=== PATIENT | male | born 1940 | race Caucasian/White ===

== ENCOUNTER 2017-08-13 23:20 | Emergency (ER) | payer MEDICARE, SELFPAY ==
[2017-08-13 23:21] VITALS: BP 164/97; PULSE 78; RESP 16; TEMP 37.1; O2SAT 97; BMI 48.2
--- NOTE | 2017-08-14 00:12 | CT_ITS ---
STUDY: CT SOFT TISSUE NECK WITH CONTRAST REASON FOR EXAM: Male, 76 years old. 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 High resolution transaxial imaging was performed following intravenous administration of 75ML ml of Isovue 300 contrast material. Sagittal and coronal images were reconstructed. Individualized dose optimization techniques were used for this CT. COMPARISON: None. FINDINGS: A centrally necrotic round mass is present in the left neck at the level of the hyoid bone, deep to the sternocleidomastoid muscle and anterior to the carotid space. It abuts the internal jugular vein, which is otherwise patent. Measures 2.8 x 2.4 cm. Adjacent stranding is present. Given the history of head and neck cancer, findings are concerning for primary neoplasm recurrence or necrotic adenopathy. Multiple shotty lymph nodes are present in the left level 5 and supraclavicular stations. The left parotid gland is absent. Normal bilateral proof plate maker spaces. Normal bilateral parapharyngeal spaces. Carotid calcifications. The left submandibular gland is diminutive. Normal visualized nasopharynx. Normal retropharyngeal space. Normal perivertebral space. Normal visualized bilateral faucial tonsils. The visualized tongue, tongue base and oropharynx are normal. Normal epiglottis, bilateral vallecula and hypopharynx. The pre-epiglottic and paraglottic adipose spaces are normal. Normal visualized bilateral piriform sinuses, aryepiglottic folds, vocal cords, and arytenoid-cricoid articulations. Normal subglottic trachea. 13 mm left thyroid nodule. Normal visualized pulmonary apices. Chronic left maxillary sinus disease. Normal visualized cervical spine. CT/Soft Tissue Neck WITH Contrast IMPRESSION: 2.8 cm necrotic mass in the left neck concerning for malignancy/necrotic adenopathy. Tissue diagnosis is needed. Left thyroid nodule. Electronically Signed: Lexa Ybarra MD at 3:23 EDT Tel , Service support ,
--- NOTE | 2017-08-14 00:26 | ED.VISSUMM ---
- ER Visit Summary Date of Service: 08/14/17 Chief Complaint: Neck mass History of Present Illness: The patient is a 76 M who presents with a neck mass. 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 He also had approximately 20+ lymph nodes removed from the left neck. Patient's had several surgeries in this area. He states that initially he saw Dr. Shaw Bobo. He went to see Dr. Shi about 3 weeks ago was told he needed to follow-up with his surgeon in [place] for a mass that he was feeling on the left side.. Patient has appointment and made to do so. About 48 hours ago patient believes the mass started to swell on the left side of his neck. He states it is not painful. He states that tonight his anxiety got the best of him and is worried about not being able to breathe or get blood flow to his brain. Physical Examination: Afebrile vital signs are stable Gen: Well-nourished well-developed Head: Normocephalic atraumatic Eyes: Perrl EOMI ENT: TMs clear no rhinorrhea moist mucous membranes Neck: Supple no lymphadenopathy no JVD nontender there are well-healed surgical incisions. There is a firm mass along the left SCM muscle along a surgical incision. There is no overlying erythema. There is no fluctuance. It is not mobile. Patient is not having any difficulty breathing or swallowing. There is no edema. CVS: Regular rate rhythm no murmurs normal S1-S2 Respiratory: No distress clear to auscultation bilaterally chest nontender Abdomen: Soft nontender nondistended normal bowel sounds no masses Back: Nontender Extremity: Nontender no edema Skin: Normal color no rash Neuro: alert orientated ?3 CN II-XII intact normal strength sensation reflexes gait cerebellar Psych: Normal affect normal mood Test Results: CBC, BMP, and CT of the neck was performed. Emergency Department Course and Treatment: [] Impression: [] This note was generated with unbound technologies dictation software. It may contain incorrect words, spelling, and punctuation that were not noted in review of the chart prior to signing <Cb Null - Last Filed: 08/14/17 00:26> - ER Visit Summary Date of Service: 08/14/17 Chief Complaint: [] History of Present Illness: The patient is a 76 M [] Physical Examination: [] Test Results: [] Emergency Department Course and Treatment: Patient signed out to me to follow-up on CT scan. Results per radiology is a 2.8 cm left sided neck mass that is deep to the sternocleidomastoid muscle and abuts the internal jugular vein. There is no compression of the vein. There is no airway compromise. Patient up-to-date on results. Image studies was placed on a disc for him to take to his specialist at [facility] on Tuesday. He will call on Tuesday for follow-up. He has no fevers and normal white count. Treatment Plan: [] Disposition: Discharge Impression: Left neck mass This note was generated with unbound technologies dictation software. It may contain incorrect words, spelling, and punctuation that were not noted in review of the chart prior to signing <Chon Canada - Last Filed: 08/14/17 04:07> ED Disposition <Cb Null - Last Filed: 08/14/17 00:26> <Chon Canada - Last Filed: 08/14/17 04:07> - Plan for ED Patient: Disposition: Home or Assisted Living Chief Complaint: Wound Diagnosis: Mass of left side of neck Referrals: Alejandra Howell MD [Primary Care Provider] - Additional Instructions: 2.8 cm left-sided neck mass. Call your's specialist at [facility] on Tuesday for closer follow-up for further workup.
--- NOTE | 2017-08-14 00:31 | ED.DCSUM_ITS ---
- ER Visit Summary Date of Service: 08/14/17 Chief Complaint: Neck mass History of Present Illness: The patient is a 76 M who presents with a neck mass. 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 He also had approximately 20+ lymph nodes removed from the left neck. Patient's had several surgeries in this area. He states that initially he saw Dr. Shaw Bobo. He went to see Dr. Shi about 3 weeks ago was told he needed to follow-up with his surgeon in [place] for a mass that he was feeling on the left side.. Patient has appointment and made to do so. About 48 hours ago patient believes the mass started to swell on the left side of his neck. He states it is not painful. He states that tonight his anxiety got the best of him and is worried about not being able to breathe or get blood flow to his brain. Physical Examination: Afebrile vital signs are stable Gen: Well-nourished well-developed Head: Normocephalic atraumatic Eyes: Perrl EOMI ENT: TMs clear no rhinorrhea moist mucous membranes Neck: Supple no lymphadenopathy no JVD nontender there are well-healed surgical incisions. There is a firm mass along the left SCM muscle along a surgical incision. There is no overlying erythema. There is no fluctuance. It is not mobile. Patient is not having any difficulty breathing or swallowing. There is no edema. CVS: Regular rate rhythm no murmurs normal S1-S2 Respiratory: No distress clear to auscultation bilaterally chest nontender Abdomen: Soft nontender nondistended normal bowel sounds no masses Back: Nontender Extremity: Nontender no edema Skin: Normal color no rash Neuro: alert orientated ?3 CN II-XII intact normal strength sensation reflexes gait cerebellar Psych: Normal affect normal mood Test Results: CBC, BMP, and CT of the neck was performed. Emergency Department Course and Treatment: [] Impression: [] This note was generated with Vine dictation software. It may contain incorrect words, spelling, and punctuation that were not noted in review of the chart prior to signing <Cb Null - Last Filed: 08/14/17 00:26> - ER Visit Summary Date of Service: 08/14/17 Chief Complaint: [] History of Present Illness: The patient is a 76 M [] Physical Examination: [] Test Results: [] Emergency Department Course and Treatment: Patient signed out to me to follow- up on CT scan. Results per radiology is a 2.8 cm left sided neck mass that is deep to the sternocleidomastoid muscle and abuts the internal jugular vein. There is no compression of the vein. There is no airway compromise. Patient up -to-date on results. Image studies was placed on a disc for him to take to his specialist at [facility] on Tuesday. He will call on Tuesday for follow- up. He has no fevers and normal white count. Treatment Plan: [] Disposition: Discharge Impression: Left neck mass This note was generated with Vine dictation software. It may contain incorrect words, spelling, and punctuation that were not noted in review of the chart prior to signing <Chon Canada - Last Filed: 08/14/17 04:07> ED Disposition <Cb Null - Last Filed: 08/14/17 00:26> <Chon Canada - Last Filed: 08/14/17 04:07> - Plan for ED Patient: Disposition: Home or Assisted Living Chief Complaint: Wound Diagnosis: Mass of left side of neck Referrals: Alejandra Howell MD [Primary Care Provider] - Additional Instructions: 2.8 cm left-sided neck mass. Call your's specialist at [facility] on Tuesday for closer follow-up for further workup.
[2017-08-14 00:39] LABS: Absolute Lymphocyte Count 0.69 X10^3/ul (0.83-4.51); Basophil# 0.02 X10^3/uL; Basophil% 0.3 % (0-1); Eosinophil# 0.09 X10^3/uL; Eosinophils% 1.4 % (0-5); Hematocrit 40.1 % (40-54); Hemoglobin 13.6 g/dl (13.0-16.5); Lymphocyte # 0.69 X10^3/ul (4.0); Lymphocyte % 10.9 % (19-41); Mean Corp Hgb Conc 33.9 g/gl (32-36); Mean Corpuscular Hgb 31.3 pg (27.0-32.0); Mean Corpuscular Volume 92.2 fL (80-94); Mean Platelet Vol. 8.7 fl (6.2-12.0); Monocyte# 0.52 X10^3/uL; Monocyte% 8.2 % (0-10); Neutrophil # 4.99 X10^3/uL (2.7-7.7); Platelet Count 225 K/mm3 (150-450); RBC Distribution Width CV 13.3 % (11.6-14.6); Red Blood Count 4.35 M/mm3 (4.6-6.2); White Blood Count 6.3 K/mm3 (4.4-11.0)
[2017-08-14 00:43] LABS: POSITIVE COUNT NO; POSITIVE DIFFERENTIAL NO; POSITIVE MORPHOLOGY NO
[2017-08-14 00:55] LABS: Anion Gap 6 (5-15); BUN 12 mg/dL (7-18); BUN/Creat Ratio 15.2 RATIO (10-20); Calcium,Total 8.9 mg/dL (8.5-10.1); Chloride 93 mmol/L (98-107); Creatinine, Serum 0.79 mg/dL (0.70-1.30); EST Glomerular Filtration Rate 101 mL/min (>60); Est Glom Filt Rate - Afr Amer 122 mL/min (>60); Glucose 172 mg/dL (74-106); Potassium 4.4 mmol/L (3.5-5.1); Sodium Level 130 mmol/L (136-145)
[2017-08-14 04:44] VITALS: BP 161/85; PULSE 74; RESP 16; O2SAT 97
== END 2017-08-14 04:45 | disposition home or self-care (01) ==
PROVIDERS: Emergency Medicine; Emergency Provider Emergency Medicine; Family Provider Internal Medicine; PCP Internal Medicine
DX: R22.1 Localized swelling, mass and lump, neck (principal); Z85.858 Personal history of malignant neoplasm of other endocrine glands; Z79.82 Long term (current) use of aspirin; Z79.899 Other long term (current) drug therapy
CPT/HCPCS: 70491; 80048; 85025; 96360; 96361; 99283; J7030; J7040; Q9967; A4216

== ENCOUNTER 2019-05-31 13:50 | Inpatient (IN) | payer MEDICARE, SELFPAY ==
[2019-05-31] VITALS (11 sets, daily range): BP systolic 87–134; BP diastolic 62–74; PULSE 73–104; RESP 15–20; TEMP 36.6–36.9; O2SAT 93–97; BMI 39.4
--- NOTE | 2019-05-31 14:16 | EKG12_ITS ---
Test Reason : Blood Pressure : / mmHG Vent. Rate : 104 BPM Atrial Rate : 108 BPM P-R Int : 000 ms QRS Dur : 090 ms QT Int : 348 ms P-R-T Axes : 000 -54 049 degrees QTc Int : 457 ms Atrial fibrillation with rapid ventricular response Left axis deviation Abnormal ECG Confirmed by GUERRERO ALCALA, MICK ([id number]), associate editor MENDEZ VERA ([id number]) on 06/01/2019 2:25:50 PM Referred By: BRANDON Confirmed By:MICK MASTERS MD
--- NOTE | 2019-05-31 14:16 | RAD_ITS ---
STUDY: X-RAY CHEST REASON FOR EXAM: Male, 78 years old. RIGHT SIDED CP, CHEST DISCOMFORT, AFIB TECHNIQUE: Single AP portable view of the chest. COMPARISON: Comparison is made with prior study dated April 11, 2015. FINDINGS: EKG electrodes are seen. Stable elevation of the right hemidiaphragm. There is no demonstrated pleural abnormality. Normal size heart. Normal mediastinum and michael. Normal visualized pulmonary arteries. Normal visualized aortic arch and descending thoracic aorta. There are diffuse degenerative changes of the visualized thoracic spine. Normal visualized ribs, clavicles, and shoulders. There is no demonstrated abnormality of the visualized soft tissue structures of the upper abdomen. RAD/Chest 1 View (Portable) IMPRESSION: Stable examination. No acute abnormality is seen. Electronically Signed: Yoni De La Cruz, at 15:16 EST , Service support ,
[2019-05-31 14:34] LABS: Absolute Lymphocyte Count 0.84 X10^3/uL (0.83-4.51); Absolute Neutrophil Count 9.3 X10^3/uL (2.0-7.7); Basophil# 0.02 X10^3/uL; Basophil% 0.2 % (0-1); Eosinophil# 0.03 X10^3/uL; Eosinophils% 0.3 % (0-5); Hemoglobin 14.6 g/dL (13.0-16.5); Lymphocyte # 0.84 X10^3/ul (4.0); Lymphocyte % 7.5 % (19-41); Mean Corpuscular Hgb 31.1 pg (27.0-32.0); Mean Corpuscular Volume 91.7 fL (80-94); Mean Platelet Vol. 8.7 fl (6.2-12.0); Monocyte# 1.01 X10^3/uL; NRBC Flagged by Analyzer 0 % (0-5); Neutrophil % 82.6 % (47-70); Platelet Count 280 K/mm3 (150-450); RBC Distribution Width CV 13.2 % (11.6-14.6); RBC Distribution Width SD 44.5 fl (35.1-43.9); Red Blood Count 4.69 M/mm3 (4.6-6.2); White Blood Count 11.2 K/mm3 (4.4-11.0)
--- NOTE | 2019-05-31 14:40 | ED.RN ---
d-dimer 0.85. aware.
[2019-05-31 14:41] LABS: D-Dimer Quantitative (DVT/PE) 0.85 FEU/ug/m (0.27-0.49)
[2019-05-31 14:43] LABS: Anion Gap 7 (5-15); BUN 11 mg/dL (7-18); BUN/Creat Ratio 11.4 RATIO (10-20); Calcium,Total 8.9 mg/dL (8.5-10.1); Chloride 94 mmol/L (98-107); Creatinine, Serum 0.96 mg/dL (0.70-1.30); EST Glomerular Filtration Rate 80 mL/min (>60); Est Glom Filt Rate - Afr Amer 97 mL/min (>60); Glucose 203 mg/dL (74-106); Potassium 3.6 mmol/L (3.5-5.1); Sodium Level 129 mmol/L (136-145)
--- NOTE | 2019-05-31 14:46 | CT_ITS ---
STUDY: CTA CHEST REASON FOR EXAM: Male, 78 years old. PT STATED CHEST PRESSURE TODAY, HX AFIB, HLD, HTN, DIAB RADIATION DOSAGE (If Supplied By Facility): CTDIvol = ( 10.26 ) mGy, DLP = ( 563.10 ) mGycm TECHNIQUE: The examination was performed with the intravenous administration of 100ML ISOVUE 370. Post-processing of the angiographic images was performed, with multiplanar reformation and 3D reconstruction. Individualized dose optimization techniques were used for this CT. COMPARISON: Comparison is made with prior chest radiograph done earlier today. FINDINGS: Normal enhancement of the main pulmonary artery and right and left pulmonary arteries. Normal enhancement of the bilateral peripheral pulmonary arteries. There is no demonstrated pulmonary embolism. Normal thoracic aorta and visualized great vessels. There is no demonstrated aortic dissection. Normal heart and pericardium. Normal mediastinum. Normal hilar regions. Normal visualized trachea and bronchi. There is elevation of the right hemidiaphragm. Mild degree of increased markings at the right lung base suggestive of atelectasis. Normal pleura. Normal chest wall structures. Normal osseous structures. Small layering gallstones along the dependent portion of the gallbladder lumen. CT/CTA Chest W/WO Contrast IMPRESSION: Elevation of the right hemidiaphragm with findings suggestive of right basilar atelectasis. No acute abnormality is seen. Multiple small layering gallstones. Electronically Signed: Yoni De La Cruz, at 15:42 EST , Service support ,
--- NOTE | 2019-05-31 15:29 | ED.VISSUMM ---
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 He reports he has chest pain that began at 2:00 in the morning while he was at rest. He was not sleeping. He describes it as a continuous pressure on the left side of his chest. No radiation. Stated 10 at worst and 5-10 currently. Is worsened by nothing including movement. Is also relieved by nothing. He does report is been diaphoretic with this. He denies any nausea, vomiting, shortness of breath, or palpitations. Patient reports that he had a stress test sometime ago. He denies ever having a heart catheterization. Does report that he had one episode of atrial fibrillation in the distant past as well. He is not anticoagulated. Physical Examination: Vitals: Stable. Afebrile. General: Well-nourished and well-developed. Head: Normocephalic atraumatic. Neck: Supple, no lymphadenopathy. No JVD. Nontender. Cardiovascular: Irregularly irregular rhythm. No murmurs. Respiratory: No respiratory distress. Clear to auscultation bilaterally. Abdominal: Soft, nontender, nondistended, normal bowel sounds. No guarding, rebound, or peritoneal signs. Back: Nontender. Extremities: Nontender, no edema. Skin: Normal color, no rash. Neurologic: Alert and oriented ?3. Cranial nerves II through XII are intact. Normal strength and sensation. Psych: Normal affect. Test Results: EKG is A. fib at [address] changes. Opponent is negative. D-dimer 0.85. Chem-7 shows a sodium 129, chloride 94, glucose 203. CBC shows a white count 11.2 with stable neutrophils 83 and lymphocytes of 8. Chest x-ray shows chronic changes. Clinical Impression(s) from Imaging Studies Chest X-Ray 05/31/19 14:16 IMPRESSION: Stable examination. No acute abnormality is seen. Electronically Signed: Yoni De La Cruz, at 15:16 EST , Service support , Chest CTA 05/31/19 14:46 IMPRESSION: Elevation of the right hemidiaphragm with findings suggestive of right basilar atelectasis. No acute abnormality is seen. Multiple small layering gallstones. Electronically Signed: Yoni Grovenathan, at 15:42 EST , Service support , Emergency Department Course and Treatment: Patient received aspirin by squad. He was given Eliquis p.o. here. His blood pressure was in the 90 systolic when he arrived. He was given a 500 cc bolus of normal saline and his heart rate is now in the 90s to low 100s and he is resting comfortably. Treatment Plan: Patient was discussed with Dr. Bentley. He will be admitted to the hospital for further evaluation and treatment. Disposition: Admitted in improved condition. Impression: 1. Atrial fibrillation, new onset. 2. Chest pain. This note was generated with [employer] dictation software. It may contain incorrect words, spelling, and punctuation that were not noted in review of the chart prior to signing ED Disposition - Plan for ED Patient:
--- NOTE | 2019-05-31 16:13 | ED.RN ---
[facility] [address] [facility]
--- NOTE | 2019-05-31 16:24 | HP.PCM_ITS ---
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 This began this AM at about 0100. It was a constant midsternal to left sided pressure. No SOB/LH/palp/dizziness/diaphoresis. He came to the ER and was found to have afib with rvr. Trop negative. He had afib one time in the past however converted out of it. He has never been on blood thinners and is hesitant to consider starting them. 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) Hypertension (Chronic) Hyperlipemia (Chronic) Type 2 diabetes mellitus (Chronic) Allergies trimethoprim Allergy (Verified 08/13/17 23:25) Itching acetaminophen [From Percocet] Adverse Reaction (Verified 08/13/17 23:25) Other ANXIETY amoxicillin trihydrate [From Augmentin] Adverse Reaction (Verified 08/13/17 23:25) Nausea/Vom/Diarrhea atropine sulfate [From ] Adverse Reaction (Verified 08/13/17 23:25) Unknown ceftriaxone sodium [From Rocephin] Adverse Reaction (Verified 08/13/17 23:25) Rash cephalexin monohydrate [From Keflex] Adverse Reaction (Verified 08/13/17 23:25) Unknown ciprofloxacin [From Cipro] Adverse Reaction (Verified 08/13/17 23:25) Vomiting ciprofloxacin HCl [From Cipro] Adverse Reaction (Verified 08/13/17 23:25) Vomiting gabapentin Adverse Reaction (Verified 08/13/17 23:25) Unknown hyoscyamine sulfate [From ] Adverse Reaction (Verified 04/07/18 23:25) Unknown oxycodone HCl [From Percocet] Adverse Reaction (Verified 08/13/17 23:25) Other ANXIETY phenobarbital [From ] Adverse Reaction (Verified 08/13/17 23:25) Unknown potassium clavulanate [From Augmentin] Adverse Reaction (Verified 08/13/17 23:25) Nausea/Vom/Diarrhea pseudoephedrine HCl [From Sudafed] Adverse Reaction (Verified 08/13/17 23:25) Other UNABLE TO SLEEP scopolamine hydrobromide [From ] Adverse Reaction (Verified 08/13/17 23:25) Unknown sulfadiazine [Sulfadiazine] Adverse Reaction (Verified 08/13/17 23:25) Nausea Home Medications: Ambulatory Orders Medication Instructions Recorded Amitriptyline HCl 75 - 100 mg PO QHS 12/13/13 Docusate Sodium [Colace] 100 mg PO BID 12/13/13 Glimepiride [Amaryl] 4 mg PO BID 12/13/13 Metoprolol Tartrate [Lopressor 50 mg PO BID 12/13/13 (beta hilton)] Polyethylene Glycol 3350 [Miralax] 17 gm PO DAILY 12/13/13 Potassium Chloride [K-Dur] 10 meq PO BID 12/13/13 Aspirin 325 mg PO QHS 08/26/14 Dutasteride [Avodart] 0.5 mg PO DAILY 08/26/14 Hydrochlorothiazide [Hctz] 25 mg PO DAILY 08/26/14 Multivitamins,Therapeutic 1 tablet PO DAILY 08/26/14 [Multivitamin] Amlodipine Besylate 5 mg PO DAILY 05/31/19 Cholecalciferol (Vitamin D3) 2,000 unit PO DAILY 05/31/19 [Vitamin D3] Fentanyl 25 mcg TRANSDERM. 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 Denies: Chest Pain, Edema, Heaviness, Light Headedness, Palpitations, Syncope Respiratory: Denies: Cough, Shortness of Breath, Shortness of breath at rest, Sputum production Gastrointestinal: Denies: Abdominal Pain, Diarrhea, Nausea, Vomiting Genitourinary: Denies: Dysuria Musculoskeletal: Denies: Joint Pain, Joint Tenderness Skin: Denies: Rash, Wounds Neurological: Denies: Numbness, Tingling, Focal weakness Psychiatric: Denies: Anxiety, Depression, Homicidal Ideations, Suicidal Ideations Hematologic/ Lymphatic: Denies: Easy Bruising, Easy Bleeding VTE Information - Inpt Only VTE Present on Admission: No VTE Mechan Device Prophylaxis: None VTE Pharm Prophylaxis ordered?: Yes - Physical Exam Vitals/I&O's: Vital Signs Temp Pulse Resp BP Pulse Ox 98.4 F 101 H 17 112/68 96 05/31/19 13:51 05/31/19 16:06 05/31/19 16:06 05/31/19 16:06 05/31/19 16:06 Oxygen Flow Rate (L/min) 1.5 Oxygen Delivery Method Nasal Cannula Weight: 184 lb 4.903 oz Body Mass Index (BMI) 0.0 Intake and Output for Last 24 Hours 05/29/19 05/30/19 05/31/19 23:59 23:59 23:59 Intake Total 500 / 500 Balance 500 / 500 General: Alert, Oriented x3, Cooperative HEENT: Atraumatic, PERRLA, EOMI, Normocephalic Neck: Supple, No JVD, Negative Carotid Bruits Lungs: Clear to auscultation, Normal air movement Cardiovascular: No murmurs, Irregular Rate Abdomen: Bowel Sounds Present, Soft, Non Tender Extremities: No edema, Capillary Refill Less than 3 Seconds Skin: No rashes, No breakdown Musculoskeletal: - - BL BKA Neurological: Cranial nerves II-XII grossly intact Psych/Mental Status: Normal Affect, Appropriate Laboratory Results 05/31/19 13:54: WBC 11.2 H, RBC 4.69, Hgb 14.6, Hct 43.0, MCV 91.7, MCH 31.1, MCHC 34.0, RDW Std Deviation 44.5 H, RDW Coeff of Usama 13.2, Plt Count 280, MPV 8.7, Immature Gran % (Auto) 0.400, Neut % (Auto) 82.6 H, Lymph % (Auto) 7.5 L, [place] % (Auto) 9.0, Eos % (Auto) 0.3, Baso % (Auto) 0.2, Absolute Neuts (auto) 9.3 H, Absolute Lymphs (auto) 0.84, Nucleated RBC % 0 05/31/19 13:54: Sodium 129 L, Potassium 3.6, Chloride 94 L, Carbon Dioxide 28.0, Anion Gap 7, BUN 11, Creatinine 0.96, Estim Creat Clear Calc 76.20, Est GFR (MDRD) Af Amer 97, Est GFR (MDRD) Non-Af 80, BUN/Creatinine Ratio 11.4, Glucose 203 H, Calcium 8.9, Troponin I < 0.015 05/31/19 13:54: D-Dimer Quant (PE/DVT) 0.85 H* 05/31/19 13:54: Magnesium Pending, TSH Pending Assessment/Plan All Active Problems Atrial fibrillation with RVR (Acute) Sepsis (Acute) 1. paroxysmal afib, rvr - low hundreds currently. eliquis started. echo, cycle enzymes, consider stress test. CTA negative. tsh neg. continue metoprolol 2. neurogenic bladder - self caths. 3. htn - stable 4. hld - statin 5. 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 dmt2 - hold orals. ssi. 7. chronic pain - fentanyl, norco, elavil 8. anxiety - lorazepam DVT ppx: eliquis This patient was seen by Johnny Flores PA-C under the supervision of Doctor Mc. <David Bentley - Last Filed: 05/31/19 18:08> History of Present Illness The patient is a 78 year old M [] Past Medical History Allergies trimethoprim Allergy (Verified 08/13/17 23:25) Itching acetaminophen [From Percocet] Adverse Reaction (Verified 08/13/17 23:25) Other ANXIETY amoxicillin trihydrate [From Augmentin] Adverse Reaction (Verified 08/13/17 23:25) Nausea/Vom/Diarrhea atropine sulfate [From ] Adverse Reaction (Verified 08/13/17 23:25) Unknown ceftriaxone sodium [From Rocephin] Adverse Reaction (Verified 08/13/17 23:25) Rash cephalexin monohydrate [From Keflex] Adverse Reaction (Verified 08/13/17 23:25) Unknown ciprofloxacin [From Cipro] Adverse Reaction (Verified 08/13/17 23:25) Vomiting ciprofloxacin HCl [From Cipro] Adverse Reaction (Verified 08/13/17 23:25) Vomiting gabapentin Adverse Reaction (Verified 08/13/17 23:25) Unknown hyoscyamine sulfate [From ] Adverse Reaction (Verified 08/13/17 23:25) Unknown oxycodone HCl [From Percocet] Adverse Reaction (Verified 08/13/17 23:25) Other ANXIETY phenobarbital [From ] Adverse Reaction (Verified 08/13/17 23:25) Unknown Pork/Porcine Containing Products Adverse Reaction (Verified 05/31/19 16:57) Nausea/Vom/Diarrhea potassium clavulanate [From Augmentin] Adverse Reaction (Verified 08/13/17 23:25) Nausea/Vom/Diarrhea pseudoephedrine HCl [From Sudafed] Adverse Reaction (Verified 08/13/17 23:25) Other UNABLE TO SLEEP scopolamine hydrobromide [From ] Adverse Reaction (Verified 08/13/17 23:25) Unknown sulfadiazine [Sulfadiazine] Adverse Reaction (Verified 08/13/17 23:25) Nausea - Physical Exam Vitals/I&O's: Vital Signs Temp Pulse Resp BP Pulse Ox 98.1 F 89 17 127/74 H 95 05/31/19 16:55 05/31/19 16:55 05/31/19 16:55 05/31/19 16:55 05/31/19 16:55 Oxygen Flow Rate (L/min) 2 Oxygen Delivery Method Nasal Cannula Weight: 163 lb 9.328 oz Body Mass Index (BMI) 39.4 Intake and Output for Last 24 Hours 05/29/19 05/30/19 05/31/19 23:59 23:59 23:59 Intake Total 900 / 900 Balance 900 / 900 Laboratory Results 05/31/19 13:54: WBC 11.2 H, RBC 4.69, Hgb 14.6, Hct 43.0, MCV 91.7, MCH 31.1, MCHC 34.0, RDW Std Deviation 44.5 H, RDW Coeff of Usama 13.2, Plt Count 280, MPV 8.7, Immature Gran % (Auto) 0.400, Neut % (Auto) 82.6 H, Lymph % (Auto) 7.5 L, [place] % (Auto) 9.0, Eos % (Auto) 0.3, Baso % (Auto) 0.2, Absolute Neuts (auto) 9.3 H, Absolute Lymphs (auto) 0.84, Nucleated RBC % 0 05/31/19 13:54: Sodium 129 L, Potassium 3.6, Chloride 94 L, Carbon Dioxide 28.0, Anion Gap 7, BUN 11, Creatinine 0.96, Estim Creat Clear Calc 76.20, Est GFR (MDRD) Af Amer 97, Est GFR (MDRD) Non-Af 80, BUN/Creatinine Ratio 11.4, Glucose 203 H, Calcium 8.9, Troponin I < 0.015 05/31/19 13:54: D-Dimer Quant (PE/DVT) 0.85 H* 05/31/19 13:54: Magnesium 1.8, TSH 1.24 05/31/19 17:01: POC Glucose 221 H Current Medications Apixaban (Eliquis) 5 mg PO BID HEATHER Glucagon () 1 mg IM .X1 PRN PRN Reason: Hypoglycemia Sodium Chloride () 1,000 mls @ 100 mls/hr IV .Q10H [facility] Last Admin: 05/31/19 17:15 Dose: 100 mls/hr Documented by: Dextrose (Dextrose 10%-Water) 250 mls @ 999 mls/hr IV .Q16M PRN; Protocol PRN Reason: HYPOGLYCEMIA Insulin Human Lispro (Humalog Kwikpen (Bkc)) 0 unit SC ACHS [facility]; Protocol Last Admin: 05/31/19 17:19 Dose: 4 units Documented by: Nitroglycerin (Nitrostat) 0.4 mg SUBLINGUAL Q5M PRN PRN Reason: CARDIAC/CHEST PAIN Sodium Chloride () 10 - 40 ml IV UD PRN PRN Reason: SALINE FLUSH Code Visit Addendum: Dr. Bentley I personally examined the patient and reviewed the chart. I agree with the above. 78-year-old male presenting with chest pain since about 2 AM. He said that it is waxed and waned throughout the day. On admission to the ER he was found to be tachycardic and in A. fib on EKG. He has a remote history of A. fib and so therefore it is likely paroxysmal. He is not on any blood thinners at home. 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 Will obtain an echo in the morning, magnesium was 1.8 and his TSH was 1.24. Initial troponin was negative. He did have an elevated d-dimer to 0.85, so he had a CTA of his chest done which was negative for a PE. We will continue with Shi for now. Inpatient E&M: 77682 Init Hosp L3
[2019-05-31] MEDS: APIXABAN 5 MG TABLET PO ×2 (16:31→21:31)
--- NOTE | 2019-05-31 16:46 | ECHOD_ITS ---
Reason For Study: Afib Procedure This was a 2D Doppler, Color Flow transthoracic echocardiogram. Exam performed portable in patient room. Left Ventricle Normal LV size. Left ventricular systolic function is normal. The estimated ejection fraction is 65 %. Stage 1 diastolic dysfunction. No regional wall motion abnormalities noted. Right Ventricle Normal RV size. Normal systolic function. Atria Normal left atrium. Normal right atrium. Mitral Valve Normal mitral valve. Mild (1+) eccentric mitral valve insufficiency. Tricuspid Valve Normal tricuspid valve. Mild (1+) tricuspid valve insufficiency. Pulmonary artery systolic pressure is 29 mmHg. Aortic Valve Trisinus/trileaflet aortic valve. Pulmonic Valve The pulmonic valve is not well visualized. Great Vessels Normal aortic root. The pulmonary artery is normal size. Normal inferior vena cava. Pericardium/Pleural No pericardial effusion. MMode/2D Measurements & Calculations LVIDd: 3.0 cm IVSd: 1.1 cm Ao root diam: 3.0 cm LVIDs: 2.0 cm LVPWd: 1.1 cm RVDd: 3.0 cm FS: 33.2 % LAV(MOD-bp): 60.3 ml LVAd ap4: 21.0 cm2 SV(MOD-sp4): 37.2 ml LAV(MOD-bp) Indexed: 29.3 ml/m2 EDV(MOD-sp4): 55.0 ml LAV(MOD-sp2): 48.0 ml EDV(sp4-el): 58.3 ml LAV(MOD-sp4): 59.3 ml LVAs ap4: 10.8 cm2 ESV(MOD-sp4): 17.9 ml ESV(sp4-el): 18.3 ml EF(MOD-sp4): 67.6 % EF(sp4-el): 68.5 % SV(sp4-el): 39.9 ml LA A4 area: 21.1 cm2 LA dimension(2D): 4.0 cm RA A4 area: 9.8 cm2 Doppler Measurements & Calculations MV E max willi: 69.8 cm/sec Lat Peak E' Willi: 10.3 cm/sec Med Peak E' Willi: 7.8 cm/sec MV A max willi: 69.8 cm/sec E/E' lat: 6.8 E/E' med: 8.9 MV E/A: 1.0 Ao V2 max: 113.2 cm/sec LV V1 max: 85.7 cm/sec PA V2 max: 109.8 cm/sec Ao max P.1 mmHg LV V1 max P.9 mmHg Ao V2 mean: 81.1 cm/sec Ao mean P.9 mmHg Ao V2 VTI: 25.9 cm TR max willi: 244.1 cm/sec TR max P.8 mmHg Interpretation Summary Normal LV size. Left ventricular systolic function is normal. The estimated ejection fraction is 65 %. Stage 1 diastolic dysfunction. Pulmonary artery systolic pressure is 29 mmHg. Mild (1+) eccentric mitral valve insufficiency. Ordering Physician: David Bentley Referring Physician: Alejandra Howell Performed By: Rhea Lew, RDRNON, RVT
[2019-05-31 16:54] LABS: Magnesium 1.8 mg/dL (1.6-2.6); Thyroid Stim Hormone (TSH) 1.24 uIU/mL (0.358-3.74)
[2019-05-31 17:11] LABS: Bedside Glucose 221 mg/dL (70-110)
[2019-05-31] MEDS: 0.9% Normal Saline 1,000 ML 100 ML IV (17:15)
[2019-05-31] MEDS: Insulin Lispro 100 UNIT/ML INSULN.PEN SC ×2 (17:19→21:32)
[2019-05-31] MEDS: LORazepam 1 MG Tablet PO (21:31)
[2019-05-31] MEDS: Atorvastatin Calcium 20 MG Tablet PO (21:31)
[2019-05-31] MEDS: HYDROcodone Bitartrate/Apap 5/325 Tablet PO (21:31)
[2019-05-31] MEDS: Metoprolol Tartrate 50 MG Tablet PO (21:31)
[2019-05-31] MEDS: Docusate Sodium 100 MG Capsule PO (21:31)
[2019-05-31 21:45] LABS: Bedside Glucose 191 mg/dL (70-110)
[2019-05-31] MEDS: MELATONIN 3 MG TABLET PO (23:45)
[2019-06-01] VITALS (9 sets, daily range): BP systolic 124–157; BP diastolic 61–79; PULSE 79–84; RESP 16–18; TEMP 36.7–36.9; O2SAT 92–98
[2019-06-01] MEDS: 0.9% Normal Saline 1,000 ML 100 ML IV (02:49)
[2019-06-01 05:56] LABS: Absolute Lymphocyte Count 0.69 X10^3/uL (0.83-4.51); Absolute Neutrophil Count 4.7 X10^3/uL (2.0-7.7); Basophil# 0.02 X10^3/uL; Basophil% 0.3 % (0-1); Eosinophil# 0.05 X10^3/uL; Eosinophils% 0.8 % (0-5); Hematocrit 39.3 % (40-54); Hemoglobin 13.1 g/dL (13.0-16.5); Lymphocyte # 0.69 X10^3/ul (4.0); Lymphocyte % 11.1 % (19-41); Mean Corp Hgb Conc 33.3 g/dL (32-36); Mean Corpuscular Hgb 31.4 pg (27.0-32.0); Mean Corpuscular Volume 94.2 fL (80-94); Mean Platelet Vol. 8.3 fl (6.2-12.0); Monocyte# 0.75 X10^3/uL; Monocyte% 12.1 % (0-10); NRBC Flagged by Analyzer 0 % (0-5); Neutrophil # 4.67 X10^3/uL (2.7-7.7); Neutrophil % 75.2 % (47-70); Platelet Count 215 K/mm3 (150-450); RBC Distribution Width CV 13.2 % (11.6-14.6); RBC Distribution Width SD 45.6 fl (35.1-43.9); Red Blood Count 4.17 M/mm3 (4.6-6.2); White Blood Count 6.2 K/mm3 (4.4-11.0)
[2019-06-01 06:14] LABS: Anion Gap 7 (5-15); BUN 11 mg/dL (7-18); BUN/Creat Ratio 15.5 RATIO (10-20); Calcium,Total 8.2 mg/dL (8.5-10.1); Chloride 98 mmol/L (98-107); Cholesterol 124 mg/dL (200); Creatinine, Serum 0.71 mg/dL (0.70-1.30); EST Glomerular Filtration Rate 114 mL/min (>60); Est Glom Filt Rate - Afr Amer 138 mL/min (>60); Estimated Creatinine Clearance 64.93 ml/min; Glucose 138 mg/dL (74-106); High Density Lipoprotein 46 mg/dL; Potassium 3.6 mmol/L (3.5-5.1); Sodium Level 134 mmol/L (136-145); Triglycerides 75 mg/dL; Very Low Density Lipoprotein 15 mg/dL (5-40)
[2019-06-01] MEDS: LORazepam 1 MG Tablet PO ×2 (06:17→14:18)
[2019-06-01] MEDS: HYDROcodone Bitartrate/Apap 5/325 Tablet PO ×2 (06:17→14:18)
[2019-06-01 06:25] LABS: Bedside Glucose 107 mg/dL (70-110)
--- NOTE | 2019-06-01 07:38 | CASEMGMT ---
Patient does not have a Healthcare Power of Interior Design Principal or Healthcare Living Will. Mary Ellen MAGDALENO MSW
[2019-06-01] MEDS: Docusate Sodium 100 MG Capsule PO (09:18)
[2019-06-01] MEDS: amLODIPine 5 MG Tablet PO (09:18)
[2019-06-01] MEDS: hydroCHLOROthiazide 25 MG Tablet PO (09:18)
[2019-06-01] MEDS: Lisinopril 40 MG Tablet PO (09:18)
[2019-06-01] MEDS: Finasteride 5 MG Tablet PO (09:19)
[2019-06-01] MEDS: APIXABAN 5 MG TABLET PO (09:19)
[2019-06-01] MEDS: Metoprolol Tartrate 50 MG Tablet PO (09:19)
--- NOTE | 2019-06-01 10:22 | CASEMGMT ---
This RN CM to room to complete CM assessment and pt is out of the dept for testing at this time. Will attempt again later. [place] RN CM
[2019-06-01 12:01] LABS: Bedside Glucose 143 mg/dL (70-110)
--- NOTE | 2019-06-01 12:39 | CASEMGMT ---
ANA ZIMMERMAN assessment: Face to Face with patient for initial transition planning/care coordination assessment. ANA ZIMMERMAN introduced self and role at [facility], pt voices understanding and consents to assessment at this time. Pt is sitting up in bed in no distress at this time. Pt is A/Ox4 at this time and answers all questions appropriately at this time. Pt's is at bedside during assessment. Care providers, pharmacy, and demographics verified/updated at this time. Presentation: Chest pressure that started at 0230 Admitting dx: Afib/Chest pain PCP: Lynda Specialists: Kisha, ENT oncologist at [facility] main Preferred Pharmacy: [facility] Insurance: [employer] Prescription Benefit: HumR Living Will/HPOA: Pt states does not have LW/HPOA and declines to complete at this time. Pt is provided with [facility] [employer] rack card at this time. LNOK: Meredith Cortes, Living Arrangements: Pt states lives with on main level of 2 story home and states no concerns at home at this time. Pt states assists with ADL's at times. Transportation: drives and pt states no transportation concerns at at this time. DME/HHC: Pt states has the following DME: hospital bed, w/c, and lift chair. Pt states no need for any further DME at this time. Pt states no hx of HHC or SNF in the past. Pt states no concerns with going home at time of discharge. Pt states is retired. Pt states does not smoke or drink ETOH. Pt states no further concerns/needs at this time. CM to follow for any further discharge planning/needs. Advised pt to ask for CM if any further questions/concerns/needs arise, voices understanding. Pt Goal: Home Plan: Home [place] ANA ZIMMERMAN
--- NOTE | 2019-06-01 12:40 | PCM.DC ---
- Discharge Diagnoses Current Active Problems: Current Active and Chronic Problems Hyperlipidemia (Chronic) You will use the following diet at home:: Calorie/Carbohydrate Controlled (specify 1200, 1400, etc) - 1800 marques / day, Cardiac Your food should be the consistency of: Regular Your liquids should be the consistency of: Regular/Thin Discharge Activity: Return to Normal Activity Allergies/Adverse Reactions: Allergies trimethoprim Allergy (Verified 08/13/17 23:25) Itching acetaminophen [From Percocet] Adverse Reaction (Verified 08/13/17 23:25) Other ANXIETY amoxicillin trihydrate [From Augmentin] Adverse Reaction (Verified 08/13/17 23:25) Nausea/Vom/Diarrhea atropine sulfate [From ] Adverse Reaction (Verified 08/13/17 23:25) Unknown ceftriaxone sodium [From Rocephin] Adverse Reaction (Verified 08/13/17 23:25) Rash cephalexin monohydrate [From Keflex] Adverse Reaction (Verified 08/13/17 23:25) Unknown ciprofloxacin [From Cipro] Adverse Reaction (Verified 08/13/17 23:25) Vomiting ciprofloxacin HCl [From Cipro] Adverse Reaction (Verified 08/13/17 23:25) Vomiting gabapentin Adverse Reaction (Verified 08/13/17 23:25) Unknown hyoscyamine sulfate [From ] Adverse Reaction (Verified 08/13/17 23:25) Unknown oxycodone HCl [From Percocet] Adverse Reaction (Verified 08/13/17 23:25) Other ANXIETY phenobarbital [From ] Adverse Reaction (Verified 08/13/17 23:25) Unknown Pork/Porcine Containing Products Adverse Reaction (Verified 05/31/19 16:57) Nausea/Vom/Diarrhea potassium clavulanate [From Augmentin] Adverse Reaction (Verified 08/13/17 23:25) Nausea/Vom/Diarrhea pseudoephedrine HCl [From Sudafed] Adverse Reaction (Verified 08/13/17 23:25) Other UNABLE TO SLEEP scopolamine hydrobromide [From ] Adverse Reaction (Verified 08/13/17 23:25) Unknown sulfadiazine [Sulfadiazine] Adverse Reaction (Verified 08/13/17 23:25) Nausea Medications to take at Discharge Amitriptyline HCl 75 - 100 mg PO QHS 12/13/13 Docusate Sodium [Colace] 100 mg PO BID 12/13/13 Glimepiride [Amaryl] 4 mg PO BID 12/13/13 Metoprolol Tartrate [Lopressor (beta hilton)] 50 mg PO BID 12/13/13 Polyethylene Glycol 3350 [Miralax] 17 gm PO DAILY 12/13/13 Potassium Chloride [K-Dur] 10 meq PO BID 12/13/13 Aspirin 325 mg PO QHS 08/26/14 Dutasteride [Avodart] 0.5 mg PO DAILY 08/26/14 Hydrochlorothiazide [Hctz] 25 mg PO DAILY 08/26/14 Multivitamins,Therapeutic [Multivitamin] 1 tablet PO DAILY 08/26/14 Amlodipine Besylate 5 mg PO DAILY 05/31/19 Cholecalciferol (Vitamin D3) [Vitamin D3] 2,000 unit PO DAILY 05/31/19 Fentanyl 25 mcg TRANSDERM. Q72H 05/31/19 Hydrocodone/Acetaminophen [Hydrocodone-Acetamin 5-325 mg] 1 tab PO TID 05/31/19 Lorazepam 1 mg PO TID 05/31/19 Quinapril HCl 40 mg PO DAILY 05/31/19 Rosuvastatin Calcium 10 mg PO QODAY 05/31/19 Apixaban [Eliquis] 5 mg PO BID #60 tab 06/01/19 The following prescriptions were given: Apixaban [Eliquis] 5 mg PO BID #60 tab Transmission Status: Pending to [facility]/pharmacy #[id number] Primary Care Physician: Alejandra Howell MD [Primary Care Provider] - Please follow up with your Primary Care Physician in: 1-2 weeks Test Results: Test results from this visit will be discussed in further detail at your follow-up appointment, if applicable. Please Follow Up With: Gloria Pereyra MD - call for appointment When: 3-4 weeks Proposed Discharge Date: 06/01/19
--- NOTE | 2019-06-01 13:04 | PCM.DC.SUM ---
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 RAD/Chest 1 View (Portable) IMPRESSION: Stable examination. No acute abnormality is seen. CT/CTA Chest W/WO Contrast IMPRESSION: Elevation of the right hemidiaphragm with findings suggestive of right basilar atelectasis. No acute abnormality is seen. Multiple small layering gallstones. Operations: None Procedures: 2-D Echocardiogram, Stress test Summary of Care Provided: Hospital course: The patient is a 78 year old M with pmhx as above who presented to the ER with c/o chest pressure. The patient was found to be in Afib with mild tachycardia. Troponin and EKG otherwise negative. He had a hx of afib one time in the past however had spontaneously converted out of it and was not on anticoagulation. He was admitted to the PCU and his home meds were continued. CTA chest was negative. Echo was obtained (report pending at this time). On tele he had a rate controlled well on his home metoprolol dose. He had episodes of both afib and normal sinus rhythm. Mag was low and was repleted. He had negative troponin x 3. Stress test was obtained and was negative. He had no further chest pain. He had a CHADVASC2 score of at least 4 and was started on eliquis. He was discharged home in stable condition. He has no car attendant so I referred him to Dr. Pereyra whom ideally he should see in the next 3-4 weeks. He will also need to see his PCP in 1-2 weeks. This patient was seen by Johnny Flores PA-C under the supervision of Doctor Bustillo. [] - Physical Exam Vitals/I&O's: Vital Signs Temp Pulse Resp BP Pulse Ox 98.5 F 79 18 152/70 H 98 06/01/19 11:40 06/01/19 11:40 06/01/19 11:40 06/01/19 11:40 06/01/19 11:40 Oxygen Flow Rate (L/min) 2 Oxygen Delivery Method Room Air Weight: 163 lb 9.328 oz Body Mass Index (BMI) 39.4 Intake and Output for Last 24 Hours 05/30/19 05/31/19 06/01/19 23:59 23:59 23:59 Intake Total 1100 / 1100 1671.67 / 1671.67 Output Total 0 / 0 1000 / 1000 Balance 1100 / 1100 671.67 / 671.67 General: Alert, Oriented x3, Cooperative HEENT: Atraumatic, PERRLA, EOMI, Normocephalic Neck: Supple, No JVD, Negative Carotid Bruits Lungs: Clear to auscultation, Normal air movement Cardiovascular: Regular rate, No murmurs Abdomen: Bowel Sounds Present, Soft, Non Tender Extremities: No edema, Capillary Refill Less than 3 Seconds Skin: No rashes, No breakdown Musculoskeletal: No Tenderness to Palpation of Joints or Extremities Neurological: Cranial nerves II-XII grossly intact Psych/Mental Status: Normal Affect, Appropriate Laboratory Results 05/31/19 13:54: WBC 11.2 H, RBC 4.69, Hgb 14.6, Hct 43.0, MCV 91.7, MCH 31.1, MCHC 34.0, RDW Std Deviation 44.5 H, RDW Coeff of Usama 13.2, Plt Count 280, MPV 8.7, Immature Gran % (Auto) 0.400, Neut % (Auto) 82.6 H, Lymph % (Auto) 7.5 L, Morgan % (Auto) 9.0, Eos % (Auto) 0.3, Baso % (Auto) 0.2, Absolute Neuts (auto) 9.3 H, Absolute Lymphs (auto) 0.84, Nucleated RBC % 0 05/31/19 13:54: Sodium 129 L, Potassium 3.6, Chloride 94 L, Carbon Dioxide 28.0, Anion Gap 7, BUN 11, Creatinine 0.96, Estim Creat Clear Calc 76.20, Est GFR (MDRD) Af Amer 97, Est GFR (MDRD) Non-Af 80, BUN/Creatinine Ratio 11.4, Glucose 203 H, Calcium 8.9, Troponin I < 0.015 05/31/19 13:54: D-Dimer Quant (PE/DVT) 0.85 H* 05/31/19 13:54: Magnesium 1.8, TSH 1.24 05/31/19 17:01: POC Glucose 221 H 05/31/19 17:39: Troponin I < 0.015 05/31/19 20:38: Troponin I < 0.015 05/31/19 21:27: POC Glucose 191 H 06/01/19 05:19: WBC 6.2, RBC 4.17 L, Hgb 13.1, Hct 39.3 L, MCV 94.2 H, MCH 31.4, MCHC 33.3, RDW Std Deviation 45.6 H, RDW Coeff of Usama 13.2, Plt Count 215, MPV 8.3, Immature Gran % (Auto) 0.500, Neut % (Auto) 75.2 H, Lymph % (Auto) 11.1 L, Morgan % (Auto) 12.1 H, Eos % (Auto) 0.8, Baso % (Auto) 0.3, Absolute Neuts (auto) 4.7, Absolute Lymphs (auto) 0.69 L, Nucleated RBC % 0 06/01/19 05:19: Sodium 134 L, Potassium 3.6, Chloride 98, Carbon Dioxide 29.0, Anion Gap 7, BUN 11, Creatinine 0.71, Estim Creat Clear Calc 64.93, Est GFR (MDRD) Af Amer 138, Est GFR (MDRD) Non-Af 114, BUN/Creatinine Ratio 15.5, Glucose 138 H, Calcium 8.2 L, Triglycerides 75, Cholesterol 124, LDL Cholesterol 63, VLDL Cholesterol 15, HDL Cholesterol 46 06/01/19 06:15: POC Glucose 107 06/01/19 11:53: POC Glucose 143 H Current Medications Hydrocodone Bitart/Acetaminophen ([place] 5mg-325mg) 1 tablet PO TID [facility] Last Admin: 06/01/19 06:17 Dose: 1 tablet Documented by: Amlodipine Besylate (Norvasc) 5 mg PO DAILY [facility] Last Admin: 06/01/19 09:18 Dose: 5 mg Documented by: Apixaban (Eliquis) 5 mg PO BID [facility] Last Admin: 06/01/19 09:19 Dose: 5 mg Documented by: Atorvastatin Calcium (Lipitor) 20 mg PO QODAY@2200 [facility] Last Admin: 05/31/19 21:31 Dose: 20 mg Documented by: Docusate Sodium (Colace) 100 mg PO BID [facility] Last Admin: 06/01/19 09:18 Dose: 100 mg Documented by: Fentanyl (Duragesic Patch) 25 mcg TRANSDERM. Q72H [facility] Finasteride (Proscar) 5 mg PO DAILY [facility] Last Admin: 06/01/19 09:19 Dose: 5 mg Documented by: Glucagon () 1 mg IM .X1 PRN PRN Reason: Hypoglycemia Hydrochlorothiazide (Hctz) 25 mg PO DAILY [facility] Last Admin: 06/01/19 09:18 Dose: 25 mg Documented by: Dextrose (Dextrose 10%-Water) 250 mls @ 999 mls/hr IV .Q16M PRN; Protocol PRN Reason: HYPOGLYCEMIA Insulin Human Lispro (Humalog [place] (Bkc)) 0 unit SC ACHS [facility]; Protocol Last Admin: 06/01/19 11:53 Dose: Not Given Documented by: Lisinopril (Zestril) 40 mg PO DAILY [facility] Last Admin: 06/01/19 09:18 Dose: 40 mg Documented by: Lorazepam (Ativan) 1 mg PO TID [facility] Last Admin: 06/01/19 06:17 Dose: 1 mg Documented by: Melatonin (Melatonin) 3 mg PO QHS PRN PRN Reason: SLEEP Last Admin: 05/31/19 23:45 Dose: 3 mg Documented by: Metoprolol Tartrate (Lopressor (Beta Nahun)) 50 mg PO BID [facility] Last Admin: 06/01/19 09:19 Dose: 50 mg Documented by: Nitroglycerin (Nitrostat) 0.4 mg SUBLINGUAL Q5M PRN PRN Reason: CARDIAC/CHEST PAIN Potassium Chloride (K-Dur) 10 meq PO BID [facility] Last Admin: 06/01/19 09:18 Dose: 10 meq Documented by: Sodium Chloride () 10 - 40 ml IV UD PRN PRN Reason: SALINE FLUSH Discharge Diet: Low fat/ Low Cholesterol, 1800 Calorie Control Diet, 2000 mg Sodium Diet Discharge Activity: Return to Normal Activity Home Medications: Medications to take at Discharge Amitriptyline HCl 75 - 100 mg PO QHS 12/13/13 Docusate Sodium [Colace] 100 mg PO BID 12/13/13 Glimepiride [Amaryl] 4 mg PO BID 12/13/13 Metoprolol Tartrate [Lopressor (beta nahun)] 50 mg PO BID 12/13/13 Polyethylene Glycol 3350 [Miralax] 17 gm PO DAILY 12/13/13 Potassium Chloride [K-Dur] 10 meq PO BID 12/13/13 Aspirin 325 mg PO QHS 08/26/14 Dutasteride [Avodart] 0.5 mg PO DAILY 08/26/14 Hydrochlorothiazide [Hctz] 25 mg PO DAILY 08/26/14 Multivitamins,Therapeutic [Multivitamin] 1 tablet PO DAILY 08/26/14 Amlodipine Besylate 5 mg PO DAILY 05/31/19 Cholecalciferol (Vitamin D3) [Vitamin D3] 2,000 unit PO DAILY 05/31/19 Fentanyl 25 mcg TRANSDERM. Q72H 05/31/19 Hydrocodone/Acetaminophen [Hydrocodone-Acetamin 5-325 mg] 1 tab PO TID 05/31/19 Lorazepam 1 mg PO TID 05/31/19 Quinapril HCl 40 mg PO DAILY 05/31/19 Rosuvastatin Calcium 10 mg PO QODAY 05/31/19 Apixaban [Eliquis] 5 mg PO BID #60 tab 06/01/19 Following Prescrptions Were Given to Patient: Apixaban [Eliquis] 5 mg PO BID #60 tab Transmission Status: Received by [facility]/pharmacy #[id number] Primary Care Physician: Alejandra Howell MD [Primary Care Provider] - Please follow up with your Primary Care Physician in: 1-2 weeks Please Follow Up With: Gloria Pereyra MD - call for appointment When: 3-4 weeks Disposition: Home Minutes spent on discharge:: 35 Patient Condition:: Stable Medical Necessity - Tobacco Use Smoking Status: Never smoker Tobacco Use: Non-smoker Meaningful Use Info Meaningful Use Diagnoses (Choose all that apply): None applicable <Chyna Bustillo E - Last Filed: 06/02/19 11:51> Discharge Date and Diagnosis - Secondary Discharge Diagnosis Chronic Problems Hyperlipidemia (Chronic) PAF (paroxysmal atrial fibrillation) (Chronic) 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 Patient was admitted because of chest pressure and he was found to have A. fib with mild RVR. This patient does have a history of paroxysmal atrial fibrillation. His maximum heart rate during this hospital stay was 104 bpm and he was in A. fib. His EKG revealed atrial fibrillation without evidence of acute segment changes. Troponin was negative. He was maintained on metoprolol for rate control and on Eliquis for anticoagulation. Serum electrolytes including potassium and magnesium were normal. TSH was normal. 2D echocardiogram revealed ejection fraction of 65%, stage I diastolic function and pulmonary artery systolic pressure of 29. Nuclear stress test performed and showed no evidence of stress-induced myocardial ischemia. After controlling his heart rate, chest pressure resolved. ACS ruled out. Patient discharged home in a stable medical condition, discharged on metoprolol for rate control, started on Eliquis for anticoagulation, continue with on his other previous home medications, plan to follow-up with cardiology in 3 to 4 weeks, recommended follow-up with PCP in 1 to 2 weeks. - Physical Exam General: Alert, Oriented x3, Cooperative, No apparent distress. HEENT: Atraumatic, PERRLA, EOMI. Neck: Supple, No JVD, Negative Carotid Bruits, Trachea Midline, Thyroid Normal. Lungs: Clear to auscultation, Normal air movement, No rhonchi, No wheeze, No rales. Cardiovascular: Regular rate, Regular Rhythm, Normal S1, Normal S2, PMI Normal. Abdomen: Bowel Sounds Present, Soft, Non Tender, Non-Distended, No Hepato-splenomegaly. Extremities: Status below bilateral knee amputation. Skin: No rashes, No breakdown Neurological: Cranial nerves are intact. Neuro grossly intact Vital Signs are stable. This note was generated with [employer] software. It may contain incorrect words, spelling, and punctuation that were not noted in checking the note before signing. - Physical Exam Vitals/I&O's: Vital Signs Temp Pulse Resp BP Pulse Ox 98.5 F 79 18 152/70 H 98 06/01/19 11:40 06/01/19 11:40 06/01/19 11:40 06/01/19 11:40 06/01/19 11:40 Oxygen Flow Rate (L/min) 2 Oxygen Delivery Method Room Air Weight: 163 lb 9.328 oz Body Mass Index (BMI) 39.4 Intake and Output for Last 24 Hours 05/30/19 05/31/19 06/01/19 23:59 23:59 23:59 Intake Total 1100 / 1100 1671.67 / 1671.67 Output Total 0 / 0 1000 / 1000 Balance 1100 / 1100 671.67 / 671.67 Laboratory Results 05/31/19 13:54: WBC 11.2 H, RBC 4.69, Hgb 14.6, Hct 43.0, MCV 91.7, MCH 31.1, MCHC 34.0, RDW Std Deviation 44.5 H, RDW Coeff of Usama 13.2, Plt Count 280, MPV 8.7, Immature Gran % (Auto) 0.400, Neut % (Auto) 82.6 H, Lymph % (Auto) 7.5 L, Morgan % (Auto) 9.0, Eos % (Auto) 0.3, Baso % (Auto) 0.2, Absolute Neuts (auto) 9.3 H, Absolute Lymphs (auto) 0.84, Nucleated RBC % 0 05/31/19 13:54: Sodium 129 L, Potassium 3.6, Chloride 94 L, Carbon Dioxide 28.0, Anion Gap 7, BUN 11, Creatinine 0.96, Estim Creat Clear Calc 76.20, Est GFR (MDRD) Af Amer 97, Est GFR (MDRD) Non-Af 80, BUN/Creatinine Ratio 11.4, Glucose 203 H, Calcium 8.9, Troponin I < 0.015 05/31/19 13:54: D-Dimer Quant (PE/DVT) 0.85 H* 05/31/19 13:54: Magnesium 1.8, TSH 1.24 05/31/19 17:01: POC Glucose 221 H 05/31/19 17:39: Troponin I < 0.015 05/31/19 20:38: Troponin I < 0.015 05/31/19 21:27: POC Glucose 191 H 06/01/19 05:19: WBC 6.2, RBC 4.17 L, Hgb 13.1, Hct 39.3 L, MCV 94.2 H, MCH 31.4, MCHC 33.3, RDW Std Deviation 45.6 H, RDW Coeff of Usama 13.2, Plt Count 215, MPV 8.3, Immature Gran % (Auto) 0.500, Neut % (Auto) 75.2 H, Lymph % (Auto) 11.1 L, Morgan % (Auto) 12.1 H, Eos % (Auto) 0.8, Baso % (Auto) 0.3, Absolute Neuts (auto) 4.7, Absolute Lymphs (auto) 0.69 L, Nucleated RBC % 0 06/01/19 05:19: Sodium 134 L, Potassium 3.6, Chloride 98, Carbon Dioxide 29.0, Anion Gap 7, BUN 11, Creatinine 0.71, Estim Creat Clear Calc 64.93, Est GFR (MDRD) Af Amer 138, Est GFR (MDRD) Non-Af 114, BUN/Creatinine Ratio 15.5, Glucose 138 H, Calcium 8.2 L, Triglycerides 75, Cholesterol 124, LDL Cholesterol 63, VLDL Cholesterol 15, HDL Cholesterol 46 06/01/19 06:15: POC Glucose 107 06/01/19 11:53: POC Glucose 143 H Current Medications Hydrocodone Bitart/Acetaminophen ([place] 5mg-325mg) 1 tablet PO TID [facility] Last Admin: 06/01/19 06:17 Dose: 1 tablet Documented by: Amlodipine Besylate (Norvasc) 5 mg PO DAILY [facility] Last Admin: 06/01/19 09:18 Dose: 5 mg Documented by: Apixaban (Eliquis) 5 mg PO BID [facility] Last Admin: 06/01/19 09:19 Dose: 5 mg Documented by: Atorvastatin Calcium (Lipitor) 20 mg PO QODAY@2200 [facility] Last Admin: 05/31/19 21:31 Dose: 20 mg Documented by: Docusate Sodium (Colace) 100 mg PO BID [facility] Last Admin: 06/01/19 09:18 Dose: 100 mg Documented by: Fentanyl (Duragesic Patch) 25 mcg TRANSDERM. Q72H [facility] Finasteride (Proscar) 5 mg PO DAILY [facility] Last Admin: 06/01/19 09:19 Dose: 5 mg Documented by: Glucagon () 1 mg IM .X1 PRN PRN Reason: Hypoglycemia Hydrochlorothiazide (Hctz) 25 mg PO DAILY [facility] Last Admin: 06/01/19 09:18 Dose: 25 mg Documented by: Dextrose (Dextrose 10%-Water) 250 mls @ 999 mls/hr IV .Q16M PRN; Protocol PRN Reason: HYPOGLYCEMIA Insulin Human Lispro (Humalog Kwikpen (Bkc)) 0 unit SC ACHS [facility]; Protocol Last Admin: 06/01/19 11:53 Dose: Not Given Documented by: Lisinopril (Zestril) 40 mg PO DAILY [facility] Last Admin: 06/01/19 09:18 Dose: 40 mg Documented by: Lorazepam (Ativan) 1 mg PO TID [facility] Last Admin: 06/01/19 06:17 Dose: 1 mg Documented by: Melatonin (Melatonin) 3 mg PO QHS PRN PRN Reason: SLEEP Last Admin: 05/31/19 23:45 Dose: 3 mg Documented by: Metoprolol Tartrate (Lopressor (Beta Nahun)) 50 mg PO BID [facility] Last Admin: 06/01/19 09:19 Dose: 50 mg Documented by: Nitroglycerin (Nitrostat) 0.4 mg SUBLINGUAL Q5M PRN PRN Reason: CARDIAC/CHEST PAIN Potassium Chloride (K-Dur) 10 meq PO BID [facility] Last Admin: 06/01/19 09:18 Dose: 10 meq Documented by: Sodium Chloride () 10 - 40 ml IV UD PRN PRN Reason: SALINE FLUSH Disposition: Home Minutes spent on discharge:: 28 Patient Condition:: Stable Meaningful Use Info Meaningful Use Diagnoses (Choose all that apply): None applicable Code Visit OBSV E&M: 90036 Observation care discharge
--- NOTE | 2019-06-01 13:39 | CASEMGMT ---
Pt to be sent home on Eliquis at discharge and med previously e-scribed to [facility] [place]. Call to pharmacist at [facility] and she states that pt's cost is $222 but that it looks like some of that is deductible. Pt/ updated at this time and Eliquis 30 day free trial card with instruction to pt/ at this time. Pt/ advised to discuss with PCP/cardio at f/u if cost is still significant after deductible met, voice understanding. Pt/ voice no further questions/concerns/needs at this time. Delbert RN CM
--- NOTE | 2019-06-01 14:00 | STRESSREP ---
Stress Test Report Pharmacologic myocardial perfusion stress test. 78-year-old man with a history of hypertension and paroxysmal atrial fibrillation. And chest pain. Stress protocol: Resting EKG demonstrates normal sinus rhythm with a rate of 82 bpm normal intervals are noted resting blood pressures 150/90 mmHg. 0.4 mg of regadenoson was infused per usual protocol followed by up intravenous saline flush injection continuous EKG monitoring was performed. The patient maintained sinus rhythm throughout the recording the maximum heart rate was 99 bpm which was 69% of maximum predicted heart rate the maximum workload was 1 metabolic equivalent. At rest there were no ST or T wave changes noted suggest abnormal flow reserve at peak infusion nonspecific ST-T wave changes were noted with no meet the criteria for ischemia. No clinical angina was noted. Myocardial perfusion protocol. 11.0 mCi of technetium 99m sestamibi was injected at rest. 0.4 mg of regadenoson was infused per usual protocol peak infusion 36.0 mCi of technetium 99m sestamibi was injected stress images were obtained stress and rest images were reconstructed in comparing the short axis vertical long horizontal long axis. Gated images were also obtained Perfusion SPECT analysis: Review of the stress images demonstrate normal uptake of tracer noted in all areas of the myocardium. The resting images similar demonstrate normal uptake of tracer noted in all areas of the myocardium. No areas of reversibility are noted suggest ischemia no previous infarct is noted. Gated SPECT analysis: The gated ejection fraction is noted to be 68%. Conclusion: Normal pharmacologic myocardial perfusion stress test. Preserved ejection fraction.
[2019-06-01] MEDS: Insulin Lispro 100 UNIT/ML INSULN.PEN SC (17:06)
[2019-06-01 17:40] LABS: Bedside Glucose 195 mg/dL (70-110)
== END 2019-06-01 18:12 | disposition home or self-care (01) | DRG 310 ==
LOC: ED 14:40 → PCU 16:03
PROVIDERS: Admitting Provider Family Medicine; Emergency Provider Emergency Medicine; PCP Internal Medicine; Visit Provider Hospitalist
DX: I48.0 Paroxysmal atrial fibrillation (principal); I10 Essential (primary) hypertension; E11.9 Type 2 diabetes mellitus without complications; E78.5 Hyperlipidemia, unspecified; Z89.512 Acquired absence of left leg below knee; Z89.511 Acquired absence of right leg below knee; Z79.82 Long term (current) use of aspirin; Z79.899 Other long term (current) drug therapy; Z79.84 Long term (current) use of oral hypoglycemic drugs; N31.9 Neuromuscular dysfunction of bladder, unspecified; G89.29 Other chronic pain; F41.9 Anxiety disorder, unspecified; Z99.3 Dependence on wheelchair; Q89.9 Congenital malformation, unspecified; R07.9 Chest pain, unspecified
CPT/HCPCS: 36415; 71045; 71275; 78452; 80048; 80061; 82962; 83735; 84443; 84484; 85025; 85379; 93005; 93017; 93306; 99285; A9500; J7030; J7040; Q9957; Q9967; A4216; J2785

== ENCOUNTER 2019-09-28 17:22 | Emergency (ER) | payer MEDICARE, SELFPAY ==
[2019-05-31 16:46] VITALS: BMI 39.4
[2019-09-28 17:24] VITALS: BP 187/97; PULSE 92; RESP 17; TEMP 36.6; O2SAT 96; BMI 34.0
--- NOTE | 2019-09-28 18:26 | CT_ITS ---
STUDY: CT CHEST WITHOUT CONTRAST REASON FOR EXAM: Male, 78 years old. PILL STUCK IN THROAT -- HX:DIABETES,HTN,A-FIB,,LT PAROTID GLAND REMOVED FOR CANCER RADIATION DOSAGE (If Supplied By Facility): CTDIvol = ( 17.13 ) mGy, DLP = ( 629.40 ) mGycm TECHNIQUE: Transaxial imaging was performed without the administration of intravenous contrast material. Multiplanar coronal and sagittal images were reformatted. Individualized dose optimization techniques were used for this CT. COMPARISON: Prior chest CT exam of May 31, 2019 FINDINGS: The examination begins at the level of the laryngeal vestibule. Negative for a foreign body of the included level larynx or trachea. Chronic elevation of the central right diaphragm and stable areas of chronic atelectasis or fibrotic changes in the right lower lobe and to a lesser extent the right middle lobe that are not substantially changed from the prior examination. The segmental bronchi of the right lower lobe have areas of narrowing and a somewhat rounded appearance peripherally also similar to the prior exam. Minimal persistent atelectatic change or chronic scarring in the anterior left lower lobe. Negative for new consolidation, new atelectasis or foreign body. Normal heart and pericardium. Coronary calcifications. Normal mediastinum. Normal hilar regions. Normal unenhanced pulmonary arteries. There is atherosclerotic calcification of the aortic arch with tortuosity and elongation of the aortic arch and descending thoracic aorta. There are multi-level degenerative changes of the thoracic spine. Multiple moderate size gallstones in a nondistended gallbladder. Negative for a foreign body of the airway included in the [id number] or foreign body of the esophagus. CT/Chest without Contrast IMPRESSION: Chronic elevation of the central right diaphragm and stable areas of chronic atelectasis or fibrotic change in the right lower lobe and to a lesser extent the right middle lobe not changed from prior exam. Chronic areas of narrowing and beading of right lower lobe bronchi. Negative for new consolidation, new atelectasis or pleural effusion. Negative for foreign body of the included airway, esophagus or elsewhere in the [id number]. Note that the exam begins at the level of the laryngeal vestibule and does not include the hypopharynx. Atherosclerotic changes of the aorta. Coronary calcifications. Cholelithiasis Electronically Signed: Mariangel Davis MD at 19:32 EDT , Service support ,
--- NOTE | 2019-09-28 18:48 | ED.DCSUM_ITS ---
- ER Visit Summary Date of Service: 09/28/19 Chief Complaint: [Foreign body inhalation] History of Present Illness: The patient is a 78 M [to the emergency department stating that he thinks he inhaled 1 of his pills into his lungs. Patient states that every time he tries to breathe he has discomfort in the right side of his chest. Patient feels like there is a whistling noise coming every time he breathes. This happened around 3:15 PM. Patient has history of diabetes and hypertension. Patient denies any fevers or recent illness.] Physical Examination: [HEENT-PERRLA, EOMI. Cranial nerves II through XII grossly intact. TMs clear. Mucous membranes moist. No adenopathy. Cardiovascular-regular rate and rhythm without murmur or ectopy Lungs-breath sounds bilaterally right greater than left. Patient has some expiratory wheezes noted especially on the right. Abdomen-normoactive bowel sounds, soft, nontender, no rebound or rigidity, no peritoneal signs. Extremities-intact ?4, normal range of motion, normal pulses, atraumatic] Test Results: [CT scan of the chest obtained showed no evidence of foreign body. Only chronic changes.] Emergency Department Course and Treatment: [Case was discussed with p ulmonologist on-call Dr. Damon Banuelos who recommended obtaining a CT scan without contrast of the chest to evaluate further.] He was feeling better during his stay in the emergency department and feels like that he will may be has dissolved as he is bringing up just a little bit of phlegm but does not have the burning anymore when he breathes. Treatment Plan: [Patient case was discussed further with Dr. Damon Banuelos of pulmonology who did not feel empiric antibiotics were indicated and just wanted to follow-up the patient in the office.] Disposition: [Discharged home in stable condition] Impression: [Aspiration of pill foreign body] This note was generated with [employer] dictation software. It may contain incorrect words, spelling, and punctuation that were not noted in review of the chart prior to signing ED Disposition - Plan for ED Patient: Referrals: Alejandra Howell MD [Primary Care Provider] -
--- NOTE | 2019-09-28 19:43 | ED.DEP ---
ED Disposition - Plan for ED Patient: Instructions: ED Foreign Body Swallowed, ED Obstruction Airway Removed Referrals: Alejandra Howell MD [Primary Care Provider] - Damon Banuelos DO [STAFF PHYSICIAN] - 3-5 Days
[2019-09-28 19:53] VITALS: BP 160/80; PULSE 88; RESP 16; O2SAT 99
== END 2019-09-28 19:59 | disposition home or self-care (01) ==
LOC: ED 19:28
PROVIDERS: Emergency Provider Emergency Medicine; PCP Internal Medicine
DX: T17.990A Other foreign object in respiratory tract, part unspecified in causing asphyxiation, initial encounter (principal)
CPT/HCPCS: 71250; 99281

== ENCOUNTER 2020-04-05 21:35 | Observation (INO) | payer MEDICARE, SELFPAY ==
[2020-04-05 21:35] VITALS: BP 172/77; PULSE 79; RESP 16; TEMP 36.4; O2SAT 99
--- NOTE | 2020-04-05 21:49 | EKG12_ITS ---
Test Reason : SIDE PAIN Blood Pressure : / mmHG Vent. Rate : 078 BPM Atrial Rate : 078 BPM P-R Int : 264 ms QRS Dur : 102 ms QT Int : 398 ms P-R-T Axes : 045 -41 016 degrees QTc Int : 453 ms Sinus rhythm with 1st degree A-V block Left axis deviation Abnormal ECG Confirmed by GUERRERO ALCALA, MICK ([id number]), manager editorial JESSICA TRAN ([id number]) on 04/08/2020 9:16:51 AM Referred By: BRANDON Confirmed By:MICK MASTERS MD
[2020-04-05 22:11] VITALS: O2SAT 98
[2020-04-05 22:14] VITALS: BP 144/67; PULSE 78; RESP 17; O2SAT 96
[2020-04-05] MEDS: Aspirin 81 MG TAB.CHEW 324 MG PO (22:14)
--- NOTE | 2020-04-05 22:20 | RAD_ITS ---
STUDY: X-RAY CHEST REASON FOR EXAM: Male, 79 years old. Chest tightness. TECHNIQUE: AP portable upright COMPARISON: CT chest 09/28/2019. FINDINGS: No apparent pneumothorax, pneumonia, pleural effusion, or edema. Mild chronic elevation right hemidiaphragm with overlying atelectasis similar to previous. Cardiac silhouette, michael and mediastinal contours are within normal limits. No acute osseous abnormality. No evidence of free air under the diaphragm. RAD/Chest 1 View (Portable) IMPRESSION: No acute findings. Electronically Signed: Alfred Teran, at 23:07 EST Tel , Service support ,
[2020-04-05 22:40] LABS: Absolute Lymphocyte Count 0.62 X10^3/uL (0.83-4.51); Absolute Neutrophil Count 5.9 X10^3/uL (2.0-7.7); Basophil# 0.01 X10^3/uL; Basophil% 0.1 % (0-1); Eosinophil# 0.04 X10^3/uL; Eosinophils% 0.6 % (0-5); Hematocrit 40.7 % (40-54); Hemoglobin 14.1 g/dL (13.0-16.5); Lymphocyte # 0.62 X10^3/ul (4.0); Lymphocyte % 8.8 % (19-41); Mean Corp Hgb Conc 34.6 g/dL (32-36); Mean Corpuscular Hgb 32.3 pg (27.0-32.0); Mean Corpuscular Volume 93.3 fL (80-94); Mean Platelet Vol. 9.2 fl (6.2-12.0); Monocyte# 0.51 X10^3/uL; Monocyte% 7.2 % (0-10); NRBC Flagged by Analyzer 0 % (0-5); Neutrophil # 5.86 X10^3/uL (2.7-7.7); Neutrophil % 82.9 % (47-70); Platelet Count 303 K/mm3 (150-450); RBC Distribution Width CV 12.2 % (11.6-14.6); Red Blood Count 4.36 M/mm3 (4.6-6.2); White Blood Count 7.1 K/mm3 (4.4-11.0)
[2020-04-05 22:53] LABS: Anion Gap 7 (5-15); BUN 8 mg/dL (7-18); BUN/Creat Ratio 9.8 RATIO (10-20); Chloride 91 mmol/L (98-107); Creatinine, Serum 0.82 mg/dL (0.70-1.30); EST Glomerular Filtration Rate 97 mL/min (>60); Est Glom Filt Rate - Afr Amer 117 mL/min (>60); Estimated Creatinine Clearance 77.64 ml/min; Glucose 252 mg/dL (74-106); Potassium 3.7 mmol/L (3.5-5.1); Sodium Level 127 mmol/L (136-145)
--- NOTE | 2020-04-05 23:07 | ED.VIS.GEN ---
History of Present Illness Chief Complaint: Chest Pain Informant: Patient Onset: Days Context: Gradual Onset Timing: Intermittent Current Severity: Moderate Maximum Severity: Moderate Narrative: The patient is a 79-year-old male with medical history significant for hypertension and hyperlipidemia who presents to the emergency department intermittent chest pain. Patient states over the past 3 days, he has had intermittent tightness in his left chest that radiates to his left arm. He states it comes in waves. He states is never had pain like this before as significant. He does have a history of paroxysmal A. fib and is on anticoagulants. 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 He is basically wheelchair-bound now. He denies any fevers or chills. He denies any cough or shortness of breath. Prior similar symptoms: No Recent Illness/Hospitalization: No Past Medical History - Allergies and Home Meds Allergies/Adverse Reactions: Allergies trimethoprim Allergy (Verified 04/05/20 21:37) Itching acetaminophen [From Percocet] Adverse Reaction (Verified 04/05/20 21:37) Other ANXIETY amoxicillin trihydrate [From Augmentin] Adverse Reaction (Verified 04/05/20 21:37) Nausea/Vom/Diarrhea atropine sulfate [From ] Adverse Reaction (Verified 04/05/20 21:37) Unknown ceftriaxone sodium [From Rocephin] Adverse Reaction (Verified 04/05/20 21:37) Rash cephalexin monohydrate [From Keflex] Adverse Reaction (Verified 04/05/20 21:37) Unknown ciprofloxacin [From Cipro] Adverse Reaction (Verified 04/05/20 21:37) Vomiting ciprofloxacin HCl [From Cipro] Adverse Reaction (Verified 04/05/20 21:37) Vomiting gabapentin Adverse Reaction (Verified 04/05/20 21:37) Unknown hyoscyamine sulfate [From ] Adverse Reaction (Verified 04/05/20 21:37) Unknown oxycodone HCl [From Percocet] Adverse Reaction (Verified 04/05/20 21:37) Other ANXIETY phenobarbital [From ] Adverse Reaction (Verified 04/05/20 21:37) Unknown Pork/Porcine Containing Products Adverse Reaction (Verified 04/05/20 21:37) Nausea/Vom/Diarrhea potassium clavulanate [From Augmentin] Adverse Reaction (Verified 04/05/20 21:37) Nausea/Vom/Diarrhea pseudoephedrine HCl [From Sudafed] Adverse Reaction (Verified 04/05/20 21:37) Other UNABLE TO SLEEP scopolamine hydrobromide [From ] Adverse Reaction (Verified 04/05/20 21:37) Unknown sulfadiazine [Sulfadiazine] Adverse Reaction (Verified 04/05/20 21:37) Nausea Primary Care Physician: Alejandra Howell MD [Primary Care Provider] - Prior records reviewed: Yes Past Medical History: - - Hypertension, hyperlipidemia, prior skin cancer of the face Surgical History: noncontributory, - - 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, 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 Denies: Palpitations Respiratory: Denies: Dyspnea, Cough, Dyspnea on exertion Gastrointestinal: Denies: Abdominal pain, Nausea, Vomiting, Diarrhea, Melena, Hematochezia Genitourinary: Denies: Dysuria, Hematuria, Frequency Musculoskeletal: Denies: Back pain, Extremity Pain Skin: Denies: Rash, Wounds Neurological: Denies: Headache, Weakness, Numbness Physical Exam Vital Signs/Narrative: Vital Signs Temp Pulse Resp BP Pulse Ox 04/05/20 22:14 78 17 144/67 H 96 04/05/20 22:11 98 04/05/20 21:35 97.6 F L 79 16 172/77 H 99 General: Well nourished, Well developed, No Acute Distress Head: Normocephalic, Atraumatic Eyes: Perrl, EOMI ENT: Moist mucous membranes, No rhinorrhea Neck: Supple, Nontender Cardiovascular: Regular rate, Regular rhythm, No murmurs Respiratory: No distress, CTA bilaterally, Chest nontender Abdomen: Soft, Nontender, Nondistended, Normal bowel sounds Back: Nontender, Normal Inspection Extremities: - - Bilateral AKA's of lower extremities. Normal pulses of upper extremities. Skin: Normal color, No rash Neurological: Alert, Oriented x3, Cranial nerves II-XII grossly intact, Normal Strength, Normal Sensation Psychological: Normal affect, Normal Mood Diagnostic/Tx/Re-eval Clinical Impression(s) from Imaging Studies Chest X-Ray 04/05/20 22:20 IMPRESSION: No acute findings. Electronically Signed: Alfred Teran, at 23:07 EST Tel , Service support , Abnormal Lab Results 04/05/20 04/05/20 22:15 22:15 WBC 7.1 RBC 4.36 L Hgb 14.1 Hct 40.7 MCV 93.3 MCH 32.3 H MCHC 34.6 RDW Std Deviation 42.0 RDW Coeff of Usama 12.2 Plt Count 303 MPV 9.2 Immature Gran % (Auto) 0.400 Neut % (Auto) 82.9 H Lymph % (Auto) 8.8 L [place] % (Auto) 7.2 Eos % (Auto) 0.6 Baso % (Auto) 0.1 Absolute Neuts (auto) 5.9 Absolute Lymphs (auto) 0.62 L Nucleated RBC % 0 Sodium 127 L Potassium 3.7 Chloride 91 L Carbon Dioxide 29.0 Anion Gap 7 BUN 8 Creatinine 0.82 Estim Creat Clear Calc 77.64 Est GFR (MDRD) Af Amer 117 Est GFR (MDRD) Non-Af 97 BUN/Creatinine Ratio 9.8 L Glucose 252 H Calcium 9.0 Troponin I < 0.015 - Rhythm Strip Rhythm Strip: Sinus Rhythm Rate: 80 Ectopy: None - EKG Initial EKG Interpretation: Sinus Rhythm, No Acute Injury Pattern Prior: Unchanged - Medical Decision Making Patient presents to the emergency department with intermittent chest pain. He states he is having a hard time getting around in his wheelchair because when he tries to exert himself, he gets the tightness. It comes in waves. He states he is not having pain now. EKG was obtained which showed sinus rhythm without acute ischemia. Cardiac enzymes were unremarkable. Chest x-ray shows no evidence of volume overload. With patient's advanced age and cardiac risk factors, along with chest tightness that radiates to his left arm, I do feel that he would benefit from observation. The patient was discussed with the hospitalist. Impression 1. Chest pain ED Disposition - Plan for ED Patient: Referrals: Alejandra Howell MD [Primary Care Provider] -
[2020-04-05 23:26] VITALS: BP 142/72; PULSE 81; RESP 16; O2SAT 97
--- NOTE | 2020-04-05 23:47 | HP.PCM_ITS ---
Problem List (1) Chest pain Status: Acute History of Present Illness Date of Admission: 04/05/20 Chief Complaint: chest pain The patient is a 79 year old M with a significant history of hypertension; hyperlipidemia; A. fib on Eliquis; hyperlipidemia; bilateral [id number] amputation secondary to congenital disease; wheelchair-bound who presented to emergency department with persistent chest tightness x3 days. His chest pain is located at his left chest and it radiates to his neck; his left scapula and his left arm. He denies any aggravating factors to the pain. Occasionally tizanidine helps with the pain. 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) Hypertension (Chronic) Hyperlipemia (Chronic) Type 2 diabetes mellitus (Chronic) Allergies trimethoprim Allergy (Verified 04/05/20 21:37) Itching acetaminophen [From Percocet] Adverse Reaction (Verified 04/05/20 21:37) Other ANXIETY amoxicillin trihydrate [From Augmentin] Adverse Reaction (Verified 04/05/20 21:37) Nausea/Vom/Diarrhea atropine sulfate [From ] Adverse Reaction (Verified 04/05/20 21:37) Unknown ceftriaxone sodium [From Rocephin] Adverse Reaction (Verified 04/05/20 21:37) Rash cephalexin monohydrate [From Keflex] Adverse Reaction (Verified 04/05/20 21:37) Unknown ciprofloxacin [From Cipro] Adverse Reaction (Verified 04/05/20 21:37) Vomiting ciprofloxacin HCl [From Cipro] Adverse Reaction (Verified 04/05/20 21:37) Vomiting gabapentin Adverse Reaction (Verified 04/05/20 21:37) Unknown hyoscyamine sulfate [From ] Adverse Reaction (Verified 04/05/20 21:37) Unknown oxycodone HCl [From Percocet] Adverse Reaction (Verified 04/05/20 21:37) Other ANXIETY phenobarbital [From ] Adverse Reaction (Verified 04/05/20 21:37) Unknown Pork/Porcine Containing Products Adverse Reaction (Verified 04/05/20 21:37) Nausea/Vom/Diarrhea potassium clavulanate [From Augmentin] Adverse Reaction (Verified 04/05/20 21:37) Nausea/Vom/Diarrhea pseudoephedrine HCl [From Sudafed] Adverse Reaction (Verified 04/05/20 21:37) Other UNABLE TO SLEEP scopolamine hydrobromide [From ] Adverse Reaction (Verified 04/05/20 21:37) Unknown sulfadiazine [Sulfadiazine] Adverse Reaction (Verified 04/05/20 21:37) Nausea Home Medications: Ambulatory Orders Medication Instructions Recorded Amitriptyline HCl 75 - 100 mg PO QHS 12/13/13 Docusate Sodium [Colace] 100 mg PO BID 12/13/13 Glimepiride [Amaryl] 4 mg PO BID 12/13/13 Metoprolol Tartrate [Lopressor 50 mg PO BID 12/13/13 (beta hilton)] Polyethylene Glycol 3350 [Miralax] 17 gm PO DAILY 12/13/13 Potassium Chloride [K-Dur] 10 meq PO BID 12/13/13 Dutasteride [Avodart] 0.5 mg PO DAILY 08/26/14 Hydrochlorothiazide [Hctz] 25 mg PO DAILY 08/26/14 Multivitamins,Therapeutic 1 tablet PO DAILY 08/26/14 [Multivitamin] Amlodipine Besylate 5 mg PO DAILY 05/31/19 Cholecalciferol (Vitamin D3) 2,000 unit PO DAILY 05/31/19 [Vitamin D3] Hydrocodone/Acetaminophen 1 tab PO TID 05/31/19 [Hydrocodone-Acetamin 5-325 mg] Lorazepam 1 mg PO TID 05/31/19 Quinapril HCl 40 mg PO DAILY 05/31/19 Rosuvastatin Calcium 10 mg PO QODAY 05/31/19 apixaban 5 mg tablet 5 mg PO BID #60 tab 06/27/19 Duragesic patch 37.5 04/05/20 Fentanyl 37.5 mcg TD Q72H 04/05/20 Tizanidine HCl [Zanaflex] 4 mg PO PRN PRN 04/05/20 Surgical History: - - 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, 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 Denies: Palpitations Respiratory: Denies: Cough, Shortness of breath at rest, Sputum production Gastrointestinal: Denies: Abdominal Pain, Nausea, Vomiting Genitourinary: Denies: Dysuria Musculoskeletal: Reports: Back Pain. Denies: Joint Pain, Joint Tenderness Skin: Denies: Rash, Wounds Neurological: Denies: Numbness, Tingling, Focal weakness Psychiatric: Denies: Anxiety, Depression, Homicidal Ideations, Suicidal Ideations Hematologic/ Lymphatic: Denies: Easy Bruising, Easy Bleeding VTE Information - Inpt Only VTE Present on Admission: No VTE Mechan Device Prophylaxis: None VTE Pharm Prophylaxis ordered?: No Reason prophylaxis not ordered:: Treatment Not Indicated - Home Eliquis for A. fib; continued. Patient Problems: Active and Suspected Problems Chest pain (Acute) - Physical Exam Vitals/I&O's: Vital Signs Temp Pulse Resp BP Pulse Ox 97.6 F L 81 16 142/72 H 97 04/05/20 21:35 04/05/20 23:26 04/05/20 23:26 04/05/20 23:26 04/05/20 23:26 Oxygen Delivery Method Room Air Weight: 73.936 kg Body Mass Index (BMI) 0.0 General: Alert, Oriented x3, Cooperative HEENT: Atraumatic, PERRLA, EOMI, Normocephalic Neck: Supple, No JVD, Negative Carotid Bruits Lungs: Clear to auscultation, Normal air movement Cardiovascular: Regular rate, No murmurs Abdomen: Bowel Sounds Present, Soft, Non Tender Extremities: No edema, Capillary Refill Less than 3 Seconds, - - Bilateral [id number] amputation Skin: No rashes, No breakdown Musculoskeletal: No Tenderness to Palpation of Joints or Extremities Neurological: Cranial nerves II-XII grossly intact Psych/Mental Status: Normal Affect, Appropriate Laboratory Results 04/05/20 22:15: WBC 7.1, RBC 4.36 L, Hgb 14.1, Hct 40.7, MCV 93.3, MCH 32.3 H, MCHC 34.6, RDW Std Deviation 42.0, RDW Coeff of Usama 12.2, Plt Count 303, MPV 9.2, Immature Gran % (Auto) 0.400, Neut % (Auto) 82.9 H, Lymph % (Auto) 8.8 L, [place] % (Auto) 7.2, Eos % (Auto) 0.6, Baso % (Auto) 0.1, Absolute Neuts (auto) 5.9, Absolute Lymphs (auto) 0.62 L, Nucleated RBC % 0 04/05/20 22:15: Sodium 127 L, Potassium 3.7, Chloride 91 L, Carbon Dioxide 29.0, Anion Gap 7, BUN 8, Creatinine 0.82, Estim Creat Clear Calc 77.64, Est GFR (MDRD) Af Amer 117, Est GFR (MDRD) Non-Af 97, BUN/Creatinine Ratio 9.8 L, Glucose 252 H, Calcium 9.0, Troponin I < 0.015 Assessment/Plan All Active Problems Chest pain (Acute) Chest pain Place on a monitored bed at PCU Actual CXR image was independently visualized. No acute cardiopulmonary process was noted. Actual EKG tracing was independently visualized. EKG tracing showed sinus rhythm without ST or Twave abnormalities. Aspirin 324 mg x 1 given at the emergency department. ASA 81 mg p.o. daily ordered SL NTG 0.4 mg prn as needed for chest pain ordered We will check lipid panel. Initial troponin was negative Serial cardiac enzymes ordered Stat EKG as needed for chest pain Metoprolol continued Rosuvastatin continued Chemical stress test ordered. Diabetes mellitus Patient with hyperglycemia. Amaryl continued Accu-Chek with correction scale insulin ordered. Anxiety disorder Lorazepam continued Hypertension Blood pressure is now within goal Metoprolol continued Chronic pain On fentanyl DVT prophylaxis ordered. Not indicated since patient is on Eliquis for paroxysmal A. fib. Eliquis continued. OBSV E&M: 00619 Initial observation care L2
--- NOTE | 2020-04-05 23:48 | EKG12_ITS ---
Test Reason : CHEST PAIN Blood Pressure : / mmHG Vent. Rate : 077 BPM Atrial Rate : 077 BPM P-R Int : 206 ms QRS Dur : 104 ms QT Int : 398 ms P-R-T Axes : -04 -40 025 degrees QTc Int : 450 ms Normal sinus rhythm Left axis deviation Abnormal ECG Confirmed by GUERRERO ALCALA, MICK ([id number]), makeup editor JESSICA TRAN ([id number]) on 04/08/2020 9:17:05 AM Referred By: BRANDON Confirmed By:MICK MASTERS MD
[2020-04-06] VITALS (17 sets, daily range): BP systolic 123–178; BP diastolic 73–87; PULSE 58–81; RESP 15–18; TEMP 36.3–36.9; O2SAT 92–97; BMI 38.3; BMI 38.4
[2020-04-06] MEDS: Nitroglycerin SL (ED/IMG/CATH) 0.4 MG TABLET SUBLINGUAL (00:42)
--- NOTE | 2020-04-06 00:52 | EKG12_ITS ---
Test Reason : Blood Pressure : / mmHG Vent. Rate : 092 BPM Atrial Rate : 326 BPM P-R Int : 000 ms QRS Dur : 096 ms QT Int : 368 ms P-R-T Axes : 000 -42 034 degrees QTc Int : 455 ms Atrial fibrillation Left axis deviation Low voltage QRS (Limb Leads) Poor R wave progression Abnormal ECG Confirmed by BROOKLYN ALCALA, SANJAY ([id number]), book or script editor JESSICA TRAN ([id number]) on 04/09/2020 10:05:41 AM Referred By: JIMMY Confirmed By:SANJAY BARAHONA MD
[2020-04-06] MEDS: Insulin Lispro 100 UNIT/ML INSULN.PEN SC ×5 (02:18→21:15)
--- NOTE | 2020-04-06 03:14 | EKG12_ITS ---
Test Reason : CP Blood Pressure : / mmHG Vent. Rate : 072 BPM Atrial Rate : 072 BPM P-R Int : 236 ms QRS Dur : 098 ms QT Int : 416 ms P-R-T Axes : 040 -50 025 degrees QTc Int : 455 ms Sinus rhythm with 1st degree A-V block Left axis deviation Poor R wave progression Nonspecific T wave abnormality Abnormal ECG Confirmed by BROOKLYN ALCALA, SANJAY ([id number]), editor house organ JESSICA TRAN ([id number]) on 04/09/2020 9:53:09 AM Referred By: DR RIOS Confirmed By:SANJAY BARAHONA MD
[2020-04-06] MEDS: Nitroglycerin (INPATIENT USE) 0.4 MG TAB.SUBL SUBLINGUAL (03:23)
[2020-04-06] MEDS: 0.9% Saline Lock 10 ML Syringe IV (04:18)
[2020-04-06] MEDS: tiZANidine HCl 2 MG Tablet 4 MG PO (04:40)
[2020-04-06] MEDS: HYDROcodone Bitartrate/Apap 5/325 Tablet PO ×3 (05:00→21:13)
[2020-04-06] MEDS: LORazepam 1 MG Tablet PO ×3 (05:01→21:14)
[2020-04-06 05:15] LABS: Anion Gap 8 (5-15); BUN 7 mg/dL (7-18); BUN/Creat Ratio 10.7 RATIO (10-20); Calcium,Total 8.7 mg/dL (8.5-10.1); Chloride 91 mmol/L (98-107); Creatinine, Serum 0.65 mg/dL (0.70-1.30); EST Glomerular Filtration Rate 126 mL/min (>60); Est Glom Filt Rate - Afr Amer 152 mL/min (>60); Estimated Creatinine Clearance 62.17 ml/min; Glucose 184 mg/dL (74-106); Potassium 3.2 mmol/L (3.5-5.1); Sodium Level 128 mmol/L (136-145)
[2020-04-06 05:21] LABS: Cholesterol 119 mg/dL (200); High Density Lipoprotein 49 mg/dL; Triglycerides 70 mg/dL; Very Low Density Lipoprotein 14 mg/dL (5-40)
[2020-04-06 07:06] LABS: Bedside Glucose 233 mg/dL (70-110)
[2020-04-06] MEDS: Finasteride 5 MG Tablet PO (08:45)
[2020-04-06] MEDS: Lisinopril 40 MG Tablet PO (08:45)
[2020-04-06] MEDS: amLODIPine 5 MG Tablet PO (08:45)
[2020-04-06] MEDS: hydroCHLOROthiazide 25 MG Tablet PO (08:45)
[2020-04-06] MEDS: Metoprolol Tartrate 50 MG Tablet PO ×2 (08:45→21:09)
[2020-04-06] MEDS: Polyethylene Glycol 3350 17 GM PACKET PO (08:46)
[2020-04-06] MEDS: Aspirin E.C. 81 MG Tablet PO (08:46)
[2020-04-06] MEDS: Glimepiride 4 MG Tablet PO ×2 (08:46→16:25)
[2020-04-06] MEDS: Docusate Sodium 100 MG Capsule PO ×2 (08:46→21:10)
[2020-04-06] MEDS: Multivitamins,Therapeutic Tablet 1 TABLET PO (08:46)
[2020-04-06] MEDS: APIXABAN 5 MG TABLET PO ×2 (08:47→21:10)
[2020-04-06 12:06] LABS: Bedside Glucose 212 mg/dL (70-110)
--- NOTE | 2020-04-06 14:42 | PCM.PN.HOSP ---
Patient Problems: Active and Suspected Problems Chest pain (Acute) Subjective: Patient seen and examined. He was admitted with a complaint of chest pain. He has no complaints this morning. Chest pain hasn't recurred since admission. Review of systems otherwise negative. He has remained hemodynamically stable. Vitals/I&O's: Vital Signs Temp Pulse Resp BP Pulse Ox 97.4 F L 71 18 158/82 H 95 04/06/20 10:00 04/06/20 10:00 04/06/20 10:00 04/06/20 10:00 04/06/20 10:00 Oxygen Delivery Method Room Air Weight: 159 lb 2.78 oz Body Mass Index (BMI) 38.3 Intake and Output for Last 24 Hours 04/04/20 04/05/20 04/06/20 23:59 23:59 23:59 Intake Total 740 / 740 Output Total 1925 / 1925 Balance -1185 / -1185 General: Alert, Oriented x3, Cooperative, No apparent distress HEENT: Atraumatic, PERRLA, EOMI, Normocephalic Oral: Dry Mucosa Neck: Supple, No JVD, Negative Carotid Bruits Lungs: Clear to auscultation, Normal air movement, No rhonchi, No wheeze, No rales Cardiovascular: Regular rate, Regular Rhythm, Normal S1, Normal S2, No murmurs Abdomen: Bowel Sounds Present, Soft, Non Tender, Non-Distended, No Hepato-splenomegaly Extremities: No clubbing, No cyanosis, No edema, Capillary Refill Less than 3 Seconds Skin: No rashes, No breakdown Musculoskeletal: - - bilateral AKA from childhood Lymphatic: No Cervical, Supraclavicular, or Inguinal Adenopathy Neurological: Cranial nerves II-XII grossly intact, Neuro grossly intact, Motor Exam 5/5 strength throughout Psych/Mental Status: Normal Affect, Appropriate, Alert and oriented to time, place, person, mood and affect Laboratory Results 04/05/20 22:15: WBC 7.1, RBC 4.36 L, Hgb 14.1, Hct 40.7, MCV 93.3, MCH 32.3 H, MCHC 34.6, RDW Std Deviation 42.0, RDW Coeff of Usama 12.2, Plt Count 303, MPV 9.2, Immature Gran % (Auto) 0.400, Neut % (Auto) 82.9 H, Lymph % (Auto) 8.8 L, [place] % (Auto) 7.2, Eos % (Auto) 0.6, Baso % (Auto) 0.1, Absolute Neuts (auto) 5.9, Absolute Lymphs (auto) 0.62 L, Nucleated RBC % 0 04/05/20 22:15: Sodium 127 L, Potassium 3.7, Chloride 91 L, Carbon Dioxide 29.0, Anion Gap 7, BUN 8, Creatinine 0.82, Estim Creat Clear Calc 77.64, Est GFR (MDRD) Af Amer 117, Est GFR (MDRD) Non-Af 97, BUN/Creatinine Ratio 9.8 L, Glucose 252 H, Calcium 9.0, Troponin I < 0.015 04/06/20 01:25: Troponin I < 0.015 04/06/20 04:50: Sodium 128 L, Potassium 3.2 L, Chloride 91 L, Carbon Dioxide 29.0, Anion Gap 8, BUN 7, Creatinine 0.65 L, Estim Creat Clear Calc 62.17, Est GFR (MDRD) Af Amer 152, Est GFR (MDRD) Non-Af 126, BUN/Creatinine Ratio 10.7, Glucose 184 H, Calcium 8.7 04/06/20 04:50: Troponin I < 0.015 04/06/20 04:50: Triglycerides 70, Cholesterol 119, LDL Cholesterol 56, VLDL Cholesterol 14, HDL Cholesterol 49 04/06/20 06:57: POC Glucose 233 H 04/06/20 11:33: POC Glucose 212 H Diagnostic Data Chest X-Ray 04/05/20 22:20 IMPRESSION: No acute findings. Electronically Signed: Alfred Teran, at 23:07 EST Tel , Service support , Current Medications Acetaminophen (Acetaminophen 325 Mg Tablet) 650 mg PO Q6H PRN PRN PRN Reason: Pain Score 1-10/Temp > 100.7 F Hydrocodone Bitart/Acetaminophen (Hydrocodone Bitartrate/Apap 5/325 Tablet) 1 tablet PO TID HEATHER Last Admin: 04/06/20 13:19 Dose: 1 tablet Documented by: Amitriptyline HCl (Amitriptyline 25 Mg Tablet) 75 mg PO QHS HEATHER Amitriptyline HCl (Amitriptyline 25 Mg Tablet) 25 mg PO QHS PRN PRN PRN Reason: with routine 75mg per rqst Amlodipine Besylate (Amlodipine 5 Mg Tablet) 5 mg PO DAILY [facility] [place] Last Admin: 04/06/20 08:45 Dose: 5 mg Documented by: Apixaban (Apixaban 5 Mg Tablet) 5 mg PO BID [facility] [place] Last Admin: 04/06/20 08:47 Dose: 5 mg Documented by: Aspirin (Aspirin E.C. 81 Mg Tablet) 81 mg PO DAILY@0800 [facility] [place] Last Admin: 04/06/20 08:46 Dose: 81 mg Documented by: Atorvastatin Calcium (Atorvastatin Calcium 20 Mg Tablet) 20 mg PO QODAY@2200 [facility] [place] Cholecalciferol (Cholecalciferol (Vit D3) 1,000 Unit (25mcg)) 2,000 unit PO DAILY [facility] [place] Last Admin: 04/06/20 08:46 Dose: 2,000 unit Documented by: Dextrose (Dextrose 50%-Water 25 Gm/50 Ml Disp.Syrin) 0 gm IV X1 PRN; Protocol PRN Reason: Hypoglycemia Docusate Sodium (Docusate Sodium 100 Mg Capsule) 100 mg PO BID [facility] [place] Last Admin: 04/06/20 08:46 Dose: 100 mg Documented by: Fentanyl (Fentanyl 1 Each Patch.Td72) 37.5 each TD Q72H [facility] [place] Finasteride (Finasteride 5 Mg Tablet) 5 mg PO DAILY [facility] [place] Last Admin: 04/06/20 08:45 Dose: 5 mg Documented by: Glimepiride ([facility] 4 Mg Tablet) [facility] Last Admin: 04/06/20 08:46 Dose: 4 mg Documented by: Glucagon (Glucagon 1 Mg/Ml Syringe) 1 mg IM .X1 PRN PRN Reason: Hypoglycemia Hydrochlorothiazide (Hydrochlorothiazide 25 Mg Tablet) 25 mg PO DAILY [facility] [place] Last Admin: 04/06/20 08:45 Dose: 25 mg Documented by: Insulin Human Lispro (Insulin Lispro 100 Unit/Ml Insuln.Pen) 0 unit SC ACHS [facility] [place]; Protocol Last Admin: 04/06/20 11:35 Dose: 4 units Documented by: Lisinopril (Lisinopril 40 Mg Tablet) 40 mg PO DAILY [facility] [place] Last Admin: 04/06/20 08:45 Dose: 40 mg Documented by: Lorazepam (Lorazepam 1 Mg Tablet) 1 mg PO TID [facility] [place] Last Admin: 04/06/20 13:19 Dose: 1 mg Documented by: Melatonin (Melatonin 3 Mg Tablet) 3 mg PO QHS PRN PRN PRN Reason: INSOMNIA Metoprolol Tartrate (Metoprolol Tartrate 50 Mg Tablet) 50 mg PO BID [facility] [place] Last Admin: 04/06/20 08:45 Dose: 50 mg Documented by: Multivitamins (Multivitamins,Therapeutic Tablet) [facility] Last Admin: 04/06/20 08:46 Dose: 1 tablet Documented by: Nitroglycerin (Nitroglycerin (Inpatient Use) 0.4 Mg Tab.Subl) 0.4 mg SUBLINGUAL Q5M PRN PRN Reason: CARDIAC/CHEST PAIN Last Admin: 04/06/20 03:23 Dose: 1 tablet Documented by: Ondansetron HCl (Ondansetron 4 Mg/2 Ml Vial) 4 mg IV Q8H PRN PRN PRN Reason: NAUSEA/VOMITING Polyethylene Glycol (Polyethylene Glycol 3350 17 Gm Packet) 17 gm PO DAILY [facility] [place] Last Admin: 04/06/20 08:46 Dose: 17 gm Documented by: Potassium Chloride (Potassium Chloride 10 Meq Tablet) [facility] Last Admin: 04/06/20 08:46 Dose: 10 meq Documented by: Sodium Chloride (0.9% Saline Lock 10 Ml Syringe) 10 - 40 ml IV UD PRN PRN Reason: SALINE FLUSH Last Admin: 04/06/20 04:18 Dose: 20 ml Documented by: Tizanidine HCl (Tizanidine Hcl 2 Mg Tablet) 4 mg PO Q8H PRN PRN PRN Reason: SPASMS Last Admin: 04/06/20 04:40 Dose: 4 mg Documented by: Medical Necessity - Tobacco Use Smoking Status: Never smoker Assessment/Plan All Active Problems Chest pain (Acute) #Chest pain Troponins x3 were negative. On p.o. aspirin 81 mg daily. Sublingual nitroglycerin as needed. For stress test tomorrow Continue metoprolol and rosuvastatin. #Hypokalemia: Potassium is 3.2. Will replace. #Hypertension: On amlodipine, lisinopril, metoprolol and hydrochlorothiazide. #Type 2 diabetes mellitus: on glipizide. ISS. Accuchecks ACHS # Hyponatremia: is chronic. sodium is 128. Will monitor #History of chronic pain:on fentanyl #Afib: rate controlled. On eliquis. DVT prophylaxis: on eliquis already. OBSV E&M: [id number] Subsequent observation care L2
[2020-04-06 16:35] LABS: Bedside Glucose 151 mg/dL (70-110)
[2020-04-06] MEDS: Amitriptyline 25 MG Tablet 75 MG PO (21:10)
[2020-04-06] MEDS: Atorvastatin Calcium 20 MG Tablet PO (21:10)
[2020-04-06 22:15] LABS: Bedside Glucose 189 mg/dL (70-110)
[2020-04-07] VITALS (8 sets, daily range): BP systolic 108–146; BP diastolic 59–89; PULSE 56–86; RESP 16–18; TEMP 36.1–36.8; O2SAT 94–98
[2020-04-07 00:16] LABS: Bedside Glucose 222 mg/dL (70-110)
--- NOTE | 2020-04-07 05:00 | EKG12_ITS ---
Test Reason : AM EKG Blood Pressure : / mmHG Vent. Rate : 069 BPM Atrial Rate : 069 BPM P-R Int : 240 ms QRS Dur : 098 ms QT Int : 428 ms P-R-T Axes : 036 -44 042 degrees QTc Int : 458 ms Sinus rhythm with 1st degree A-V block Left axis deviation Abnormal ECG Confirmed by BROOKLYN ALCALA, SAJNAY ([id number]), assistant film editor JESSICA TRAN ([id number]) on 04/09/2020 9:52:37 AM Referred By: DR RIOS Confirmed By:SANJAY BARAHONA MD
[2020-04-07] MEDS: LORazepam 1 MG Tablet PO ×2 (06:13→14:36)
[2020-04-07] MEDS: Aspirin E.C. 81 MG Tablet PO (06:13)
[2020-04-07] MEDS: Lisinopril 40 MG Tablet PO (06:13)
[2020-04-07] MEDS: HYDROcodone Bitartrate/Apap 5/325 Tablet PO ×2 (06:13→14:36)
[2020-04-07 06:14] LABS: Absolute Lymphocyte Count 0.75 X10^3/uL (0.83-4.51); Absolute Neutrophil Count 5.8 X10^3/uL (2.0-7.7); Basophil# 0.03 X10^3/uL; Basophil% 0.4 % (0-1); Eosinophil# 0.06 X10^3/uL; Eosinophils% 0.8 % (0-5); Hematocrit 41.3 % (40-54); Hemoglobin 14.4 g/dL (13.0-16.5); Lymphocyte # 0.75 X10^3/ul (4.0); Lymphocyte % 9.5 % (19-41); Mean Corp Hgb Conc 34.9 g/dL (32-36); Mean Corpuscular Hgb 32.2 pg (27.0-32.0); Mean Corpuscular Volume 92.4 fL (80-94); Mean Platelet Vol. 8.6 fl (6.2-12.0); Monocyte# 1.19 X10^3/uL; Monocyte% 15.1 % (0-10); NRBC Flagged by Analyzer 0 % (0-5); Neutrophil # 5.79 X10^3/uL (2.7-7.7); Neutrophil % 73.6 % (47-70); Platelet Count 313 K/mm3 (150-450); RBC Distribution Width CV 12.4 % (11.6-14.6); RBC Distribution Width SD 42.2 fl (35.1-43.9); Red Blood Count 4.47 M/mm3 (4.6-6.2); White Blood Count 7.9 K/mm3 (4.4-11.0)
[2020-04-07] MEDS: 0.9% Saline Lock 10 ML Syringe IV (06:14)
[2020-04-07 06:38] LABS: Anion Gap 6 (5-15); BUN 10 mg/dL (7-18); BUN/Creat Ratio 14.6 RATIO (10-20); Calcium,Total 8.9 mg/dL (8.5-10.1); Chloride 93 mmol/L (98-107); Creatinine, Serum 0.68 mg/dL (0.70-1.30); EST Glomerular Filtration Rate 119 mL/min (>60); Est Glom Filt Rate - Afr Amer 144 mL/min (>60); Estimated Creatinine Clearance 62.17 ml/min; Glucose 148 mg/dL (74-106); Potassium 3.6 mmol/L (3.5-5.1); Sodium Level 127 mmol/L (136-145)
[2020-04-07 06:50] LABS: Bedside Glucose 153 mg/dL (70-110)
[2020-04-07] MEDS: Finasteride 5 MG Tablet PO (11:04)
[2020-04-07] MEDS: Multivitamins,Therapeutic Tablet 1 TABLET PO (11:04)
[2020-04-07] MEDS: Docusate Sodium 100 MG Capsule PO (11:04)
[2020-04-07] MEDS: hydroCHLOROthiazide 25 MG Tablet PO (11:04)
[2020-04-07] MEDS: amLODIPine 5 MG Tablet PO (11:04)
[2020-04-07] MEDS: Metoprolol Tartrate 50 MG Tablet PO (11:04)
[2020-04-07] MEDS: Glimepiride 4 MG Tablet PO ×2 (11:04→16:48)
[2020-04-07] MEDS: Polyethylene Glycol 3350 17 GM PACKET PO (11:05)
[2020-04-07] MEDS: Insulin Lispro 100 UNIT/ML INSULN.PEN SC (11:11)
[2020-04-07 11:41] LABS: Bedside Glucose 206 mg/dL (70-110)
--- NOTE | 2020-04-07 12:09 | NURSING ---
ANA CM Note: [place] form reviewed with patient in regards to his treatment of chest pain. Notified patient that outpatient billing is determined by his insurance plan- [employer] policy and status during hospital stay is reviewed for changes in his condition that may warrant inpatient stay. Patient states understanding and form was signed. No further questions. SAMIR Nunn
--- NOTE | 2020-04-07 12:12 | NURSING ---
RN CM Assessment Introduced role of RN CM to patient.? Patient is alert, oriented and able?to participate in RN CM Assessment. ?Care providers, pharmacy, and demographics verified. Admit Dx: Chest Pain Barriers/Issues: None. Patient h/o of Bilt DEMI, WC bound. assists w/all ADL's. Patient no longer wears prosthesis d/t h/o back issues. PCP: Alejandra Howell Specialists: None Preferred Pharmacy: [facility] Insurance: [employer] Benefit:?Yes ?LNOK: Meredith Cortes LW/HPOA: None, patient declines completion on this admission or offered resources to complete as an outpatient. Living Arrangements:? Lives with his , step son and step son's significant other in a 1.5 story home. Patient bedroom is on ground floor. Has a ramp to enter home. ADL?s: WC bound, assists with all ADLs Transportation: . , step son and his significant other will transport upon DC DME: ERICH ARRIOLA- located in restroom, Hospital bed, Glucometer HHC: None SNF: None Goal: Home and does not think will have any anticipated needs. Denies any issues or concerns with DC planning at this time. Aware RNCM will continue to follow for any emerging needs. DC PLAN: Home with no anticipated needs identified at this time. SAMIR Nunn
--- NOTE | 2020-04-07 12:22 | EKG12_ITS ---
Test Reason : CP ADMIT Blood Pressure : / mmHG Vent. Rate : 074 BPM Atrial Rate : 074 BPM P-R Int : 244 ms QRS Dur : 102 ms QT Int : 412 ms P-R-T Axes : 043 -45 032 degrees QTc Int : 457 ms Sinus rhythm with 1st degree A-V block Left axis deviation Poor R wave progression Abnormal ECG Confirmed by BROOKLYN ALCALA, SANJAY ([id number]), demand planning analyst JESSICA TRAN ([id number]) on 04/09/2020 10:09:22 AM Referred By: DR RIOS Confirmed By:SANJAY BARAHONA MD
--- NOTE | 2020-04-07 15:19 | STRESSREP ---
Stress Test Report Pharmacologic myocardial perfusion stress test. 79-year-old man with a history of chest pain. Stress protocol: Resting EKG demonstrates normal sinus rhythm with a rate of 69 bpm normal intervals are noted resting blood pressure is 138/80 mmHg. 0.4 mg of regadenoson was infused per usual protocol followed by rapid venous saline flush injection continuous EKG monitoring was performed. The maximum heart rate attained was 96 bpm which was 67% of max impacted heart rate the maximum workload was 1 metabolic equivalent. At rest there were no ST or T wave changes noted to suggest abnormal flow reserve at peak infusion nonspecific ST-T wave changes were noted with no meet the criteria for ischemia. No clinical angina was noted. Myocardial perfusion protocol. 12.0 mCi of technetium 99m sestamibi was injected at rest. 0.4 mg of regadenoson was infused per usual protocol. The peak infusion 34.3 mCi of technetium 99m sestamibi was injected stress images were obtained stress and rest images were reconstructed and compared in the short axis vertical long horizontal long axis. Gated images were also obtained Perfusion SPECT analysis: Review of the stress images demonstrate normal uptake of tracer noted in all areas of the myocardium the resting images similarly demonstrate normal uptake of tracer noted in all areas of myocardium. No reversibility is noted suggest ischemia no previous infarct is noted. Gated SPECT analysis: The gated ejection fraction is 72%. Conclusion: Normal pharmacologic myocardial perfusion stress test. Preserved ejection fraction.
--- NOTE | 2020-04-07 15:43 | DCINST_ITS ---
- Discharge Diagnoses Current Active Problems: Current Active and Chronic Problems Chest pain (Acute) You will use the following diet at home:: Cardiac Your food should be the consistency of: Regular Your liquids should be the consistency of: Regular/Thin Discharge Activity: Return to Normal Activity Weight Bearing Status: Weight bearing as tolerated Instructions: ED Chest Pain, Noncardiac, ED Pain, Acute, Uncertain Cause Allergies/Adverse Reactions: Allergies trimethoprim Allergy (Verified 04/05/20 21:37) Itching acetaminophen [From Percocet] Adverse Reaction (Verified 04/05/20 21:37) Other ANXIETY amoxicillin trihydrate [From Augmentin] Adverse Reaction (Verified 04/05/20 21:37) Nausea/Vom/Diarrhea atropine sulfate [From ] Adverse Reaction (Verified 04/05/20 21:37) Unknown ceftriaxone sodium [From Rocephin] Adverse Reaction (Verified 04/05/20 21:37) Rash cephalexin monohydrate [From Keflex] Adverse Reaction (Verified 04/05/20 21:37) Unknown ciprofloxacin [From Cipro] Adverse Reaction (Verified 04/05/20 21:37) Vomiting ciprofloxacin HCl [From Cipro] Adverse Reaction (Verified 04/05/20 21:37) Vomiting gabapentin Adverse Reaction (Verified 04/05/20 21:37) Unknown hyoscyamine sulfate [From ] Adverse Reaction (Verified 04/05/20 21:37) Unknown oxycodone HCl [From Percocet] Adverse Reaction (Verified 04/05/20 21:37) Other ANXIETY phenobarbital [From ] Adverse Reaction (Verified 04/05/20 21:37) Unknown Pork/Porcine Containing Products Adverse Reaction (Verified 04/05/20 21:37) Nausea/Vom/Diarrhea potassium clavulanate [From Augmentin] Adverse Reaction (Verified 04/05/20 21:37) Nausea/Vom/Diarrhea pseudoephedrine HCl [From Sudafed] Adverse Reaction (Verified 04/05/20 21:37) Other UNABLE TO SLEEP scopolamine hydrobromide [From ] Adverse Reaction (Verified 04/05/20 21:37) Unknown sulfadiazine [Sulfadiazine] Adverse Reaction (Verified 04/05/20 21:37) Nausea Medications to take at Discharge Amitriptyline HCl 75 - 100 mg PO QHS 12/13/13 Docusate Sodium [Colace] 100 mg PO BID 12/13/13 Glimepiride [Amaryl] 4 mg PO BID 12/13/13 Metoprolol Tartrate [Lopressor (beta hilton)] 50 mg PO BID 12/13/13 Polyethylene Glycol 3350 [Miralax] 17 gm PO DAILY 12/13/13 Potassium Chloride [K-Dur] 10 meq PO BID 12/13/13 Dutasteride [Avodart] 0.5 mg PO DAILY 08/26/14 Hydrochlorothiazide [Hctz] 25 mg PO DAILY 08/26/14 Multivitamins,Therapeutic [Multivitamin] 1 tablet PO DAILY 08/26/14 Amlodipine Besylate 5 mg PO DAILY 05/31/19 Cholecalciferol (Vitamin D3) [Vitamin D3] 2,000 unit PO DAILY 05/31/19 Hydrocodone/Acetaminophen [Hydrocodone-Acetamin 5-325 mg] 1 tab PO TID 05/31/19 Lorazepam 1 mg PO TID 05/31/19 Quinapril HCl 40 mg PO DAILY 05/31/19 Rosuvastatin Calcium 5 mg PO QODAY 05/31/19 apixaban 5 mg tablet 5 mg PO BID #60 tab 06/27/19 Duragesic patch 37.5 04/05/20 Fentanyl 37.5 mcg TD Q72H 04/05/20 Tizanidine HCl [Zanaflex] 4 mg PO PRN PRN 04/05/20 Primary Care Physician: Alejandra Howell MD [Primary Care Provider] - Please follow up with your Primary Care Physician in: 1-2 weeks Test Results: Test results from this visit will be discussed in further detail at your follow- up appointment, if applicable. Proposed Discharge Date: 04/07/20
--- NOTE | 2020-04-07 15:45 | DS.PCM_ITS ---
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 Electronically Signed: Alfred Teran, at 23:07 EST Tel , Service support , Operations: None Procedures: Nuclear stress test Summary of Care Provided: The patient is a 79 year old M with a past medical history significant for A. 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 He was admitted through the ED on 04/05/2020 with a complaint of persistent chest tightness which was left-sided and radiated to his left arm. He had no aggravating or relieving factors and said tizanidine occasionally help with the pain. He was admitted and managed for chest pain rule out ACS. Troponins x3 were negative and EKG showed no acute ST changes. He had a stress test on 04/07/2020 which showed normal myocardial perfusion stress test with gated ejection fraction of 72%. Chest pain was thought to be therefore likely musculoskeletal. Patient remained stable and was discharged home on 04/07/2020. He is to follow-up with his PCP in 1 to 2 weeks. Patient seen and examined prior to discharge. He had no complaints. Review of systems was otherwise negative. Labs and vitals stable. Home medications reviewed. O/E: Vital Signs Temp Pulse Resp BP Pulse Ox 98.3 F 82 16 146/89 H 98 04/07/20 10:50 04/07/20 11:04 04/07/20 10:50 04/07/20 11:04 04/07/20 10:50 [] General: Alert, Oriented x3, Cooperative, No apparent distress HEENT: Atraumatic, PERRLA, EOMI, Normocephalic Oral: Dry Mucosa Neck: Supple, No JVD, Negative Carotid Bruits Lungs: Clear to auscultation, Normal air movement, No rhonchi, No wheeze, No rales Cardiovascular: Regular rate, Regular Rhythm, Normal S1, Normal S2, No murmurs Abdomen: Bowel Sounds Present, Soft, Non Tender, Non-Distended, No Hepato- splenomegaly Extremities: No clubbing, No cyanosis, No edema, Capillary Refill Less than 3 Seconds Skin: No rashes, No breakdown Musculoskeletal: - - bilateral AKA from childhood Lymphatic: No Cervical, Supraclavicular, or Inguinal Adenopathy Neurological: Cranial nerves II-XII grossly intact, Neuro grossly intact, Motor Exam 5/5 strength throughout Psych/Mental Status: Normal Affect, Appropriate, Alert and oriented to time, place, person, mood and affect Plan is for discharge home today. Patient Problems: Active and Suspected Problems Chest pain (Acute) - Physical Exam Vitals/I&O's: Vital Signs Temp Pulse Resp BP Pulse Ox 98.3 F 82 16 146/89 H 98 04/07/20 10:50 04/07/20 11:04 04/07/20 10:50 04/07/20 11:04 04/07/20 10:50 Oxygen Delivery Method Room Air Weight: 159 lb 2.78 oz Body Mass Index (BMI) 38.3 Intake and Output for Last 24 Hours 04/05/20 04/06/20 04/07/20 23:59 23:59 23:59 Intake Total 1080 / 1080 60 / 60 Output Total 2925 / 2925 700 / 700 Balance -1845 / -1845 -640 / -640 Laboratory Results 04/06/20 02:08: POC Glucose 222 H 04/06/20 16:21: POC Glucose 151 H 04/06/20 21:14: POC Glucose 189 H 04/07/20 05:50: WBC 7.9, RBC 4.47 L, Hgb 14.4, Hct 41.3, MCV 92.4, MCH 32.2 H, MCHC 34.9, RDW Std Deviation 42.2, RDW Coeff of Usama 12.4, Plt Count 313, MPV 8.6, Immature Gran % (Auto) 0.600, Neut % (Auto) 73.6 H, Lymph % (Auto) 9.5 L, [place] % (Auto) 15.1 H, Eos % (Auto) 0.8, Baso % (Auto) 0.4, Absolute Neuts (auto) 5.8, Absolute Lymphs (auto) 0.75 L, Nucleated RBC % 0 04/07/20 05:50: Sodium 127 L, Potassium 3.6, Chloride 93 L, Carbon Dioxide 28.0, Anion Gap 6, BUN 10, Creatinine 0.68 L, Estim Creat Clear Calc 62.17, Est GFR (MDRD) Af Amer 144, Est GFR (MDRD) Non-Af 119, BUN/Creatinine Ratio 14.6, Glucose 148 H, Calcium 8.9 04/07/20 06:12: POC Glucose 153 H 04/07/20 11:11: POC Glucose 206 H Current Medications Acetaminophen (Acetaminophen 325 Mg Tablet) 650 mg PO Q6H PRN PRN PRN Reason: Pain Score 1-10/Temp > 100.7 F Hydrocodone Bitart/Acetaminophen (Hydrocodone Bitartrate/Apap 5/325 Tablet) 1 tablet PO TID [facility] Last Admin: 04/07/20 14:36 Dose: 1 tablet Documented by: Amitriptyline HCl (Amitriptyline 25 Mg Tablet) 75 mg PO QHS [facility] Last Admin: 04/06/20 21:10 Dose: 75 mg Documented by: Amitriptyline HCl (Amitriptyline 25 Mg Tablet) 25 mg PO QHS PRN PRN PRN Reason: with routine 75mg per rqst Amlodipine Besylate (Amlodipine 5 Mg Tablet) 5 mg PO DAILY [facility] Last Admin: 04/07/20 11:04 Dose: 5 mg Documented by: Apixaban (Apixaban 5 Mg Tablet) 5 mg PO BID [facility] Last Admin: 04/06/20 21:10 Dose: 5 mg Documented by: Aspirin (Aspirin E.C. 81 Mg Tablet) 81 mg PO DAILY@0800 [facility] Last Admin: 04/07/20 06:13 Dose: 81 mg Documented by: Atorvastatin Calcium (Atorvastatin Calcium 20 Mg Tablet) 20 mg PO QODAY@2200 [facility] Last Admin: 04/06/20 21:10 Dose: 20 mg Documented by: Cholecalciferol (Cholecalciferol (Vit D3) 1,000 Unit (25mcg)) 2,000 unit PO DAILY [facility] Last Admin: 04/07/20 11:04 Dose: 2,000 unit Documented by: Dextrose (Dextrose 50%-Water 25 Gm/50 Ml Disp.Syrin) 0 gm IV X1 PRN; Protocol PRN Reason: Hypoglycemia Docusate Sodium (Docusate Sodium 100 Mg Capsule) 100 mg PO BID [facility] Last Admin: 04/07/20 11:04 Dose: 100 mg Documented by: Fentanyl (Fentanyl 1 Each Patch.Td72) 37.5 each TD Q72H [facility] Finasteride (Finasteride 5 Mg Tablet) 5 mg PO DAILY [facility] Last Admin: 04/07/20 11:04 Dose: 5 mg Documented by: Glimepiride ([facility]piride 4 Mg Tablet) [facility] Last Admin: 04/07/20 11:04 Dose: 4 mg Documented by: Glucagon (Glucagon 1 Mg/Ml Syringe) 1 mg IM .X1 PRN PRN Reason: Hypoglycemia Hydrochlorothiazide (Hydrochlorothiazide 25 Mg Tablet) 25 mg PO DAILY [facility] Last Admin: 04/07/20 11:04 Dose: 25 mg Documented by: Insulin Human Lispro (Insulin Lispro 100 Unit/Ml Insuln.Pen) 0 unit SC ACHS [facility]; Protocol Last Admin: 04/07/20 11:11 Dose: 4 units Documented by: Lisinopril (Lisinopril 40 Mg Tablet) 40 mg PO DAILY [facility] Last Admin: 04/07/20 06:13 Dose: 40 mg Documented by: Lorazepam (Lorazepam 1 Mg Tablet) 1 mg PO TID [facility] Last Admin: 04/07/20 14:36 Dose: 1 mg Documented by: Melatonin (Melatonin 3 Mg Tablet) 3 mg PO QHS PRN PRN PRN Reason: INSOMNIA Metoprolol Tartrate (Metoprolol Tartrate 50 Mg Tablet) 50 mg PO BID [facility] Last Admin: 04/07/20 11:04 Dose: 50 mg Documented by: Multivitamins (Multivitamins,Therapeutic Tablet) [facility] Last Admin: 04/07/20 11:04 Dose: 1 tablet Documented by: Nitroglycerin (Nitroglycerin (Inpatient Use) 0.4 Mg Tab.Subl) 0.4 mg SUBLINGUAL Q5M PRN PRN Reason: CARDIAC/CHEST PAIN Last Admin: 04/06/20 03:23 Dose: 1 tablet Documented by: Ondansetron HCl (Ondansetron 4 Mg/2 Ml Vial) 4 mg IV Q8H PRN PRN PRN Reason: NAUSEA/VOMITING Polyethylene Glycol (Polyethylene Glycol 3350 17 Gm Packet) 17 gm PO DAILY [facility] Last Admin: 04/07/20 11:05 Dose: 17 gm Documented by: Potassium Chloride (Potassium Chloride 10 Meq Tablet) 10 meq PO BIDCM [facility] Last Admin: 04/07/20 11:04 Dose: 10 meq Documented by: Sodium Chloride (0.9% Saline Lock 10 Ml Syringe) 10 - 40 ml IV UD PRN PRN Reason: SALINE FLUSH Last Admin: 04/07/20 06:14 Dose: 10 ml Documented by: Tizanidine HCl (Tizanidine Hcl 2 Mg Tablet) 4 mg PO Q8H PRN PRN PRN Reason: SPASMS Last Admin: 04/06/20 04:40 Dose: 4 mg Documented by: Discharge Diet: Low fat/ Low Cholesterol Discharge Activity: Return to Normal Activity Weight Bearing Status: Weight bearing as tolerated Home Medications: Medications to take at Discharge Amitriptyline HCl 75 - 100 mg PO QHS 12/13/13 Docusate Sodium [Colace] 100 mg PO BID 12/13/13 Glimepiride [Amaryl] 4 mg PO BID 12/13/13 Metoprolol Tartrate [Lopressor (beta hilton)] 50 mg PO BID 12/13/13 Polyethylene Glycol 3350 [Miralax] 17 gm PO DAILY 12/13/13 Potassium Chloride [K-Dur] 10 meq PO BID 12/13/13 Dutasteride [Avodart] 0.5 mg PO DAILY 08/26/14 Hydrochlorothiazide [Hctz] 25 mg PO DAILY 08/26/14 Multivitamins,Therapeutic [Multivitamin] 1 tablet PO DAILY 08/26/14 Amlodipine Besylate 5 mg PO DAILY 05/31/19 Cholecalciferol (Vitamin D3) [Vitamin D3] 2,000 unit PO DAILY 05/31/19 Hydrocodone/Acetaminophen [Hydrocodone-Acetamin 5-325 mg] 1 tab PO TID 05/31/19 Lorazepam 1 mg PO TID 05/31/19 Quinapril HCl 40 mg PO DAILY 05/31/19 Rosuvastatin Calcium 5 mg PO QODAY 05/31/19 apixaban 5 mg tablet 5 mg PO BID #60 tab 06/27/19 Duragesic patch 37.5 04/05/20 Fentanyl 37.5 mcg TD Q72H 04/05/20 Tizanidine HCl [Zanaflex] 4 mg PO PRN PRN 04/05/20 Primary Care Physician: Alejandra Howell MD [Primary Care Provider] - Please follow up with your Primary Care Physician in: 1-2 weeks Patient Instructions: ED Chest Pain, Noncardiac, ED Pain, Acute, Uncertain Cause Disposition: Home Minutes spent on discharge:: 35 Patient Condition:: Stable Medical Necessity - Tobacco Use Smoking Status: Never smoker Meaningful Use Info Meaningful Use Diagnoses (Choose all that apply): None applicable OBSV E&M: 72290 Observation care discharge
[2020-04-07] MEDS: APIXABAN 5 MG TABLET PO (16:48)
== END 2020-04-07 15:45 | disposition home or self-care (01) ==
LOC: ED 22:42 → PCU 23:53
PROVIDERS: Emergency Medicine; Admitting Provider Hospitalist; Emergency Provider Emergency Medicine; PCP Internal Medicine; Visit Provider Student in an Organized Health Care Education/Training Program
DX: R07.89 Other chest pain (principal); E78.5 Hyperlipidemia, unspecified; Z23 Encounter for immunization; I10 Essential (primary) hypertension; I48.0 Paroxysmal atrial fibrillation; E11.9 Type 2 diabetes mellitus without complications; M47.24 Other spondylosis with radiculopathy, thoracic region; F41.9 Anxiety disorder, unspecified; G89.29 Other chronic pain; Z89.611 Acquired absence of right leg above knee; Z89.612 Acquired absence of left leg above knee; Z99.3 Dependence on wheelchair; Z79.899 Other long term (current) drug therapy; Z79.01 Long term (current) use of anticoagulants; Z79.84 Long term (current) use of oral hypoglycemic drugs; E87.6 Hypokalemia; E87.1 Hypo-osmolality and hyponatremia
CPT/HCPCS: 71045; 78452; 80048; 80061; 82962; 84484; 85025; 93005; 93017; 99218; 99285; A9500; G0008; 90686; A4216; G0378; J2785

== ENCOUNTER → 2020-04-09 16:14 | Outpatient (CLI) | payer MEDICARE, SELFPAY ==
[2020-04-06 01:12] VITALS: BMI 38.3
--- NOTE | 2020-04-09 16:18 | RAD_ITS ---
STUDY: X-RAY - THORACIC SPINE REASON FOR EXAM: Male, 79 years old. BACK PAIN THAT RADIATES TO ARM TECHNIQUE: 3 view(s) of the thoracic spine were obtained. COMPARISON: CT scan 09/28/2019. FINDINGS: Normal kyphosis of the thoracic spine. There is no substantial scoliosis. There is multilevel endplate spondylosis of the thoracic vertebrae. There is multilevel disc space narrowing of the thoracic spine. There is diffuse ankylosis of the thoracic spine. The soft tissue structures are unremarkable. RAD/Thoracic Spine 3 Views IMPRESSION: Degenerative changes, stable. No acute abnormalities. Electronically Signed: Thomas Gutierrez MD at 23:42 EST , Service support ,
--- NOTE | 2020-04-09 16:18 | RAD_ITS ---
STUDY: X-RAY - CERVICAL SPINE REASON FOR EXAM: Male, 79 years old. NECK PAIN TECHNIQUE: 3 view(s) of the cervical spine were obtained. COMPARISON: None FINDINGS: Normal anterior atlantoaxial articulation. Normal odontoid process. Normal cervical lordosis. Prominent spondylosis with anterior osteophytes off of C4, C5, and C6. Grossly unremarkable disc height. No acute fracture or dislocation. The soft tissue structures are unremarkable. RAD/Cerv Spine 2 or 3 Views IMPRESSION: Spondylosis as above. Electronically Signed: Thomas Gutierrez MD at 23:33 EST , Service support ,
--- NOTE | 2020-04-09 16:20 | RAD_ITS ---
STUDY: X-RAY - LEFT SHOULDER REASON FOR EXAM: Male, 79 years old. LEFT SHOULDER PAIN TECHNIQUE: 4 view(s) of the shoulder. COMPARISON: None. FINDINGS: There is mild degenerative arthrosis of the glenohumeral articulation. There is degenerative arthrosis of the acromioclavicular joint without inferior osseous spur formation. Normal acromion. Normal humeral head and visualized proximal humerus. The soft tissue structures are unremarkable. There is no demonstrated fracture. Normal visualized pulmonary apex. RAD/Shoulder min 2 Views IMPRESSION: Degenerative changes. No acute fractures or dislocations. Electronically Signed: Thomas Gutierrez MD at 23:39 EST , Service support ,
== END ==
PROVIDERS: PCP Internal Medicine; Referring Provider Anesthesiology Pain Medicine; Visit Provider Anesthesiology Pain Medicine
DX: M54.2 Cervicalgia (principal)
CPT/HCPCS: 72040; 72072; 73030

== ENCOUNTER 2020-05-25 22:54 | Emergency (ER) | payer MEDICARE, SELFPAY ==
[2020-04-06 01:12] VITALS: BMI 38.3
[2020-05-25 22:55] VITALS: BP 165/85; PULSE 78; RESP 15; TEMP 36.5; O2SAT 97; BMI 40.2
--- NOTE | 2020-05-25 23:12 | RAD_ITS ---
HISTORY: C/O LOWER ABD Tamp; INTERMITTENT LEFT SHOULDER PAIN X 4 WEEKSIN PAIN MGMT FOR SHOULDER PAIN DENIES ANY SOB, COUGH OR CPBEST INSPIRATION PER PATIENT ADDITIONAL HISTORY: None provided. EXAMINATION/TECHNIQUE: XR Chest 1 View AP/PA Number of images including paperwork: 2 COMPARISON: 04/05/2020 FINDINGS: LUNGS AND PLEURA: Low lung volumes. No consolidation, mass or pleural effusion. Linear basilar opacities appear similar, compatible with subsegmental ectasis versus scarring. CARDIAC SILHOUETTE: Unremarkable. MEDIASTINUM AND RICH: Unchanged aortic calcification and tortuosity. UPPER ABDOMEN: Unremarkable. SKELETON AND SOFT TISSUES: No acute skeletal findings. Degenerative changes. OTHER DEVICES AND HARDWARE: None. RAD/Chest 1 View (Portable) IMPRESSION: Low lung volumes without definite acute abnormality. at 0013 Reported and signed by: Jyothi Fuentes MD Electronically Signed: Jyothi Fuentes MD at 0:13 EST Tel , Service support ,
--- NOTE | 2020-05-25 23:20 | ED.VIS.GEN ---
History of Present Illness Chief Complaint: Other, Pain/Inj Informant: Patient Onset: Days Context: Gradual Onset Timing: Intermittent Current Severity: Moderate Maximum Severity: Moderate Narrative: The patient is a 79-year-old male with multiple comorbidities including thoracic outlet dysfunction, prior BKA and AKA, history of oral cancer, hypertension, hyperlipidemia. The patient presents with arthralgias. He states that he has a history of chronic shoulder pain, left greater than right. He actually had injection about a week ago with Dr. Roque. He states for the past 4 days, he has been getting intermittent pain in both shoulders. He denies any chest pain. He denies shortness of breath. He denies any fevers or chills. He states has been taking his home medications with some improvement, but then the pain will come back. He has not had any urinary symptoms. He does self cath and is wheelchair-bound, but has had no change in his urine color and there is no odor. Prior similar symptoms: Yes Recent Illness/Hospitalization: No Past Medical History - Allergies and Home Meds Allergies/Adverse Reactions: Allergies trimethoprim Allergy (Verified 05/25/20 23:03) Itching acetaminophen [From Percocet] Adverse Reaction (Verified 05/25/20 23:03) Other ANXIETY amoxicillin trihydrate [From Augmentin] Adverse Reaction (Verified 05/25/20 23:03) Nausea/Vom/Diarrhea atropine sulfate [From ] Adverse Reaction (Verified 05/25/20 23:03) Unknown ceftriaxone sodium [From Rocephin] Adverse Reaction (Verified 05/25/20 23:03) Rash cephalexin monohydrate [From Keflex] Adverse Reaction (Verified 05/25/20 23:03) Unknown ciprofloxacin [From Cipro] Adverse Reaction (Verified 05/25/20 23:03) Vomiting ciprofloxacin HCl [From Cipro] Adverse Reaction (Verified 05/25/20 23:03) Vomiting gabapentin Adverse Reaction (Verified 05/25/20 23:03) Unknown hyoscyamine sulfate [From ] Adverse Reaction (Verified 05/25/20 23:03) Unknown oxycodone HCl [From Percocet] Adverse Reaction (Verified 05/25/20 23:03) Other ANXIETY phenobarbital [From ] Adverse Reaction (Verified 04/05/20 21:37) Unknown Pork/Porcine Containing Products Adverse Reaction (Verified 04/05/20 21:37) Nausea/Vom/Diarrhea potassium clavulanate [From Augmentin] Adverse Reaction (Verified 04/05/20 21:37) Nausea/Vom/Diarrhea pseudoephedrine HCl [From Sudafed] Adverse Reaction (Verified 04/05/20 21:37) Other UNABLE TO SLEEP scopolamine hydrobromide [From ] Adverse Reaction (Verified 04/05/20 21:37) Unknown sulfadiazine [Sulfadiazine] Adverse Reaction (Verified 04/05/20 21:37) Nausea Primary Care Physician: Alejandra Howell MD [Primary Care Provider] - Prior records reviewed: Yes Past Medical History: - - Hypertension, hyperlipidemia, oral cancer Surgical History: noncontributory, - - 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, 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; neck surgery Smoking Status: Never smoker - Family History Maternal Family History: Reports: Heart Disease Paternal Family History: Reports: Heart Disease, - - abdominal aortic aneurysm Sibling Family History: Reports: Cancer Review of Systems General: Denies: Chills, Fever, Sweats Eyes: Denies: Visual changes - bilaterally, Diplopia ENT: Denies: Rhinorrhea, Sore throat Cardiovascular: Denies: Chest pain, Palpitations Respiratory: Denies: Dyspnea, Cough, Dyspnea on exertion Gastrointestinal: Denies: Abdominal pain, Nausea, Vomiting, Diarrhea, Melena, Hematochezia Genitourinary: Denies: Dysuria, Hematuria, Frequency Musculoskeletal: Reports: Myalgias, Arthralgias. Denies: Back pain, Extremity Pain Skin: Denies: Rash, Wounds Neurological: Denies: Headache, Weakness, Numbness Physical Exam Vital Signs/Narrative: Vital Signs Temp Pulse Resp BP Pulse Ox 05/25/20 22:55 97.7 F L 78 15 165/85 H 97 Inital Vital Signs reviewed: Yes General: Well nourished, Well developed, No Acute Distress Head: Normocephalic, Atraumatic Eyes: Perrl, EOMI ENT: Moist mucous membranes, No rhinorrhea Neck: Supple, Nontender Cardiovascular: Regular rate, Regular rhythm, No murmurs Respiratory: No distress, CTA bilaterally, Chest nontender Abdomen: Soft, Nontender, Nondistended, Normal bowel sounds Back: Nontender, Normal Inspection Extremities: Nontender, No edema, - - Patient has left BKA and right AKA. The shoulders himself so not erythematous. There is no real tenderness. He has no pain with small arc range of motion. The pulses are normal. Skin: Normal color, No rash Neurological: Alert, Oriented x3, Cranial nerves II-XII grossly intact, Normal Strength, Normal Sensation Psychological: Normal affect, Normal Mood Diagnostic/Tx/Re-eval - Medical Decision Making The patient presents with myalgias and arthralgias. He states this is more consistent with his chronic pain. He is not febrile. He had no infectious symptoms. His abdomen is soft and nontender. He denies chest pain or shortness of breath. Given the patient's age, metabolic work-up was pursued. Chest x-ray was obtained. The patient was given IV analgesics. Screening labs were obtained. He does have mild hyponatremia which appears to be chronic. There is no anion gap. His renal function is normal. Hemogram is also unremarkable. His chest x-ray shows no infiltrates, effusion, or acute change. This is read by myself and the radiologist. The patient still had some arthralgias. His analgesics were redosed. He has no evidence of infectious joint. He has no other infectious symptoms. I do feel that this is more an exacerbation of his chronic pain. At this point, I do feel that he safe for outpatient follow-up with his pain management physician. The patient will be discharged home. Impression 1. Exacerbation of chronic pain ED Disposition - Plan for ED Patient: Instructions: ED Chronic Pain, ED Pain Management: Chronic Referrals: Alejandra Howell MD [Primary Care Provider] -
[2020-05-25] MEDS: Morphine 4 MG/ML Syringe IV (23:37)
[2020-05-25 23:49] LABS: Absolute Lymphocyte Count 0.56 X10^3/uL (0.83-4.51); Absolute Neutrophil Count 8.1 X10^3/uL (2.0-7.7); Basophil# 0.02 X10^3/uL; Basophil% 0.2 % (0-1); Eosinophil# 0.02 X10^3/uL; Eosinophils% 0.2 % (0-5); Hematocrit 40.4 % (40-54); Hemoglobin 14.5 g/dL (13.0-16.5); Lymphocyte # 0.56 X10^3/ul (4.0); Lymphocyte % 5.8 % (19-41); Mean Corp Hgb Conc 35.9 g/dL (32-36); Mean Corpuscular Hgb 33.2 pg (27.0-32.0); Mean Corpuscular Volume 92.4 fL (80-94); Mean Platelet Vol. 8.4 fl (6.2-12.0); Monocyte# 0.94 X10^3/uL; Monocyte% 9.8 % (0-10); NRBC Flagged by Analyzer 0 % (0-5); Neutrophil # 8.06 X10^3/uL (2.7-7.7); Neutrophil % 83.6 % (47-70); POSITIVE DIFFERENTIAL YES; Platelet Count 341 K/mm3 (150-450); RBC Distribution Width CV 12.8 % (11.6-14.6); RBC Distribution Width SD 43.6 fl (35.1-43.9); Red Blood Count 4.37 M/mm3 (4.6-6.2); White Blood Count 9.6 K/mm3 (4.4-11.0)
[2020-05-25 23:51] LABS: Differential Indicated SCAN CRITERIA MET
[2020-05-26 00:04] LABS: Anion Gap 6 (5-15); BUN 11 mg/dL (7-18); BUN/Creat Ratio 16.2 RATIO (10-20); Calcium,Total 8.7 mg/dL (8.5-10.1); Chloride 91 mmol/L (98-107); Creatinine, Serum 0.68 mg/dL (0.70-1.30); EST Glomerular Filtration Rate 120 mL/min (>60); Est Glom Filt Rate - Afr Amer 145 mL/min (>60); Estimated Creatinine Clearance 65.23 ml/min; Glucose 184 mg/dL (74-106); Potassium 3.6 mmol/L (3.5-5.1); Sodium Level 126 mmol/L (136-145)
[2020-05-26] MEDS: Morphine 4 MG/ML Syringe IV (00:21)
[2020-05-26 00:50] VITALS: BP 171/81; PULSE 77; RESP 16; O2SAT 96
[2020-05-26 00:52] VITALS: BMI 38.0
== END 2020-05-26 01:02 | disposition home or self-care (01) ==
LOC: ED 23:31
PROVIDERS: Emergency Provider Emergency Medicine; PCP Internal Medicine
DX: M25.512 Pain in left shoulder (principal); G89.29 Other chronic pain; Z99.3 Dependence on wheelchair
CPT/HCPCS: 71045; 80048; 85025; 96374; 96376; 99285; A4216

== ENCOUNTER 2020-10-03 00:06 | Emergency (ER) | payer MEDICARE, SELFPAY ==
[2020-10-03 00:06] VITALS: BP 141/75; PULSE 81; RESP 14; TEMP 36.4; O2SAT 93
--- NOTE | 2020-10-03 00:39 | CT_ITS ---
STUDY: CT CHEST WITHOUT CONTRAST REASON FOR EXAM: Male, 79 years old. aspiration RADIATION DOSAGE (If Supplied By Facility): CTDIvol = ( 17.64 ) mGy, DLP = ( 625.99 ) mGycm TECHNIQUE: Transaxial imaging was performed without the administration of intravenous contrast material. Individualized dose optimization techniques were used for this CT. COMPARISON: None. FINDINGS: Lungs are adequately inflated. Subtle right basilar airspace disease could represent very subtle aspiration pneumonia, otherwise the lungs are clear. No consolidation or effusion. Normal heart and pericardium. Normal mediastinum. Normal hilar regions. Normal unenhanced pulmonary arteries. Normal aorta arch and descending thoracic aorta. Normal osseous structures. There is no demonstrated abnormality of the visualized upper abdomen. CT/Chest without Contrast IMPRESSION: Subtle right basilar aspiration pneumonia cannot be excluded Electronically Signed: Aakash Valenzuela DO at 1:08 EDT Tel , Service support ,
--- NOTE | 2020-10-03 00:40 | EX.ED.DYSGE1 ---
HPI History of Present Illness Chief Complaint: Foreign Body Informant: patient Onset/Context/Timing Onset: Today Narrative Narrative: Patient is a 79-year-old male. He is presenting for concern of aspirating a piece of salmon. He was eating salmon for dinner when he swallowed a bite. He then went to inhale and species same was still in his mouth and he inhaled it. He states he feels like it stuck in his right lung. He is concerned that it could do damage. His states he has had some swallowing issues in the past. Patient initially had a slight amount of coughing. He notices no nausea or vomiting. Denies any difficulty swallowing. He does not feel that this is a retained food bolus. No other complaints at this time. [facility] Medical History (Updated 10/03/20 @ 01:[address] Mirella Hung, ) Above-knee amputation Atrial fibrillation Diabetes Hypertension Home Medications amitriptyline 75 - 100 mg PO QHS 12/13/13 [History Last Taken 05/31/19] docusate sodium [DOK] 100 mg PO BID 12/13/13 [History Last Taken 05/31/19] glimepiride 4 mg PO BID 12/13/13 [History Last Taken 05/31/19] metoprolol tartrate 50 mg PO BID 12/13/13 [History Last Taken 05/31/19] polyethylene glycol 3350 17 g PO DAILY 12/13/13 [History Last Taken 05/30/19] potassium chloride 10 meq PO BID 12/13/13 [History Last Taken 05/30/19] dutasteride [Avodart] 0.5 mg PO DAILY 08/26/14 [History Last Taken 05/30/19] hydrochlorothiazide 25 mg PO DAILY 08/26/14 [History Last Taken 05/31/19] multivitamin with folic acid [Thera] 1 tab PO DAILY 08/26/14 [History Last Taken 05/30/19] amlodipine 5 mg PO DAILY 05/31/19 [History Last Taken 05/30/19] cholecalciferol (vitamin D3) 2,000 unit PO DAILY 05/31/19 [History Last Taken 05/30/19] hydrocodone-acetaminophen 1 tab PO TID 05/31/19 [History Last Taken 05/31/19] lorazepam 1 mg PO TID 05/31/19 [History Last Taken 05/31/19] quinapril 40 mg PO DAILY 05/31/19 [History Last Taken 05/30/19] rosuvastatin 5 mg PO QODAY 05/31/19 [History Last Taken 05/29/19] Duragesic patch 37.5 04/05/20 [History Last Taken Unknown] Fentanyl 37.5 mcg TD Q72H 04/05/20 [History Last Taken Unknown] tizanidine 4 mg PO PRN PRN 04/05/20 [History Last Taken Unknown] apixaban 5 mg tablet See Rx Instructions .ROUTE .COMPLEX #60 tab 06/06/20 [Rx Last Taken Unknown] amoxicillin-pot clavulanate [Augmentin] 1 tab PO Q12H #14 tab 10/03/20 [Rx Last Taken Unknown] Allergy/AdvReac Type Severity Reaction Status Date / Time trimethoprim Allergy Itching Verified 10/03/20 00:08 amoxicillin trihydrate AdvReac Nausea/Vom/ Verified 10/03/20 00:08 [From Augmentin] Diarrhea atropine sulfate AdvReac Unknown Verified 10/03/20 00:08 [From ] ceftriaxone sodium AdvReac Rash Verified 10/03/20 00:08 [From Rocephin] cephalexin monohydrate AdvReac Unknown Verified 10/03/20 00:08 [From Keflex] ciprofloxacin [From Cipro] AdvReac Vomiting Verified 10/03/20 00:08 ciprofloxacin HCl AdvReac Vomiting Verified 10/03/20 00:08 [From Cipro] gabapentin AdvReac Unknown Verified 10/03/20 00:08 hyoscyamine sulfate AdvReac Unknown Verified 10/03/20 00:08 [From ] oxycodone HCl [From Percocet] AdvReac Other Verified 10/03/20 00:08 phenobarbital [From ] AdvReac Unknown Verified 10/03/20 00:08 Pork/Porcine Containing AdvReac Nausea/Vom/ Verified 10/03/20 00:08 Products Diarrhea potassium clavulanate AdvReac Nausea/Vom/ Verified 10/03/20 00:08 [From Augmentin] Diarrhea pseudoephedrine HCl AdvReac Other Verified 10/03/20 00:08 [From Sudafed] scopolamine hydrobromide AdvReac Unknown Verified 10/03/20 00:08 [From ] sulfadiazine [Sulfadiazine] AdvReac Nausea Verified 10/03/20 00:08 Social History Smoking Status: Never smoker ROS ROS ED Constitutional Constitutional ED: Denies chills, fever(s) or malaise Eyes Eyes: Denies blurry vision or loss of vision ENT ENT ED: Denies rhinorrhea or sore throat Cardiovascular Cardiovascular: Denies chest pain or dizziness Respiratory/Chest Respiratory/Chest: Reports cough; Denies dyspnea Gastrointestinal Gastrointestinal: Denies nausea or vomiting Genitourinary Genitourinary ED: Denies dysuria or hematuria Musculoskeletal Musculoskeletal: Denies arthralgias or myalgias Integumentary Denies rash or wounds Neurologic Neurologic: Denies focal weakness or headache(s) Psychiatric Psychiatric: Denies anxiety or behavioral changes EXAM Physical Exam Const Vital Signs: 10/03/20 00:06 10/03/20 01:23 Temperature 97.5 F L Temperature Source Temporal Pulse Rate 81 Respiratory Rate 14 Blood Pressure 141/75 H Blood Pressure Mean 97 Pulse Ox 93 94 Oxygen Delivery Method Room Air Room Air Positive well nourished, well developed and no apparent distress General Appearance ED: well developed HEENT Reports normocephalic and moist mucous membranes atraumatic Nose: no nasal discharge General Ear: hearing grossly impaired External Ear: external ears normal Mouth ED: Yes moist mucous membranes abnormal Mouth: moist mucous membranes abnormal Eyes PERRL and EOMs intact bilaterally Neck full ROM, supple, no meningeal signs and no JVD Chest Wall inspection of chest normal Resp normal respiratory effort and normal air movement Resp Narrative: No wheezing, no stridor. Breath sounds in all lung wu appreciated. Cardio regular rate and regular rhythm GI normal to inspection, nondistended, normoactive bowel sounds Extremity full ROM Neuro oriented x3 and no focal motor deficits Sensorium / Orientation: alert Psych mental status grossly normal and thought process normal Skin no rashes or lesions noted and no wounds MDM MDM MDM Narrative Medical decision making narrative: Patient is evaluated after an aspiration event at home. Patient denies any shortness of breath but is concerned that he aspirated a piece of salmon. He does have discomfort in his right chest. Patient peers nontoxic in no acute distress. Is 92% on room air upon arrival. Patient states he is normally at 93%. He does not wear supplementary oxygen at home. His notes he does have a history of aspiration. CT of the chest obtained to look for any large food obstruction that might require bronchoscopy or removal. There is no large foreign body noted however he does have a questionable aspiration of the right lower lobe. Given his clinical history he will be treated empirically with Augmentin. Patient has amoxicillin/Augmentin listed as an allergy but his reaction is nausea, vomiting and diarrhea. He states he can take it as long as he has not food on his stomach. Patient is given first dose in the emergency room. He is given incentive spirometer to use. He is encouraged to follow-up with his primary care doctor. He is counseled on signs of worsening pneumonia such as fever, difficulty breathing or shortness of breath. Patient is counseled on signs and symptoms requiring return to the emergency room. Patient verbalizes agreement and understand this plan. Patient discharged home in stable and improved condition. Radiography Diagnostic Testing: Radiology Impression Chest CT 10/03/20 00:39 IMPRESSION: Subtle right basilar aspiration pneumonia cannot be excluded Electronically Signed: Aakash Valenzuela DO at 1:08 EDT Tel , Service support , Treatment and Re-Evaluation Comments:: Augmentin, O2 saturation stable at 93 to 94% in the room. Discharge home with outpatient follow-up. Discharge Plan Triage Chief Complaint: Foreign Body ED Provider: Mirella Hung Dx/Rx/DC Orders Clinical Impression: Aspiration into airway Instructions: ED Pneumonia (Adult) Prescriptions: New amoxicillin-pot clavulanate [Augmentin] 875-125 mg tablet 1 tab PO Q12H Qty: 14 RF: 0 No Action amitriptyline 25 MG tablet 75 - 100 mg PO QHS RF: 0 glimepiride 4 MG tablet 4 mg PO BID RF: 0 metoprolol tartrate 50 MG tablet 50 mg PO BID RF: 0 docusate sodium [DOK] 100 MG capsule 100 mg PO BID RF: 0 potassium chloride 10 MEQ tablet 10 meq PO BID RF: 0 polyethylene glycol 3350 17 GM powder in packet 17 g PO DAILY RF: 0 hydrochlorothiazide 25 MG tablet 25 mg PO DAILY RF: 0 dutasteride [Avodart] 0.5 MG capsule 0.5 mg PO DAILY RF: 0 multivitamin with folic acid [Thera] 1 TABLET tablet 1 tab PO DAILY RF: 0 hydrocodone-acetaminophen 1 EACH tablet 1 tab PO TID RF: 0 amlodipine 5 MG tablet 5 mg PO DAILY RF: 0 quinapril 40 MG tablet 40 mg PO DAILY RF: 0 lorazepam 1 MG tablet 1 mg PO TID RF: 0 rosuvastatin 10 MG tablet 5 mg PO QODAY RF: 0 cholecalciferol (vitamin D3) 2,000 UNIT capsule 2,000 unit PO DAILY RF: 0 Duragesic patch 37.5 RF: 0 Fentanyl 1 EACH Patch.Td72 37.5 mcg TD Q72H RF: 0 tizanidine 4 MG capsule 4 mg PO PRN PRN (Reason: SPASMS) RF: 0 apixaban [Eliquis] 5 mg tablet See Rx Instructions .ROUTE .COMPLEX Qty: 60 RF: 11 Primary Care Provider: Alejandra Howell Referrals: Alejandra Howell MD [Primary Care Provider] - Activity Restrictions/Additional Instructions: Use incentive spirometer multiple times a day while awake. You are treated for aspiration pneumonia with antibiotics. Please follow-up with your primary care doctor in a week as you might require repeat chest x-ray. Disposition Disposition: Home, self care Discharge Date/Time: 10/03/20 01:55
[2020-10-03 01:23] VITALS: O2SAT 94
[2020-10-03] MEDS: Amox/Clavulanate 875 MG Tablet PO (01:48)
== END 2020-10-03 01:55 | disposition home or self-care (01) ==
PROVIDERS: Emergency Provider Emergency Medicine; PCP Internal Medicine
DX: T18.9XXA Foreign body of alimentary tract, part unspecified, initial encounter (principal); X58.XXXA Exposure to other specified factors, initial encounter
CPT/HCPCS: 71250; 99251; 99283; G0463

== ENCOUNTER 2021-10-14 21:11 | Emergency (ER) | payer MEDICARE, SELFPAY ==
[2021-10-14 21:12] VITALS: BP 177/70; PULSE 89; RESP 18; TEMP 36.6; O2SAT 96
--- NOTE | 2021-10-14 21:22 | EKG12_ITS ---
Test Reason : CHEST PAIN Blood Pressure : / mmHG Vent. Rate : 088 BPM Atrial Rate : 090 BPM P-R Int : 000 ms QRS Dur : 102 ms QT Int : 364 ms P-R-T Axes : 019 -40 051 degrees QTc Int : 440 ms Normal sinus rhythm Left axis deviation Abnormal ECG Confirmed by GUERRERO ALCALA, MICK ([id number]), social media editor JESSICA TRAN ([id number]) on 10/19/2021 7:38:51 AM Referred By: TIARRA Confirmed By:MIKC MASTERS MD
--- NOTE | 2021-10-14 21:22 | RAD_ITS ---
STUDY: XR Chest 1 View 10/14/2021 9:31 PM REASON FOR EXAM: Male, 80 years old. CHEST PAIN chest pain COMPARISON: None TECHNIQUE: XR Chest 1 View FINDINGS: There is no demonstrated pleural abnormality. Normal heart size. Normal mediastinum. Normal michael. Prominent appearing increased interstitial lung markings. Normal visualized pulmonary arteries. There is atherosclerotic calcification of the aortic arch with tortuosity. There are diffuse degenerative changes of the visualized thoracic spine. There is degenerative osteoarthritis of the bilateral shoulders. There is no demonstrated abnormality of the visualized soft tissue structures of the upper abdomen. RAD/Chest 1 View (Portable) IMPRESSION: There are no acute findings. Electronically Signed: Nima Cardona MD at 21:48 EDT ,
--- NOTE | 2021-10-14 21:23 | EDS_ITS ---
HPI History of Present Illness Chief Complaint: Chest Pain Narrative Narrative: Patient with past medical history of hypertension, diabetes, hypercholesterolemia, non-smoker, presents with chest pain that began 2-1/2 hours ago. He states he awoke from sleep with tightness in his chest. It goes into his abdomen. He has nauseated but has not vomited. He denies any shortness of breath or diaphoresis. He describes a tightness. He has past medical history of bilateral lower extremity amputations. There is no exertional component to this however. He states he had this earlier this afternoon at around 2 or 3:00 but it had resolved. He has past medical history of atrial fibrillation and is on Pradaxa. [facility] Medical History (Updated 10/14/21 @ 23:49 by Yoan Ramey MD) Above-knee amputation Atrial fibrillation Diabetes Hypertension Oral cancer TIA (transient ischemic attack) Home Medications amitriptyline 50 mg PO BID 12/13/13 [History Last Taken 05/31/19] docusate sodium [DOK] 100 mg PO BID 12/13/13 [History Last Taken 05/31/19] glimepiride 4 mg PO BID 12/13/13 [History Last Taken 05/31/19] metoprolol tartrate 50 mg PO BID 12/13/13 [History Last Taken 05/31/19] polyethylene glycol 3350 17 g PO DAILY 12/13/13 [History Last Taken 05/30/19] potassium chloride 10 meq PO BID 12/13/13 [History Last Taken 05/30/19] dutasteride [Avodart] 0.5 mg PO DAILY 08/26/14 [History Last Taken 05/30/19] hydrochlorothiazide 25 mg PO DAILY 08/26/14 [History Last Taken 05/31/19] multivitamin with folic acid [Thera] 1 tab PO DAILY 08/26/14 [History Last Taken 05/30/19] amlodipine 5 mg PO DAILY 05/31/19 [History Last Taken 05/30/19] cholecalciferol (vitamin D3) 2,000 unit PO DAILY 05/31/19 [History Last Taken 05/30/19] hydrocodone-acetaminophen 1 tab PO TID 05/31/19 [History Last Taken 05/31/19] lorazepam 1 mg PO TID 05/31/19 [History Last Taken 05/31/19] quinapril 40 mg PO DAILY 05/31/19 [History Last Taken 05/30/19] rosuvastatin 5 mg PO QODAY 05/31/19 [History Last Taken 05/29/19] Duragesic patch 37.5 04/05/20 [History Last Taken Unknown] Fentanyl 37.5 mcg TD Q72H 04/05/20 [History Last Taken Unknown] tizanidine 4 mg PO PRN PRN 04/05/20 [History Last Taken Unknown] apixaban [Eliquis] 5 mg PO BID 10/14/21 [History Last Taken Unknown] Allergy/AdvReac Type Severity Reaction Status Date / Time trimethoprim Allergy Itching Verified 10/14/21 21:13 amoxicillin trihydrate AdvReac Nausea/Vom/ Verified 10/14/21 21:13 [From Augmentin] Diarrhea atropine sulfate AdvReac Unknown Verified 10/14/21 21:13 [From ] ceftriaxone sodium AdvReac Rash Verified 10/14/21 21:13 [From Rocephin] cephalexin monohydrate AdvReac Unknown Verified 10/14/21 21:13 [From Keflex] ciprofloxacin [From Cipro] AdvReac Vomiting Verified 10/14/21 21:13 ciprofloxacin HCl AdvReac Vomiting Verified 10/14/21 21:13 [From Cipro] gabapentin AdvReac Unknown Verified 10/14/21 21:13 hyoscyamine sulfate AdvReac Unknown Verified 10/14/21 21:13 [From ] oxycodone HCl [From Percocet] AdvReac Other Verified 10/14/21 21:13 phenobarbital [From ] AdvReac Unknown Verified 10/14/21 21:13 Pork/Porcine Containing AdvReac Nausea/Vom/ Verified 10/14/21 21:13 Products Diarrhea potassium clavulanate AdvReac Nausea/Vom/ Verified 10/14/21 21:13 [From Augmentin] Diarrhea pseudoephedrine HCl AdvReac Other Verified 10/14/21 21:13 [From Sudafed] scopolamine hydrobromide AdvReac Unknown Verified 10/14/21 21:13 [From ] sulfadiazine [Sulfadiazine] AdvReac Nausea Verified 10/14/21 21:13 Social History Smoking Status: Never smoker ROS ROS ED ROS Narrative Constitutional: No fever, no chills. HEENT: No sore throat. No neck pain. No loss of vision. No rhinorrhea. Cardiovascular: Positive chest tightness diffusely/chest pain. No palpitations. No pedal edema. Respiratory: No cough, no shortness of breath. Abdominal: No abdominal pain. Positive nausea. No vomiting. Genitourinary: No dysuria. No hematuria. Musculoskeletal: No myalgias. No arthralgias. Neurologic: No headaches. No dizziness. No lightheadedness. Skin: No rash. No change in color. Psychiatric: No depression. No anxiety. EXAM Physical Exam Narrative Exam Narrative: Afebrile. Vital signs noted. HEENT: Normocephalic. Atraumatic. PERRL, EOMI. Neck soft and supple. No point tenderness or step off. Cardiovascular: Regular rate and rhythm. No murmurs, rubs, or gallops appreciated. Respiratory: No tachypnea. Lungs clear to auscultation bilaterally. Gastrointestinal: Abdomen soft, nontender, with normoactive bowel sounds. No rebound or guarding. Neurological: Awake. Alert. Nonfocal, nonlateralizing. Skin: No rash. Normal color. No pallor. Musculoskeletal: No pedal edema. Full range of motion extremities. Noted bilateral lower extremity amputations. Const Vital Signs: 10/14/21 21:12 10/14/21 21:23 10/14/21 21:27 Temperature 97.8 F Temperature Source Temporal Pulse Rate 89 Respiratory Rate 18 Respiratory Effort Normal Non-Labored Blood Pressure 177/70 H Blood Pressure Mean 105 Pulse Ox 96 94 Oxygen Delivery Method Room Air Room Air 10/14/21 22:11 10/14/21 23:00 Temperature Temperature Source Pulse Rate 90 87 Respiratory Rate 14 18 Respiratory Effort Blood Pressure 159/72 H 145/68 H Blood Pressure Mean 101 93 Pulse Ox 90 91 Oxygen Delivery Method Room Air Room Air Heart Score History: Slightly/Non-Suspicious ECG: Normal Age: >/= 65 years Risk Factors: >/= 3 Risk Factors or History of CAD Troponin: </= Normal Limit Score: 4 MDM MDM MDM Narrative Medical decision making narrative: Chest pain work-up was pursued. His EKG shows an undetermined rhythm at 88 bpm, but I do see P waves and thinks that it is normal sinus. There is no acute ST changes, no STEMI, no significant change from previous dated April 07, 2020 except for at that time he was in atrial fibrillation. WBC count normal at 10.8, hemoglobin normal at 14.7, platelet count 258. Sodium slightly low at 131, potassium normal at 3.6, normal anion gap of 7. Although glucose is elevated at 359, he has a normal anion gap. I do not feel that he is in diabetic ketoacidosis. BNP normal at 47.6. Initial high-sensitivity troponin less than 3. Chest x-ray interpreted by myself shows no evidence of infiltrate. Patient has borderline hypoxia at 92% on room air. Upon repeat examination without intervention, he states his chest tightness has resolved. Had a lengthy discussion with the patient and his regarding follow-up with his primary care physician with possible referral to pulmonology for lung function tests and his borderline hypoxia. At this point in time, he will be signed out to Dr. Rodas to check the troponin/delta troponin/2-hour troponin on this patient as he had 2-1/2 hours of chest pain prior and it was not a 3-hour troponin initially. I feel that he could be discharged safely home if his troponin is negative. Return instructions were initially reviewed with the patient. Disposition is pending second troponin. He is in stable condition. Lab Data Attestation: I reviewed the patient's lab results. Labs: Laboratory Results - last 24 hr 10/14/21 10/14/21 10/14/21 21:28 21:28 21:28 WBC 10.8 RBC 4.41 L Hgb 14.7 Hct 42.6 MCV 96.6 H MCH 33.3 H MCHC 34.5 RDW Std Deviation 44.2 H RDW Coeff of Uasma 12.3 Plt Count 258 MPV 8.6 Immature Gran % (Auto) 0.300 Neut % (Auto) 82.9 H Lymph % (Auto) 4.8 L Andrew % (Auto) 11.5 H Eos % (Auto) 0.3 Baso % (Auto) 0.2 Absolute Neuts (auto) 8.9 H Absolute Lymphs (auto) 0.52 L Nucleated RBC % 0 Differential Comment SEE COMMENT Platelet Estimate ADEQUATE RBC Morphology N CHROM Anisocytosis RARE Macrocytosis RARE Sodium 131 L Potassium 3.6 Chloride 94 L Carbon Dioxide 30.0 Anion Gap 7 BUN 13 Creatinine 0.89 Estim Creat Clear Calc 70.38 Est GFR (MDRD) Af Amer 105 Est GFR (MDRD) Non-Af 87 BUN/Creatinine Ratio 14.6 Glucose 359 H Calcium 8.9 Troponin I High Sens < 3 L B-Natriuretic Peptide 47.6 Radiography Diagnostic Testing: Clinical Impression(s) from Imaging Studies Chest X-Ray 10/14/21 21:22 IMPRESSION: There are no acute findings. Electronically Signed: Nima Cardona MD at 21:48 EDT Reading Location ID and State: [facility] / [place] , Service support , Discharge Plan Triage Chief Complaint: Chest Pain ED Provider: Yoan Ramey Dx/Rx/DC Orders Clinical Impression: Chest pain, Chest tightness Instructions: ED Chest Pain, Uncertain Cause Prescriptions: No Action amitriptyline 25 MG tablet 50 mg PO BID RF: 0 glimepiride 4 MG tablet 4 mg PO BID RF: 0 metoprolol tartrate 50 MG tablet 50 mg PO BID RF: 0 docusate sodium [DOK] 100 MG capsule 100 mg PO BID RF: 0 potassium chloride 10 MEQ tablet 10 meq PO BID RF: 0 polyethylene glycol 3350 17 GM powder in packet 17 g PO DAILY RF: 0 hydrochlorothiazide 25 MG tablet 25 mg PO DAILY RF: 0 dutasteride [Avodart] 0.5 MG capsule 0.5 mg PO DAILY RF: 0 multivitamin with folic acid [Thera] 1 TABLET tablet 1 tab PO DAILY RF: 0 hydrocodone-acetaminophen 1 EACH tablet 1 tab PO TID RF: 0 amlodipine 5 MG tablet 5 mg PO DAILY RF: 0 quinapril 40 MG tablet 40 mg PO DAILY RF: 0 lorazepam 1 MG tablet 1 mg PO TID RF: 0 rosuvastatin 10 MG tablet 5 mg PO QODAY RF: 0 cholecalciferol (vitamin D3) 2,000 UNIT capsule 2,000 unit PO DAILY RF: 0 Duragesic patch 37.5 RF: 0 Fentanyl 1 EACH Patch.Td72 37.5 mcg TD Q72H RF: 0 tizanidine 4 MG capsule 4 mg PO PRN PRN (Reason: SPASMS) RF: 0 Eliquis 5 mg tablet 5 mg PO BID RF: 0 Primary Care Provider: Alejandra Howell Referrals: Alejandra Howell MD [Primary Care Provider] - As soon as possible
[2021-10-14 21:27] VITALS: O2SAT 94
[2021-10-14 21:35] LABS: Absolute Lymphocyte Count 0.52 X10^3/uL (0.83-4.51); Absolute Neutrophil Count 8.9 X10^3/uL (2.0-7.7); Basophil# 0.02 X10^3/uL; Basophil% 0.2 % (0-1); Eosinophil# 0.03 X10^3/uL; Eosinophils% 0.3 % (0-5); Hematocrit 42.6 % (40-54); Hemoglobin 14.7 g/dL (13.0-16.5); Lymphocyte # 0.52 X10^3/ul (0.83-4.51); Lymphocyte % 4.8 % (19-41); Mean Corp Hgb Conc 34.5 g/dL (32-36); Mean Corpuscular Hgb 33.3 pg (27.0-32.0); Mean Corpuscular Volume 96.6 fL (80-94); Mean Platelet Vol. 8.6 fl (6.2-12.0); Monocyte# 1.24 X10^3/uL; Monocyte% 11.5 % (0-10); NRBC Flagged by Analyzer 0 % (0-5); Neutrophil # 8.91 X10^3/uL (2.7-7.7); Neutrophil % 82.9 % (47-70); POSITIVE DIFFERENTIAL YES; Platelet Count 258 K/mm3 (150-450); RBC Distribution Width CV 12.3 % (11.6-14.6); RBC Distribution Width SD 44.2 fl (35.1-43.9); Red Blood Count 4.41 M/mm3 (4.6-6.2); White Blood Count 10.8 K/mm3 (4.4-11.0)
[2021-10-14 21:37] LABS: Differential Indicated SCAN CRITERIA MET
[2021-10-14 21:38] LABS: Anisocytosis RARE; Macrocytosis RARE; Platelet Estimate ADEQUATE (ADEQ); Red Cell Morphology N CHROM NORMAL (NORM C&C)
[2021-10-14] MEDS: Aspirin 81 MG TAB.CHEW 324 MG PO (21:50)
[2021-10-14 21:53] LABS: Anion Gap 7 (5-15); BUN 13 mg/dL (7-18); BUN/Creat Ratio 14.6 RATIO (10-20); Calcium,Total 8.9 mg/dL (8.5-10.1); Chloride 94 mmol/L (98-107); Creatinine, Serum 0.89 mg/dL (0.70-1.30); EST Glomerular Filtration Rate 87 mL/min (>60); Est Glom Filt Rate - Afr Amer 105 mL/min (>60); Estimated Creatinine Clearance 70.38 ml/min; Glucose 359 mg/dL (74-106); Potassium 3.6 mmol/L (3.5-5.1); Sodium Level 131 mmol/L (136-145); Troponin-I HS (w/2H Reflex) < 3 pg/mL (3.0-78.0)
[2021-10-14 22:02] LABS: BNP,B-Type NATRIURETIC PEPTIDE 47.6 pg/mL (0-100)
[2021-10-14 22:11] VITALS: BP 159/72; PULSE 90; RESP 14; O2SAT 90
[2021-10-14 23:00] VITALS: BP 145/68; PULSE 87; RESP 18; O2SAT 91
[2021-10-14 23:32] LABS: Reflex Troponin-HS? (from REC) Y
[2021-10-15] VITALS: BP 149/74; PULSE 85; RESP 12; O2SAT 90
[2021-10-15 00:04] LABS: Troponin-I HS 8 pg/mL (3.0-78.0)
[2021-10-15 00:38] VITALS: BP 130/69; PULSE 86; RESP 17; O2SAT 90
== END 2021-10-15 01:11 | disposition home or self-care (01) ==
PROVIDERS: Emergency Provider Emergency Medicine; PCP Internal Medicine; Visit Provider Emergency Medicine
DX: R07.89 Other chest pain (principal); I48.91 Unspecified atrial fibrillation; I10 Essential (primary) hypertension; E78.00 Pure hypercholesterolemia, unspecified; Z86.73 Personal history of transient ischemic attack (TIA), and cerebral infarction without residual deficits; Z79.01 Long term (current) use of anticoagulants; Z79.899 Other long term (current) drug therapy
CPT/HCPCS: 71045; 80048; 83880; 84484; 85025; 93005; 99284; A4216

== ENCOUNTER 2022-02-19 22:37 | Emergency (ER) | payer MEDICARE, SELFPAY ==
[2022-02-19 22:38] VITALS: BP 164/80; PULSE 80; RESP 18; TEMP 36.6; O2SAT 97; BMI 59.1
--- NOTE | 2022-02-19 23:08 | EDS_ITS ---
HPI History of Present Illness Chief Complaint: Hyperglycemia Narrative Narrative: 81-year-old male presenting with high blood sugar. He states his blood sugar had been running about 140 at home. He states that Dr. Booth had only had him on glimepiride 4 mg. He states that about 3 days ago he started metformin 500 mg p.o. daily. He takes his meds about 3:00. Patient states that at 1:40 PM today his blood sugar was 147. At 3 PM he ate oatmeal, macaroni salad, tangerines, a banana, a diet Coke and some sugar-free pudding. Patient states he went to sleep after this and slept until 8:00. He states that at 850 he checked his blood sugar and it was 306. He did not believe the reading so he rechecked it again 2 minutes later is 357. Patient states that he felt a little off and his blood sugar was elevated. He states he drank a whole bunch of water prior to coming. He took his glimepiride today at 8 PM prior to coming into the hospital. Patient also states that he plans on eating meatloaf and mashed potatoes when he gets home. He states he has not had a change in his diet at all. He states that he does not watch carbs. His hemoglobin A1c 12/02/2020 was 8.4. He states this has not been rechecked. He does report that his blood sugars usually stay around the 140 range. [facility] Medical History Above-knee amputation Atrial fibrillation Diabetes Hypertension Oral cancer TIA (transient ischemic attack) Home Medications amitriptyline 25 mg tablet 50 mg PO BID sleep 12/13/13 [History Last Taken 05/31/19] docusate sodium 100 mg capsule (DOK) 100 mg PO BID constipation 12/13/13 [History Last Taken 05/31/19] glimepiride 4 mg tablet 4 mg PO BID diabetes 12/13/13 [History Last Taken 05/31/19] metoprolol tartrate 50 mg tablet 50 mg PO BID heart rate 12/13/13 [History Last Taken 05/31/19] polyethylene glycol 3350 17 gram oral powder packet 17 g PO DAILY constipation 12/13/13 [History Last Taken 05/30/19] potassium chloride 10 mEq tablet,extended release(part/cryst) 10 meq PO BID supplement 12/13/13 [History Last Taken 05/30/19] dutasteride 0.5 mg capsule (Avodart) 0.5 mg PO DAILY bladder 08/26/14 [History Last Taken 05/30/19] hydrochlorothiazide 25 mg tablet 25 mg PO DAILY blood pressure 08/26/14 [History Last Taken 05/31/19] multivitamin with folic acid 400 mcg tablet (Thera) 1 tab PO DAILY supplement 08/26/14 [History Last Taken 05/30/19] amlodipine 5 mg tablet 5 mg PO DAILY blood pressure 05/31/19 [History Last Taken 05/30/19] cholecalciferol (vitamin D3) 50 mcg (2,000 unit) capsule 2,000 unit PO DAILY supplement 05/31/19 [History Last Taken 05/30/19] hydrocodone-acetaminophen 5-325mg 5mg-325mg 1 tab PO TID pain 05/31/19 [History Last Taken 05/31/19] lorazepam 1 mg tablet 1 mg PO TID anxiety 05/31/19 [History Last Taken 05/31/19] quinapril 40 mg tablet 40 mg PO DAILY blood pressure 05/31/19 [History Last Taken 05/30/19] rosuvastatin 10 mg tablet 5 mg PO QODAY cholesterol 05/31/19 [History Last Taken 05/29/19] Duragesic patch 37.5 04/05/20 [History Last Taken Unknown] Fentanyl 37.5 mcg transdermal Q72H 04/05/20 [History Last Taken Unknown] tizanidine 4 mg capsule 4 mg PO PRN PRN SPASMS 04/05/20 [History Last Taken Unknown] apixaban 5 mg tablet (Eliquis) 5 mg PO BID 10/14/21 [History Last Taken Unknown] metformin 500 mg tablet,extended release 24 hr 500 mg PO DAILY 02/19/22 [History Last Taken 02/19/22] Allergy/AdvReac Type Severity Reaction Status Date / Time trimethoprim Allergy Itching Verified 02/19/22 22:40 amoxicillin trihydrate AdvReac Nausea/Vom/ Verified 02/19/22 22:40 [From Augmentin] Diarrhea atropine sulfate AdvReac Unknown Verified 02/19/22 22:40 [From ] ceftriaxone sodium AdvReac Rash Verified 02/19/22 22:40 [From Rocephin] cephalexin monohydrate AdvReac Unknown Verified 02/19/22 22:40 [From Keflex] ciprofloxacin [From Cipro] AdvReac Vomiting Verified 02/19/22 22:40 ciprofloxacin HCl AdvReac Vomiting Verified 02/19/22 22:40 [From Cipro] gabapentin AdvReac Unknown Verified 02/19/22 22:40 hyoscyamine sulfate AdvReac Unknown Verified 02/19/22 22:40 [From ] oxycodone HCl [From Percocet] AdvReac Other Verified 02/19/22 22:40 phenobarbital [From ] AdvReac Unknown Verified 02/19/22 22:40 Pork/Porcine Containing AdvReac Nausea/Vom/ Verified 02/19/22 22:40 Products Diarrhea potassium clavulanate AdvReac Nausea/Vom/ Verified 02/19/22 22:40 [From Augmentin] Diarrhea pseudoephedrine HCl AdvReac Other Verified 02/19/22 22:40 [From Sudafed] scopolamine hydrobromide AdvReac Unknown Verified 02/19/22 22:40 [From ] sulfadiazine [Sulfadiazine] AdvReac Nausea Verified 02/19/22 22:40 Social History Smoking Status: Never smoker EXAM Physical Exam Const Vital Signs: 02/19/22 22:38 02/19/22 23:14 02/20/22 00:28 Temperature 97.9 F Temperature Source Temporal Pulse Rate 80 85 Respiratory Rate 18 16 Respiratory Pattern Irregular Blood Pressure 164/80 H 164/81 H Blood Pressure Mean 108 108 Pulse Ox 97 96 Oxygen Delivery Method Room Air Room Air Positive well nourished General Appearance ED: NAD; Negative for pallor HEENT Reports moist mucous membranes Eyes PERRL and EOMs intact bilaterally General Eye ED: Negative for pale conjunctiva or scleral icterus Neck no lymphadenopathy Chest Wall inspection of chest normal Resp normal respiratory effort Cardio regular rate and regular rhythm GI normal to inspection, nondistended, normoactive bowel sounds Neuro oriented x3 and CN's II-XII intact bilaterally Sensorium / Orientation: alert Psych mental status grossly normal Skin no rashes or lesions noted and no wounds General Skin Exam: Negative for jaundice or pallor MDM MDM MDM Narrative Medical decision making narrative: Blood sugar was checked on arrival and this is 326 so it is already lower. Patient took glimepiride at 8:00 and this was 4 mg he reports. He also took metformin today at the same time which is 500 mg. He does not have any polyuria, polydipsia. His vital signs are normal and he is not tachycardic, tachypneic. He is afebrile at 97.9 Fahrenheit. O2 sats 97% on room air. We will check a BMP and give him a liter of IV fluids. I had a long discussion with him about the amount of sugars and carbs that he is eating and he acknowledges that he needs to watch he is closer. I spoke with Dr Booth who stated that she wanted to give him metformin 500 mg twice daily however the patient stated he did not want to take medications twice a day. She recommended that he do this again. She also recommended that he try to control his diet. She wants to see him in follow-up to go over diabetic diet again with him. BMP shows normal renal function. Sodium is 132 but his potassium is normal. He does not have an anion gap and his blood sugar is 349. He is currently getting 1 L of IV fluids. Patient's repeat blood sugar 268. I do not believe he needs insulin. Again recommended to him is to watch his diet and to take metformin twice a day. He will follow-up with his PCP. Impression: 1. Hyperglycemia Lab Data Attestation: I reviewed the patient's lab results. Labs: Laboratory Results - last 24 hr 02/19/22 02/19/22 02/20/22 22:49 23:10 00:24 Sodium 132 L Potassium 3.8 Chloride 94 L Carbon Dioxide 30.0 Anion Gap 8 BUN 7 Creatinine 0.85 Estim Creat Clear Calc 72.49 Est GFR (MDRD) Af Amer 111 Est GFR (MDRD) Non-Af 92 BUN/Creatinine Ratio 8.2 L Glucose 349 H Calcium 8.4 L POC Glucose 326 H 268 H Discharge Plan Triage Chief Complaint: Hyperglycemia ED Provider: Santosh Mathis Dx/Rx/DC Orders Prescriptions: No Action amitriptyline 25 MG tablet 50 mg PO BID Label Comments: sleep glimepiride 4 MG tablet 4 mg PO BID Label Comments: diabetes metoprolol tartrate 50 MG tablet 50 mg PO BID Label Comments: blood pressure/heart docusate sodium [DOK] 100 MG capsule 100 mg PO BID Label Comments: constipation potassium chloride 10 MEQ tablet 10 meq PO BID Label Comments: supplement polyethylene glycol 3350 17 GM powder in packet 17 g PO DAILY Label Comments: constipation hydrochlorothiazide 25 MG tablet 25 mg PO DAILY Label Comments: water pill dutasteride [Avodart] 0.5 MG capsule 0.5 mg PO DAILY Label Comments: prostate multivitamin with folic acid [Thera] 1 TABLET tablet 1 tab PO DAILY Label Comments: vitamin hydrocodone-acetaminophen 1 EACH tablet 1 tab PO TID Label Comments: TAKE 1 TABLET BY MOUTH EVERY 8 HOURS NEEDED FOR PAIN FOR UP TO 30 DAYS amlodipine 5 MG tablet 5 mg PO DAILY Label Comments: TAKE 1 TABLET BY MOUTH EVERY DAY quinapril 40 MG tablet 40 mg PO DAILY lorazepam 1 MG tablet 1 mg PO TID rosuvastatin 10 MG tablet 5 mg PO QODAY Label Comments: TAKE 1 TABLET BY MOUTH EVERY 48 HOURS. cholecalciferol (vitamin D3) 2,000 UNIT capsule 2,000 unit PO DAILY Duragesic patch 37.5 Rx Instructions: change patch every 72 hours, rotate site around abdomen. Fentanyl 1 EACH Patch.Td72 37.5 mcg TD Q72H tizanidine 4 MG capsule 4 mg PO PRN PRN (Reason: SPASMS) Eliquis 5 mg tablet 5 mg PO BID metformin 500 mg tablet extended release 24 hr 500 mg PO DAILY Label Comments: TAKE 1 TABLET BY MOUTH EVERY DAY WITH BREAKFAST Primary Care Provider: Alejandra Howell Referrals: Alejandra Howell MD [Primary Care Provider] -
[2022-02-19 23:11] LABS: Bedside Glucose 326 mg/dL (74-106)
[2022-02-19] MEDS: 0.9% Normal Saline 1,000 ML 999 ML IV (23:13)
[2022-02-19 23:28] LABS: Anion Gap 8 (5-15); BUN 7 mg/dL (7-18); BUN/Creat Ratio 8.2 RATIO (10-20); Calcium,Total 8.4 mg/dL (8.5-10.1); Chloride 94 mmol/L (98-107); Creatinine, Serum 0.85 mg/dL (0.70-1.30); EST Glomerular Filtration Rate 92 mL/min (>60); Est Glom Filt Rate - Afr Amer 111 mL/min (>60); Estimated Creatinine Clearance 72.49 ml/min; Glucose 349 mg/dL (74-106); Potassium 3.8 mmol/L (3.5-5.1); Sodium Level 132 mmol/L (136-145)
[2022-02-20 00:28] VITALS: BP 164/81; PULSE 85; RESP 16; O2SAT 96
[2022-02-20 00:45] LABS: Bedside Glucose 268 mg/dL (74-106)
== END 2022-02-20 01:13 | disposition home or self-care (01) ==
PROVIDERS: Emergency Provider Student in an Organized Health Care Education/Training Program; PCP Internal Medicine; Visit Provider Student in an Organized Health Care Education/Training Program
DX: E11.65 Type 2 diabetes mellitus with hyperglycemia (principal); Z86.73 Personal history of transient ischemic attack (TIA), and cerebral infarction without residual deficits; Z79.84 Long term (current) use of oral hypoglycemic drugs
CPT/HCPCS: 80048; 82962; 99283; J7030; A4216

== ENCOUNTER 2022-03-26 22:19 | Emergency (ER) | payer MEDICARE, SELFPAY ==
--- NOTE | 2022-03-26 00:45 | RAD_ITS ---
STUDY: X-RAY CHEST REASON FOR EXAM: Male, 81 years old. Cough TECHNIQUE: AP and lateral. COMPARISON: 10/14/2021. FINDINGS: LUNGS: Low lung volumes. No consolidation. No pneumothorax. MEDIASTINUM: Unremarkable. CARDIAC SILHOUETTE: Not enlarged. BONES AND SOFT TISSUES: Degenerative changes in the dorsal spine. RAD/Chest PA and Lateral IMPRESSION: No evidence of active intrathoracic disease. Electronically Signed: Danni Flowers MD at 1:22 EST ,
[2022-03-26 22:21] VITALS: BP 115/78; PULSE 78; RESP 16; TEMP 36.6; O2SAT 100; BMI 59.1
--- NOTE | 2022-03-26 23:26 | EDS_ITS ---
HPI History of Present Illness Chief Complaint: Santos C/O Pain Onset: Today Context: Gradual Onset Timing: Continuous Worsened by: Nothing Relieved by: Nothing Urinary Symptoms Genitourinary Symptoms: Retention Related History Enlarged Prostate: Yes Narrative Narrative: Patient presents with urinary retention that began today. Patient states he was able to catheterize himself last evening around 10 PM. Patient states he was unable to pass catheter today. Patient states that he was changed to a different catheter that had a different lubricant. Patient states that he felt the lubricant caused some swelling of his prostate and blocked his urethra. Patient denies any fevers or chills. Patient denies any nausea or vomiting. Patient does admit to back pain but states that is chronic. Patient also admits to a cough. Patient states he has had bronchitis for the last couple weeks. [facility] Medical History Above-knee amputation Atrial fibrillation Diabetes Hypertension Oral cancer TIA (transient ischemic attack) Home Medications amitriptyline 25 mg tablet 50 mg PO BID sleep 12/13/13 [History Last Taken 05/31/19] docusate sodium 100 mg capsule (DOK) 100 mg PO BID constipation 12/13/13 [History Last Taken 05/31/19] glimepiride 4 mg tablet 4 mg PO BID diabetes 12/13/13 [History Last Taken 05/31/19] metoprolol tartrate 50 mg tablet 50 mg PO BID heart rate 12/13/13 [History Last Taken 05/31/19] polyethylene glycol 3350 17 gram oral powder packet 17 g PO DAILY constipation 12/13/13 [History Last Taken 05/30/19] potassium chloride 10 mEq tablet,extended release(part/cryst) 10 meq PO BID supplement 12/13/13 [History Last Taken 05/30/19] dutasteride 0.5 mg capsule (Avodart) 0.5 mg PO DAILY bladder 08/26/14 [History Last Taken 05/30/19] hydrochlorothiazide 25 mg tablet 25 mg PO DAILY blood pressure 08/26/14 [History Last Taken 05/31/19] multivitamin with folic acid 400 mcg tablet (Thera) 1 tab PO DAILY supplement 08/26/14 [History Last Taken 05/30/19] amlodipine 5 mg tablet 5 mg PO DAILY blood pressure 05/31/19 [History Last Taken 05/30/19] cholecalciferol (vitamin D3) 50 mcg (2,000 unit) capsule 2,000 unit PO DAILY supplement 05/31/19 [History Last Taken 05/30/19] hydrocodone-acetaminophen 5-325mg 5mg-325mg 1 tab PO TID pain 05/31/19 [History Last Taken 05/31/19] lorazepam 1 mg tablet 1 mg PO TID anxiety 05/31/19 [History Last Taken 05/31/19] quinapril 40 mg tablet 40 mg PO DAILY blood pressure 05/31/19 [History Last Taken 05/30/19] rosuvastatin 10 mg tablet 5 mg PO QODAY cholesterol 05/31/19 [History Last Taken 05/29/19] Duragesic patch 37.5 04/05/20 [History Last Taken Unknown] Fentanyl 25 mcg transdermal Q72H 04/05/20 [History Last Taken Unknown] tizanidine 4 mg capsule 4 mg PO PRN PRN SPASMS 04/05/20 [History Last Taken Unknown] apixaban 5 mg tablet (Eliquis) 5 mg PO BID 10/14/21 [History Last Taken Unknown] metformin 500 mg tablet,extended release 24 hr 500 mg PO DAILY 02/19/22 [History Last Taken 02/19/22] naloxone 4 mg/actuation nasal spray intranasal 03/27/22 [History Last Taken Unknown] nitrofurantoin monohydrate/macrocrystals 100 mg capsule 100 mg PO Q12 #10 CAPSULES 03/27/22 [Rx Last Taken Unknown] Allergy/AdvReac Type Severity Reaction Status Date / Time trimethoprim Allergy Itching Verified 03/26/22 22:20 amoxicillin trihydrate AdvReac Nausea/Vom/ Verified 03/26/22 22:20 [From Augmentin] Diarrhea atropine sulfate AdvReac Unknown Verified 03/26/22 22:20 [From ] ceftriaxone sodium AdvReac Rash Verified 03/26/22 22:20 [From Rocephin] cephalexin monohydrate AdvReac Unknown Verified 03/26/22 22:20 [From Keflex] ciprofloxacin [From Cipro] AdvReac Vomiting Verified 03/26/22 22:20 ciprofloxacin HCl AdvReac Vomiting Verified 03/26/22 22:20 [From Cipro] gabapentin AdvReac Unknown Verified 03/26/22 22:20 hyoscyamine sulfate AdvReac Unknown Verified 03/26/22 22:20 [From ] oxycodone HCl [From Percocet] AdvReac Other Verified 03/26/22 22:20 phenobarbital [From ] AdvReac Unknown Verified 03/26/22 22:20 Pork/Porcine Containing AdvReac Nausea/Vom/ Verified 03/26/22 22:20 Products Diarrhea potassium clavulanate AdvReac Nausea/Vom/ Verified 03/26/22 22:20 [From Augmentin] Diarrhea pseudoephedrine HCl AdvReac Other Verified 03/26/22 22:20 [From Sudafed] scopolamine hydrobromide AdvReac Unknown Verified 03/26/22 22:20 [From ] sulfadiazine [Sulfadiazine] AdvReac Nausea Verified 03/26/22 22:20 Social History Smoking Status: Never smoker ROS ROS ED Constitutional Constitutional ED: Denies chills or fever(s) Eyes Eyes: Denies blurry vision or change in vision ENT ENT ED: Denies rhinorrhea or sore throat Cardiovascular Cardiovascular: Denies chest pain or palpitations Respiratory/Chest Respiratory/Chest: Reports cough; Denies dyspnea Gastrointestinal Gastrointestinal: Denies nausea or vomiting Genitourinary Genitourinary ED: Denies dysuria or hematuria Musculoskeletal Musculoskeletal: Reports back pain; Denies neck pain Integumentary Denies abscess or rash Neurologic Neurologic: Denies headache(s) or weakness Allergic/Immunologic Allergic/Immunologic ED: Denies mouth swelling or urticaria EXAM Physical Exam Const Vital Signs: 03/26/22 22:21 03/27/22 00:24 Temperature 97.8 F Temperature Source Temporal Pulse Rate 78 71 Respiratory Rate 16 16 Blood Pressure 115/78 117/60 Blood Pressure Mean 90 79 Pulse Ox 100 98 Oxygen Delivery Method Room Air Room Air Positive well nourished and well developed General Appearance ED: well developed HEENT Reports moist mucous membranes Neck supple and no JVD Resp normal respiratory effort and clear to auscultation bilaterally Cardio regular rate, regular rhythm and no murmurs GI normal to inspection, nondistended, normoactive bowel sounds Palpation: soft and tender suprapubic; Negative for guarding Bladder / Kidney Exam: other There is a distended bladder. Extremity normal to inspection General Extremety ED: Negative for edema or tenderness General Extremity: Negative for edema Neuro oriented x3, CN's II-XII intact bilaterally and no sensory deficits noted Sensorium / Orientation: alert Motor Exam: strength 5/5 throughout Psych mental status grossly normal Skin no rashes or lesions noted MDM MDM MDM Narrative Medical decision making narrative: Santos catheter was placed. CBC was within normal limits. Comprehensive metabolic profile was essentially within normal limits. Urinalysis shows leukocyte esterase of 500 with 10-25 white blood cells and 3+ bacteria. Urine culture was ordered. Patient was given a dose of Macrobid here. Patient was given a prescription for Macrobid. COVID-19 rapid antigen was obtained and was negative. Influenza A and influenza B rapid antigens were obtained and were negative. PA and lateral chest x-ray was obtained. There are 2 views. On my interpretation, lung wu are clear. There is normal cardiac silhouette. Bony thorax is normal. There is no acute process noted. Radiologist also interpreted the x-ray and agrees. Lab Data Labs: Laboratory Results - last 24 hr 03/27/22 03/27/22 03/27/22 00:01 00:01 00:10 WBC 9.2 RBC 4.29 L Hgb 14.0 Hct 40.7 MCV 94.9 H MCH 32.6 H MCHC 34.4 RDW Std Deviation 42.2 RDW Coeff of [place] 12.2 Plt Count 301 MPV 8.3 Immature Gran % (Auto) 0.500 Neut % (Auto) 85.3 H Lymph % (Auto) 5.0 L [place] % (Auto) 7.8 Eos % (Auto) 1.0 Baso % (Auto) 0.4 Absolute Neuts (auto) 7.9 H Absolute Lymphs (auto) 0.46 L Nucleated RBC % 0 Differential Comment SCANNED Sodium 132 L Potassium 4.1 Chloride 94 L Carbon Dioxide 32.0 Anion Gap 6 BUN 8 Creatinine 0.84 Estim Creat Clear Calc 73.35 Est GFR (MDRD) Af Amer 113 Est GFR (MDRD) Non-Af 93 BUN/Creatinine Ratio 9.5 L Glucose 234 H Calcium 8.8 Total Bilirubin 0.70 AST 14 L ALT 22 Alkaline Phosphatase 73 Total Protein 7.1 Albumin 3.3 Globulin 3.8 Albumin/Globulin Ratio 0.9 Urine Color Yellow Urine Clarity Cloudy Urine pH 6.0 Ur Specific [place] 1.010 Urine Protein 30 H Urine Glucose (UA) Normal Urine Ketones Negative Urine Occult Blood 25 H Urine Nitrite Negative Urine Bilirubin Negative Urine Urobilinogen Normal Ur Leukocyte Esterase 500 H Urine RBC 0 SEEN Urine WBC 10-25 SEEN Ur Squamous Epith Cells 0 SEEN Urine Bacteria 3+ Urine Mucus 0 SEEN Radiography Diagnostic Testing: Clinical Impression(s) from Imaging Studies Chest X-Ray 03/26/22 00:45 IMPRESSION: No evidence of active intrathoracic disease. Electronically Signed: Danni Flowers MD at 1:22 EST , Discharge Plan Triage Chief Complaint: Santos C/O ED Provider: Michel Bowman Dx/Rx/DC Orders Clinical Impression: Acute urinary retention, Urinary tract infection, Viral bronchitis Instructions: ED Urinary Retention, Male, ED Bladder Infection, Male (Adult) Prescriptions: New nitrofurantoin monohyd/m-cryst [nitrofurantoin monohyd/m-cryst] 100 mg capsule 100 mg PO Q12 Qty: 10 0RF No Action amitriptyline 25 MG tablet 50 mg PO BID Label Comments: sleep glimepiride 4 MG tablet 4 mg PO BID Label Comments: diabetes metoprolol tartrate 50 MG tablet 50 mg PO BID Label Comments: blood pressure/heart docusate sodium [DOK] 100 MG capsule 100 mg PO BID Label Comments: constipation potassium chloride 10 MEQ tablet 10 meq PO BID Label Comments: supplement polyethylene glycol 3350 17 GM powder in packet 17 g PO DAILY Label Comments: constipation hydrochlorothiazide 25 MG tablet 25 mg PO DAILY Label Comments: water pill dutasteride [Avodart] 0.5 MG capsule 0.5 mg PO DAILY Label Comments: prostate multivitamin with folic acid [Thera] 1 TABLET tablet 1 tab PO DAILY Label Comments: vitamin hydrocodone-acetaminophen 1 EACH tablet 1 tab PO TID Label Comments: TAKE 1 TABLET BY MOUTH EVERY 8 HOURS NEEDED FOR PAIN FOR UP TO 30 DAYS amlodipine 5 MG tablet 5 mg PO DAILY Label Comments: TAKE 1 TABLET BY MOUTH EVERY DAY quinapril 40 MG tablet 40 mg PO DAILY lorazepam 1 MG tablet 1 mg PO TID rosuvastatin 10 MG tablet 5 mg PO QODAY Label Comments: TAKE 1 TABLET BY MOUTH EVERY 48 HOURS. cholecalciferol (vitamin D3) 2,000 UNIT capsule 2,000 unit PO DAILY Duragesic patch 37.5 Rx Instructions: change patch every 72 hours, rotate site around abdomen. Fentanyl 1 EACH Patch.Td72 25 mcg TD Q72H tizanidine 4 MG capsule 4 mg PO PRN PRN (Reason: SPASMS) Eliquis 5 mg tablet 5 mg PO BID metformin 500 mg tablet extended release 24 hr 500 mg PO DAILY Label Comments: TAKE 1 TABLET BY MOUTH EVERY DAY WITH BREAKFAST naloxone 4 mg/actuation spray,non-aerosol INTRANASAL Primary Care Provider: Alejandra Howell Referrals: Alejandra Howell MD [Primary Care Provider] - 3-5 Days Disposition Disposition: Home, Self Care
[2022-03-27 00:13] LABS: Absolute Lymphocyte Count 0.46 X10^3/uL (0.83-4.51); Absolute Neutrophil Count 7.9 X10^3/uL (2.0-7.7); Basophil# 0.04 X10^3/uL; Basophil% 0.4 % (0-1); Eosinophil# 0.09 X10^3/uL; Hematocrit 40.7 % (40-54); Lymphocyte # 0.46 X10^3/ul (0.83-4.51); Mean Corp Hgb Conc 34.4 g/dL (32-36); Mean Corpuscular Hgb 32.6 pg (27.0-32.0); Mean Corpuscular Volume 94.9 fL (80-94); Mean Platelet Vol. 8.3 fl (6.2-12.0); Monocyte# 0.72 X10^3/uL; Monocyte% 7.8 % (0-10); NRBC Flagged by Analyzer 0 % (0-5); Neutrophil # 7.86 X10^3/uL (2.7-7.7); Neutrophil % 85.3 % (47-70); POSITIVE DIFFERENTIAL YES; Platelet Count 301 K/mm3 (150-450); RBC Distribution Width CV 12.2 % (11.6-14.6); RBC Distribution Width SD 42.2 fl (35.1-43.9); Red Blood Count 4.29 M/mm3 (4.6-6.2); White Blood Count 9.2 K/mm3 (4.4-11.0)
[2022-03-27 00:23] LABS: Differential Indicated SCAN CRITERIA MET
[2022-03-27 00:24] VITALS: BP 117/60; PULSE 71; RESP 16; O2SAT 98
[2022-03-27 00:26] LABS: Mucous, Urine 0 SEEN /hpf (<or=2+); Red Blood Cells-Urine 0 SEEN /hpf (0-5); Squamous Epithelial Cells - UA 0 SEEN /hpf (0-5)
[2022-03-27 00:27] LABS: Color, Urine Yellow (Yellow); Glucose, Dipstick Normal (Normal); Ketone-Dipstick Negative (Negative); Leukocyte Esterase-Dipstick 500 /ul (Negative); Nitrite-Dipstick Negative (Negative); Occult Blood-Urine 25 /ul (Negative); Protein-Dipstick 30 mg/dl (Negative); Urine Bilirubin Dipstick Negative (Negative); Urine Clarity Cloudy (Clear); Urine Urobilinogen Normal (Normal)
[2022-03-27 00:33] LABS: Bacteria 3+ /hpf (None Seen); White Blood Cells 10-25 SEEN /hpf (0-5)
[2022-03-27 00:38] LABS: ALB/GLOB Ratio 0.9 RATIO (0.9-2.4); AST(SGOT) 14 U/L (15-37); Alanine Aminotransfer ALT/SGPT 22 U/L (16-61); Albumin, Serum 3.3 g/dL (3.2-5.0); Alkaline Phosphatase 73 U/L (45-117); Anion Gap 6 (5-15); BUN 8 mg/dL (7-18); BUN/Creat Ratio 9.5 RATIO (10-20); Calcium,Total 8.8 mg/dL (8.5-10.1); Chloride 94 mmol/L (98-107); Creatinine, Serum 0.84 mg/dL (0.70-1.30); EST Glomerular Filtration Rate 93 mL/min (>60); Est Glom Filt Rate - Afr Amer 113 mL/min (>60); Estimated Creatinine Clearance 73.35 ml/min; Globulin 3.8 g/dL (2.2-4.2); Glucose 234 mg/dL (74-106); Potassium 4.1 mmol/L (3.5-5.1); Protein, Total 7.1 g/dL (6.4-8.2); Sodium Level 132 mmol/L (136-145)
[2022-03-27 00:41] LABS: Differential Comment SCANNED
[2022-03-27] MEDS: Nitrofurantoin Macrocrystals 100 MG Capsule PO (01:25)
== END 2022-03-27 02:12 | disposition home or self-care (01) ==
PROVIDERS: Emergency Provider Emergency Medicine; PCP Internal Medicine; Visit Provider Emergency Medicine
DX: R33.9 Retention of urine, unspecified (principal); I48.91 Unspecified atrial fibrillation; E11.9 Type 2 diabetes mellitus without complications; N39.0 Urinary tract infection, site not specified; I10 Essential (primary) hypertension; J40 Bronchitis, not specified as acute or chronic; Z86.73 Personal history of transient ischemic attack (TIA), and cerebral infarction without residual deficits; Z79.899 Other long term (current) drug therapy; Z79.01 Long term (current) use of anticoagulants; Z79.84 Long term (current) use of oral hypoglycemic drugs
CPT/HCPCS: 51702; 71046; 80053; 81001; 85025; 87077; 87086; 87088; 87186; 87428; 99284; A4216

== ENCOUNTER 2022-04-10 15:02 | Emergency (ER) | payer MEDICARE, SELFPAY ==
[2022-04-10 15:03] VITALS: BP 123/75; PULSE 88; RESP 16; TEMP 36.4; O2SAT 98; BMI 59.1
--- NOTE | 2022-04-10 15:21 | EDS_ITS ---
HPI History of Present Illness Chief Complaint: Complaint Informant: patient Narrative Narrative: Patient present secondary to urinary retention. He normally self caths but has not been able to pass the catheter in about 24 hours. He was seen about 2 to 3 weeks ago for similar complaint. He was treated with Macrobid for an infection at that time but did not go home with a catheter. [facility] Medical History (Updated 04/10/22 @ 17:[address] Yary Moser MD) Above-knee amputation Atrial fibrillation Diabetes Hypertension Oral cancer TIA (transient ischemic attack) Urinary retention Home Medications amitriptyline 25 mg tablet 50 mg PO BID sleep 12/13/13 [History Last Taken 05/31/19] docusate sodium 100 mg capsule (DOK) 100 mg PO BID constipation 12/13/13 [History Last Taken 05/31/19] glimepiride 4 mg tablet 4 mg PO BID diabetes 12/13/13 [History Last Taken 05/31/19] metoprolol tartrate 50 mg tablet 50 mg PO BID heart rate 12/13/13 [History Last Taken 05/31/19] polyethylene glycol 3350 17 gram oral powder packet 17 g PO DAILY constipation 12/13/13 [History Last Taken 05/30/19] potassium chloride 10 mEq tablet,extended release(part/cryst) 10 meq PO BID supplement 12/13/13 [History Last Taken 05/30/19] dutasteride 0.5 mg capsule (Avodart) 0.5 mg PO DAILY bladder 08/26/14 [History Last Taken 05/30/19] hydrochlorothiazide 25 mg tablet 25 mg PO DAILY blood pressure 08/26/14 [History Last Taken 05/31/19] multivitamin with folic acid 400 mcg tablet (Thera) 1 tab PO DAILY supplement 08/26/14 [History Last Taken 05/30/19] amlodipine 5 mg tablet 5 mg PO DAILY blood pressure 05/31/19 [History Last Taken 05/30/19] cholecalciferol (vitamin D3) 50 mcg (2,000 unit) capsule 2,000 unit PO DAILY supplement 05/31/19 [History Last Taken 05/30/19] hydrocodone-acetaminophen 5-325mg 5mg-325mg 1 tab PO TID pain 05/31/19 [History Last Taken 05/31/19] lorazepam 1 mg tablet 1 mg PO TID anxiety 05/31/19 [History Last Taken 05/31/19] quinapril 40 mg tablet 40 mg PO DAILY blood pressure 05/31/19 [History Last Taken 05/30/19] rosuvastatin 10 mg tablet 5 mg PO QODAY cholesterol 05/31/19 [History Last Taken 05/29/19] Duragesic patch 37.5 04/05/20 [History Last Taken Unknown] Fentanyl 25 mcg transdermal Q72H 04/05/20 [History Last Taken Unknown] tizanidine 4 mg capsule 4 mg PO PRN PRN SPASMS 04/05/20 [History Last Taken Unknown] apixaban 5 mg tablet (Eliquis) 5 mg PO BID 10/14/21 [History Last Taken Unknown] metformin 500 mg tablet,extended release 24 hr 500 mg PO DAILY 02/19/22 [History Last Taken 02/19/22] naloxone 4 mg/actuation nasal spray intranasal 03/27/22 [History Last Taken Unknown] nitrofurantoin monohydrate/macrocrystals 100 mg capsule 100 mg PO Q12 #10 CAPSULES 03/27/22 [Rx Last Taken Unknown] nitrofurantoin monohydrate/macrocrystals 100 mg capsule (Macrobid) 100 mg PO Q12H 5 days #10 caps 04/10/22 [Rx Last Taken Unknown] Allergy/AdvReac Type Severity Reaction Status Date / Time trimethoprim Allergy Itching Verified 04/10/22 15:02 amoxicillin trihydrate AdvReac Nausea/Vom/ Verified 04/10/22 15:02 [From Augmentin] Diarrhea atropine sulfate AdvReac Unknown Verified 04/10/22 15:02 [From ] ceftriaxone sodium AdvReac Rash Verified 04/10/22 15:02 [From Rocephin] cephalexin monohydrate AdvReac Unknown Verified 04/10/22 15:02 [From Keflex] ciprofloxacin [From Cipro] AdvReac Vomiting Verified 04/10/22 15:02 ciprofloxacin HCl AdvReac Vomiting Verified 04/10/22 15:02 [From Cipro] gabapentin AdvReac Unknown Verified 04/10/22 15:02 hyoscyamine sulfate AdvReac Unknown Verified 04/10/22 15:02 [From ] oxycodone HCl [From Percocet] AdvReac Other Verified 04/10/22 15:02 phenobarbital [From ] AdvReac Unknown Verified 04/10/22 15:02 Pork/Porcine Containing AdvReac Nausea/Vom/ Verified 04/10/22 15:02 Products Diarrhea potassium clavulanate AdvReac Nausea/Vom/ Verified 04/10/22 15:02 [From Augmentin] Diarrhea pseudoephedrine HCl AdvReac Other Verified 04/10/22 15:02 [From Sudafed] scopolamine hydrobromide AdvReac Unknown Verified 04/10/22 15:02 [From ] sulfadiazine [Sulfadiazine] AdvReac Nausea Verified 04/10/22 15:02 Social History Smoking Status: Never smoker ROS ROS ED Constitutional Constitutional ED: Denies chills or fever(s) Eyes Eyes: Denies change in vision or discharge from eye(s) ENT ENT ED: Denies discharge from eye(s), rhinorrhea or sore throat Cardiovascular Cardiovascular: Denies chest pain or palpitations Respiratory/Chest Respiratory/Chest: Denies cough or dyspnea Gastrointestinal Gastrointestinal: Reports abdominal pain; Denies diarrhea, nausea or vomiting Genitourinary Genitourinary ED: Reports difficulty urinating Musculoskeletal Musculoskeletal: Denies back pain or extremity pain Integumentary Denies Abrasions or rash Neurologic Neurologic: Denies headache(s) or weakness Allergic/Immunologic Allergic/Immunologic ED: Denies lip swelling or urticaria EXAM Physical Exam Const Vital Signs: 04/10/22 15:03 Temperature 97.5 F L Temperature Source Temporal Pulse Rate 88 Respiratory Rate 16 Blood Pressure 123/75 H Blood Pressure Mean 91 Pulse Ox 98 Oxygen Delivery Method Room Air Positive well nourished and well developed General Appearance ED: well developed HEENT Reports normocephalic and head/scalp atraumatic Eyes PERRL and EOMs intact bilaterally Neck supple Chest Wall inspection of chest normal and palpation of chest normal Resp normal respiratory effort and clear to auscultation bilaterally Cardio regular rate and regular rhythm GI GI Narrative: Suprapubic fullness and tenderness. Palpation: soft Extremity Extremity Narrative: Bilateral AKA. Neuro oriented x3 and no sensory deficits noted Sensorium / Orientation: alert Psych mental status grossly normal Skin no rashes or lesions noted MDM MDM MDM Narrative Medical decision making narrative: Santos catheter was placed by nursing staff. Urinalysis sent. Lab Data Labs: Laboratory Results - last 24 hr 04/10/22 15:30 Urine Color Yellow Urine Clarity Clear Urine pH 7.0 Ur Specific [place] 1.010 Urine Protein 15 H Urine Glucose (UA) 100 H Urine Ketones Negative Urine Occult Blood 10 H Urine Nitrite Negative Urine Bilirubin Negative Urine Urobilinogen Normal Ur Leukocyte Esterase 500 H Urine RBC 0 SEEN Urine WBC 10-25 SEEN Ur Squamous Epith Cells 0 SEEN Urine Bacteria RARE Urine Mucus 0 SEEN Treatment and Re-Evaluation Narrative: On repeat evaluation patient is resting comfortably and feels much improved. 1800 cc of urine have been drained. Urinalysis does reveal 10-25 white cells with rare bacteria. Urine has been sent for culture. In light of the fact that I will be leaving the Santos catheter in place I will cover him with another course of Macrobid. He will call Dr. Newell for follow-up. Discharge Plan Triage Chief Complaint: Complaint ED Provider: Yary Moser Dx/Rx/DC Orders Clinical Impression: Urinary retention Instructions: ED Urinary Retention, Male Prescriptions: New nitrofurantoin monohyd/m-cryst [Macrobid] 100 mg capsule 100 mg PO Q12H 5 Days Qty: 10 0RF Rx Instructions: must administer with a meal/food No Action amitriptyline 25 MG tablet 50 mg PO BID Label Comments: sleep glimepiride 4 MG tablet 4 mg PO BID Label Comments: diabetes metoprolol tartrate 50 MG tablet 50 mg PO BID Label Comments: blood pressure/heart docusate sodium [DOK] 100 MG capsule 100 mg PO BID Label Comments: constipation potassium chloride 10 MEQ tablet 10 meq PO BID Label Comments: supplement polyethylene glycol 3350 17 GM powder in packet 17 g PO DAILY Label Comments: constipation hydrochlorothiazide 25 MG tablet 25 mg PO DAILY Label Comments: water pill dutasteride [Avodart] 0.5 MG capsule 0.5 mg PO DAILY Label Comments: prostate multivitamin with folic acid [Thera] 1 TABLET tablet 1 tab PO DAILY Label Comments: vitamin hydrocodone-acetaminophen 1 EACH tablet 1 tab PO TID Label Comments: TAKE 1 TABLET BY MOUTH EVERY 8 HOURS NEEDED FOR PAIN FOR UP TO 30 DAYS amlodipine 5 MG tablet 5 mg PO DAILY Label Comments: TAKE 1 TABLET BY MOUTH EVERY DAY quinapril 40 MG tablet 40 mg PO DAILY lorazepam 1 MG tablet 1 mg PO TID rosuvastatin 10 MG tablet 5 mg PO QODAY Label Comments: TAKE 1 TABLET BY MOUTH EVERY 48 HOURS. cholecalciferol (vitamin D3) 2,000 UNIT capsule 2,000 unit PO DAILY Duragesic patch 37.5 Rx Instructions: change patch every 72 hours, rotate site around abdomen. Fentanyl 1 EACH Patch.Td72 25 mcg TD Q72H tizanidine 4 MG capsule 4 mg PO PRN PRN (Reason: SPASMS) Eliquis 5 mg tablet 5 mg PO BID metformin 500 mg tablet extended release 24 hr 500 mg PO DAILY Label Comments: TAKE 1 TABLET BY MOUTH EVERY DAY WITH BREAKFAST naloxone 4 mg/actuation spray,non-aerosol INTRANASAL nitrofurantoin monohyd/m-cryst [nitrofurantoin monohyd/m-cryst] 100 mg capsule 100 mg PO Q12 Qty: 10 0RF Primary Care Provider: Alejandra Howell Referrals: Alejandra Howell MD [Primary Care Provider] - Meño Newell MD [Med Staff - Active Staff] - 1 Week Disposition Disposition: Home, Self Care
[2022-04-10 15:46] LABS: Mucous, Urine 0 SEEN /hpf (<or=2+); Red Blood Cells-Urine 0 SEEN /hpf (0-5); Squamous Epithelial Cells - UA 0 SEEN /hpf (0-5)
[2022-04-10 16:14] LABS: Color, Urine Yellow (Yellow); Glucose, Dipstick 100 mg/dl (Normal); Ketone-Dipstick Negative (Negative); Leukocyte Esterase-Dipstick 500 /ul (Negative); Nitrite-Dipstick Negative (Negative); Occult Blood-Urine 10 /ul (Negative); Protein-Dipstick 15 mg/dl (Negative); Urine Bilirubin Dipstick Negative (Negative); Urine Clarity Clear (Clear); Urine Urobilinogen Normal (Normal)
[2022-04-10 16:38] LABS: Bacteria RARE /hpf (None Seen); White Blood Cells 10-25 SEEN /hpf (0-5)
[2022-04-10] MEDS: Nitrofurantoin Macrocrystals 100 MG Capsule PO (17:12)
== END 2022-04-10 17:14 | disposition home or self-care (01) ==
PROVIDERS: Emergency Provider Emergency Medicine; PCP Internal Medicine; Visit Provider Emergency Medicine
DX: T83.511A Infection and inflammatory reaction due to indwelling urethral catheter, initial encounter (principal); E11.9 Type 2 diabetes mellitus without complications; R33.9 Retention of urine, unspecified; I10 Essential (primary) hypertension; X58.XXXA Exposure to other specified factors, initial encounter
CPT/HCPCS: 51702; 81001; 87077; 87086; 87088; 87186; 99284

== ENCOUNTER 2022-04-23 12:31 | Inpatient (IN) | payer MEDICARE, SELFPAY ==
[2022-04-23] VITALS (13 sets, daily range): BP systolic 108–140; BP diastolic 59–69; PULSE 82–89; RESP 14–18; TEMP 36.2–37.9; O2SAT 85–99; BMI 58.3; BMI 56.7
--- NOTE | 2022-04-23 13:32 | EKG12_ITS ---
Test Reason : FEEL ROTTEN Blood Pressure : / mmHG Vent. Rate : 089 BPM Atrial Rate : 089 BPM P-R Int : 256 ms QRS Dur : 098 ms QT Int : 376 ms P-R-T Axes : 038 -46 056 degrees QTc Int : 457 ms Sinus rhythm with 1st degree A-V block Left axis deviation Abnormal ECG Confirmed by GUERRERO ALCALA, MICK ([id number]), editor publications JESSICA TRAN ([id number]) on 04/26/2022 1:21:29 PM Referred By: RAMON Confirmed By:MICK MASTERS MD
--- NOTE | 2022-04-23 13:41 | EDS_ITS ---
HPI History of Present Illness Chief Complaint: General Illness Narrative Narrative: 81-year-old male presenting with generalized malaise, cough, subjective fevers since Tuesday. He states that overnight he started to have episodes of nausea and vomiting. Patient has not checked his temperature. He states he is taken nothing for a fever such as Tylenol or ibuprofen. He does state at times his chest feels tight. Patient was seen recently for urinary retention has a Santos catheter in place. He was supposed to follow-up with urology but did not. His states that every time he tries to make an appointment he gets too sick to go and does not go to the appointment. Nobody else is sick in the household. [facility] Medical History Above-knee amputation Atrial fibrillation Diabetes Hypertension Oral cancer TIA (transient ischemic attack) Urinary retention Home Medications amitriptyline 25 mg tablet 50 mg PO BID sleep 12/13/13 [History Last Taken 05/31/19] docusate sodium 100 mg capsule (DOK) 100 mg PO BID constipation 12/13/13 [History Last Taken 05/31/19] glimepiride 4 mg tablet 4 mg PO BID diabetes 12/13/13 [History Last Taken 05/31/19] metoprolol tartrate 50 mg tablet 50 mg PO BID heart rate 12/13/13 [History Last Taken 05/31/19] polyethylene glycol 3350 17 gram oral powder packet 17 g PO DAILY constipation 12/13/13 [History Last Taken 05/30/19] potassium chloride 10 mEq tablet,extended release(part/cryst) 10 meq PO BID supplement 12/13/13 [History Last Taken 05/30/19] dutasteride 0.5 mg capsule (Avodart) 0.5 mg PO DAILY bladder 08/26/14 [History Last Taken 05/30/19] hydrochlorothiazide 25 mg tablet 25 mg PO DAILY blood pressure 08/26/14 [History Last Taken 05/31/19] multivitamin with folic acid 400 mcg tablet (Thera) 1 tab PO DAILY supplement 08/26/14 [History Last Taken 05/30/19] amlodipine 5 mg tablet 5 mg PO DAILY blood pressure 05/31/19 [History Last Taken 05/30/19] cholecalciferol (vitamin D3) 50 mcg (2,000 unit) capsule 2,000 unit PO DAILY supplement 05/31/19 [History Last Taken 05/30/19] hydrocodone-acetaminophen 5-325mg 5mg-325mg 1 tab PO TID pain 05/31/19 [History Last Taken 05/31/19] lorazepam 1 mg tablet 1 mg PO TID anxiety 05/31/19 [History Last Taken 05/31/19] quinapril 40 mg tablet 40 mg PO DAILY blood pressure 05/31/19 [History Last Taken 05/30/19] rosuvastatin 10 mg tablet 5 mg PO QODAY cholesterol 05/31/19 [History Last Taken 05/29/19] Duragesic patch 37.5 mg transdermal Q72H 04/05/20 [History Last Taken Unknown] Fentanyl 25 mcg transdermal Q72H 04/05/20 [History Last Taken Unknown] tizanidine 4 mg capsule 4 mg PO PRN PRN SPASMS 04/05/20 [History Last Taken Unknown] apixaban 5 mg tablet (Eliquis) 5 mg PO BID 10/14/21 [History Last Taken Unknown] metformin 500 mg tablet,extended release 24 hr 500 mg PO BID 02/19/22 [History Last Taken 02/19/22] naloxone 4 mg/actuation nasal spray 2 mg intranasal PRN PRN OD 03/27/22 [History Last Taken Unknown] nitrofurantoin monohydrate/macrocrystals 100 mg capsule (Macrobid) 100 mg PO Q12H 5 days #10 caps 04/10/22 [Rx Last Taken Unknown] Allergy/AdvReac Type Severity Reaction Status Date / Time trimethoprim Allergy Itching Verified 04/23/22 12:38 amoxicillin trihydrate AdvReac Nausea/Vom/ Verified 04/23/22 12:38 [From Augmentin] Diarrhea atropine sulfate AdvReac Unknown Verified 04/23/22 12:38 [From ] ceftriaxone sodium AdvReac Rash Verified 04/23/22 12:38 [From Rocephin] cephalexin monohydrate AdvReac Unknown Verified 04/23/22 12:38 [From Keflex] ciprofloxacin [From Cipro] AdvReac Vomiting Verified 04/23/22 12:38 ciprofloxacin HCl AdvReac Vomiting Verified 04/23/22 12:38 [From Cipro] gabapentin AdvReac Unknown Verified 04/23/22 12:38 hyoscyamine sulfate AdvReac Unknown Verified 04/23/22 12:38 [From ] oxycodone HCl [From Percocet] AdvReac Other Verified 04/23/22 12:38 phenobarbital [From ] AdvReac Unknown Verified 04/23/22 12:38 Pork/Porcine Containing AdvReac Nausea/Vom/ Verified 04/23/22 12:38 Products Diarrhea potassium clavulanate AdvReac Nausea/Vom/ Verified 04/23/22 12:38 [From Augmentin] Diarrhea pseudoephedrine HCl AdvReac Other Verified 04/23/22 12:38 [From Sudafed] scopolamine hydrobromide AdvReac Unknown Verified 04/23/22 12:38 [From ] sulfadiazine [Sulfadiazine] AdvReac Nausea Verified 04/23/22 12:38 Social History Smoking Status: Never smoker ROS ROS ED Constitutional Constitutional ED: Reports subjective and sweats; Denies chills Eyes Eyes: Denies change in vision or diplopia ENT ENT ED: Denies rhinorrhea or sore throat Cardiovascular Cardiovascular: Reports chest pain Respiratory/Chest Respiratory/Chest: Reports cough and dyspnea Gastrointestinal Gastrointestinal: Reports nausea and vomiting; Denies abdominal pain Musculoskeletal Musculoskeletal: Reports myalgias Integumentary Denies abscess or Abrasions Neurologic Neurologic: Reports headache(s); Denies paresthesias Psychiatric Psychiatric: Denies anxiety or depression EXAM Physical Exam Const Vital Signs: 04/23/22 12:31 04/23/22 12:37 04/23/22 13:57 Temperature 97.2 F L Temperature Source Temporal Pulse Rate 86 Respiratory Rate 14 Respiratory Effort Normal Non-Labored Respiratory Pattern Normal Blood Pressure 140/69 H Blood Pressure Mean 92 Pulse Ox 91 Oxygen Delivery Method Nasal Cannula Oxygen Flow Rate (L/min) 2 04/23/22 15:23 04/23/22 17:00 04/23/22 12:32 Temperature Temperature Source Pulse Rate 82 84 Respiratory Rate 18 Respiratory Effort Respiratory Pattern Blood Pressure 123/60 H 108/60 Blood Pressure Mean 81 76 Pulse Ox 96 92 85 Oxygen Delivery Method Nasal Cannula Nasal Cannula Room Air Oxygen Flow Rate (L/min) 2 2 04/23/22 18:03 04/23/22 19:16 Temperature Temperature Source Pulse Rate 87 Respiratory Rate 18 Respiratory Effort Respiratory Pattern Blood Pressure 131/62 H Blood Pressure Mean 85 Pulse Ox 97 94 Oxygen Delivery Method Nasal Cannula Nasal Cannula Oxygen Flow Rate (L/min) 2 2 Positive well nourished General Appearance ED: NAD; Negative for pallor HEENT Reports moist mucous membranes Eyes PERRL and EOMs intact bilaterally Neck no lymphadenopathy Resp normal respiratory effort and clear to auscultation bilaterally Auscultation: Negative for rales, rhonchi or wheezes Cardio regular rate and regular rhythm GI normal to inspection, nondistended, normoactive bowel sounds Extremity normal to inspection Neuro oriented x3 and CN's II-XII intact bilaterally Sensorium / Orientation: alert Psych mental status grossly normal Skin General Skin Exam: Negative for jaundice or pallor MDM MDM MDM Narrative Medical decision making narrative: Patient presenting with generalized weakness, fatigue, cough. He was noted to be hypoxic on room air and does not usually have to wear oxygen. He was 85% on arrival. Patient's lungs are clear he is wheezing. He is stable on 2 L nasal cannula 94%. He states that he has had some intermittent chest tightness over the last couple of days. EKG was obtained and on my interpretation shows a sinus rhythm ventricular rate 90 bpm without sign of ischemic. There is a first-degree AV block. Chest x-ray on my interpretation shows a right lower lobe infiltrate. Radiologist interprets this as infiltrate versus atelectasis. CBC does not show a leukocytosis. Hemoglobin is slightly lower at 12.9 and a month ago when it was 14. Hemoccult negative. Platelets are normal. Renal function is normal. LFTs within normal limits. Electrolytes unremarkable. Urinalysis is positive nitrites, 500 leukocyte esterase, 10-25 white blood cells with rare bacteria. Patient does have an indwelling Santos catheter. I will send this for culture. Patient is on Xarelto with history of paroxysmal A. fib so I have low suspicion for PE. Patient states that although penicillin is listed as an allergy he can take this. He states that he he believes he was having an allergic reaction to penicillin at one time but states he has been on amoxicillin since then and done well. He will be given Unasyn given his multiple medication allergies. Impression: 1. Hypoxic respiratory failure 2. Right lower lobe pneumonia 3. Chest pain Lab Data Attestation: I reviewed the patient's lab results. Labs: Laboratory Results - last 24 hr 04/23/22 04/23/22 04/23/22 13:46 13:46 16:30 WBC 7.8 RBC 3.89 L Hgb 12.9 L Hct 37.2 L MCV 95.6 H MCH 33.2 H MCHC 34.7 RDW Std Deviation 43.9 RDW Coeff of Usama 12.5 Plt Count 217 MPV 8.7 Immature Gran % (Auto) 0.500 Neut % (Auto) 81.2 H Lymph % (Auto) 3.9 L [place] % (Auto) 13.6 H Eos % (Auto) 0.5 Baso % (Auto) 0.3 Absolute Neuts (auto) 6.3 Absolute Lymphs (auto) 0.30 L Nucleated RBC % 0 Differential Comment SCANNED Sodium 132 L Potassium 3.8 Chloride 97 L Carbon Dioxide 32.0 Anion Gap 3 L BUN 11 Creatinine 0.73 Estim Creat Clear Calc 60.67 Est GFR (MDRD) Af Amer 132 Est GFR (MDRD) Non-Af 109 BUN/Creatinine Ratio 15.0 Glucose 266 H Calcium 8.6 Total Bilirubin 0.50 AST 19 ALT 19 Alkaline Phosphatase 74 Troponin I High Sens 7 Total Protein 6.9 Albumin 3.0 L Globulin 3.9 Albumin/Globulin Ratio 0.8 L Urine Color Yellow Urine Clarity Clear Urine pH 6.0 Ur Specific [place] 1.020 Urine Protein 15 H Urine Glucose (UA) 50 H Urine Ketones 150 A* Urine Occult Blood 10 H Urine Nitrite Positive H Urine Bilirubin Negative Urine Urobilinogen Normal Ur Leukocyte Esterase 500 H Urine RBC 0 SEEN Urine WBC 10-25 SEEN Ur Squamous Epith Cells 0 SEEN Urine Bacteria RARE Urine Mucus 1+ Radiography Diagnostic Testing: Clinical Impression(s) from Imaging Studies Chest X-Ray 04/23/22 15:40 IMPRESSION: Hypoinflation of the lungs slightly greater right lower lobe atelectasis possible infiltrate. The lung bases are mostly obscured on this study. Electronically Signed: Prerna Rios MD at 16:07 EST , Discharge Plan Triage Chief Complaint: General Illness ED Provider: Santosh Mathis Dx/Rx/DC Orders Prescriptions: No Action amitriptyline 25 MG tablet 50 mg PO BID Label Comments: sleep glimepiride 4 MG tablet 4 mg PO BID Label Comments: diabetes metoprolol tartrate 50 MG tablet 50 mg PO BID Label Comments: blood pressure/heart docusate sodium [DOK] 100 MG capsule 100 mg PO BID Label Comments: constipation potassium chloride 10 MEQ tablet 10 meq PO BID Label Comments: supplement polyethylene glycol 3350 17 GM powder in packet 17 g PO DAILY Label Comments: constipation hydrochlorothiazide 25 MG tablet 25 mg PO DAILY Label Comments: water pill dutasteride [Avodart] 0.5 MG capsule 0.5 mg PO DAILY Label Comments: prostate multivitamin with folic acid [Thera] 1 TABLET tablet 1 tab PO DAILY Label Comments: vitamin hydrocodone-acetaminophen 1 EACH tablet 1 tab PO TID Label Comments: TAKE 1 TABLET BY MOUTH EVERY 8 HOURS NEEDED FOR PAIN FOR UP TO 30 DAYS amlodipine 5 MG tablet 5 mg PO DAILY Label Comments: TAKE 1 TABLET BY MOUTH EVERY DAY quinapril 40 MG tablet 40 mg PO DAILY lorazepam 1 MG tablet 1 mg PO TID rosuvastatin 10 MG tablet 5 mg PO QODAY Label Comments: TAKE 1 TABLET BY MOUTH EVERY 48 HOURS. cholecalciferol (vitamin D3) 2,000 UNIT capsule 2,000 unit PO DAILY Duragesic patch 37.5 mg transdermal Q72H Rx Instructions: change patch every 72 hours, rotate site around abdomen. Fentanyl 1 EACH Patch.Td72 25 mcg TD Q72H tizanidine 4 MG capsule 4 mg PO PRN PRN (Reason: SPASMS) Eliquis 5 mg tablet 5 mg PO BID metformin 500 mg tablet extended release 24 hr 500 mg PO BID Label Comments: TAKE 1 TABLET BY MOUTH EVERY DAY WITH BREAKFAST naloxone 4 mg/actuation spray,non-aerosol 2 mg INTRANASAL PRN PRN (Reason: OD) nitrofurantoin monohyd/m-cryst [Macrobid] 100 mg capsule 100 mg PO Q12H 5 Days Qty: 10 0RF Rx Instructions: must administer with a meal/food Primary Care Provider: Alejandra Howell Referrals: Alejandra Howell MD [Primary Care Provider] -
[2022-04-23] MEDS: Ondansetron 4 MG/2 ML Vial IV ×2 (13:50→23:45)
[2022-04-23 13:58] LABS: Absolute Neutrophil Count 6.3 X10^3/uL (2.0-7.7); Basophil# 0.02 X10^3/uL; Basophil% 0.3 % (0-1); Eosinophil# 0.04 X10^3/uL; Eosinophils% 0.5 % (0-5); Hematocrit 37.2 % (40-54); Hemoglobin 12.9 g/dL (13.0-16.5); Lymphocyte % 3.9 % (19-41); Mean Corp Hgb Conc 34.7 g/dL (32-36); Mean Corpuscular Hgb 33.2 pg (27.0-32.0); Mean Corpuscular Volume 95.6 fL (80-94); Mean Platelet Vol. 8.7 fl (6.2-12.0); Monocyte# 1.06 X10^3/uL; Monocyte% 13.6 % (0-10); NRBC Flagged by Analyzer 0 % (0-5); Neutrophil # 6.33 X10^3/uL (2.7-7.7); Neutrophil % 81.2 % (47-70); POSITIVE DIFFERENTIAL YES; Platelet Count 217 K/mm3 (150-450); RBC Distribution Width CV 12.5 % (11.6-14.6); RBC Distribution Width SD 43.9 fl (35.1-43.9); Red Blood Count 3.89 M/mm3 (4.6-6.2); White Blood Count 7.8 K/mm3 (4.4-11.0)
[2022-04-23 14:02] LABS: Differential Indicated SCAN CRITERIA MET
[2022-04-23 14:15] LABS: ALB/GLOB Ratio 0.8 RATIO (0.9-2.4); AST(SGOT) 19 U/L (15-37); Alanine Aminotransfer ALT/SGPT 19 U/L (16-61); Alkaline Phosphatase 74 U/L (45-117); Anion Gap 3 (5-15); BUN 11 mg/dL (7-18); Calcium,Total 8.6 mg/dL (8.5-10.1); Chloride 97 mmol/L (98-107); Creatinine, Serum 0.73 mg/dL (0.70-1.30); EST Glomerular Filtration Rate 109 mL/min (>60); Est Glom Filt Rate - Afr Amer 132 mL/min (>60); Estimated Creatinine Clearance 60.67 ml/min; Globulin 3.9 g/dL (2.2-4.2); Glucose 266 mg/dL (74-106); Potassium 3.8 mmol/L (3.5-5.1); Protein, Total 6.9 g/dL (6.4-8.2); Sodium Level 132 mmol/L (136-145); Troponin-I HS 7 pg/mL (3.0-78.0)
[2022-04-23 14:43] LABS: Differential Comment SCANNED
--- NOTE | 2022-04-23 15:40 | RAD_ITS ---
STUDY: X-RAY CHEST REASON FOR EXAM: Male, 81 years old. Cough TECHNIQUE: Single AP portable view of the chest. COMPARISON: March 27, 2022 chest x-ray FINDINGS: There is persistent hypoinflation of the lungs. There is trace linear density just above the right minor fissure. There is no demonstrated pleural abnormality. Normal size heart. Normal mediastinum and michael. Normal visualized pulmonary arteries. Normal visualized aortic arch and descending thoracic aorta. There are diffuse degenerative changes of the visualized thoracic spine. There is degenerative osteoarthritis of the bilateral shoulders. There is no demonstrated abnormality of the visualized soft tissue structures of the upper abdomen. RAD/Chest 1 View (Portable) IMPRESSION: Hypoinflation of the lungs slightly greater right lower lobe atelectasis possible infiltrate. The lung bases are mostly obscured on this study. Electronically Signed: Prerna Rios MD at 16:07 EST ,
[2022-04-23 16:38] LABS: Red Blood Cells-Urine 0 SEEN /hpf (0-5); Squamous Epithelial Cells - UA 0 SEEN /hpf (0-5)
[2022-04-23 16:49] LABS: Color, Urine Yellow (Yellow); Glucose, Dipstick 50 mg/dl (Normal); Leukocyte Esterase-Dipstick 500 /ul (Negative); Nitrite-Dipstick Positive (Negative); Occult Blood-Urine 10 /ul (Negative); Protein-Dipstick 15 mg/dl (Negative); Urine Bilirubin Dipstick Negative (Negative); Urine Clarity Clear (Clear); Urine Urobilinogen Normal (Normal)
[2022-04-23 16:55] LABS: Ketone-Dipstick 150 mg/dl (Negative)
[2022-04-23 16:56] LABS: White Blood Cells 10-25 SEEN /hpf (0-5)
[2022-04-23 16:57] LABS: Bacteria RARE /hpf (None Seen); Mucous, Urine 1+ /hpf (<or=2+)
--- NOTE | 2022-04-23 21:11 | PCM.HP.STD ---
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 In the ED he was found to have an O2 sat of 85% on room air and chest x-ray suggestive of pneumonia. Given his hypoxia hospitalist consulted for admission. He was interviewed at bedside with , she reports he has been feeling worse over the past week and within the past 24 hours he is significantly worsened. Mostly complains of a tightness across his chest intermittently into his left arm and some cough, does not report being overtly short of breath at this time. Reports chronic loose stools, no change. Reports worsened control of his glucose at home and complains of poor dentition for which she has not felt well enough to go to the dentist. He was given Unasyn in the emergency department due to his multiple allergies. No other complaints at this time [facility] Medical History Above-knee amputation Atrial fibrillation Diabetes Hypertension Oral cancer TIA (transient ischemic attack) Urinary retention Home Medications amitriptyline 25 mg tablet 50 mg PO BID sleep 12/13/13 [History Last Taken 05/31/19] docusate sodium 100 mg capsule (DOK) 100 mg PO BID constipation 12/13/13 [History Last Taken 05/31/19] glimepiride 4 mg tablet 4 mg PO BID diabetes 12/13/13 [History Last Taken 05/31/19] metoprolol tartrate 50 mg tablet 50 mg PO BID heart rate 12/13/13 [History Last Taken 05/31/19] polyethylene glycol 3350 17 gram oral powder packet 17 g PO DAILY constipation 12/13/13 [History Last Taken 05/30/19] potassium chloride 10 mEq tablet,extended release(part/cryst) 10 meq PO BID supplement 12/13/13 [History Last Taken 05/30/19] dutasteride 0.5 mg capsule (Avodart) 0.5 mg PO DAILY bladder 04/20/15 [History Last Taken 05/30/19] hydrochlorothiazide 25 mg tablet 25 mg PO DAILY blood pressure 08/26/14 [History Last Taken 05/31/19] multivitamin with folic acid 400 mcg tablet (Thera) 1 tab PO DAILY supplement 08/26/14 [History Last Taken 05/30/19] amlodipine 5 mg tablet 5 mg PO DAILY blood pressure 05/31/19 [History Last Taken 05/30/19] cholecalciferol (vitamin D3) 50 mcg (2,000 unit) capsule 2,000 unit PO DAILY supplement 05/31/19 [History Last Taken 05/30/19] hydrocodone-acetaminophen 5-325mg 5mg-325mg 1 tab PO TID pain 05/31/19 [History Last Taken 05/31/19] lorazepam 1 mg tablet 1 mg PO TID anxiety 05/31/19 [History Last Taken 05/31/19] quinapril 40 mg tablet 40 mg PO DAILY blood pressure 05/31/19 [History Last Taken 05/30/19] rosuvastatin 10 mg tablet 5 mg PO QODAY cholesterol 05/31/19 [History Last Taken 05/29/19] Duragesic patch 37.5 mg transdermal Q72H 04/05/20 [History Last Taken Unknown] Fentanyl 25 mcg transdermal Q72H 04/05/20 [History Last Taken Unknown] tizanidine 4 mg capsule 4 mg PO PRN PRN SPASMS 04/05/20 [History Last Taken Unknown] apixaban 5 mg tablet (Eliquis) 5 mg PO BID 10/14/21 [History Last Taken Unknown] metformin 500 mg tablet,extended release 24 hr 500 mg PO BID 02/19/22 [History Last Taken 02/19/22] naloxone 4 mg/actuation nasal spray 2 mg intranasal PRN PRN OD 03/27/22 [History Last Taken Unknown] nitrofurantoin monohydrate/macrocrystals 100 mg capsule (Macrobid) 100 mg PO Q12H 5 days #10 caps 04/10/22 [Rx Last Taken Unknown] Allergy/AdvReac Type Severity Reaction Status Date / Time trimethoprim Allergy Itching Verified 04/23/22 12:38 amoxicillin trihydrate AdvReac Nausea/Vom/ Verified 04/23/22 12:38 [From Augmentin] Diarrhea atropine sulfate AdvReac Unknown Verified 04/23/22 12:38 [From ] ceftriaxone sodium AdvReac Rash Verified 04/23/22 12:38 [From Rocephin] cephalexin monohydrate AdvReac Unknown Verified 04/23/22 12:38 [From Keflex] ciprofloxacin [From Cipro] AdvReac Vomiting Verified 04/23/22 12:38 ciprofloxacin HCl AdvReac Vomiting Verified 04/23/22 12:38 [From Cipro] gabapentin AdvReac Unknown Verified 04/23/22 12:38 hyoscyamine sulfate AdvReac Unknown Verified 04/23/22 12:38 [From ] oxycodone HCl [From Percocet] AdvReac Other Verified 04/23/22 12:38 phenobarbital [From ] AdvReac Unknown Verified 04/23/22 12:38 Pork/Porcine Containing AdvReac Nausea/Vom/ Verified 04/23/22 12:38 Products Diarrhea potassium clavulanate AdvReac Nausea/Vom/ Verified 04/23/22 12:38 [From Augmentin] Diarrhea pseudoephedrine HCl AdvReac Other Verified 04/23/22 12:38 [From Sudafed] scopolamine hydrobromide AdvReac Unknown Verified 04/23/22 12:38 [From ] sulfadiazine [Sulfadiazine] AdvReac Nausea Verified 04/23/22 12:38 Social History Smoking Status: Never smoker ROS Constitutional Constitutional: Reports other Details: Subjective fever at home Eyes Eyes: Denies change in vision ENT HEENT: Reports other Details: Poor dentition ; Denies nasal congestion or sore throat Cardiovascular Cardiovascular: Reports other Details: Intermittent chest tightness with no association with exertion or rest Respiratory/Chest Respiratory/Chest: Reports other Details: Did not endorse changes in his breathing but does endorse dry cough Gastrointestinal Gastrointestinal: Reports other Details: denies changes in bowel or bladder ; Denies abdominal pain Genitourinary Genitourinary: Reports other Details: Chronic dwelling Santos catheter Musculoskeletal Musculoskeletal: Reports other Details: Bilateral lower extremity amputation Neurologic Neurologic: Reports other Details: Generalized weakness Psychiatric Psychiatric: Denies anxiety Hematologic/Lymphatic Hematologic/Lymphatic: Denies easy bleeding Allergic/Immunologic Allergic/Immunologic: Reports other Details: denies rashes Vital Signs Vital Signs Vital Signs: 04/23/22 12:31 04/23/22 12:37 04/23/22 13:57 Temperature 97.2 F L Temperature Source Temporal Pulse Rate 86 Respiratory Rate 14 Respiratory Effort Normal Non-Labored Respiratory Pattern Normal Blood Pressure 140/69 H Blood Pressure Mean 92 Pulse Ox 91 Oxygen Delivery Method Nasal Cannula Oxygen Flow Rate (L/min) 2 04/23/22 15:23 04/23/22 17:00 04/23/22 12:32 Temperature Temperature Source Pulse Rate 82 84 Respiratory Rate 18 Respiratory Effort Respiratory Pattern Blood Pressure 123/60 H 108/60 Blood Pressure Mean 81 76 Pulse Ox 96 92 85 Oxygen Delivery Method Nasal Cannula Nasal Cannula Room Air Oxygen Flow Rate (L/min) 2 2 04/23/22 18:03 04/23/22 19:16 04/23/22 21:03 Temperature Temperature Source Pulse Rate 87 89 Respiratory Rate 18 16 Respiratory Effort Respiratory Pattern Blood Pressure 131/62 H 122/59 H Blood Pressure Mean 85 80 Pulse Ox 97 94 99 Oxygen Delivery Method Nasal Cannula Nasal Cannula Room Air Oxygen Flow Rate (L/min) 2 2 Weight Weight: 72.8 kg Body Mass Index (BMI) 58.3 Physical Exam Const alert and no apparent distress Constitutional Narrative: Oriented HEENT normocephalic and head/scalp atraumatic HEENT Narrative: Poor dentition bilaterally, no pain, no overt drainage appreciated Eyes Eyes Narrative: EOM grossly intact, anicteric Neck supple Resp normal respiratory effort Resp Narrative: Diffuse wheezes Cardio regular rate GI soft to palpation, non-tender and non-distended Extremity Extremity Narrative: Bilateral lower extremity amputation noted Neuro moves all extremities Neuro Narrative: No overt focal deficits appreciated Psych Psych Narrative: Cooperative Results Lab / Micro Data Result Diagrams: 04/23/22 13:46 04/23/22 13:46 Labs: Laboratory Results - last 24 hr 04/23/22 13:46: WBC 7.8, RBC 3.89 L, Hgb 12.9 L, Hct 37.2 L, MCV 95.6 H, MCH 33.2 H, MCHC 34.7, RDW Std Deviation 43.9, RDW Coeff of Usama 12.5, Plt Count 217, MPV 8.7, Immature Gran % (Auto) 0.500, Neut % (Auto) 81.2 H, Lymph % (Auto) 3.9 L, [place] % (Auto) 13.6 H, Eos % (Auto) 0.5, Baso % (Auto) 0.3, Absolute Neuts (auto) 6.3, Absolute Lymphs (auto) 0.30 L, Nucleated RBC % 0, Differential Comment SCANNED 04/23/22 13:46: Sodium 132 L, Potassium 3.8, Chloride 97 L, Carbon Dioxide 32.0, Anion Gap 3 L, BUN 11, Creatinine 0.73, Estim Creat Clear Calc 60.67, Est GFR (MDRD) Af Amer 132, Est GFR (MDRD) Non-Af 109, BUN/Creatinine Ratio 15.0, Glucose 266 H, Calcium 8.6, Total Bilirubin 0.50, AST 19, ALT 19, Alkaline Phosphatase 74, Troponin I High Sens 7, Total Protein 6.9, Albumin 3.0 L, Globulin 3.9, Albumin/Globulin Ratio 0.8 L 04/23/22 16:30: Urine Color Yellow, Urine Clarity Clear, Urine pH 6.0, Ur Specific [place] 1.020, Urine Protein 15 H, Urine Glucose (UA) 50 H, Urine Ketones 150 A*, Urine Occult Blood 10 H, Urine Nitrite Positive H, Urine Bilirubin Negative, Urine Urobilinogen Normal, Ur Leukocyte Esterase 500 H, Urine RBC 0 SEEN, Urine WBC 10-25 SEEN, Ur Squamous Epith Cells 0 SEEN, Urine Bacteria RARE, Urine Mucus 1+ Micro: Microbiology 04/23/22 19:16 Stool Stool Occult Blood (TRISTAN) - Final 04/23/22 14:08 Nasal Secretion SARS-CoV-2 & FLU Antigen (Rapid) - Final Radiology Impression Chest X-Ray 04/23/22 15:40 IMPRESSION: Hypoinflation of the lungs slightly greater right lower lobe atelectasis possible infiltrate. The lung bases are mostly obscured on this study. Electronically Signed: Prerna Rios MD at 16:07 EST , Assessment & Plan Assessment/Plan (1) Hypoxia: PLAN: Plan #Hypoxia 2/2 CAP CXR w/ infiltrate and 85% on RA O2, nebs unasyn and azithro given multiple allergies uag resp panel i/s #chest tightness Atypical order/trend trops admit to tele No pain at this time #DMII Hold oral hypoglycemics SSI glucose checks #afib eliquis continue metoprolol #chronic pain On [place] 5mg 3 times daily Appears also take lorazepam 1 mg Feels fentanyl patches, last fill 03/12, will need to clarify frequency #Hypertension Continue home antihypertensives #Anemia, FOBT negative, no active s/s of bleeding trend CBC Do not feel it is necessary to hold eliquis at this time #DVT ppx: On Eliquis Nannette Poole MD Charges/Coding Visit Charges OBSV E&M: 81889 Initial observation care L2
[2022-04-23 22:26] LABS: Troponin-I HS 8 pg/mL (3.0-78.0)
[2022-04-23] MEDS: Insulin Lispro 100 UNIT/ML INSULN.PEN SC (23:37)
[2022-04-23] MEDS: HYDROcodone Bitartrate/Apap 5/325 Tablet PO (23:37)
[2022-04-23] MEDS: Azithromycin 250 MG Tablet 500 MG PO (23:37)
[2022-04-23] MEDS: Metoprolol Tartrate 50 MG Tablet PO (23:37)
[2022-04-23] MEDS: Amitriptyline 25 MG Tablet 50 MG PO (23:37)
[2022-04-23] MEDS: APIXABAN 5 MG TABLET PO (23:37)
[2022-04-23 23:40] LABS: Bedside Glucose 167 mg/dL (74-106)
[2022-04-23] MEDS: 0.9% Saline Lock 10 ML Syringe IV (23:46)
[2022-04-23] MEDS: CLARIFY ORDER 1 EACH NOTE (23:48)
[2022-04-24] VITALS (13 sets, daily range): BP systolic 89–153; BP diastolic 53–74; PULSE 61–97; RESP 16–18; TEMP 36.4–37.7; O2SAT 93–100
[2022-04-24] MEDS: HYDROcodone Bitartrate/Apap 5/325 Tablet PO ×3 (06:55→22:28)
[2022-04-24] MEDS: 0.9% Saline Lock 10 ML Syringe IV ×2 (06:55→22:27)
[2022-04-24 07:25] LABS: Bedside Glucose 147 mg/dL (74-106)
[2022-04-24 07:36] LABS: Absolute Lymphocyte Count 0.26 X10^3/uL (0.83-4.51); Absolute Neutrophil Count 2.7 X10^3/uL (2.0-7.7); Basophil# 0.01 X10^3/uL; Basophil% 0.3 % (0-1); Hematocrit 36.9 % (40-54); Hemoglobin 12.5 g/dL (13.0-16.5); Lymphocyte # 0.26 X10^3/ul (0.83-4.51); Lymphocyte % 6.9 % (19-41); Mean Corp Hgb Conc 33.9 g/dL (32-36); Mean Corpuscular Hgb 33.3 pg (27.0-32.0); Mean Corpuscular Volume 98.4 fL (80-94); Mean Platelet Vol. 9.1 fl (6.2-12.0); Monocyte# 0.75 X10^3/uL; Monocyte% 19.8 % (0-10); NRBC Flagged by Analyzer 0 % (0-5); Neutrophil # 2.74 X10^3/uL (2.7-7.7); Neutrophil % 72.5 % (47-70); POSITIVE DIFFERENTIAL YES; Platelet Count 194 K/mm3 (150-450); RBC Distribution Width CV 12.6 % (11.6-14.6); RBC Distribution Width SD 45.6 fl (35.1-43.9); Red Blood Count 3.75 M/mm3 (4.6-6.2); White Blood Count 3.8 K/mm3 (4.4-11.0)
[2022-04-24 07:41] LABS: Differential Indicated SCAN CRITERIA MET
[2022-04-24 08:02] LABS: ALB/GLOB Ratio 0.8 RATIO (0.9-2.4); AST(SGOT) 18 U/L (15-37); Alanine Aminotransfer ALT/SGPT 23 U/L (16-61); Albumin, Serum 2.8 g/dL (3.2-5.0); Alkaline Phosphatase 62 U/L (45-117); Anion Gap 6 (5-15); BUN 8 mg/dL (7-18); BUN/Creat Ratio 14.9 RATIO (10-20); Calcium,Total 7.9 mg/dL (8.5-10.1); Chloride 98 mmol/L (98-107); Creatinine, Serum 0.54 mg/dL (0.70-1.30); EST Glomerular Filtration Rate 157 mL/min (>60); Est Glom Filt Rate - Afr Amer 190 mL/min (>60); Globulin 3.6 g/dL (2.2-4.2); Glucose 151 mg/dL (74-106); Potassium 3.2 mmol/L (3.5-5.1); Protein, Total 6.4 g/dL (6.4-8.2); Sodium Level 134 mmol/L (136-145)
--- NOTE | 2022-04-24 08:53 | PN.HOSP_ITS ---
Subjective Subjective Follow-up for pneumonia. Objective Data Objective Data Vital Signs: Vital Signs Temp Pulse Resp BP Pulse Ox O2 Del Method O2 Flow Rate 99 F 91 18 150/67 H 93 Nasal Cannula 2 04/24/22 05:04 04/24/22 06:59 04/24/22 05:04 04/24/22 05:04 04/24/22 07:19 04/24/22 07:19 04/24/22 07:19 Oxygen Flow Rate (L/min) 2 Oxygen Delivery Method Nasal Cannula Weight: 156 lb 1.396 oz Body Mass Index (BMI) 56.7 Intake & Output: Intake and Output for Last 24 Hours 04/22/22 04/23/22 04/24/22 23:59 23:59 23:59 Intake Total 612 / 612 112 / 112 Output Total 550 / 550 Balance 612 / 212 -438 / -438 Lab / Micro Data Result Diagrams: 04/24/22 06:45 04/24/22 06:45 Labs: Laboratory Results - last 24 hr 04/23/22 13:46: WBC 7.8, RBC 3.89 L, Hgb 12.9 L, Hct 37.2 L, MCV 95.6 H, MCH 33.2 H, MCHC 34.7, RDW Std Deviation 43.9, RDW Coeff of Usama 12.5, Plt Count 217, MPV 8.7, Immature Gran % (Auto) 0.500, Neut % (Auto) 81.2 H, Lymph % (Auto) 3.9 L, Evans % (Auto) 13.6 H, Eos % (Auto) 0.5, Baso % (Auto) 0.3, Absolute Neuts (auto) 6.3, Absolute Lymphs (auto) 0.30 L, Nucleated RBC % 0, Differential Comment SCANNED 04/23/22 13:46: Sodium 132 L, Potassium 3.8, Chloride 97 L, Carbon Dioxide 32.0, Anion Gap 3 L, BUN 11, Creatinine 0.73, Estim Creat Clear Calc 60.67, Est GFR (MDRD) Af Amer 132, Est GFR (MDRD) Non-Af 109, BUN/Creatinine Ratio 15.0, Glucose 266 H, Calcium 8.6, Total Bilirubin 0.50, AST 19, ALT 19, Alkaline Phosphatase 74, Troponin I High Sens 7, Total Protein 6.9, Albumin 3.0 L, Globulin 3.9, Albumin/Globulin Ratio 0.8 L 04/23/22 16:30: Urine Color Yellow, Urine Clarity Clear, Urine pH 6.0, Ur Specific [place] 1.020, Urine Protein 15 H, Urine Glucose (UA) 50 H, Urine Ketones 150 A*, Urine Occult Blood 10 H, Urine Nitrite Positive H, Urine Bilirubin Negative, Urine Urobilinogen Normal, Ur Leukocyte Esterase 500 H, Urine RBC 0 SEEN, Urine WBC 10-25 SEEN, Ur Squamous Epith Cells 0 SEEN, Urine Bacteria RARE, Urine Mucus 1+ 04/23/22 21:57: Troponin I High Sens 8 04/23/22 23:10: POC Glucose 167 H 04/24/22 06:45: WBC 3.8 L, RBC 3.75 L, Hgb 12.5 L, Hct 36.9 L, MCV 98.4 H, MCH 33.3 H, MCHC 33.9, RDW Std Deviation 45.6 H, RDW Coeff of Usama 12.6, Plt Count 194, MPV 9.1, Immature Gran % (Auto) 0.500, Neut % (Auto) 72.5 H, Lymph % (Auto) 6.9 L, Evans % (Auto) 19.8 H, Eos % (Auto) 0.0, Baso % (Auto) 0.3, Absolute Neuts (auto) 2.7, Absolute Lymphs (auto) 0.26 L, Nucleated RBC % 0 04/24/22 06:45: Sodium 134 L, Potassium 3.2 L, Chloride 98, Carbon Dioxide 30.0, Anion Gap 6, BUN 8, Creatinine 0.54 L, Estim Creat Clear Calc 59.00, Est GFR (MDRD) Af Amer 190, Est GFR (MDRD) Non-Af 157, BUN/Creatinine Ratio 14.9, Glucos e 151 H, Calcium 7.9 L, Total Bilirubin 0.30, AST 18, ALT 23, Alkaline Phosphatase 62, Total Protein 6.4, Albumin 2.8 L, Globulin 3.6, Albumin/Globulin Ratio 0.8 L 04/24/22 06:54: POC Glucose 147 H Micro: Microbiology 04/24/22 01:50 Mucosa - Nose Respiratory Panel (PCR) - Final 04/23/22 16:30 Urine, Random Legionella Antigen - Final 04/23/22 16:30 Urine, Random Streptococcus pneumoniae Antigen (M - Final 04/23/22 19:16 Stool Stool Occult Blood (TRISTAN) - Final 04/23/22 14:08 Nasal Secretion SARS-CoV-2 & FLU Antigen (Rapid) - Final Radiography Diagnostic Testing: Radiology Impression Chest X-Ray 04/23/22 15:40 IMPRESSION: Hypoinflation of the lungs slightly greater right lower lobe atelectasis possible infiltrate. The lung bases are mostly obscured on this study. Electronically Signed: Prerna Rios MD at 16:07 EST , Physical Exam Narrative Patient is states he feels weak. Mild nausea and dyspeptic symptoms but no vomiting. Has occasional cough but not significant. Does not feel like feverish diaphoretic. Denies shortness of breath. Patient is bilateral amputee. Weak cough. Physical exam General: Alert, Oriented x3, Cooperative, fatigue HEENT: Atraumatic, PERRLA, EOMI, Normocephalic Oral: No Gingival or Mucosal Lesions/ Ulcerations Neck: Supple, No JVD, Negative Carotid Bruits Lungs: Air entry diminished in bilateral lung bases. No crepitation/rhonchi. Weak cough reflex Cardiovascular: Regular rate, Regular Rhythm, Normal S1, Normal S2, No murmurs Abdomen: Bowel Sounds Present, Soft, Non Tender, Non-Distended : No renal angle tenderness. No suprapubic tenderness. Extremities: No edema, Capillary Refill Less than 3 Seconds Skin: No rashes, No breakdown Musculoskeletal: Bilateral above-knee amputee Neurological: Cranial nerves II-XII grossly intact, DTR 2+/4 Psych/Mental Status: Flat affect Assessment & Plan Assessment/Plan (1) Hypoxia: PLAN: Plan This is a 81-year-old male admitted with generalized malaise cough, subjective fever for 5 days before admission, since Tuesday. Patient started having nausea and vomiting. Also complained of chest tightness. Patient has Santos catheter for urine retention inserted recently. Right lung base pneumonia with hypoxia: Chest x-ray today shows right lung base infiltrate. Patient was found to be 85% on room air on admission. On Unasyn and azithromycin. DuoNeb as needed. SARS-CoV-2 and flu antigens are negative. Urinary antigens are negative. Respiratory panel negative. Mucinex, incentive spirometry and chest physiotherapy. Patient has atypical chest tightness due to probably pneumonia. Troponin negative #DMII Hold oral hypoglycemics. Glucose is between 140 to 180 mg/dL. Continue Accu- Cheks AC needs coverage below sliding scale #afib eliquis continue metoprolol #chronic pain On [place] 5mg 3 times daily Appears also take lorazepam 1 mg Feels fentanyl patches, last fill 03/12, will need to clarify frequency #Hypertension Continue home antihypertensives #Anemia, FOBT negative, no active s/s of bleeding trend CBC Do not feel it is necessary to hold eliquis at this time #DVT ppx: On Eliquis Clinical Impression(s) from Imaging Studies Chest X-Ray 04/23/22 15:40 IMPRESSION: Hypoinflation of the lungs slightly greater right lower lobe atelectasis possible infiltrate. The lung bases are mostly obscured on this study. Microbiology Past 72 Hours 04/23/22 16:30 Urine Catheter - Santos Urine Culture - Preliminary Culture exhibits no growth. 04/24/22 01:50 Mucosa - Nose Respiratory Panel (PCR) - Final 04/23/22 16:30 Urine, Random Legionella Antigen - Final 04/23/22 16:30 Urine, Random Streptococcus pneumoniae Antigen (M - Final 04/23/22 19:16 Stool Stool Occult Blood (TRISTAN) - Final 04/23/22 14:08 Nasal Secretion SARS-CoV-2 & FLU Antigen (Rapid) - Final Laboratory Results 04/23/22 21:57: Troponin I High Sens 8 04/23/22 23:10: POC Glucose 167 H 04/24/22 06:45: WBC 3.8 L, RBC 3.75 L, Hgb 12.5 L, Hct 36.9 L, MCV 98.4 H, MCH 33.3 H, MCHC 33.9, RDW Std Deviation 45.6 H, RDW Coeff of Usama 12.6, Plt Count 194, MPV 9.1, Immature Gran % (Auto) 0.500, Neut % (Auto) 72.5 H, Lymph % (Auto) 6.9 L, Evans % (Auto) 19.8 H, Eos % (Auto) 0.0, Baso % (Auto) 0.3, Absolute Neuts (auto) 2.7, Absolute Lymphs (auto) 0.26 L, Nucleated RBC % 0, Differential Comment SCANNED, Diff Path Review September04/24/22 06:45: Sodium 134 L, Potassium 3.2 L, Chloride 98, Carbon Dioxide 30.0, Anion Gap 6, BUN 8, Creatinine 0.54 L, Estim Creat Clear Calc 59.00, Est GFR (M DRD) Af Amer 190, Est GFR (MDRD) Non-Af 157, BUN/Creatinine Ratio 14.9, Glucose 151 H, Calcium 7.9 L, Total Bilirubin 0.30, AST 18, ALT 23, Alkaline Phosphatase 62, Total Protein 6.4, Albumin 2.8 L, Globulin 3.6, Albumin/Globulin Ratio 0.8 L 04/24/22 06:54: POC Glucose 147 H 04/24/22 12:22: POC Glucose 170 H Charges/Coding Visit Charges Inpatient E&M: 84290 Subs Hosp L2
[2022-04-24] MEDS: Ondansetron 4 MG/2 ML Vial IV (09:20)
[2022-04-24] MEDS: Menthol/Lanolin/Calamine/Znox 113 GM Tube 1 APPLIC TOPICAL ×2 (09:20→22:27)
[2022-04-24] MEDS: Metoprolol Tartrate 50 MG Tablet PO ×2 (09:21→22:27)
[2022-04-24] MEDS: APIXABAN 5 MG TABLET PO ×2 (09:21→22:28)
[2022-04-24] MEDS: amLODIPine 5 MG Tablet PO (09:21)
[2022-04-24] MEDS: hydroCHLOROthiazide 25 MG Tablet PO (09:21)
[2022-04-24] MEDS: Lisinopril 40 MG Tablet PO (09:22)
[2022-04-24 10:03] LABS: Differential Comment SCANNED
[2022-04-24] MEDS: Metoclopramide 5 MG TABLET PO ×2 (12:19→17:07)
[2022-04-24] MEDS: Insulin Lispro 100 UNIT/ML INSULN.PEN SC ×2 (12:23→17:08)
[2022-04-24 12:45] LABS: Bedside Glucose 170 mg/dL (74-106)
[2022-04-24] MEDS: Juven (unflavored) Packet 1 PACKET PO (17:07)
[2022-04-24] MEDS: Glucerna Shake 120 ML LIQUID PO (17:07)
--- NOTE | 2022-04-24 17:30 | CASEMGMT ---
ANA ZIMMERMAN Discharge Planning Assessment: Face to Face with patient for initial transition planning/care coordination assessment. Pt alert, oriented and agreeable to participating in assessment. RN ELSIE introduced self and role at [facility], Pt voices understanding. Care providers, pharmacy, and demographics verified. PCP: Lynda Specialists: None Preferred [facility] Insurance: [employer] MCR Prescription Benefit: Yes Living Will/HPOA: No LNOK: Meredith Living Arrangements: Pt lives with his , adult foster son, and foster son's significant other in a two story home with a 1st floor set-up. There is a ramp into the back of the home. Pt with bilat AKA and is nonambulatory and bedbound. Pt states he has a w/c but has difficulty transferring into it. States that his foster son is able to assist him in transferring into the w/c and in and out of the car to transport to appointments but this is with difficulty. Pt assists as able with his ADLs but his assists with all ADLs and completes household tasks. Transportation: Pt's drives DME: w/c, hospital bed. SNF/HHC: Pt denies any previous SNF or HHC Plan: Pt plans to return home under the care of his and foster son. Discussed home healthcare at discharge to monitor his respiratory status post discharge given his homebound status and difficulty getting to appointments. Pt states he last visited Dr. Howell 3 months ago. Also discussed a visiting physician service for which information was provided. A list of home health providers from [facility] including quality and resource use data and consistent with pt's insurance and geographic area were provided to pt. Pt states he will review both services with his and discuss. CM will follow-up with pt on decisions related to HHC and visiting physicians. Will watch for additional needs at discharge. Veronique Perdue RN CM
[2022-04-24] MEDS: Amitriptyline 25 MG Tablet 50 MG PO (22:27)
[2022-04-24] MEDS: Azithromycin 250 MG Tablet 500 MG PO (22:27)
[2022-04-24] MEDS: Atorvastatin Calcium 10 MG Tablet PO (22:28)
[2022-04-24 23:21] LABS: Bedside Glucose 102 mg/dL (74-106)
[2022-04-25] VITALS (13 sets, daily range): BP systolic 107–140; BP diastolic 62–83; PULSE 76–98; RESP 16–18; TEMP 36.6–37.4; O2SAT 94–98
[2022-04-25] MEDS: HYDROcodone Bitartrate/Apap 5/325 Tablet PO ×3 (05:57→22:36)
[2022-04-25] MEDS: 0.9% Saline Lock 10 ML Syringe IV (05:58)
[2022-04-25 06:13] LABS: Absolute Neutrophil Count 2.2 X10^3/uL (2.0-7.7); Basophil# 0.01 X10^3/uL; Basophil% 0.3 % (0-1); Hematocrit 36.2 % (40-54); Hemoglobin 12.3 g/dL (13.0-16.5); Lymphocyte % 11.8 % (19-41); Mean Corpuscular Hgb 33.1 pg (27.0-32.0); Mean Corpuscular Volume 97.3 fL (80-94); Mean Platelet Vol. 9.2 fl (6.2-12.0); Monocyte# 0.82 X10^3/uL; Monocyte% 24.1 % (0-10); NRBC Flagged by Analyzer 0 % (0-5); Neutrophil # 2.15 X10^3/uL (2.7-7.7); Neutrophil % 63.2 % (47-70); POSITIVE DIFFERENTIAL YES; Platelet Count 176 K/mm3 (150-450); RBC Distribution Width CV 12.6 % (11.6-14.6); RBC Distribution Width SD 45.1 fl (35.1-43.9); Red Blood Count 3.72 M/mm3 (4.6-6.2); White Blood Count 3.4 K/mm3 (4.4-11.0)
[2022-04-25] MEDS: Metoclopramide 5 MG TABLET PO ×3 (06:30→16:19)
[2022-04-25 06:35] LABS: Differential Indicated SCAN CRITERIA MET
[2022-04-25 06:44] LABS: Anion Gap 7 (5-15); BUN 14 mg/dL (7-18); BUN/Creat Ratio 26.5 RATIO (10-20); Calcium,Total 8.1 mg/dL (8.5-10.1); Chloride 95 mmol/L (98-107); Creatinine, Serum 0.53 mg/dL (0.70-1.30); EST Glomerular Filtration Rate 160 mL/min (>60); Est Glom Filt Rate - Afr Amer 193 mL/min (>60); Estimated Creatinine Clearance 58.98 ml/min; Glucose 126 mg/dL (74-106); Potassium 2.9 mmol/L (3.5-5.1); Sodium Level 134 mmol/L (136-145)
[2022-04-25 07:10] LABS: Bedside Glucose 132 mg/dL (74-106)
[2022-04-25 08:19] LABS: Magnesium 2.1 mg/dL (1.6-2.6); Phosphorus 2.7 mg/dL (2.5-4.9)
[2022-04-25] MEDS: hydroCHLOROthiazide 25 MG Tablet PO (08:52)
[2022-04-25] MEDS: Juven (unflavored) Packet 1 PACKET PO ×2 (08:52→16:19)
[2022-04-25] MEDS: amLODIPine 5 MG Tablet PO (08:52)
[2022-04-25] MEDS: Metoprolol Tartrate 50 MG Tablet PO ×2 (08:52→22:36)
[2022-04-25] MEDS: Lisinopril 40 MG Tablet PO (08:52)
[2022-04-25] MEDS: APIXABAN 5 MG TABLET PO ×2 (08:52→22:36)
[2022-04-25] MEDS: Menthol/Lanolin/Calamine/Znox 113 GM Tube 1 APPLIC TOPICAL (08:56)
[2022-04-25] MEDS: Glucerna Shake 120 ML LIQUID PO ×2 (08:56→14:08)
[2022-04-25] MEDS: Potassium Chloride 10mEq/100mL 10 MEQ/100 ML IV.SOLN. 100 MEQ IV BOLUS ×4 (08:56→14:08)
--- NOTE | 2022-04-25 09:25 | PN.HOSP_ITS ---
Subjective Subjective Seen and examined. Follow-up for pneumonia, hypokalemia. Patient thinks he does not have pneumonia as he has a chronic right lung base atelectasis as he was told before. Objective Data Objective Data Vital Signs: Vital Signs Temp Pulse Resp BP Pulse Ox O2 Del Method O2 Flow Rate 98.1 F 76 16 114/62 97 Nasal Cannula 2 04/25/22 08:50 04/25/22 08:52 04/25/22 08:50 04/25/22 08:52 04/25/22 08:50 04/25/22 09:03 04/25/22 09:03 Oxygen Flow Rate (L/min) 2 Oxygen Delivery Method Nasal Cannula Weight: 156 lb 0.396 oz Body Mass Index (BMI) 56.7 Intake & Output: Intake and Output for Last 24 Hours 04/23/22 04/24/22 04/25/22 23:59 23:59 23:59 Intake Total 612 / 612 448 / 560 224 / 224 Output Total 1850 / 1850 600 / 600 Balance 612 / 212 -1402 / -1290 -376 / -376 Medical Nutrition Assessment Dietitian: Malnutrition Criteria Met Start: 04/24/22 19:10 Freq: Status: Active Protocol: Document 04/24/22 15:10 TAMICA (Rec: 04/24/22 19:10 [facility] [id number]) Nutrition Malnutrition Evidence of Malnutrition Exists Yes Malnutrition (moderate): Chronic Evidenced By Suboptimal Energy Intake ( Moderate),Weight Loss ( Moderate),Physical Changes ( Mild) Intake Problem Increased Nutrient Needs (specify) Etiology (protein) related to wound healing Signs/Symptoms as evidenced by left buttock pressure injury. Status Active Problem Clinical Problem Chronic Disease or Condition Related Malnutrition Etiology related to physiological changes causing decreased oral intakes Signs/Symptoms as evidenced by significant weight loss of 4.3% in less than one month, mild muscle wasting per NFPA (clavicle, temporal, etc.) and decreased oral intakes < 75% of estimated nutrient needs for at least one month. Status Active Problem Recommendation Dietitian Recommendations/Changes Continue with Cardiac: Calorie Controlled 2000kcal diet. Order Glucerna 120mL 4x/d and Nilay BID w/medpass to promote wound healing and help increase oral intakes. Will reassess oral intakes upon f/u and modify interventions as needed. Lab / Micro Data Result Diagrams: 04/25/22 05:09 04/25/22 05:09 Labs: Laboratory Results - last 24 hr 04/24/22 06:45: Differential Comment SCANNED, Diff Path Review September04/24/22 12:22: POC Glucose 170 H 04/24/22 22:24: POC Glucose 102 04/25/22 05:09: WBC 3.4 L, RBC 3.72 L, Hgb 12.3 L, Hct 36.2 L, MCV 97.3 H, MCH 33.1 H, MCHC 34.0, RDW Std Deviation 45.1 H, RDW Coeff of Usama 12.6, Plt Count 176, MPV 9.2, Immature Gran % (Auto) 0.600, Neut % (Auto) 63.2, Lymph % (Auto) 11.8 L, [place] % (Auto) 24.1 H, Eos % (Auto) 0.0, Baso % (Auto) 0.3, Absolute Neuts (auto) 2.2, Absolute Lymphs (auto) 0.40 L, Nucleated RBC % 0 04/25/22 05:09: Sodium 134 L, Potassium 2.9 L, Chloride 95 L, Carbon Dioxide 32.0, Anion Gap 7, BUN 14, Creatinine 0.53 L, Estim Creat Clear Calc 58.98, Est GFR (MDRD) Af Amer 193, Est GFR (MDRD) Non-Af 160, BUN/Creatinine Ratio 26.5 H, Glucose 126 H, Calcium 8.1 L 04/25/22 05:09: Phosphorus 2.7, Magnesium 2.1 04/25/22 06:29: POC Glucose 132 H Micro: Microbiology 04/23/22 16:30 Urine Catheter - Santos Urine Culture - Final Culture exhibits no growth. 04/24/22 01:50 Mucosa - Nose Respiratory Panel (PCR) - Final 04/23/22 16:30 Urine, Random Legionella Antigen - Final 04/23/22 16:30 Urine, Random Streptococcus pneumoniae Antigen (M - Final 04/23/22 19:16 Stool Stool Occult Blood (TRISTAN) - Final 04/23/22 14:08 Nasal Secretion SARS-CoV-2 & FLU Antigen (Rapid) - Final Physical Exam Narrative Has occasional cough but not significant. Does not feel like feverish diaphoretic. Denies shortness of breath. Patient is bilateral amputee. Weak cough. Physical exam General: Alert, Oriented x3, Cooperative, fatigue HEENT: Atraumatic, PERRLA, EOMI, Normocephalic Oral: No Gingival or Mucosal Lesions/ Ulcerations Neck: Supple, No JVD, Negative Carotid Bruits Lungs: Air entry diminished in bilateral lung bases. Bilateral coarse crepitations seems chronic. Weak cough reflex Cardiovascular: Regular rate, Regular Rhythm, Normal S1, Normal S2, No murmurs Abdomen: Bowel Sounds Present, Soft, Non Tender, Non-Distended : No renal angle tenderness. No suprapubic tenderness. Extremities: No edema, Capillary Refill Less than 3 Seconds Skin: No rashes, No breakdown Musculoskeletal: Bilateral above-knee amputee Neurological: Cranial nerves II-XII grossly intact, DTR 2+/4 Psych/Mental Status: Flat affect Assessment & Plan Assessment/Plan (1) Hypoxia: PLAN: Plan This is a 81-year-old male admitted with generalized malaise, occasional cough, subjective fever for 5 days before admission, since Tuesday. Patient started having nausea and vomiting. Also complained of chest tightness. Patient has Santos catheter for urine retention inserted recently. Right lung base pneumonia with hypoxia: Chest x-ray today shows right lung base infiltrate. Patient was found to be 85% on room air on admission. On Unasyn and azithromycin. DuoNeb as needed. SARS-CoV-2 and flu antigens are negative. Urinary antigens are negative. Respiratory panel negative. Mucinex, incentive spirometry and chest physiotherapy. Patient has atypical chest tightness due to probably pneumonia. Troponin negative 04/25: Unclear does he have pneumonia or his right lung base atelectasis especially when the patient said he has a chronic right lung base infiltrate/a telectasis finding. Patient does not have any good convincing history of pneumonia symptoms including cough. T-max 99.9 Fahrenheit. Was 100.3 on 04/23 night. Continue Pap and incentive spirometry. Speech therapy evaluation. #DMII Hold oral hypoglycemics. Glucose is between 140 to 180 mg/dL. Continue Accu- Cheks AC needs coverage below sliding scale #afib eliquis continue metoprolol #chronic pain On [place] 5mg 3 times daily Appears also take lorazepam 1 mg Feels fentanyl patches, last fill 03/12, will need to clarify frequency #Hypertension Continue home antihypertensives #Anemia, FOBT negative, no active s/s of bleeding trend CBC Do not feel it is necessary to hold eliquis at this time #DVT ppx: On Eliquis Clinical Impression(s) from Imaging Studies Chest X-Ray 04/23/22 15:40 IMPRESSION: Hypoinflation of the lungs slightly greater right lower lobe atelectasis possible infiltrate. The lung bases are mostly obscured on this study. Microbiology Past 72 Hours 04/23/22 16:30 Urine Catheter - Santos Urine Culture - Preliminary Culture exhibits no growth. 04/24/22 01:50 Mucosa - Nose Respiratory Panel (PCR) - Final 04/23/22 16:30 Urine, Random Legionella Antigen - Final 04/23/22 16:30 Urine, Random Streptococcus pneumoniae Antigen (M - Final 04/23/22 19:16 Stool Stool Occult Blood (TRISTAN) - Final 04/23/22 14:08 Nasal Secretion SARS-CoV-2 & FLU Antigen (Rapid) - Final Laboratory Results 04/23/22 21:57: Troponin I High Sens 8 04/23/22 23:10: POC Glucose 167 H 04/24/22 06:45: WBC 3.8 L, RBC 3.75 L, Hgb 12.5 L, Hct 36.9 L, MCV 98.4 H, MCH 33.3 H, MCHC 33.9, RDW Std Deviation 45.6 H, RDW Coeff of Usama 12.6, Plt Count 194, MPV 9.1, Immature Gran % (Auto) 0.500, Neut % (Auto) 72.5 H, Lymph % (Auto) 6.9 L, [place] % (Auto) 19.8 H, Eos % (Auto) 0.0, Baso % (Auto) 0.3, Absolute Neuts (auto) 2.7, Absolute Lymphs (auto) 0.26 L, Nucleated RBC % 0, Differential Comment SCANNED, Diff Path Review September foll 04/24/22 06:45: Sodium 134 L, Potassium 3.2 L, Chloride 98, Carbon Dioxide 30.0, Anion Gap 6, BUN 8, Creatinine 0.54 L, Estim Creat Clear Calc 59.00, Est GFR (MDRD) Af Amer 190, Est GFR (MDRD) Non-Af 157, BUN/Creatinine Ratio 14.9, Glucose 151 H, Calcium 7.9 L, Total Bilirubin 0.30, AST 18, ALT 23, Alkaline Phosphatase 62, Total Protein 6.4, Albumin 2.8 L, Globulin 3.6, Albumin/Globulin Ratio 0.8 L 04/24/22 06:54: POC Glucose 147 H 04/24/22 12:22: POC Glucose 170 H Charges/Coding Visit Charges Inpatient E&M: 01771 Subs Hosp L2
[2022-04-25 10:01] LABS: Differential Comment SCANNED
[2022-04-25] MEDS: Insulin Lispro 100 UNIT/ML INSULN.PEN SC ×3 (12:06→22:41)
[2022-04-25 12:25] LABS: Bedside Glucose 183 mg/dL (74-106)
[2022-04-25] MEDS: Ondansetron 4 MG/2 ML Vial IV (13:31)
[2022-04-25 16:55] LABS: Bedside Glucose 180 mg/dL (74-106)
[2022-04-25] MEDS: Amitriptyline 25 MG Tablet 50 MG PO (22:36)
[2022-04-25] MEDS: Azithromycin 250 MG Tablet 500 MG PO (22:36)
[2022-04-25 23:10] LABS: Bedside Glucose 187 mg/dL (74-106)
[2022-04-26] VITALS (14 sets, daily range): BP systolic 125–166; BP diastolic 78–99; PULSE 86–105; RESP 14–16; TEMP 36.5–37.9; O2SAT 92–98
[2022-04-26 05:45] LABS: Absolute Lymphocyte Count 0.54 X10^3/uL (0.83-4.51); Absolute Neutrophil Count 3.2 X10^3/uL (2.0-7.7); Basophil# 0.01 X10^3/uL; Basophil% 0.2 % (0-1); Hematocrit 41.6 % (40-54); Hemoglobin 14.5 g/dL (13.0-16.5); Lymphocyte # 0.54 X10^3/ul (0.83-4.51); Lymphocyte % 11.5 % (19-41); Mean Corp Hgb Conc 34.9 g/dL (32-36); Mean Corpuscular Hgb 33.6 pg (27.0-32.0); Mean Corpuscular Volume 96.3 fL (80-94); Mean Platelet Vol. 9.1 fl (6.2-12.0); Monocyte# 0.92 X10^3/uL; Monocyte% 19.6 % (0-10); NRBC Flagged by Analyzer 0 % (0-5); Neutrophil # 3.22 X10^3/uL (2.7-7.7); Neutrophil % 68.5 % (47-70); POSITIVE DIFFERENTIAL YES; Platelet Count 236 K/mm3 (150-450); RBC Distribution Width CV 12.1 % (11.6-14.6); RBC Distribution Width SD 42.7 fl (35.1-43.9); Red Blood Count 4.32 M/mm3 (4.6-6.2); White Blood Count 4.7 K/mm3 (4.4-11.0)
--- NOTE | 2022-04-26 06:07 | EKG12_ITS ---
Test Reason : ARM PAIN Blood Pressure : / mmHG Vent. Rate : 099 BPM Atrial Rate : 000 BPM P-R Int : 000 ms QRS Dur : 094 ms QT Int : 338 ms P-R-T Axes : 000 -51 047 degrees QTc Int : 433 ms Atrial fibrillation Left axis deviation Abnormal ECG When compared with ECG of 23-APR-2022 13:39, MANUAL COMPARISON REQUIRED, DATA IS UNCONFIRMED Confirmed by GUERRERO ALCALA, MICK ([id number]), editor newspaper JESSICA TRAN ([id number]) on 04/27/2022 7:55:55 AM Referred By: DR RIOS Confirmed By:MICK MASTERS MD
[2022-04-26 06:19] LABS: Anion Gap 8 (5-15); BUN 12 mg/dL (7-18); BUN/Creat Ratio 13.7 RATIO (10-20); Calcium,Total 8.4 mg/dL (8.5-10.1); Chloride 91 mmol/L (98-107); Creatinine, Serum 0.88 mg/dL (0.70-1.30); EST Glomerular Filtration Rate 89 mL/min (>60); Est Glom Filt Rate - Afr Amer 108 mL/min (>60); Estimated Creatinine Clearance 67.02 ml/min; Glucose 202 mg/dL (74-106); Potassium 2.8 mmol/L (3.5-5.1); Sodium Level 131 mmol/L (136-145)
[2022-04-26] MEDS: Metoclopramide 5 MG TABLET PO ×2 (06:33→16:26)
[2022-04-26] MEDS: Insulin Lispro 100 UNIT/ML INSULN.PEN SC ×3 (06:33→22:36)
[2022-04-26] MEDS: HYDROcodone Bitartrate/Apap 5/325 Tablet PO ×3 (06:33→22:24)
[2022-04-26 07:01] LABS: Bedside Glucose 185 mg/dL (74-106)
[2022-04-26 07:16] LABS: Differential Indicated SCAN CRITERIA MET
[2022-04-26] MEDS: Potassium Chloride Oral Tablet 20 MEQ 40 MEQ PO ×3 (07:20→18:49)
[2022-04-26 07:35] LABS: Bedside Glucose 177 mg/dL (74-106)
[2022-04-26 08:10] LABS: Bedside Glucose 199 mg/dL (74-106)
[2022-04-26] MEDS: Menthol/Lanolin/Calamine/Znox 113 GM Tube 1 APPLIC TOPICAL (08:45)
[2022-04-26] MEDS: Juven (unflavored) Packet 1 PACKET PO ×2 (08:45→16:26)
[2022-04-26] MEDS: APIXABAN 5 MG TABLET PO ×2 (08:46→22:25)
[2022-04-26] MEDS: Lisinopril 40 MG Tablet PO (08:46)
[2022-04-26] MEDS: Metoprolol Tartrate 50 MG Tablet PO ×2 (08:46→22:24)
[2022-04-26] MEDS: hydroCHLOROthiazide 25 MG Tablet PO (08:46)
[2022-04-26] MEDS: amLODIPine 5 MG Tablet PO (08:46)
[2022-04-26] MEDS: Glucerna Shake 120 ML LIQUID PO (08:47)
[2022-04-26] MEDS: Potassium Chloride 10mEq/100mL 10 MEQ/100 ML IV.SOLN. 100 MEQ IV BOLUS ×2 (11:31→12:35)
[2022-04-26 12:21] LABS: Bedside Glucose 221 mg/dL (74-106)
--- NOTE | 2022-04-26 12:46 | SP.MBSS_ITS ---
Modified Barium Swallow - Patient Information Study Date: 04/26/22 Study Time: 10:00 Direct Billable Minutes: 220 Total Minutes procedure & reportin Diagnosis: aspiration into airway T17.908A, hypoxia R09.02 Referring Physician: Federico Maldonado Reason for Referral: Objectively assess swallow function, risk for aspiration, and determine recommendations for least restrictive diet textures and compensatory strategies to improve safety of swallow. 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 In the ED he was found to have an O2 sat of 85% on room air and chest x-ray suggestive of pneumonia in the right lower lobe. Per , he has been feeling worse over the past week and within the past 24 hours he is significantly worsened. Mostly complains of a tightness across his chest intermittently into his left arm and some cough, does not report being overtly short of breath at this time. Reports worsened control of his glucose at home and complains of poor dentition for which she has not felt well enough to go to the dentist. Speech therapy was consulted by hospitalist to evaluate patient's swallow function d/t suspected aspiration pneumonia. BSE was completed w/ recommended diet of regular textures and thin liquids, however recommended Modified Barium Swallow Study to objectively assess anatomy and physiology of swallow function to determine LRD to maintain adequate nutrition and hydration w/o overt s/s of aspiration. Current Diet Ordered: regular / thin Dentition: Decay, Missing Teeth Mental Status: WNL - grossly within normal limits, cognitive impairment suspected Respiratory Status: Oxygenating on Room Air - Penetration-Aspiration Scale Penetration-Aspiration Scale: OBJECTIVE ASSESSMENT OF SWALLOW FUNCTION (QUANTITATIVE ? PER TRIAL): PENETRATION / ASPIRATION SCALE (MUNOZ): 1 = does not enter airway 2 = enters airway/above vocal folds/ejected 3 = enters airway/above vocal folds/not ejected 4 = enters airway/contacts vocal folds/ejected 5 = enters airway/contacts vocal folds/not ejected 6 = enters airway/below vocal folds/ejected 7 = enters airway/below vocal folds/not ejected despite effort 8 = enters airway/below vocal folds/no effort VIDEOFLOROSCOPIC SCALE SCORE (MUNOZ): Grade I = aspiration of material that has penetrated into the laryngeal vestibule, intact cough reflex Grade II = aspiration < 10 % of the bolus, intact cough reflex Grade III = aspiration of < 10 % of the bolus, reduced cough reflex or aspiration of > 10 % of the bolus, intact cough reflex Grade IV = aspiration of > 10 % of the bolus, reduced cough reflex - Penetration-Aspiration Scale Score Thin Liquid via teaspoon Result: 1= does not enter airway Thin Liquid via teaspoon Trial 2 Result: 5= enters airways/contacts vocal folds/not ejected Comment: POST PRANDIAL SILENT ASPIRATION OBSERVED - PAS OF 8 Thin Liquid via large single sip from cup Result: 5= enters airways/contacts vocal folds/not ejected Comment: POST PRANDIAL SILENT ASPIRATION OBSERVED - PAS OF 8 [place] Thick Liquid via small single sip from cup Result: 3= enters airways/above vocal folds/not ejected [place] Thick Liquid via teaspoon Result: 3= enters airways/above vocal folds/not ejected Pudding Result: 3= enters airways/above vocal folds/not ejected Cookie Result: 1= does not enter airway Thin Liquid via small single sip from cup Effortful swallow Result: 1= does not enter airway Thin Liquid via small single sip from cup Effortful swallow Trial 2 Result: 3= enters airways/above vocal folds/not ejected Thin Liquid via teaspoon Effortful swallow Trial 3 Result: 3= enters airways/above vocal folds/not ejected [place] Thick Liquid via small single sip from cup Effortful swallow Result: 3= enters airways/above vocal folds/not ejected - Oral Phase Labial Seal: No Labial Escape Tongue Control During Bolus Hold: Posterior escape of greater than half of bolus Bolus Preparation/Mastication: Disorganized chewing/mashing with solid pieces of bolus unchewed Bolus Transport/Lingual Motion: Slowed tongue motion Oral Residue: Residue collection on oral structures - Pharyngeal Phase Initiation of Pharyngeal Swallow: Bolus head in pyriforms Soft Palate Elevation: No bolus between soft palate and pharyngeal wall Laryngeal Elevation: Partial superior movement thyroid cart/partial apprx aryt- epig petiole Anterior Hyoid Excursion: No anterior movement - little to no anterior movement Epiglottic Movement: Partial inversion Laryngeal Vestibule Closure at Height of Swallow: Incomplete; narrow column of air/contrast in laryngeal vestibule Pharyngeal Stripping Wave: Present - diminished Pharyngoesophageal Segment Opening: Minimal distension and minimal duration; marked obstruction of flow Tongue Base Retraction: Trace column of contrast between tongue base & post. pharyngeal wall Pharyngeal Residue: Minimal to no pharyngeal clearance - Treatment Strategies Effects of treatment strategies attemped:: cough and re-swallow = somewhat effective small sip size = effective effortful swallow w/ small sip size = effective - Diagnosis/Impression Diagnosis: severe oropharyngeal dysphagia (R13.12) Impression: Patient presents w/ severe oropharyngeal dysphagia. Oral phase primarily marked by .... - moderate to severe mastication insufficiency - suboptimal lingual control w/ poor oral clearance - swallow onset delay (3-5 seconds in length) resulting in premature bolus loss. Patient observed swishing liquid in mouth prior to swallow onset. Patient states he does this since his salivary gland has been removed. Pharyngeal phase primarily marked by... - reduced closure of the airway during deglutition attributed to reduced laryngeal elevation and little to no anterior hyoid excursion contributing to laryngeal penetration across all liquid consistences which did not reliably eject. Small sip size w/ effortful swallow decreased laryngeal penetration. - poor pharyngeal motility attributed to reduced tongue base retraction, reduced posterior pharyngeal stripping wave action and reduced pharyngoesophageal segment opening resulting in pharyngeal retention within the valleculae and pyriforms contributing to penetration and post prandial aspiration. - patient benefits from multiple swallows to clear pharyngeal residue - when cued for cough and re-swallow w/ cookie trial to clear pharyngeal residue, patient brought cookie residue from vallculae to oral cavity, then re-swallowed w/ some improvement in pharyngeal clearance. - Recommendations Diet: Mechanical Soft Textures, Thin Liquids Comment: moist textures, thin liquids w/ SMALL SIPS AND HARD SWALLOWS Compensatory Strategies: Small Bites, Small Sips, No Straws, Slow Rate, Feed only when alert, Multiple Swallows, Alternate bites/solids and sips/liquids, Sitting upright, Remain sitting upright for 30 minutes after PO intake, Minimize/decrease distractions, Assist with verbal cues to use recommended strategies Supervision: 1:1 Close Supervision Recommend Repeat Modified Barium Swallow: Yes Comment: Repeat MBS study in 6-12 month to monitor swallow function. Need for Skilled Speech Therapy Services: Yes Comment: Will recommend the patient for outpatient dysphagia therapy to address severe deficits in oropharyngeal swallow function. Would consider the patient for oropharyngeal strengthening to improve lingual coordination, laryngeal elevation, hyoid excursion, and duration of UES opening. The patient and family would benefit from thorough education regarding diet recommendations and recommended compensatory strategies. Education Completed: 1. Described result of evaluation., 2. Pt understands evaluation & agrees with goals and treatment plan. - Status Active ST Patient: Active - Contact Information [facility] Speech Therapy:: Latrice Del Cid M.A. [facility] Speech-Language Pathologist [facility] [address] [place] [address] [email or web address] [phone] 04/26/22 13:00
[2022-04-26 13:58] LABS: Pathologist Review Reviewed
[2022-04-26 14:07] LABS: Pathologist Review Reviewed
[2022-04-26 15:25] LABS: Anion Gap 8 (5-15); BUN 13 mg/dL (7-18); BUN/Creat Ratio 21.2 RATIO (10-20); Calcium,Total 8.2 mg/dL (8.5-10.1); Chloride 95 mmol/L (98-107); Creatinine, Serum 0.61 mg/dL (0.70-1.30); EST Glomerular Filtration Rate 135 mL/min (>60); Est Glom Filt Rate - Afr Amer 163 mL/min (>60); Estimated Creatinine Clearance 58.98 ml/min; Glucose 199 mg/dL (74-106); Sodium Level 132 mmol/L (136-145)
--- NOTE | 2022-04-26 15:28 | PN.HOSP_ITS ---
Subjective Subjective Follow-up for monitor. Objective Data Objective Data Vital Signs: Vital Signs Temp Pulse Resp BP Pulse Ox O2 Del Method O2 Flow Rate 98.3 F 96 14 144/83 H 96 Room Air 2 04/26/22 14:00 04/26/22 14:00 04/26/22 14:00 04/26/22 14:00 04/26/22 14:00 04/26/22 14:00 04/26/22 14:00 Oxygen Flow Rate (L/min) 2 Oxygen Delivery Method Room Air Weight: 156 lb 0.396 oz Body Mass Index (BMI) 56.7 Intake & Output: Intake and Output for Last 24 Hours 04/24/22 04/25/22 04/26/22 23:59 23:59 23:59 Intake Total 448 / 560 960 / 960 424 / 424 Output Total 1850 / 1850 1900 / 1900 700 / 700 Balance -1402 / -1290 -940 / -940 -276 / -276 Medical Nutrition Assessment Dietitian: Malnutrition Criteria Met Start: 04/24/22 19:10 Freq: Status: Active Protocol: Document 04/24/22 15:10 [facility] (Rec: 04/24/22 19:10 [facility] [id number]) Nutrition Malnutrition Evidence of Malnutrition Exists Yes Malnutrition (moderate): Chronic Evidenced By Suboptimal Energy Intake ( Moderate),Weight Loss ( Moderate),Physical Changes ( Mild) Intake Problem Increased Nutrient Needs (specify) Etiology (protein) related to wound healing Signs/Symptoms as evidenced by left buttock pressure injury. Status Active Problem Clinical Problem Chronic Disease or Condition Related Malnutrition Etiology related to physiological changes causing decreased oral intakes Signs/Symptoms as evidenced by significant weight loss of 4.3% in less than one month, mild muscle wasting per NFPA (clavicle, temporal, etc.) and decreased oral intakes < 75% of estimated nutrient needs for at least one month. Status Active Problem Recommendation Dietitian Recommendations/Changes Continue with Cardiac: Calorie Controlled 2000kcal diet. Order Glucerna 120mL 4x/d and Nilay BID w/medpass to promote wound healing and help increase oral intakes. Will reassess oral intakes upon f/u and modify interventions as needed. Lab / Micro Data Result Diagrams: 04/26/22 05:17 04/26/22 14:50 Labs: Laboratory Results - last 24 hr 04/24/22 06:45: Diff Path Review Reviewed 04/24/22 17:06: POC Glucose 177 H 04/25/22 05:09: Diff Path Review Reviewed 04/25/22 16:17: POC Glucose 180 H 04/25/22 22:34: POC Glucose 187 H 04/26/22 05:17: WBC 4.7, RBC 4.32 L, Hgb 14.5, Hct 41.6, MCV 96.3 H, MCH 33.6 H, MCHC 34.9, RDW Std Deviation 42.7, RDW Coeff of Usama 12.1, Plt Count 236, MPV 9.1, Immature Gran % (Auto) 0.200, Neut % (Auto) 68.5, Lymph % (Auto) 11.5 L, Roosevelt % (Auto) 19.6 H, Eos % (Auto) 0.0, Baso % (Auto) 0.2, Absolute Neuts (auto) 3.2, Absolute Lymphs (auto) 0.54 L, Nucleated RBC % 0, Differential Comment COMMENT 04/26/22 05:17: Sodium 131 L, Potassium 2.8 L, Chloride 91 L, Carbon Dioxide 32.0, Anion Gap 8, BUN 12, Creatinine 0.88, Estim Creat Clear Calc 67.02, Est GFR (MDRD) Af Amer 108, Est GFR (MDRD) Non-Af 89, BUN/Creatinine Ratio 13.7, Glucose 202 H, Calcium 8.4 L 04/26/22 06:31: POC Glucose 185 H 04/26/22 07:48: POC Glucose 199 H 04/26/22 12:01: POC Glucose 221 H 04/26/22 14:50: Sodium 132 L, Potassium 3.0 L, Chloride 95 L, Carbon Dioxide 29.0, Anion Gap 8, BUN 13, Creatinine 0.61 L, Estim Creat Clear Calc 58.98, Est GFR (MDRD) Af Amer 163, Est GFR (MDRD) Non-Af 135, BUN/Creatinine Ratio 21.2 H, Glucose 199 H, Calcium 8.2 L Micro: Microbiology 04/23/22 16:30 Urine Catheter - Santos Urine Culture - Final Culture exhibits no growth. 04/24/22 01:50 Mucosa - Nose Respiratory Panel (PCR) - Final 04/23/22 16:30 Urine, Random Legionella Antigen - Final 04/23/22 16:30 Urine, Random Streptococcus pneumoniae Antigen (M - Final 04/23/22 19:16 Stool Stool Occult Blood (TRISTAN) - Final 04/23/22 14:08 Nasal Secretion SARS-CoV-2 & FLU Antigen (Rapid) - Final Physical Exam Narrative Has occasional cough but not significant. Does not feel like feverish diaphoretic. Denies shortness of breath. Patient is bilateral amputee. Weak cough. Physical exam General: Alert, Oriented x3, Cooperative, fatigue HEENT: Atraumatic, PERRLA, EOMI, Normocephalic Oral: No Gingival or Mucosal Lesions/ Ulcerations Neck: Supple, No JVD, Negative Carotid Bruits Lungs: Air entry diminished in bilateral lung bases. Occasional crepitation at both bases. Seems chronic. Weak cough reflex Cardiovascular: Regular rate, Regular Rhythm, Normal S1, Normal S2, No murmurs Abdomen: Bowel Sounds Present, Soft, Non Tender, Non-Distended : No renal angle tenderness. No suprapubic tenderness. Extremities: No edema, Capillary Refill Less than 3 Seconds Skin: No rashes, No breakdown Musculoskeletal: Bilateral above-knee amputee Neurological: Cranial nerves II-XII grossly intact, DTR 2+/4 Psych/Mental Status: Flat affect Assessment & Plan Assessment/Plan (1) Hypoxia: PLAN: Plan This is a 81-year-old male admitted with generalized malaise, occasional cough, subjective fever for 5 days before admission, since Tuesday. Patient started having nausea and vomiting. Also complained of chest tightness. Patient has Fo yvan catheter for urine retention inserted recently. Right lung base pneumonia with hypoxia: Chest x-ray today shows right lung base infiltrate. Patient was found to be 85% on room air on admission. On Unasyn and azithromycin. DuoNeb as needed. SARS-CoV-2 and flu antigens are negative. Urinary antigens are negative. Respiratory panel negative. Mucinex, incentive spirometry and chest physiotherapy. Patient has atypical chest tightness due to probably pneumonia. Troponin negative 04/25: Unclear does he have pneumonia or his right lung base atelectasis especially when the patient said he has a chronic right lung base infiltrate/atelectasis finding. Patient does not have any good convincing history of pneumonia symptoms including cough. T-max 99.9 Fahrenheit. Was 100.3 on 04/23 night. Continue Pap and incentive spirometry. Speech therapy evaluation. 04/26: Patient had cookie swallow test and was told that patient has aspiration/laryngeal penetration. His speech therapist wanted the patient to be NPO. This was communicated to the patient. #DMII Hold oral hypoglycemics. Glucose is between 140 to 180 mg/dL. Continue Accu- Cheks AC needs coverage below sliding scale 04/26: Glucose is less than 200. Patient is currently NPO. Continue insulin coverage #afib eliquis continue metoprolol 04/26: Patient has hypokalemia: Potassium is getting replaced. Serum magnesium normal and phosphorus level at low normal. #chronic pain On [place] 5mg 3 times daily Appears also take lorazepam 1 mg Feels fentanyl patches, last fill 03/12, will need to clarify frequency #Hypertension Continue home antihypertensives #Anemia, FOBT negative, no active s/s of bleeding trend CBC Do not feel it is necessary to hold eliquis at this time #DVT ppx: On Eliquis Clinical Impression(s) from Imaging Studies Chest X-Ray 04/23/22 15:40 IMPRESSION: Hypoinflation of the lungs slightly greater right lower lobe atelectasis possible infiltrate. The lung bases are mostly obscured on this study. Microbiology Past 72 Hours 04/23/22 16:30 Urine Catheter - Santos Urine Culture - Final Culture exhibits no growth. 04/24/22 01:50 Mucosa - Nose Respiratory Panel (PCR) - Final 04/23/22 16:30 Urine, Random Legionella Antigen - Final 04/23/22 16:30 Urine, Random Streptococcus pneumoniae Antigen (M - Final 04/23/22 19:16 Stool Stool Occult Blood (TRISTAN) - Final 04/23/22 14:08 Nasal Secretion SARS-CoV-2 & FLU Antigen (Rapid) - Final Laboratory Results 04/24/22 06:45: Diff Path Review Reviewed 04/24/22 17:06: POC Glucose 177 H 04/25/22 05:09: Diff Path Review Reviewed 04/25/22 16:17: POC Glucose 180 H 04/25/22 22:34: POC Glucose 187 H 04/26/22 05:17: WBC 4.7, RBC 4.32 L, Hgb 14.5, Hct 41.6, MCV 96.3 H, MCH 33.6 H, MCHC 34.9, RDW Std Deviation 42.7, RDW Coeff of Usama 12.1, Plt Count 236, MPV 9.1, Immature Gran % (Auto) 0.200, Neut % (Auto) 68.5, Lymph % (Auto) 11.5 L, [place] % (Auto) 19.6 H, Eos % (Auto) 0.0, Baso % (Auto) 0.2, Absolute Neuts (auto) 3.2, Absolute Lymphs (auto) 0.54 L, Nucleated RBC % 0, Differential Comment COMMENT 04/26/22 05:17: Sodium 131 L, Potassium 2.8 L, Chloride 91 L, Carbon Dioxide 32.0, Anion Gap 8, BUN 12, Creatinine 0.88, Estim Creat Clear Calc 67.02, Est GFR (MDRD) Af Amer 108, Est GFR (MDRD) Non-Af 89, BUN/Creatinine Ratio 13.7, Glucose 202 H, Calcium 8.4 L 04/26/22 06:31: POC Glucose 185 H 04/26/22 07:48: POC Glucose 199 H 04/26/22 12:01: POC Glucose 221 H 04/26/22 14:50: Sodium 132 L, Potassium 3.0 L, Chloride 95 L, Carbon Dioxide 29.0, Anion Gap 8, BUN 13, Creatinine 0.61 L, Estim Creat Clear Calc 58.98, Est GFR (MDRD) Af Amer 163, Est GFR (MDRD) Non-Af 135, BUN/Creatinine Ratio 21.2 H, Glucose 199 H, Calcium 8.2 L Charges/Coding Visit Charges Inpatient E&M: 28402 Subs Hosp L2
[2022-04-26 16:55] LABS: Bedside Glucose 183 mg/dL (74-106)
--- NOTE | 2022-04-26 19:00 | PCA ---
EMERGENCY DOCUMENTATION
--- NOTE | 2022-04-26 19:00 | NURSING ---
emergency documentation in effect
[2022-04-26] MEDS: Amitriptyline 25 MG Tablet 50 MG PO (22:24)
[2022-04-26] MEDS: Atorvastatin Calcium 10 MG Tablet PO (22:25)
[2022-04-26 23:31] LABS: Bedside Glucose 182 mg/dL (74-106)
[2022-04-27] VITALS (10 sets, daily range): BP systolic 134–160; BP diastolic 73–82; PULSE 85–93; RESP 14–16; TEMP 36.7–37.6; O2SAT 94–98
--- NOTE | 2022-04-27 02:00 | NURSING ---
Pt refusing turns at this time. Attempted to educate pt on importance of turning, pt conitnued to refuse.
[2022-04-27] MEDS: HYDROcodone Bitartrate/Apap 5/325 Tablet PO ×2 (05:49→15:45)
[2022-04-27] MEDS: Metoclopramide 5 MG TABLET PO ×3 (05:49→16:55)
[2022-04-27] MEDS: Insulin Lispro 100 UNIT/ML INSULN.PEN SC ×3 (06:39→16:55)
[2022-04-27 07:01] LABS: Bedside Glucose 198 mg/dL (74-106)
[2022-04-27 08:41] LABS: Anion Gap 7 (5-15); BUN 8 mg/dL (7-18); BUN/Creat Ratio 16.5 RATIO (10-20); Calcium,Total 7.8 mg/dL (8.5-10.1); Chloride 98 mmol/L (98-107); Creatinine, Serum 0.48 mg/dL (0.70-1.30); EST Glomerular Filtration Rate 176 mL/min (>60); Est Glom Filt Rate - Afr Amer 213 mL/min (>60); Estimated Creatinine Clearance 58.98 ml/min; Glucose 195 mg/dL (74-106); Sodium Level 133 mmol/L (136-145)
[2022-04-27] MEDS: APIXABAN 5 MG TABLET PO (09:34)
[2022-04-27] MEDS: Menthol/Lanolin/Calamine/Znox 113 GM Tube 1 APPLIC TOPICAL (09:34)
[2022-04-27] MEDS: Juven (unflavored) Packet 1 PACKET PO ×2 (09:34→16:55)
[2022-04-27] MEDS: Lisinopril 40 MG Tablet PO (09:35)
[2022-04-27] MEDS: amLODIPine 5 MG Tablet PO (09:35)
[2022-04-27] MEDS: Metoprolol Tartrate 50 MG Tablet PO (09:35)
[2022-04-27] MEDS: Glucerna Shake 120 ML LIQUID PO ×3 (09:35→16:54)
--- NOTE | 2022-04-27 10:21 | PCM.DC ---
Discharge Instructions Diet Discharge Diet: Low fat / Low cholesterol, 2000 Calorie Control Diet (moist foods, no straws, 1:1 supervision for small sips/hard swallows. Mechanical, moist food with regular thin liquid) and 2000 mg Sodium Diet Activity Discharge Activity: May Not Drive Dressing / Incision Call your doctor if you observe: Fever of 101 or Higher, Coldness, Increased Pain, Numbness or Tingling, Change in Color, Inability to urinate, Inability to have a bowel movement, Shortness of breath, Dizziness, Fainting spells, Swelling in the ankles, Chest pain, Prolonged hiccupping, Increased palpitations (irregular heartbeat), Calf discomfort and Uncontrolled pain Follow Up Care Test Results: Test results from this visit will be discussed in further detail at your follow-up appointment, if applicable. Discharge Plan Admission Admit Date/Time: 04/24/22 17:27 Primary Reason for Your Visit: Right lung base possible aspiration pneumonia Attending Provider: Federico Maldonado Primary Care Provider: Alejandra Howell Consulting Providers: Nannette Poole Instructions Additional Instructions / Restrictions: Patient discharged home with home PT, OT, speech therapy and shelter home. Discharge Orders/Prescriptions Prescriptions: New potassium chloride 20 mEq tablet extended release 40 meq PO DAILY Qty: 10 0RF amoxicillin-pot clavulanate 875-125 mg tablet 1 tab PO BID Qty: 6 0RF Continued amitriptyline 25 MG tablet 50 mg PO BID Label Comments: sleep glimepiride 4 MG tablet 4 mg PO BID Label Comments: diabetes metoprolol tartrate 50 MG tablet 50 mg PO BID Label Comments: blood pressure/heart polyethylene glycol 3350 17 GM powder in packet 17 g PO DAILY Label Comments: constipation dutasteride [Avodart] 0.5 MG capsule 0.5 mg PO DAILY Label Comments: prostate multivitamin with folic acid [Thera] 1 TABLET tablet 1 tab PO DAILY Label Comments: vitamin hydrocodone-acetaminophen 1 EACH tablet 1 tab PO TID Label Comments: TAKE 1 TABLET BY MOUTH EVERY 8 HOURS NEEDED FOR PAIN FOR UP TO 30 DAYS amlodipine 5 MG tablet 5 mg PO DAILY Label Comments: TAKE 1 TABLET BY MOUTH EVERY DAY quinapril 40 MG tablet 40 mg PO DAILY lorazepam 1 MG tablet 1 mg PO TID rosuvastatin 10 MG tablet 5 mg PO QODAY Label Comments: TAKE 1 TABLET BY MOUTH EVERY 48 HOURS. cholecalciferol (vitamin D3) 2,000 UNIT capsule 2,000 unit PO DAILY Duragesic patch 37.5 mg transdermal Q72H Rx Instructions: change patch every 72 hours, rotate site around abdomen. Fentanyl 1 EACH Patch.Td72 25 mcg TD Q72H tizanidine 4 MG capsule 4 mg PO Q8H PRN PRN (Reason: Spasms) Eliquis 5 mg tablet 5 mg PO BID metformin 500 mg tablet extended release 24 hr 500 mg PO BID Label Comments: TAKE 1 TABLET BY MOUTH EVERY DAY WITH BREAKFAST naloxone 4 mg/actuation spray,non-aerosol 2 mg INTRANASAL PRN PRN (Reason: OD) Changed hydrochlorothiazide 25 MG tablet 12.5 mg PO DAILY Qty: 30 0RF Label Comments: water pill Held potassium chloride 10 MEQ tablet 10 meq PO BID Hold Instructions: Resume after completion of 40 M EQ daily potassium supplement Label Comments: supplement Discontinued docusate sodium [DOK] 100 MG capsule 100 mg PO BID Label Comments: constipation nitrofurantoin monohyd/m-cryst [Macrobid] 100 mg capsule 100 mg PO Q12H 5 Days Qty: 10 0RF Rx Instructions: must administer with a meal/food Referrals / Follow Up: Alejandra Howell MD [Primary Care Provider] - Disposition Disposition (needs filled in before D/C Order can be placed): Home Health Service
[2022-04-27] MEDS: Potassium Chloride 10mEq/100mL 10 MEQ/100 ML IV.SOLN. 100 MEQ IV BOLUS ×4 (10:51→16:38)
[2022-04-27 11:50] LABS: Bedside Glucose 182 mg/dL (74-106)
--- NOTE | 2022-04-27 12:09 | CASEMGMT ---
ANA ZIMMERMAN back to discuss discharge plans with patient. in room with patient. ANA ZIMMERMAN discussed HHC with patient. Patient and reviewed list that was provided to patient previously. Patient and prefer [facility]. ANA ZIMMERMAN called and spoke to Aniyah at [facility] and made referral. Aniyah called this ANA ZIMMERMAN back with acceptance with start of care for 04/29/22. ANA ZIMMERMAN updated patient and . Patient had no further questions or concerns.
[2022-04-27] MEDS: Na Biphos/Potassium Phosphate PACKET 1 PACKET PO ×2 (12:23→15:46)
--- NOTE | 2022-04-27 13:10 | PCM.DC.SUM ---
Providers Date of Admission: 04/24/22 Date of Discharge: 04/27/22 Primary Care Physician: Dr. Alejandra Howell MD Reason For Visit: HYPOXIA 2/2 PNA Diagnosis Discharge Diagnosis (1) Hypoxia: Status: Acute Code(s): R09.02 - Hypoxemia Plan This is a 81-year-old male admitted with generalized malaise, occasional cough, subjective fever for 5 days before admission, since Tuesday. Patient started having nausea and vomiting. Also complained of chest tightness. Patient has Santos catheter for urine retention inserted recently. Right lung base pneumonia with hypoxia: Chest x-ray today shows right lung base infiltrate. Patient was found to be 85% on room air on admission. On Unasyn and azithromycin. DuoNeb as needed. SARS-CoV-2 and flu antigens are negative. Urinary antigens are negative. Respiratory panel negative. Mucinex, incentive spirometry and chest physiotherapy. Patient has atypical chest tightness due to probably pneumonia. Troponin negative 04/25: Unclear does he have pneumonia or his right lung base atelectasis especially when the patient said he has a chronic right lung base infiltrate/atelectasis finding. Patient does not have any good convincing history of pneumonia symptoms including cough. T-max 99.9 Fahrenheit. Was 100.3 on 04/23 night. Continue Pap and incentive spirometry. Speech therapy evaluation. 04/26: Patient had cookie swallow test and was told that patient has aspiration/laryngeal penetration. His speech therapist wanted the patient to be NPO. This was communicated to the patient. 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 Due to the patient has weak swallow muscles. Discussed with the speech therapist and food residue stays in vallecula and laryngopharynx for long time. Recommended mechanical minced food with thin liquid swallow maneuvers. Patient discharged home on Augmentin to complete a total of 7 days. Pending long-term. Discharged home with home PT OT speech therapy. UTI ruled out #DMII Hold oral hypoglycemics. Glucose is between 140 to 180 mg/dL. Continue Accu-Cheks AC needs coverage below sliding scale 04/26: Glucose is less than 200. Patient is currently NPO. Continue insulin coverage 04/27: Glucose is controlled. #afib eliquis continue metoprolol 04/26: Patient has hypokalemia: Potassium is getting replaced. Serum magnesium normal and phosphorus level at low normal. 04/27: Patient has persistent hypokalemia. Serum magnesium and phosphorus level normal. IV KCl 40 M EQ ordered. Patient given prescription for potassium supplement 40 M EQ daily for 5 days and then back on 10 M EQ twice daily. I think it is mainly due to HCTZ high-dose 25 mg, dose decreased to 12.5 mg daily. #chronic pain On Bath 5mg 3 times daily Appears also take lorazepam 1 mg Feels fentanyl patches, last fill 03/12, will need to clarify frequency #Hypertension Continue home antihypertensives #Anemia, FOBT negative, no active s/s of bleeding trend CBC Do not feel it is necessary to hold eliquis at this time #DVT ppx: On Eliquis Discharge medication reconciliation done. Discharge follow-up instructions completed. Discharge process discussed with the patient and all questions were answered to patient's satisfaction. Total time spent, exact 35 minutes on discharge meds reconciliation, examination, coordination of care with nurses and ancillary staff, review of imaging and blood test and discussion with the patient on follow-up instructions. Clinical Impression(s) from Imaging Studies Chest X-Ray 04/23/22 15:40 IMPRESSION: Hypoinflation of the lungs slightly greater right lower lobe atelectasis possible infiltrate. The lung bases are mostly obscured on this study. Microbiology Past 72 Hours 04/26/22 17:28 Stool C. difficile DNA Amplification - Final 04/23/22 16:30 Urine Catheter - Santos Urine Culture - Final Culture exhibits no growth. Laboratory Results 04/24/22 06:45: Diff Path Review Reviewed 04/25/22 05:09: Diff Path Review Reviewed 04/26/22 14:50: Sodium 132 L, Potassium 3.0 L, Chloride 95 L, Carbon Dioxide 29.0, Anion Gap 8, BUN 13, Creatinine 0.61 L, Estim Creat Clear Calc 58.98, Est GFR (MDRD) Af Amer 163, Est GFR (MDRD) Non-Af 135, BUN/Creatinine Ratio 21.2 H, Glucose 199 H, Calcium 8.2 L 04/26/22 16:21: POC Glucose 183 H 04/26/22 22:35: POC Glucose 182 H 04/27/22 06:38: POC Glucose 198 H 04/27/22 07:25: Sodium 133 L, Potassium 3.0 L, Chloride 98, Carbon Dioxide 28.0, Anion Gap 7, BUN 8, Creatinine 0.48 L, Estim Creat Clear Calc 58.98, Est GFR (MDRD) Af Amer 213, Est GFR (MDRD) Non-Af 176, BUN/Creatinine Ratio 16.5, Glucose 195 H, Calcium 7.8 L 04/27/22 11:30: POC Glucose 182 H Medications at Discharge Home Medications amitriptyline 25 mg tablet 50 mg PO BID sleep 12/13/13 glimepiride 4 mg tablet 4 mg PO BID diabetes 12/13/13 metoprolol tartrate 50 mg tablet 50 mg PO BID heart rate 12/13/13 polyethylene glycol 3350 17 gram oral powder packet 17 g PO DAILY constipation 12/13/13 potassium chloride 10 mEq tablet,extended release(part/cryst) 10 meq PO BID supplement 12/13/13 dutasteride 0.5 mg capsule (Avodart) 0.5 mg PO DAILY bladder 08/26/14 multivitamin with folic acid 400 mcg tablet (Thera) 1 tab PO DAILY supplement 08/26/14 amlodipine 5 mg tablet 5 mg PO DAILY blood pressure 05/31/19 cholecalciferol (vitamin D3) 50 mcg (2,000 unit) capsule 2,000 unit PO DAILY supplement 05/31/19 hydrocodone-acetaminophen 5-325mg 5mg-325mg 1 tab PO TID pain 05/31/19 lorazepam 1 mg tablet 1 mg PO TID anxiety 05/31/19 quinapril 40 mg tablet 40 mg PO DAILY blood pressure 05/31/19 rosuvastatin 10 mg tablet 5 mg PO QODAY cholesterol 05/31/19 Duragesic patch 37.5 mg transdermal Q72H 04/05/20 Fentanyl 25 mcg transdermal Q72H 04/05/20 tizanidine 4 mg capsule 4 mg PO Q8H PRN PRN Spasms 04/05/20 apixaban 5 mg tablet (Eliquis) 5 mg PO BID 10/14/21 metformin 500 mg tablet,extended release 24 hr 500 mg PO BID 02/19/22 naloxone 4 mg/actuation nasal spray 2 mg intranasal PRN PRN OD 03/27/22 amoxicillin 875 mg-potassium clavulanate 125 mg tablet 1 tab PO BID #6 tabs 04/27/22 hydrochlorothiazide 25 mg tablet 12.5 mg PO DAILY blood pressure #30 tabs 04/27/22 potassium chloride 20 mEq tablet,extended release 40 meq PO DAILY #10 tabs 04/27/22 Physical Exam Narrative Patient had hypokalemia. Serum magnesium and phosphorus level normal. IV KCl getting replaced. Denies shortness of breath. Patient is bilateral amputee. Weak cough. Swallow study is planned to the patient. Physical exam General: Alert, Oriented x3, Cooperative, fatigue HEENT: Atraumatic, PERRLA, EOMI, Normocephalic Oral: No Gingival or Mucosal Lesions/ Ulcerations Neck: Supple, No JVD, Negative Carotid Bruits Lungs: Air entry diminished in bilateral lung bases. Chronic occasional crepitation at both bases. Weak cough reflex Cardiovascular: Regular rate, Regular Rhythm, Normal S1, Normal S2, No murmurs Abdomen: Bowel Sounds Present, Soft, Non Tender, Non-Distended : No renal angle tenderness. No suprapubic tenderness. Extremities: No edema, Capillary Refill Less than 3 Seconds Skin: No rashes, No breakdown Musculoskeletal: Bilateral above-knee amputee Neurological: Cranial nerves II-XII grossly intact, DTR 2+/4 Psych/Mental Status: Flat affect Medical Records Data Medical Nutrition Assessment Dietitian: Malnutrition Criteria Met Start: 04/24/22 19:10 Freq: Status: Active Protocol: Document 04/24/22 15:10 [facility] (Rec: 04/24/22 19:10 [facility] [id number]) Nutrition Malnutrition Evidence of Malnutrition Exists Yes Malnutrition (moderate): Chronic Evidenced By Suboptimal Energy Intake ( Moderate),Weight Loss ( Moderate),Physical Changes ( Mild) Intake Problem Increased Nutrient Needs (specify) Etiology (protein) related to wound healing Signs/Symptoms as evidenced by left buttock pressure injury. Status Active Problem Clinical Problem Chronic Disease or Condition Related Malnutrition Etiology related to physiological changes causing decreased oral intakes Signs/Symptoms as evidenced by significant weight loss of 4.3% in less than one month, mild muscle wasting per NFPA (clavicle, temporal, etc.) and decreased oral intakes < 75% of estimated nutrient needs for at least one month. Status Active Problem Recommendation Dietitian Recommendations/Changes Continue with Cardiac: Calorie Controlled 2000kcal diet. Order Glucerna 120mL 4x/d and Nilay BID w/medpass to promote wound healing and help increase oral intakes. Will reassess oral intakes upon f/u and modify interventions as needed. Weight / BMI Weight Weight: 156 lb 0.396 oz Body Mass Index (BMI) 56.7 ABG / Lab / Microbiology Data Result Diagrams: 04/26/22 05:17 04/27/22 07:25 Laboratory: Laboratory Results - last 24 hr 04/24/22 06:45: Diff Path Review Reviewed 04/25/22 05:09: Diff Path Review Reviewed 04/26/22 14:50: Sodium 132 L, Potassium 3.0 L, Chloride 95 L, Carbon Dioxide 29.0, Anion Gap 8, BUN 13, Creatinine 0.61 L, Estim Creat Clear Calc 58.98, Est GFR (MDRD) Af Amer 163, Est GFR (MDRD) Non-Af 135, BUN/Creatinine Ratio 21.2 H, Glucose 199 H, Calcium 8.2 L 04/26/22 16:21: POC Glucose 183 H 04/26/22 22:35: POC Glucose 182 H 04/27/22 06:38: POC Glucose 198 H 04/27/22 07:25: Sodium 133 L, Potassium 3.0 L, Chloride 98, Carbon Dioxide 28.0, Anion Gap 7, BUN 8, Creatinine 0.48 L, Estim Creat Clear Calc 58.98, Est GFR (MDRD) Af Amer 213, Est GFR (MDRD) Non-Af 176, BUN/Creatinine Ratio 16.5, Glucose 195 H, Calcium 7.8 L 04/27/22 11:30: POC Glucose 182 H Microbiology: Microbiology 04/26/22 17:28 Stool C. difficile DNA Amplification - Final 04/23/22 16:30 Urine Catheter - Santos Urine Culture - Final Culture exhibits no growth. 04/24/22 01:50 Mucosa - Nose Respiratory Panel (PCR) - Final 04/23/22 16:30 Urine, Random Legionella Antigen - Final 04/23/22 16:30 Urine, Random Streptococcus pneumoniae Antigen (M - Final 04/23/22 19:16 Stool Stool Occult Blood (TRISTAN) - Final 04/23/22 14:08 Nasal Secretion SARS-CoV-2 & FLU Antigen (Rapid) - Final D/C Instructions Discharge Diet: Low fat / Low cholesterol, 2000 Calorie Control Diet (moist foods, no straws, 1:1 supervision for small sips/hard swallows. Mechanical, moist food with regular thin liquid) and 2000 mg Sodium Diet Call your doctor if you observe: Fever of 101 or Higher, Coldness, Increased Pain, Numbness or Tingling, Change in Color, Inability to urinate, Inability to have a bowel movement, Shortness of breath, Dizziness, Fainting spells, Swelling in the ankles, Chest pain, Prolonged hiccupping, Increased palpitations (irregular heartbeat), Calf discomfort and Uncontrolled pain Meaningful Use Info Meaningful Use Diagnoses (Choose all that apply): None applicable Discharge Plan Admission Admit Date/Time: 04/24/22 17:27 Primary Reason for Your Visit: Right lung base possible aspiration pneumonia Attending Provider: Federico Maldonado Primary Care Provider: Alejandra Howell Consulting Providers: Nannette Poole Instructions Additional Instructions / Restrictions: Patient discharged home with home PT, OT, speech therapy and long-term home. Discharge Orders/Prescriptions Prescriptions: New potassium chloride 20 mEq tablet extended release 40 meq PO DAILY Qty: 10 0RF amoxicillin-pot clavulanate 875-125 mg tablet 1 tab PO BID Qty: 6 0RF Continued amitriptyline 25 MG tablet 50 mg PO BID Label Comments: sleep glimepiride 4 MG tablet 4 mg PO BID Label Comments: diabetes metoprolol tartrate 50 MG tablet 50 mg PO BID Label Comments: blood pressure/heart polyethylene glycol 3350 17 GM powder in packet 17 g PO DAILY Label Comments: constipation dutasteride [Avodart] 0.5 MG capsule 0.5 mg PO DAILY Label Comments: prostate multivitamin with folic acid [Thera] 1 TABLET tablet 1 tab PO DAILY Label Comments: vitamin hydrocodone-acetaminophen 1 EACH tablet 1 tab PO TID Label Comments: TAKE 1 TABLET BY MOUTH EVERY 8 HOURS NEEDED FOR PAIN FOR UP TO 30 DAYS amlodipine 5 MG tablet 5 mg PO DAILY Label Comments: TAKE 1 TABLET BY MOUTH EVERY DAY quinapril 40 MG tablet 40 mg PO DAILY lorazepam 1 MG tablet 1 mg PO TID rosuvastatin 10 MG tablet 5 mg PO QODAY Label Comments: TAKE 1 TABLET BY MOUTH EVERY 48 HOURS. cholecalciferol (vitamin D3) 2,000 UNIT capsule 2,000 unit PO DAILY Duragesic patch 37.5 mg transdermal Q72H Rx Instructions: change patch every 72 hours, rotate site around abdomen. Fentanyl 1 EACH Patch.Td72 25 mcg TD Q72H tizanidine 4 MG capsule 4 mg PO Q8H PRN PRN (Reason: Spasms) Eliquis 5 mg tablet 5 mg PO BID metformin 500 mg tablet extended release 24 hr 500 mg PO BID Label Comments: TAKE 1 TABLET BY MOUTH EVERY DAY WITH BREAKFAST naloxone 4 mg/actuation spray,non-aerosol 2 mg INTRANASAL PRN PRN (Reason: OD) Changed hydrochlorothiazide 25 MG tablet 12.5 mg PO DAILY Qty: 30 0RF Label Comments: water pill Held potassium chloride 10 MEQ tablet 10 meq PO BID Hold Instructions: Resume after completion of 40 M EQ daily potassium supplement Label Comments: supplement Discontinued docusate sodium [DOK] 100 MG capsule 100 mg PO BID Label Comments: constipation nitrofurantoin monohyd/m-cryst [Macrobid] 100 mg capsule 100 mg PO Q12H 5 Days Qty: 10 0RF Rx Instructions: must administer with a meal/food Referrals / Follow Up: Alejandra Howell MD [Primary Care Provider] - Disposition Disposition (needs filled in before D/C Order can be placed): Home Health Service Charges/Coding Visit Charges Inpatient E&M: 93336 Disch Hosp
[2022-04-27 17:35] LABS: Bedside Glucose 261 mg/dL (74-106)
== END 2022-04-27 18:42 | disposition home health service (06) | DRG 178 ==
LOC: ED 21:25 → PCU 22:19
PROVIDERS: Admitting Provider Internal Medicine; Emergency Provider Student in an Organized Health Care Education/Training Program; PCP Internal Medicine; Visit Provider Internal Medicine
DX: J69.0 Pneumonitis due to inhalation of food and vomit (principal); E44.0 Moderate protein-calorie malnutrition; Z68.43 Body mass index [BMI] 50.0-59.9, adult; Z89.611 Acquired absence of right leg above knee; Z89.612 Acquired absence of left leg above knee; I48.0 Paroxysmal atrial fibrillation; E11.9 Type 2 diabetes mellitus without complications; E66.01 Morbid (severe) obesity due to excess calories; E87.6 Hypokalemia; I10 Essential (primary) hypertension; R09.02 Hypoxemia; R33.9 Retention of urine, unspecified; G89.29 Other chronic pain; Z20.822 Contact with and (suspected) exposure to COVID-19; Z79.01 Long term (current) use of anticoagulants; Z79.84 Long term (current) use of oral hypoglycemic drugs; Z79.899 Other long term (current) drug therapy; Z86.73 Personal history of transient ischemic attack (TIA), and cerebral infarction without residual deficits; Z85.858 Personal history of malignant neoplasm of other endocrine glands
CPT/HCPCS: 36415; 71045; 74230; 80048; 80053; 81001; 82274; 82962; 83735; 84100; 84484; 85025; 87086; 87428; 87449; 87493; 87633; 92507; 92526; 92610; 92611; 93005; 94667; 94668; 97166; 97802; 99251; 99285; J7030; J7040; J7050; A4216; G0463; J0295; J2405

== ENCOUNTER 2022-04-29 10:23 | Inpatient (IN) | payer MEDICARE, SELFPAY ==
[2022-04-29] VITALS (18 sets, daily range): BP systolic 139–174; BP diastolic 63–90; PULSE 88–134; RESP 14–29; TEMP 36.1–37; O2SAT 93–99; BMI 30.6
--- NOTE | 2022-04-29 11:27 | EDS_ITS ---
HPI History of Present Illness Chief Complaint: Weakness Detail of Chief Complaint: Nausea, vomiting and diarrhea. Informant: patient and spouse/S.O. Onset/Context/Timing Onset: Days Context: Gradual Onset Timing: Continuous Current Severity: Mild Maximum Severity: Mild Narrative Narrative: 81-year-old male extensive past medical history including diabetes, hypertension, A. fib on Eliquis. 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 Recent hospitalization last week for 5 days for pneumonia. Was discharged on Tuesday on oral Augmentin. He has had nausea, vomiting diarrhea and unable to keep his medications down. Both his primary care physician and home visiting nurse wanted him to come to the ER today for possible readmission. He was brought in by squad. Prior similar symptoms: Yes Recent Illness/Hospitalization: Yes [facility] Medical History Above-knee amputation Atrial fibrillation Diabetes Hypertension Oral cancer TIA (transient ischemic attack) Urinary retention Home Medications amitriptyline 25 mg tablet 50 mg PO BID sleep 12/13/13 [History Last Taken 05/31/19] glimepiride 4 mg tablet 4 mg PO BID diabetes 12/13/13 [History Last Taken 05/31/19] metoprolol tartrate 50 mg tablet 50 mg PO BID heart rate 12/13/13 [History Last Taken 05/31/19] polyethylene glycol 3350 17 gram oral powder packet 17 g PO DAILY constipation 12/13/13 [History Last Taken 05/30/19] potassium chloride 10 mEq tablet,extended release(part/cryst) 10 meq PO BID sup plement 12/13/13 [History Last Taken 05/30/19] dutasteride 0.5 mg capsule (Avodart) 0.5 mg PO DAILY bladder 08/26/14 [History Last Taken 05/30/19] multivitamin with folic acid 400 mcg tablet (Thera) 1 tab PO DAILY supplement 08/26/14 [History Last Taken 05/30/19] amlodipine 5 mg tablet 5 mg PO DAILY blood pressure 05/31/19 [History Last Taken 05/30/19] cholecalciferol (vitamin D3) 50 mcg (2,000 unit) capsule 2,000 unit PO DAILY supplement 05/31/19 [History Last Taken 05/30/19] hydrocodone-acetaminophen 5-325mg 5mg-325mg 1 tab PO TID pain 05/31/19 [History Last Taken 05/31/19] lorazepam 1 mg tablet 1 mg PO TID anxiety 05/31/19 [History Last Taken 05/31/19] quinapril 40 mg tablet 40 mg PO DAILY blood pressure 05/31/19 [History Last Taken 05/30/19] rosuvastatin 10 mg tablet 5 mg PO QODAY cholesterol 05/31/19 [History Last Taken 05/29/19] Duragesic patch 37.5 mg transdermal Q72H 04/05/20 [History Last Taken Unknown] Fentanyl 25 mcg transdermal Q72H 04/05/20 [History Last Taken Unknown] tizanidine 4 mg capsule 4 mg PO Q8H PRN PRN Spasms 04/05/20 [History Last Taken Unknown] apixaban 5 mg tablet (Eliquis) 5 mg PO BID 10/14/21 [History Last Taken Unknown] metformin 500 mg tablet,extended release 24 hr 500 mg PO BID 02/19/22 [History Last Taken 02/19/22] naloxone 4 mg/actuation nasal spray 2 mg intranasal PRN PRN OD 03/27/22 [History Last Taken Unknown] amoxicillin 875 mg-potassium clavulanate 125 mg tablet 1 tab PO BID #6 tabs 04/27/22 [Rx Last Taken Unknown] hydrochlorothiazide 25 mg tablet 12.5 mg PO DAILY blood pressure #30 tabs 04/27/22 [Rx Last Taken Unknown] potassium chloride 20 mEq tablet,extended release 40 meq PO DAILY #10 tabs 04/27/22 [Rx Last Taken Unknown] Allergy/AdvReac Type Severity Reaction Status Date / Time trimethoprim Allergy Itching Verified 04/23/22 12:38 amoxicillin trihydrate AdvReac Nausea/Vom/ Verified 04/23/22 12:38 [From Augmentin] Diarrhea atropine sulfate AdvReac Unknown Verified 04/23/22 12:38 [From ] ceftriaxone sodium AdvReac Rash Verified 04/23/22 12:38 [From Rocephin] cephalexin monohydrate AdvReac Unknown Verified 04/23/22 12:38 [From Keflex] ciprofloxacin [From Cipro] AdvReac Vomiting Verified 04/23/22 12:38 ciprofloxacin HCl AdvReac Vomiting Verified 04/23/22 12:38 [From Cipro] gabapentin AdvReac Unknown Verified 04/23/22 12:38 hyoscyamine sulfate AdvReac Unknown Verified 04/23/22 12:38 [From ] oxycodone HCl [From Percocet] AdvReac Other Verified 04/23/22 12:38 phenobarbital [From ] AdvReac Unknown Verified 04/23/22 12:38 Pork/Porcine Containing AdvReac Nausea/Vom/ Verified 04/23/22 12:38 Products Diarrhea potassium clavulanate AdvReac Nausea/Vom/ Verified 04/23/22 12:38 [From Augmentin] Diarrhea pseudoephedrine HCl AdvReac Other Verified 04/23/22 12:38 [From Sudafed] scopolamine hydrobromide AdvReac Unknown Verified 04/23/22 12:38 [From ] sulfadiazine [Sulfadiazine] AdvReac Nausea Verified 04/23/22 12:38 Social History Smoking Status: Never smoker ROS ROS ED ROS Narrative Nausea, vomiting and diarrhea. Decreased oral intake. Review of Systems ROS Unobtainable: Denies due to encephalopathy Constitutional Constitutional ED: Denies chills or fever(s) Eyes Eyes: Denies blurry vision ENT ENT ED: Denies ear pain Cardiovascular Cardiovascular: Denies chest pain Respiratory/Chest Respiratory/Chest: Denies cough or dyspnea Gastrointestinal Gastrointestinal: Reports diarrhea, nausea and vomiting; Denies abdominal pain, constipation or melena Genitourinary Genitourinary ED: Denies dysuria or hematuria Musculoskeletal Musculoskeletal: Denies arthralgias Integumentary Denies abscess Neurologic Neurologic: Denies headache(s) Psychiatric Psychiatric: Denies anxiety Endocrine Endocrinology: Denies cold intolerance Hematologic/Lymphatic Hematologic/Lymphatic: Reports none Allergic/Immunologic Allergic/Immunologic ED: Denies mouth swelling or tongue swelling EXAM Physical Exam Narrative Exam Narrative: 81-year-old male vital signs stable he is tachycardic 134. Pulse ox 90% on room air no hypoxia. He does not look septic or toxic. Possibly mildly dehydrated. H EENT exam unremarkable. Mild dry mucous members. Neck nontender no JVD. Prior left neck resection. Well-healed. Lungs clear to auscultation bilaterally. Heart tachycardic 130. Abdomen soft, nontender, nondistended normal bowel sounds no peritoneal signs. He has above-knee amputation both lower extremities. Upper extremities are unremarkable. Back nontender. Neurologically is awake and alert. Answers questions follows commands. Const Vital Signs: 04/29/22 10:24 04/29/22 10:27 04/29/22 12:23 Temperature 97 F L Temperature Source Temporal Pulse Rate 134 H 88 Respiratory Rate 18 14 Respiratory Effort Normal Non-Labored Respiratory Pattern Normal Blood Pressure 168/90 H 165/74 H Blood Pressure Mean 116 104 Pulse Ox 98 99 Oxygen Delivery Method Room Air 04/29/22 14:12 Temperature Temperature Source Pulse Rate 106 H Respiratory Rate 20 H Respiratory Effort Respiratory Pattern Blood Pressure 159/67 H Blood Pressure Mean 97 Pulse Ox 98 Oxygen Delivery Method Positive well nourished and well developed; Negative for obese, cachectic, contractures or unkempt General Appearance ED: well developed, NAD and pallor; Negative for unkempt, cachectic, contractures, cyanotic or diaphoretic Nutritional Appearance: Negative for cachectic or obese HEENT Reports dry mucous membranes; Denies moist mucous membranes Negative for trauma or tenderness Mouth ED: Yes dry mucous membranes Mouth: dry mucous membranes Eyes PERRL and EOMs intact bilaterally General Eye ED: Negative for pale conjunctiva Neck no lymphadenopathy, supple and no JVD General: Negative for tenderness Lymph Lymphatic: Negative for other Chest Wall inspection of chest normal and palpation of chest normal Chest: Negative for other Resp normal respiratory effort and clear to auscultation bilaterally Effort and Inspection: Negative for retractions Auscultation: Negative for rales, rhonchi or wheezes Cardio regular rhythm, S1 normal heart sound, S2 normal heart sound and no murmurs; Negative for regular rate Palpation: Negative for palpable S3 or palpable S4 Rate: tachycardic GI normal to inspection, nondistended, normoactive bowel sounds, non-tender, non- distended and no masses Inspection: Negative for abdominal distention Auscultation: normoactive bowel sounds Palpation: soft; Negative for tender or guarding Bladder / Kidney Exam: No other Back/Spine no CVA tenderness General Back: Negative for CVA tenderness or other Cervical Spine: Negative for cervical spine tenderness Thoracic Spine / Upper Back: Negative for thoracic spinal tenderness Lumbar Spine / Lower Back: Negative for lumbar spinal tenderness Extremity normal to inspection General Extremety ED: Negative for edema or tenderness General Extremity: Negative for edema Neuro oriented x3 Sensorium / Orientation: alert; Negative for orientation impaired, lethargic or stuporous Motor Exam: strength 5/5 throughout Psych mental status grossly normal Appearance: Negative for unkempt Attitude: No agitated Mood & Affect: Negative for depressed, anxious or tearful Skin no rashes or lesions noted and no wounds General Skin Exam: pallor; Negative for jaundice Lesions: No lesion noted Rashes: No rashes noted Trauma: Negative for abrasion Wounds: Negative for wounds noted MDM MDM MDM Narrative Medical decision making narrative: 81-year-old male with nausea, vomiting and diarrhea. Will be treated with IV fluids for dehydration and Zofran for nausea. He reportedly was recently admitted for pneumonia. I will get a chest x-ray and screening labs. He is tachycardic which may be from dehydration or could also be from his history of A. fib I will obtain an EKG. Repeat exam patient resting comfortably at 3:30 PM. Abdomen benign. He is received IV fluids. He will get IV potassium also. She will be placed on IV Cardizem for A. fib with RVR. I have a hospitalist on page to admit the patient. His current heart rate is about 115. He remains in A. fib Lab Data Attestation: I reviewed the patient's lab results. Lab results narrative: CBC shows a white count of 7. H&H is 16.5 and 47. Platelets 248. Electrolytes show sodium 134. Potassium of 2.2. Gap 17. BUN 10 creatinine 0.87. Blood sugars elevated to 94. Initial troponin 152 EKG shows A. fib with RVR. Labs: Laboratory Results - last 24 hr 04/29/22 04/29/22 12:10 12:10 WBC 7.0 RBC 5.11 Hgb 16.5 Hct 47.7 MCV 93.3 MCH 32.3 H MCHC 34.6 RDW Std Deviation 42.5 RDW Coeff of Usama 12.4 Plt Count 248 MPV 9.4 Immature Gran % (Auto) 0.700 Neut % (Auto) 83.9 H Lymph % (Auto) 3.0 L [place] % (Auto) 12.3 H Eos % (Auto) 0.0 Baso % (Auto) 0.1 Absolute Neuts (auto) 5.9 Absolute Lymphs (auto) 0.21 L Nucleated RBC % 0 Differential Comment COMMENT Sodium 134 L Potassium 2.2 L* Chloride 99 Carbon Dioxide 18.0 L Anion Gap 17 H BUN 10 Creatinine 0.87 Estim Creat Clear Calc 64.27 Est GFR (MDRD) Af Amer 109 Est GFR (MDRD) Non-Af 90 BUN/Creatinine Ratio 11.5 Glucose 294 H Calcium 9.2 Troponin I High Sens 152 H* Radiography Chest X-Ray - ED: 1 View, Read by ED Physician, Heart, Mediastinum, Bony Structures, No Acute Disease and Chronic Changes Diagnostic Testing: Clinical Impression(s) from Imaging Studies Chest X-Ray 04/29/22 11:35 IMPRESSION: Mild persistent increased markings at the lung bases are further follow-up is recommended. Electronically Signed: Yoni De La Cruz MD at 12:22 EST , Chest x-ray, portable, single view interpreted both by myself and radiologist. Shows a lot of chronic changes. Normal mediastinum and cardiac silhouette. Cannot rule out basilar infiltrates. Rhythm Strip Rhythm Strip: A-fib Rate: 124 Ectopy: None EKG Initial EKG: Attestation: I personally reviewed and interpreted this EKG as follows: Interpretation: No Acute Injury Pattern and Atrial Fibrillation Comments: Atrial fibrillation rate of 124. No acute signs of MS or ischemia. Critical Care Time Critical Care Time: Yes Critical care time (excluding procedures): 30-74 minutes, Including time spent:, Discussing w/Patient &/or Family/Hydraulic Elevator Constructor, Discussing w/Consultants, Arranging Admission or Transfer, Performing Direct Patient Care at Bedside and - (35 min) Discharge Plan Dx/Rx/DC Orders Clinical Impression: Gastroenteritis, Atrial fibrillation with rapid ventricular response, Acute hypokalemia, Generalized weakness, History of diabetes mellitus, Chronic anticoagulation Disposition Disposition: [facility]
--- NOTE | 2022-04-29 11:35 | RAD_ITS ---
STUDY: X-RAY CHEST REASON FOR EXAM: Male, 81 years old. Pneumonia recently TECHNIQUE: Single AP portable view of the chest. COMPARISON: Comparison is made with prior study dated 04/23/2022. FINDINGS: Stable elevation of the right hemidiaphragm. Mild degree of residual increased linear markings at the lung bases. There has been improvement. Further follow-up recommended. There is no demonstrated pleural abnormality. Normal size heart. Normal mediastinum and michael. Normal visualized pulmonary arteries. There is atherosclerotic calcification of the aortic arch with tortuosity. There are diffuse degenerative changes of the visualized thoracic spine. There is degenerative osteoarthritis of the bilateral shoulders. There is no demonstrated abnormality of the visualized soft tissue structures of the upper abdomen. RAD/Chest 1 View (Portable) IMPRESSION: Mild persistent increased markings at the lung bases are further follow-up is recommended. Electronically Signed: Yoni De La Cruz MD at 12:22 [facility] ,
[2022-04-29] MEDS: 0.9% Normal Saline 1,000 ML 1000 ML IV (12:08)
[2022-04-29] MEDS: Ondansetron 4 MG/2 ML Vial IV ×2 (12:09→13:14)
[2022-04-29] MEDS: dilTIAZem 25 MG/5 ML Vial 20 MG IV BOLUS (12:18)
[2022-04-29 12:27] LABS: Absolute Lymphocyte Count 0.21 X10^3/uL (0.83-4.51); Absolute Neutrophil Count 5.9 X10^3/uL (2.0-7.7); Basophil# 0.01 X10^3/uL; Basophil% 0.1 % (0-1); Hematocrit 47.7 % (40-54); Hemoglobin 16.5 g/dL (13.0-16.5); Lymphocyte # 0.21 X10^3/ul (0.83-4.51); Mean Corp Hgb Conc 34.6 g/dL (32-36); Mean Corpuscular Hgb 32.3 pg (27.0-32.0); Mean Corpuscular Volume 93.3 fL (80-94); Mean Platelet Vol. 9.4 fl (6.2-12.0); Monocyte# 0.86 X10^3/uL; Monocyte% 12.3 % (0-10); NRBC Flagged by Analyzer 0 % (0-5); Neutrophil # 5.87 X10^3/uL (2.7-7.7); Neutrophil % 83.9 % (47-70); POSITIVE DIFFERENTIAL YES; Platelet Count 248 K/mm3 (150-450); RBC Distribution Width CV 12.4 % (11.6-14.6); RBC Distribution Width SD 42.5 fl (35.1-43.9); Red Blood Count 5.11 M/mm3 (4.6-6.2)
[2022-04-29 12:31] LABS: Differential Indicated SCAN CRITERIA MET
[2022-04-29 12:48] LABS: Anion Gap 17 (5-15); BUN 10 mg/dL (7-18); BUN/Creat Ratio 11.5 RATIO (10-20); Calcium,Total 9.2 mg/dL (8.5-10.1); Chloride 99 mmol/L (98-107); Creatinine, Serum 0.87 mg/dL (0.70-1.30); EST Glomerular Filtration Rate 90 mL/min (>60); Est Glom Filt Rate - Afr Amer 109 mL/min (>60); Estimated Creatinine Clearance 64.27 ml/min; Glucose 294 mg/dL (74-106); Potassium 2.2 mmol/L (3.5-5.1); Sodium Level 134 mmol/L (136-145); Troponin-I HS 152 pg/mL (3.0-78.0)
--- NOTE | 2022-04-29 16:09 | HP.PCM.HOS_ITS ---
HPI - General General Date of Admission: 04/29/22 Date of Service: 04/29/22 Chief Complaint: Feels weak. One-time loose bowel movement watery last night. A. fib with RVR. HPI Narrative BRITTNEY LANGSTON, is a 81 M with multiple comorbidities brought by EMS for being nausea, vomiting and not able to keep food down. Patient was recently admitted between 04/23-04/28 at that time he refused for going to fdc therefore discharged home with home health. Visiting nurse sent the patient to ED. At that time there is concern for aspiration pneumonia therefore treated with Unasyn and discharged home Augmentin. 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 Patient has physical debility due to bilateral AKA. Glucose 209. Patient denies any chest pain or shortness of breath. Feels palpitation. In ED, patient was found A. fib with RVR, heart rate going to 134 and patient was given 20 mg IV Cardizem bolus and started on Cardizem drip and further admitted. As per note from previous H&P patient has history of chronic loose stool. Patient also urinary retention and was discharged on Santos catheter to follow-up with Dr. Newell. Twelve-lead EKG done in ED shows A. fib with RVR 124%, LAD, QTC 396 ms. Chest x-ray is reviewed and shows no acute change and no infiltrate suggestive of acute pneumonia. Patient is further admitted. [facility] Medical History Above-knee amputation Atrial fibrillation Diabetes Hypertension Oral cancer TIA (transient ischemic attack) Urinary retention Home Medications amitriptyline 25 mg tablet 50 mg PO BID sleep 12/13/13 [History Last Taken 05/31/19] glimepiride 4 mg tablet 4 mg PO BID diabetes 12/13/13 [History Last Taken 05/31/19] metoprolol tartrate 50 mg tablet 50 mg PO BID heart rate 12/13/13 [History Last Taken 05/31/19] polyethylene glycol 3350 17 gram oral powder packet 17 g PO DAILY constipation 12/13/13 [History Last Taken 05/30/19] potassium chloride 10 mEq tablet,extended release(part/cryst) 10 meq PO BID supplement 12/13/13 [History Last Taken 05/30/19] dutasteride 0.5 mg capsule (Avodart) 0.5 mg PO DAILY bladder 08/26/14 [History Last Taken 05/30/19] multivitamin with folic acid 400 mcg tablet (Thera) 1 tab PO DAILY supplement 08/26/14 [History Last Taken 05/30/19] amlodipine 5 mg tablet 5 mg PO DAILY blood pressure 05/31/19 [History Last Taken 05/30/19] cholecalciferol (vitamin D3) 50 mcg (2,000 unit) capsule 2,000 unit PO DAILY supplement 05/31/19 [History Last Taken 05/30/19] hydrocodone-acetaminophen 5-325mg 5mg-325mg 1 tab PO TID pain 05/31/19 [History Last Taken 05/31/19] lorazepam 1 mg tablet 1 mg PO TID anxiety 05/31/19 [History Last Taken 05/31/19] quinapril 40 mg tablet 40 mg PO DAILY blood pressure 05/31/19 [History Last Taken 05/30/19] rosuvastatin 10 mg tablet 5 mg PO QODAY cholesterol 05/31/19 [History Last Taken 05/29/19] Duragesic patch 37.5 mg transdermal Q72H 04/05/20 [History Last Taken Unknown] Fentanyl 25 mcg transdermal Q72H 04/05/20 [History Last Taken Unknown] tizanidine 4 mg capsule 4 mg PO Q8H PRN PRN Spasms 04/05/20 [History Last Taken Unknown] apixaban 5 mg tablet (Eliquis) 5 mg PO BID 10/14/21 [History Last Taken Unknown] metformin 500 mg tablet,extended release 24 hr 500 mg PO BID 02/19/22 [History Last Taken 02/19/22] naloxone 4 mg/actuation nasal spray 2 mg intranasal PRN PRN OD 03/27/22 [History Last Taken Unknown] amoxicillin 875 mg-potassium clavulanate 125 mg tablet 1 tab PO BID #6 tabs 04/27/22 [Rx Last Taken Unknown] hydrochlorothiazide 25 mg tablet 12.5 mg PO DAILY blood pressure #30 tabs 04/27/22 [Rx Last Taken Unknown] potassium chloride 20 mEq tablet,extended release 40 meq PO DAILY #10 tabs 04/27/22 [Rx Last Taken Unknown] Allergy/AdvReac Type Severity Reaction Status Date / Time trimethoprim Allergy Itching Verified 04/23/22 12:38 amoxicillin trihydrate AdvReac Nausea/Vom/ Verified 04/23/22 12:38 [From Augmentin] Diarrhea atropine sulfate AdvReac Unknown Verified 04/23/22 12:38 [From ] ceftriaxone sodium AdvReac Rash Verified 04/23/22 12:38 [From Rocephin] cephalexin monohydrate AdvReac Unknown Verified 04/23/22 12:38 [From Keflex] ciprofloxacin [From Cipro] AdvReac Vomiting Verified 04/23/22 12:38 ciprofloxacin HCl AdvReac Vomiting Verified 04/23/22 12:38 [From Cipro] gabapentin AdvReac Unknown Verified 04/23/22 12:38 hyoscyamine sulfate AdvReac Unknown Verified 04/23/22 12:38 [From ] oxycodone HCl [From Percocet] AdvReac Other Verified 04/23/22 12:38 phenobarbital [From ] AdvReac Unknown Verified 04/23/22 12:38 Pork/Porcine Containing AdvReac Nausea/Vom/ Verified 04/23/22 12:38 Products Diarrhea potassium clavulanate AdvReac Nausea/Vom/ Verified 04/23/22 12:38 [From Augmentin] Diarrhea pseudoephedrine HCl AdvReac Other Verified 04/23/22 12:38 [From Sudafed] scopolamine hydrobromide AdvReac Unknown Verified 04/23/22 12:38 [From ] sulfadiazine [Sulfadiazine] AdvReac Nausea Verified 04/23/22 12:38 Social History Smoking Status: Never smoker ROS ROS Narrative Constitutional: Reports fatigue and weakness. Mild nausea and vomiting. HEENT: Left parotid surgery status post surgical scar. Healed. Reports systems reviewed and no addt'l complaints, except as documented Respiratory/Chest: Denies chest pain, shortness of breath at rest. No acute cough. CVS: Palpitation. No chest pressure/pain Gastrointestinal: Denies abdominal pain one-time loose bowel movement. Genitourinary: Urine retention on Santos catheter. Denies burning urination or new urinary tract symptoms Musculoskeletal: Bilateral AKA amputee. Neurologic: Denies seizure-like activity skin: No ulcer. No rash Endocrinology: Reports systems reviewed and no addt'l complaints, except as do cumented Hematologic/Lymphatic: Reports systems reviewed and no addt'l complaints, except as documented Rest 14 ROS are negative except as mentioned in HPI Vital Signs Vital Signs Vital Signs: 04/29/22 10:24 04/29/22 10:27 04/29/22 12:23 Temperature 97 F L Temperature Source Temporal Pulse Rate 134 H 88 Respiratory Rate 18 14 Respiratory Effort Normal Non-Labored Respiratory Pattern Normal Blood Pressure 168/90 H 165/74 H Blood Pressure Mean 116 104 Pulse Ox 98 99 Oxygen Delivery Method Room Air 04/29/22 14:12 Temperature Temperature Source Pulse Rate 106 H Respiratory Rate 20 H Respiratory Effort Respiratory Pattern Blood Pressure 159/67 H Blood Pressure Mean 97 Pulse Ox 98 Oxygen Delivery Method Weight Weight: 147 lb 14.883 oz Body Mass Index (BMI) 0.0 Physical Exam Narrative General: Alert, Oriented x3, Cooperative, fatigue HEENT: Atraumatic, PERRLA, EOMI, Normocephalic Oral: Oral mucosa dry. No Gingival or Mucosal Lesions/ Ulcerations Neck: Supple, No JVD, Negative Carotid Bruits Lungs:? Air entry diminished in bilateral lung bases.? No crepitations or rhonchi. Lungs clear Cardiovascular: Irregular, A. fib RVR, Normal S1, Normal S2, No murmurs Abdomen: Bowel Sounds Present, Soft, Non Tender, Non-Distended : Santos catheter, clear urine. Santos was changed in ED no renal angle tenderness.? No suprapubic tenderness. Extremities: No edema, bilateral above-knee amputation. Skin: No rashes, No breakdown Musculoskeletal: Bilateral above-knee amputee Neurological: Cranial nerves II-XII grossly intact, DTR? 2+/4 Psych/Mental Status: Flat affect Results Lab / Micro Data Result Diagrams: 04/29/22 12:10 04/29/22 12:10 Labs: Laboratory Results - last 24 hr 04/29/22 12:10: WBC 7.0, RBC 5.11, Hgb 16.5, Hct 47.7, MCV 93.3, MCH 32.3 H, MCHC 34.6, RDW Std Deviation 42.5, RDW Coeff of Usama 12.4, Plt Count 248, MPV 9.4, Immature Gran % (Auto) 0.700, Neut % (Auto) 83.9 H, Lymph % (Auto) 3.0 L, [place] % (Auto) 12.3 H, Eos % (Auto) 0.0, Baso % (Auto) 0.1, Absolute Neuts (auto) 5.9, Absolute Lymphs (auto) 0.21 L, Nucleated RBC % 0, Differential Comment COMMENT 04/29/22 12:10: Sodium 134 L, Potassium 2.2 L*, Chloride 99, Carbon Dioxide 18.0 L, Anion Gap 17 H, BUN 10, Creatinine 0.87, Estim Creat Clear Calc 64.27, Est GFR (MDRD) Af Amer 109, Est GFR (MDRD) Non-Af 90, BUN/Creatinine Ratio 11.5, Glucose 294 H, Calcium 9.2, Troponin I High Sens 152 H* Rhythm Strip Rhythm Strip: A-fib Rate: 124 Ectopy: None Radiology Impression Chest X-Ray 04/29/22 11:35 IMPRESSION: Mild persistent increased markings at the lung bases are further follow-up is recommended. Electronically Signed: Yoni De La Cruz MD at 12:22 EST , Assessment & Plan Assessment/Plan (1) Atrial fibrillation with rapid ventricular response: PLAN: Plan This is a 81-year-old gentleman who was recently between for concern of aspiration pneumonia and was discharged antibiotic is being admitted for A. fib with RVR, hypokalemia, mild GI Symptoms. 1. Paroxysmal A. fib with RVR mildly precipitated by nausea vomiting: Patient is being admitted in PCU. Patient had 20 mg IV Cardizem bolus and then started on Cardizem drip at 10 mg/h. Titrate the dose as per heart rate and blood pressure. Patient is on Eliquis and is continued. During previous admission patient was in sinus rhythm. Troponin is 152. We will cycle troponin. Patient does not have chest pain or pressure therefore most likely it is myocardial injury due to A. fib with RVR. I do not suspect GA clinically. Patient is on metoprolol continued. 2. Mild nausea vomiting and loose bowel movement probably side effect of antibiotic, Augmentin and hypokalemia: Patient was discharged last time on Augmentin for concern of aspiration pneumonia. Patient had only one-time dose Polmon last night therefore does not merit requirement of C. difficile ordered. Will monitor. Probiotic ordered. Patient does not need further antibiotic and discontinued. IV KCl 40 M EQ bolus and then patient is on IV fluid normal saline +40 M EQ IV KCl@100 mL/h. Monitor intake and output. During last discharge, HCTZ dose was decreased to 12.5 mg due to hypokalemia but this time we will discontinue it 3. 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 Patient has chronic weak cough reflex and during last admission, swallow muscles.? During last admission, MBS found food residue stays in vallecula and laryngopharynx for long time.? Recommended mechanical minced food with thin liquid swallow maneuvers.??Was discussed with the speech therapist. Speech therapy to follow. 4. Diabetes mellitus type 2: Glucose 294. Accu-Chek AC with coverage Humalog sliding scale. Hold oral hypoglycemics. 5. Bilateral AKA amputee and chronic pain: On [place] 5mg 3 times daily. He also take lorazepam 1 mg 3 times daily, fentanyl patch 25 mcg every 72 hours 6. Hypertension: Monitor BP and titrate the dose of antihypertensive accordingly. Patient currently on IV Cardizem drip. Will hold lisinopril and HCTZ. 7. Anemia of chronic disease: During last admission FOBT was negative. No active signs of bleeding. No hematochezia hematemesis or melena as per history. DVT ppx: On Eliquis Living will/advanced directive/end of life care: Patient does have living will or advanced directive. His is power of litigation attorney for health after discussion of benefits/risks procedures involved with full code, DNR CC arrest and DNR CC, the patient and opted for DNRCC arrest with no intubation Patient doesn't want artificial life support including intubation, tube feed, ventilator and/chest compression, central venous catheter, vasopressor and DC sh ock if needed Total time spent in [id number] encounter in discussion of advanced directive 16 minutes. Laboratory Results 04/29/22 12:10: WBC 7.0, RBC 5.11, Hgb 16.5, Hct 47.7, MCV 93.3, MCH 32.3 H, MCHC 34.6, RDW Std Deviation 42.5, RDW Coeff of Usama 12.4, Plt Count 248, MPV 9.4, Immature Gran % (Auto) 0.700, Neut % (Auto) 83.9 H, Lymph % (Auto) 3.0 L, [place] % (Auto) 12.3 H, Eos % (Auto) 0.0, Baso % (Auto) 0.1, Absolute Neuts (auto) 5.9, Absolute Lymphs (auto) 0.21 L, Nucleated RBC % 0, Differential Comment COMMENT 04/29/22 12:10: Sodium 134 L, Potassium 2.2 L*, Chloride 99, Carbon Dioxide 18.0 L, Anion Gap 17 H, BUN 10, Creatinine 0.87, Estim Creat Clear Calc 64.27, Est GFR (MDRD) Af Amer 109, Est GFR (MDRD) Non-Af 90, BUN/Creatinine Ratio 11.5, Glucose 294 H, Calcium 9.2, Troponin I High Sens 152 H* Charges/Coding Visit Charges Inpatient E&M: 56344 Init Hosp L3 Procedures Hospitalists Procedures: 46927 Advncd Care Plan 30 Min
--- NOTE | 2022-04-29 16:09 | ED.RN ---
WAITING ON PHARMACY FOR CARDIZEM AND POTASSIUM
[2022-04-29] MEDS: Potassium Chloride 10mEq/100mL 10 MEQ/100 ML IV.SOLN. 100 MEQ IV BOLUS ×4 (16:24→19:35)
[2022-04-29 16:58] LABS: Magnesium 2.3 mg/dL (1.6-2.6); Phosphorus 1.3 mg/dL (2.5-4.9)
[2022-04-29] MEDS: fentaNYL 25 MCG Patch TD (18:50)
[2022-04-29 19:35] LABS: Troponin-I HS 150 pg/mL (3.0-78.0)
[2022-04-29 23:45] LABS: Bedside Glucose 310 mg/dL (74-106)
[2022-04-30] VITALS (29 sets, daily range): BP systolic 87–159; BP diastolic 50–95; PULSE 44–111; RESP 16–35; TEMP 36.2–37; O2SAT 92–98
[2022-04-30] MEDS: 0.9% Saline Lock 10 ML Syringe IV (01:26)
[2022-04-30] MEDS: Potassium Chloride 40 MEQ in 0.9% Normal Saline 1,000 ML 100 MEQ IV ×3 (01:26→22:45)
[2022-04-30 02:18] LABS: Troponin-I HS 122 pg/mL (3.0-78.0)
[2022-04-30 05:26] LABS: Bedside Glucose 258 mg/dL (74-106)
[2022-04-30 06:03] LABS: Absolute Lymphocyte Count 0.29 X10^3/uL (0.83-4.51); Absolute Neutrophil Count 6.3 X10^3/uL (2.0-7.7); Basophil# 0.01 X10^3/uL; Basophil% 0.1 % (0-1); Hematocrit 41.9 % (40-54); Lymphocyte # 0.29 X10^3/ul (0.83-4.51); Lymphocyte % 3.9 % (19-41); Mean Corp Hgb Conc 33.4 g/dL (32-36); Mean Corpuscular Hgb 32.4 pg (27.0-32.0); Mean Platelet Vol. 9.4 fl (6.2-12.0); Monocyte# 0.88 X10^3/uL; Monocyte% 11.7 % (0-10); NRBC Flagged by Analyzer 0 % (0-5); Neutrophil # 6.29 X10^3/uL (2.7-7.7); Neutrophil % 83.5 % (47-70); POSITIVE DIFFERENTIAL YES; Platelet Count 268 K/mm3 (150-450); RBC Distribution Width CV 13.2 % (11.6-14.6); RBC Distribution Width SD 47.1 fl (35.1-43.9); Red Blood Count 4.32 M/mm3 (4.6-6.2); White Blood Count 7.5 K/mm3 (4.4-11.0)
[2022-04-30] MEDS: Insulin Lispro 100 UNIT/ML INSULN.PEN SC ×4 (06:03→22:36)
[2022-04-30 06:15] LABS: Differential Indicated SCAN CRITERIA MET
[2022-04-30 06:27] LABS: Differential Comment SCANNED
[2022-04-30 06:57] LABS: Anion Gap 15 (5-15); BUN 9 mg/dL (7-18); BUN/Creat Ratio 9.2 RATIO (10-20); Calcium,Total 8.1 mg/dL (8.5-10.1); Chloride 108 mmol/L (98-107); Cholesterol 97 mg/dL (200); Creatinine, Serum 0.98 mg/dL (0.70-1.30); EST Glomerular Filtration Rate 78 mL/min (>60); Est Glom Filt Rate - Afr Amer 95 mL/min (>60); Estimated Creatinine Clearance 57.23 ml/min; Glucose 290 mg/dL (74-106); High Density Lipoprotein 48 mg/dL; Potassium 2.4 mmol/L (3.5-5.1); Sodium Level 139 mmol/L (136-145); Thyroid Stim Hormone (TSH) 0.23 uIU/mL (0.358-3.74); Triglycerides 85 mg/dL; Very Low Density Lipoprotein 17 mg/dL (5-40)
[2022-04-30] MEDS: Potassium Chloride 10mEq/100mL 10 MEQ/100 ML IV.SOLN. 100 MEQ IV BOLUS ×4 (08:02→11:23)
--- NOTE | 2022-04-30 10:15 | CASEMGMT ---
RN ELSIE NOTE: Per R[facility], pt was on for SOC w/them yesterday, but was not opened yet, as he was having N/V and recommended to come to ED. She states would need new HHC order and it would be a new referral for HHC. She states, if they are able to accept him, the earliest therapy could see him is next and the earliest nursing could see him is next . Gonsalo GRIMM RN CM
[2022-04-30] MEDS: Metoprolol Tartrate 50 MG Tablet 100 MG PO (10:53)
[2022-04-30] MEDS: Finasteride 5 MG Tablet PO (10:55)
[2022-04-30] MEDS: amLODIPine 5 MG Tablet PO (10:57)
[2022-04-30] MEDS: Amitriptyline 25 MG Tablet 50 MG PO ×2 (10:57→22:35)
[2022-04-30] MEDS: APIXABAN 5 MG TABLET PO ×2 (10:57→22:35)
[2022-04-30 11:51] LABS: Bedside Glucose 282 mg/dL (74-106)
[2022-04-30] MEDS: Glucerna Shake 120 ML LIQUID PO ×2 (13:48→16:31)
--- NOTE | 2022-04-30 16:34 | PN.HOSP_ITS ---
Subjective Subjective Follow-up for Julieta gibson Patient heart rate dropped into 40s in the morning today on Cardizem drip 15 mg/h. Cardizem drip discontinued. Objective Data Objective Data Vital Signs: Vital Signs Temp Pulse Resp BP Pulse Ox O2 Del Method 98.0 F 73 18 112/95 H 92 Room Air 04/30/22 16:00 04/30/22 16:00 04/30/22 16:00 04/30/22 16:00 04/30/22 16:00 04/30/22 16:00 Oxygen Delivery Method Room Air Weight: 148 lb 5.938 oz Body Mass Index (BMI) 30.6 Intake & Output: Intake and Output for Last 24 Hours 04/28/22 04/29/22 04/30/22 23:59 23:59 23:59 Intake Total 1494.00 / 1500.50 1696.66 / 1696.66 Output Total 575 / 675 950 / 950 Balance 919.00 / 825.50 746.66 / 746.66 Medical Nutrition Assessment Dietitian: Malnutrition Criteria Met Start: 04/30/22 07:57 Freq: Status: Active Protocol: Document 04/30/22 07:57 AG (Rec: 04/30/22 07:57 AG [id number]) Nutrition Malnutrition Evidence of Malnutrition Exists Yes Malnutrition (severe): Acute Illness/Injury Evidenced By Suboptimal Energy Intake ( Severe),Weight Loss (Severe) Clinical Problem Acute Disease or Injury Related Malnutrition Etiology severe, acute malnutrition related to inadequate energy intake Signs/Symptoms as evidenced by unintentional wt loss of 7.7#/5% x 1 week; estimated PO intake meeting < 50% of estimated energy needs > 5 days Status Active Problem Recommendation Dietitian Recommendations/Changes recommend advance diet as tolerated to regular given signs/symptoms acute malnutrition- texture/ consistency modifcations per HEALTH CARE COORDINATOR. Ensure Plus High Protein 120mL 4x/day w/ medpass when diet advanced, will also consider Nilay BID for wound. Lab / Micro Data Result Diagrams: 04/30/22 05:40 04/30/22 05:40 Labs: Laboratory Results - last 24 hr 04/29/22 12:10: Phosphorus 1.3 L, Magnesium 2.3 04/29/22 18:45: Troponin I High Sens 150 H* 04/29/22 23:21: POC Glucose 310 H 04/30/22 00:40: Troponin I High Sens 122 H* 04/30/22 05:05: POC Glucose 258 H 04/30/22 05:40: WBC 7.5, RBC 4.32 L, Hgb 14.0, Hct 41.9, MCV 97.0 H, MCH 32.4 H, MCHC 33.4, RDW Std Deviation 47.1 H, RDW Coeff of Usama 13.2, Plt Count 268, MPV 9.4, Immature Gran % (Auto) 0.800, Neut % (Auto) 83.5 H, Lymph % (Auto) 3.9 L, [place] % (Auto) 11.7 H, Eos % (Auto) 0.0, Baso % (Auto) 0.1, Absolute Neuts (auto) 6.3, Absolute Lymphs (auto) 0.29 L, Nucleated RBC % 0, Differential Comment SCANNED 04/30/22 05:40: Sodium 139, Potassium 2.4 L*, Chloride 108 H, Carbon Dioxide 16. 0 L, Anion Gap 15, BUN 9, Creatinine 0.98, Estim Creat Clear Calc 57.23, Est GFR (MDRD) Af Amer 95, Est GFR (MDRD) Non-Af 78, BUN/Creatinine Ratio 9.2 L, Glucose 290 H, Calcium 8.1 L, Triglycerides 85, Cholesterol 97, LDL Cholesterol 32, VLDL Cholesterol 17, HDL Cholesterol 48, TSH 0.23 L 04/30/22 11:08: POC Glucose 282 H Rhythm Strip Rhythm Strip: A-fib Rate: 124 Ectopy: None Physical Exam Narrative Seen and examined. General: Alert, Oriented x3, Cooperative, fatigue HEENT: Atraumatic, PERRLA, EOMI, Normocephalic Oral: Oral mucosa dry. No Gingival or Mucosal Lesions/ Ulcerations Neck: Supple, No JVD, Negative Carotid Bruits Lungs:? Air entry diminished in bilateral lung bases.? No crepitations or rhonchi. Lungs clear Cardiovascular: A. fib, heart rate 73/min normal S1, Normal S2, No murmurs Abdomen: Bowel Sounds Present, Soft, Non Tender, Non-Distended : Santos catheter, clear urine. Santos was changed in ED no renal angle tenderness.? No suprapubic tenderness. Extremities: No edema, bilateral above-knee amputation. Skin: No rashes, No breakdown Musculoskeletal: Bilateral above-knee amputee Neurological: Cranial nerves II-XII grossly intact, DTR? 2+/4 Psych/Mental Status: Flat affect Assessment & Plan Assessment/Plan (1) Atrial fibrillation with rapid ventricular response: PLAN: Plan This is a 81-year-old gentleman who was recently between for concern of aspiration pneumonia and was discharged antibiotic is being admitted for A. fib with RVR, hypokalemia, mild GI Symptoms. 1. Paroxysmal A. fib with RVR mildly precipitated by nausea vomiting: Patient is being admitted in PCU. Patient had 20 mg IV Cardizem bolus and then started on Cardizem drip at 10 mg/h. Titrate the dose as per heart rate and blood pressure. Patient is on Eliquis and is continued. During previous admission patient was in sinus rhythm. Troponin is 152. We will cycle troponin. Patient does not have chest pain or pressure therefore most likely it is myocardial injury due to A. fib with RVR. I do not suspect RI clinically. Patient is on metoprolol continued. 04/30: Patient had sudden drop in heart rate but remains in A. fib around 11:00. Cardizem drip discontinued. Heart rate got better with 73 around 4:30 PM and metoprolol 25 mg 1 dose ordered. Troponins in downwards: Therefore I do not suspect RI. Might be myocardial injury due to A. fib with RVR. Patient does not have chest pain. On a scheduled metoprolol 75 mg twice daily. Hypokalemia and hypophosphatemia: IV KCl 40 M EQ bolus and then patient is on IV fluid normal saline +40 M EQ IV KCl@100 mL/h. Monitor intake and output. During last discharge, HCTZ dose was decreased to 12.5 mg due to hypokalemia but this time we will discontinue it. Electrolytes are getting replaced. Monitor electrolytes. 2. Mild nausea vomiting and loose bowel movement probably side effect of antibiotic, Augmentin and hypokalemia: Patient was discharged last time on Augmentin for concern of aspiration pneumonia. Patient had only one-time dose Polmon last night therefore does not merit requirement of C. difficile ordered. Will monitor. Probiotic ordered. Patient does not need further antibiotic and discontinued. 04/30: GI symptoms have resolved. No diarrhea. 3. 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 Patient has chronic weak cough reflex and during last admission, swallow muscles.? During last admission, MBS found food residue stays in vallecula and laryngopharynx for long time.? Recommended mechanical minced food with thin liquid swallow maneuvers.??Was discussed with the speech therapist. Speech therapy to follow. 4. Diabetes mellitus type 2: Glucose 294. Accu-Chek AC with coverage Humalog sliding scale. Hold oral hypoglycemics. 5. Bilateral AKA amputee and chronic pain: On [place] 5mg 3 times daily. He also take lorazepam 1 mg 3 times daily, fentanyl patch 25 mcg every 72 hours 6. Hypertension: Monitor BP and titrate the dose of antihypertensive accordingly. Patient currently on IV Cardizem drip. Will hold lisinopril and HCTZ. 7. Anemia of chronic disease: During last admission FOBT was negative. No active signs of bleeding. No hematochezia hematemesis or melena as per history. DVT ppx: On Eliquis Living will/advanced directive/end of life care: Patient does have living will or advanced directive. His is power of appeals court associate justice for health after discussion of benefits/risks procedures involved with full code, DNR CC arrest and DNR CC, the patient and opted for DNRCC arrest with no intubation Patient doesn't want artificial life support including intubation, tube feed, ventilator and/chest compression, central venous catheter, vasopressor and DC shock if needed Total time spent in [id number] encounter in discussion of advanced directive 16 minutes. Charges/Coding Visit Charges Inpatient E&M: 05252 Subs Hosp L2
[2022-04-30 17:10] LABS: Bedside Glucose 294 mg/dL (74-106)
[2022-04-30] MEDS: Na Biphos/Potassium Phosphate PACKET 1 PACKET PO ×2 (18:08→22:35)
[2022-04-30] MEDS: Metoprolol Tartrate 25 MG Tablet PO (18:08)
[2022-04-30] MEDS: Metoprolol Tartrate 50 MG Tablet 75 MG PO (22:35)
[2022-04-30] MEDS: Rosuvastatin Calcium 5 MG Tablet PO (22:36)
[2022-04-30 23:55] LABS: Bedside Glucose 281 mg/dL (74-106)
[2022-05-01] VITALS (15 sets, daily range): BP systolic 140–169; BP diastolic 72–101; PULSE 80–124; RESP 16–20; TEMP 36.3–37.4; O2SAT 88–97
--- NOTE | 2022-05-01 04:46 | NURSING ---
pt refusing q2 turns throughout night. this rn attempted to educate pt on importance of turning, and that he has a small sore on his coccyx. pt still refusing turns.
[2022-05-01] MEDS: Na Biphos/Potassium Phosphate PACKET 1 PACKET PO ×3 (05:14→22:16)
[2022-05-01] MEDS: Insulin Lispro 100 UNIT/ML INSULN.PEN SC ×4 (06:27→22:29)
[2022-05-01 06:55] LABS: Bedside Glucose 248 mg/dL (74-106)
[2022-05-01 07:06] LABS: Absolute Lymphocyte Count 0.36 X10^3/uL (0.83-4.51); Absolute Neutrophil Count 6.3 X10^3/uL (2.0-7.7); Basophil# 0.02 X10^3/uL; Basophil% 0.3 % (0-1); Hematocrit 41.7 % (40-54); Hemoglobin 13.7 g/dL (13.0-16.5); Lymphocyte # 0.36 X10^3/ul (0.83-4.51); Lymphocyte % 4.8 % (19-41); Mean Corp Hgb Conc 32.9 g/dL (32-36); Mean Corpuscular Hgb 31.8 pg (27.0-32.0); Mean Corpuscular Volume 96.8 fL (80-94); Mean Platelet Vol. 9.6 fl (6.2-12.0); Monocyte# 0.81 X10^3/uL; Monocyte% 10.8 % (0-10); NRBC Flagged by Analyzer 0 % (0-5); Neutrophil # 6.25 X10^3/uL (2.7-7.7); Neutrophil % 83.2 % (47-70); POSITIVE DIFFERENTIAL YES; Platelet Count 302 K/mm3 (150-450); RBC Distribution Width CV 13.9 % (11.6-14.6); RBC Distribution Width SD 50.1 fl (35.1-43.9); Red Blood Count 4.31 M/mm3 (4.6-6.2); White Blood Count 7.5 K/mm3 (4.4-11.0)
[2022-05-01 07:16] LABS: Differential Indicated SCAN CRITERIA MET
[2022-05-01 07:32] LABS: Anion Gap 7 (5-15); BUN 15 mg/dL (7-18); Calcium,Total 8.1 mg/dL (8.5-10.1); Chloride 115 mmol/L (98-107); Creatinine, Serum 0.79 mg/dL (0.70-1.30); EST Glomerular Filtration Rate 100 mL/min (>60); Est Glom Filt Rate - Afr Amer 121 mL/min (>60); Estimated Creatinine Clearance 57.42 ml/min; Glucose 250 mg/dL (74-106); Magnesium 2.2 mg/dL (1.6-2.6); Potassium 3.3 mmol/L (3.5-5.1); Sodium Level 144 mmol/L (136-145)
[2022-05-01] MEDS: Potassium Chloride Oral Tablet 20 MEQ 40 MEQ PO (07:52)
[2022-05-01 08:11] LABS: Platelet Estimate ADEQUATE (ADEQ); Red Cell Morphology NORM C+C NORMAL (NORM C&C)
[2022-05-01] MEDS: Potassium Chloride 40 MEQ in 0.9% Normal Saline 1,000 ML 100 MEQ IV (08:51)
[2022-05-01] MEDS: Metoprolol Tartrate 50 MG Tablet 75 MG PO ×2 (09:22→20:06)
[2022-05-01] MEDS: Amitriptyline 25 MG Tablet 50 MG PO ×2 (09:23→22:16)
[2022-05-01] MEDS: APIXABAN 5 MG TABLET PO ×2 (09:23→22:16)
[2022-05-01] MEDS: amLODIPine 5 MG Tablet PO (09:23)
[2022-05-01] MEDS: Finasteride 5 MG Tablet PO (09:45)
--- NOTE | 2022-05-01 11:19 | RAD_ITS ---
STUDY: X-RAY CHEST REASON FOR EXAM: Male, 81 years old. Hypoxia TECHNIQUE: Single AP portable view of the chest. COMPARISON: April 29, 2022 chest x-ray FINDINGS: Prior study there is worsening opacity of the right lung. There is a focus of right upper lobe peripheral opacity right midlung zone opacity and groundglass opacities in the left lung. There is limited visualization of the right lung base. There is no demonstrated pleural abnormality. There is mild cardiac enlargement. Normal mediastinum and michael. Normal visualized pulmonary arteries. Normal visualized aortic arch and descending thoracic aorta. There are diffuse degenerative changes of the visualized thoracic spine. Normal visualized ribs, clavicles, and shoulders. There is no demonstrated abnormality of the visualized soft tissue structures of the upper abdomen. RAD/Chest 1 View (Portable) IMPRESSION: Interval multifocal infiltrates suspicious for pneumonia. Potential asymmetric edema could have this appearance. Electronically Signed: Prerna Rios MD at 15:01 EST Reading Location ID and State: [facility] / [place] Tel , Service support ,
--- NOTE | 2022-05-01 11:20 | PN.HOSP_ITS ---
Subjective Subjective 81-year-old gentleman recently discharged from the hospital following admission for aspiration pneumonia presented back with generalized weakness found to be in A. fib with RVR Objective Data Objective Data Vital Signs: Vital Signs Temp Pulse Resp BP Pulse Ox O2 Del Method O2 Flow Rate 97.8 F 102 H 18 156/80 H 94 Nasal Cannula 2 05/01/22 09:17 05/01/22 09:22 05/01/22 09:17 05/01/22 09:17 05/01/22 09:17 05/01/22 09:17 05/01/22 09:17 FiO2 93 05/01/22 08:03 Oxygen Flow Rate (L/min) 2 Oxygen Delivery Method Nasal Cannula Weight: 68.9 kg Body Mass Index (BMI) 30.6 Intake & Output: Intake and Output for Last 24 Hours 04/29/22 04/30/22 05/01/22 23:59 23:59 23:59 Intake Total 1494.00 / 1500.50 2956.66 / 2956.66 1210 / 1210 Output Total 575 / 675 1550 / 1550 700 / 700 Balance 919.00 / 825.50 1406.66 / 1406.66 510 / 510 Medical Nutrition Assessment Dietitian: Malnutrition Criteria Met Start: 04/30/22 07:57 Freq: Status: Active Protocol: Document 04/30/22 07:57 AG (Rec: 04/30/22 07:57 AG [id number]) Nutrition Malnutrition Evidence of Malnutrition Exists Yes Malnutrition (severe): Acute Illness/Injury Evidenced By Suboptimal Energy Intake ( Severe),Weight Loss (Severe) Clinical Problem Acute Disease or Injury Related Malnutrition Etiology severe, acute malnutrition related to inadequate energy intake Signs/Symptoms as evidenced by unintentional wt loss of 7.7#/5% x 1 week; estimated PO intake meeting < 50% of estimated energy needs > 5 days Status Active Problem Recommendation Dietitian Recommendations/Changes recommend advance diet as tolerated to regular given signs/symptoms acute malnutrition- texture/ consistency modifcations per LABORER ELECTROPLATING. Ensure Plus High Protein 120mL 4x/day w/ medpass when diet advanced, will also consider Nilay BID for wound. Lab / Micro Data Result Diagrams: 05/01/22 05:50 05/01/22 05:50 Labs: Laboratory Results - last 24 hr 04/30/22 11:08: POC Glucose 282 H 04/30/22 16:31: POC Glucose 294 H 04/30/22 22:25: POC Glucose 281 H 05/01/22 05:50: WBC 7.5, RBC 4.31 L, Hgb 13.7, Hct 41.7, MCV 96.8 H, MCH 31.8, MCHC 32.9, RDW Std Deviation 50.1 H, RDW Coeff of Usama 13.9, Plt Count 302, MPV 9.6, Immature Gran % (Auto) 0.900, Neut % (Auto) 83.2 H, Lymph % (Auto) 4.8 L, [place] % (Auto) 10.8 H, Eos % (Auto) 0.0, Baso % (Auto) 0.3, Absolute Neuts (auto) 6.3, Absolute Lymphs (auto) 0.36 L, Nucleated RBC % 0, Platelet Estimate ADEQUATE, RBC Morphology NORM C+C 05/01/22 05:50: Sodium 144, Potassium 3.3 L, Chloride 115 H, Carbon Dioxide 22.0, Anion Gap 7, BUN 15, Creatinine 0.79, Estim Creat Clear Calc 57.42, Est GFR (MDRD) Af Amer 121, Est GFR (MDRD) Non-Af 100, BUN/Creatinine Ratio 19.0, Glucose 250 H, Calcium 8.1 L, Magnesium 2.2 05/01/22 05:50: Phosphorus 1.0 L* 05/01/22 06:22: POC Glucose 248 H Rhythm Strip Rhythm Strip: A-fib Rate: 124 Ectopy: None Physical Exam Narrative GENERAL: Frail looking HEENT: Atraumatic; normocephalic EYES; Anicteric, Normal Conjunctiva NECK; supple, normal thyroid, RESPIRATORY: Diminished to auscultation CARDIOVASCULAR: Irregular S1-S2 GI: soft, normoactive bowel sounds, : No Renal angle tenderness; EXTREMITIES: Bilateral AKA MUSCULOSKELETAL: no muscle wasting NEURO: Awake; no lateralizing signs. SKIN: No Rash PSYCH; Flat affect Assessment & Plan Assessment/Plan (1) Atrial fibrillation with rapid ventricular response: PLAN: Plan 81-year-old gentleman recently discharged from the hospital following admission for aspiration pneumonia presented back with generalized weakness found to be in A. fib with RVR 1. Paroxysmal A. fib ? Admitted to a monitored bed managed with Cardizem which has since been weaned off. Patient heart rate relatively controlled 2. Acute hypoxia ? Patient had to be placed on supplemental oxygen on the morning of 05/01/2022 given his recent hospitalization for aspiration pneumonia repeat checks x-ray ordered 3. Hypokalemia ? Corrected per protocol, repeat labs ordered for a.m. 5. Hypophosphatemia ? Corrected per protocol, repeat labs ordered for a.m. 6. Diabetes mellitus type II -patient's oral hypoglycemics held. Placed on long acting insulin, Accu-Cheks a.c. and at bedtime and covered with sliding scale insulin 7. Hypertension - Blood pressure controlled, home medications continued with dose adjustment as needed 8. Recurrent aspiration pneumonia ? 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 Anemia - Secondary to chronic disorder monitoring H&H and transfuse if patient becomes symptomatic or hemoglobin falls below 7 11. DVT prophylaxis ? On systemic anticoagulation with Eliquis Charges/Coding Visit Charges Inpatient E&M: 28069 Subs Hosp L2
[2022-05-01 11:26] LABS: Bedside Glucose 248 mg/dL (74-106)
[2022-05-01] MEDS: Glucerna Shake 120 ML LIQUID PO (12:37)
[2022-05-01 19:00] LABS: Bedside Glucose 218 mg/dL (74-106)
[2022-05-01 23:20] LABS: Bedside Glucose 240 mg/dL (74-106)
[2022-05-02] VITALS (15 sets, daily range): BP systolic 132–165; BP diastolic 78–113; PULSE 105–141; RESP 16–23; TEMP 36.4–36.7; O2SAT 94–100
[2022-05-02] MEDS: Potassium Chloride 40 MEQ in 0.9% Normal Saline 1,000 ML 100 MEQ IV ×2 (03:13→14:31)
--- NOTE | 2022-05-02 04:30 | PCM.HOSP.N ---
Hospitalist Note Patient with notably elevated HR, ongoing atrial fibrillation, off cardizem and transitioned to metopolol. From report had notable bradycardia with rate into 30s on drip. Had similar presentation day prior and had to have his BB early. Will dose x 1 with cardizem bolus.
[2022-05-02] MEDS: dilTIAZem 25 MG/5 ML Vial 20 MG IV BOLUS (04:48)
[2022-05-02] MEDS: 0.9% Saline Lock 10 ML Syringe IV (04:49)
[2022-05-02] MEDS: Na Biphos/Potassium Phosphate PACKET 1 PACKET PO (04:51)
[2022-05-02] MEDS: Insulin Lispro 100 UNIT/ML INSULN.PEN SC ×2 (06:43→17:03)
[2022-05-02 07:05] LABS: Bedside Glucose 213 mg/dL (74-106)
[2022-05-02] MEDS: Metoprolol Tartrate 50 MG Tablet 75 MG PO ×2 (08:03→21:09)
--- NOTE | 2022-05-02 08:15 | PN.HOSP_ITS ---
Subjective Subjective Patient seen much more delirious this a.m. compared to previous day. Apparently refusing meds. Repeat urinalysis shows presence of acute cystitis. Patient started on meropenem given his numerous allergies Objective Data Objective Data Vital Signs: Vital Signs Temp Pulse Resp BP Pulse Ox O2 Del Method O2 Flow Rate 98.0 F 141 H 18 143/98 H 95 Nasal Cannula 2 05/02/22 08:00 05/02/22 08:00 05/02/22 08:00 05/02/22 08:00 05/02/22 08:00 05/02/22 08:00 05/02/22 08:00 FiO2 93 05/01/22 08:03 Oxygen Flow Rate (L/min) 2 Oxygen Delivery Method Nasal Cannula Weight: 66.4 kg Body Mass Index (BMI) 30.6 Intake & Output: Intake and Output for Last 24 Hours 04/30/22 05/01/22 05/02/22 23:59 23:59 23:59 Intake Total 2956.66 / 2956.66 2328.33 / 2328.33 513.3333 / 513.3333 Output Total 1550 / 1550 1475 / 1475 350 / 350 Balance 1406.66 / 1406.66 853.33 / 853.33 163.3333 / 163.3333 Medical Nutrition Assessment Dietitian: Malnutrition Criteria Met Start: 04/30/22 07:57 Freq: Status: Active Protocol: Document 04/30/22 07:57 AG (Rec: 04/30/22 07:57 AG [id number]) Nutrition Malnutrition Evidence of Malnutrition Exists Yes Malnutrition (severe): Acute Illness/Injury Evidenced By Suboptimal Energy Intake ( Severe),Weight Loss (Severe) Clinical Problem Acute Disease or Injury Related Malnutrition Etiology severe, acute malnutrition related to inadequate energy intake Signs/Symptoms as evidenced by unintentional wt loss of 7.7#/5% x 1 week; estimated PO intake meeting < 50% of estimated energy needs > 5 days Status Active Problem Recommendation Dietitian Recommendations/Changes recommend advance diet as tolerated to regular given signs/symptoms acute malnutrition- texture/ consistency modifcations per GAS WELL DRILLING MANAGER. Ensure Plus High Protein 120mL 4x/day w/ medpass when diet advanced, will also consider Nilay BID for wound. Lab / Micro Data Result Diagrams: 05/01/22 05:50 05/01/22 05:50 Labs: Laboratory Results - last 24 hr 05/01/22 11:02: POC Glucose 248 H 05/01/22 18:28: POC Glucose 218 H 05/01/22 22:27: POC Glucose 240 H 05/02/22 06:42: POC Glucose 213 H Radiography Diagnostic Testing: Radiology Impression Chest X-Ray 05/01/22 11:19 IMPRESSION: Interval multifocal infiltrates suspicious for pneumonia. Potential asymmetric edema could have this appearance. Electronically Signed: Prerna Rios MD at 15:01 EST , Rhythm Strip Rhythm Strip: A-fib Rate: 124 Ectopy: None Physical Exam Narrative GENERAL: Frail looking, delirious HEENT: Atraumatic; normocephalic EYES; Anicteric, Normal Conjunctiva NECK; supple, normal thyroid, RESPIRATORY: Diminished to auscultation CARDIOVASCULAR: Irregular S1-S2 GI: soft, normoactive bowel sounds, : No Renal angle tenderness; EXTREMITIES: Bilateral AKA MUSCULOSKELETAL: no muscle wasting NEURO: Awake; no lateralizing signs. SKIN: No Rash PSYCH; Flat affect Assessment & Plan Assessment/Plan (1) Atrial fibrillation with rapid ventricular response: PLAN: Plan 81-year-old gentleman recently discharged from the hospital following admission for aspiration pneumonia presented back with generalized weakness found to be in A. fib with RVR 1. Paroxysmal A. fib ? Admitted to a monitored bed managed with Cardizem which has since been weaned off. Patient heart rate relatively controlled 2. Acute hypoxia ? Patient had to be placed on supplemental oxygen on the morning of 05/01/2022 given his recent hospitalization for aspiration pneumonia repeat checks x-ray ordered 3. Hypokalemia ? Corrected per protocol, repeat labs ordered for a.m. 5. Hypophosphatemia ? Corrected per protocol, repeat labs ordered for a.m. 6. Diabetes mellitus type II -patient's oral hypoglycemics held. Placed on long acting insulin, Accu-Cheks a.c. and at bedtime and covered with sliding scale insulin 7. Hypertension - Blood pressure controlled, home medications continued with dose adjustment as needed 8. Recurrent aspiration pneumonia ? 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 Anemia - Secondary to chronic disorder monitoring H&H and transfuse if patient becomes symptomatic or hemoglobin falls below 7 11. DVT prophylaxis ? On systemic anticoagulation with Eliquis 12. Acute metabolic encephalopathy ? Secondary to acute cystitis treatment as discussed below 13. Acute cystitis ? Urinalysis came back abnormal started on meropenem repeat cultures sent Charges/Coding Visit Charges Inpatient E&M: 72424 Subs Hosp L3
--- NOTE | 2022-05-02 08:15 | NURSING ---
at this time pt ripping off, tele leads, IVs and tore off his fetanyl patch, fetanyl patch disposed of at this time.
[2022-05-02 09:30] LABS: Mucous, Urine 0 SEEN /hpf (<or=2+); Squamous Epithelial Cells - UA 0 SEEN /hpf (0-5)
[2022-05-02 09:34] LABS: Color, Urine Yellow (Yellow); Glucose, Dipstick 250 mg/dl (Normal); Leukocyte Esterase-Dipstick 500 /ul (Negative); Nitrite-Dipstick Negative (Negative); Occult Blood-Urine 50 /ul (Negative); Protein-Dipstick 30 mg/dl (Negative); Urine Bilirubin Dipstick Negative (Negative); Urine Clarity Clear (Clear); Urine Urobilinogen Normal (Normal)
[2022-05-02 10:01] LABS: Ketone-Dipstick 150 mg/dl (Negative)
[2022-05-02 10:08] LABS: Bacteria 1+ /hpf (None Seen); Red Blood Cells-Urine 0-5 SEEN /hpf (0-5); White Blood Cells 50-100 SEEN /hpf (0-5)
[2022-05-02] MEDS: Haloperidol Lactate 5 MG/ML Vial 2 MG IM (10:53)
[2022-05-02 12:00] LABS: Bedside Glucose 203 mg/dL (74-106)
[2022-05-02] MEDS: fentaNYL 25 MCG Patch TD (17:12)
[2022-05-02 17:40] LABS: Bedside Glucose 255 mg/dL (74-106)
[2022-05-02] MEDS: APIXABAN 5 MG TABLET PO (21:16)
[2022-05-02] MEDS: Rosuvastatin Calcium 5 MG Tablet PO (21:17)
[2022-05-02] MEDS: Amitriptyline 25 MG Tablet 50 MG PO (21:17)
[2022-05-03] VITALS (13 sets, daily range): BP systolic 120–160; BP diastolic 72–87; PULSE 87–123; RESP 14–20; TEMP 36.4–37.4; O2SAT 93–97
--- NOTE | 2022-05-03 00:30 | NURSING ---
pt restless, tossing and turning in bed, confused at times and not making sense. prn ativan given, repositioned a number of times, iv site rewrapped multiple times in the pietro wrap he kept pulling off.
[2022-05-03] MEDS: LORazepam 1 MG Tablet 0.5 MG PO (00:33)
[2022-05-03] MEDS: Insulin Lispro 100 UNIT/ML INSULN.PEN SC ×5 (00:40→22:49)
[2022-05-03 01:05] LABS: Bedside Glucose 197 mg/dL (74-106)
[2022-05-03] MEDS: Potassium Chloride 40 MEQ in 0.9% Normal Saline 1,000 ML 100 MEQ IV (01:25)
[2022-05-03] MEDS: oxyCODONE 5 MG Tablet PO (01:38)
[2022-05-03 07:35] LABS: Bedside Glucose 191 mg/dL (74-106)
[2022-05-03 07:46] LABS: Absolute Neutrophil Count 5.6 X10^3/uL (2.0-7.7); Basophil# 0.01 X10^3/uL; Basophil% 0.1 % (0-1); Hematocrit 36.3 % (40-54); Hemoglobin 12.6 g/dL (13.0-16.5); Mean Corp Hgb Conc 34.7 g/dL (32-36); Mean Corpuscular Hgb 33.3 pg (27.0-32.0); Monocyte# 0.89 X10^3/uL; Monocyte% 12.5 % (0-10); NRBC Flagged by Analyzer 0 % (0-5); Neutrophil # 5.59 X10^3/uL (2.7-7.7); Neutrophil % 78.7 % (47-70); POSITIVE DIFFERENTIAL YES; Platelet Count 325 K/mm3 (150-450); RBC Distribution Width CV 14.1 % (11.6-14.6); RBC Distribution Width SD 49.6 fl (35.1-43.9); Red Blood Count 3.78 M/mm3 (4.6-6.2); White Blood Count 7.1 K/mm3 (4.4-11.0)
[2022-05-03 08:00] LABS: Differential Indicated SCAN CRITERIA MET
[2022-05-03 08:07] LABS: Anion Gap 7 (5-15); BUN 12 mg/dL (7-18); BUN/Creat Ratio 27.3 RATIO (10-20); Calcium,Total 7.4 mg/dL (8.5-10.1); Chloride 118 mmol/L (98-107); Creatinine, Serum 0.44 mg/dL (0.70-1.30); EST Glomerular Filtration Rate 197 mL/min (>60); Est Glom Filt Rate - Afr Amer 238 mL/min (>60); Estimated Creatinine Clearance 55.75 ml/min; Glucose 206 mg/dL (74-106); Potassium 2.8 mmol/L (3.5-5.1); Sodium Level 151 mmol/L (136-145)
[2022-05-03 08:23] LABS: Platelet Estimate ADEQUATE (ADEQ)
[2022-05-03 08:24] LABS: Red Cell Morphology NORM C+C NORMAL (NORM C&C)
[2022-05-03] MEDS: Menthol/Lanolin/Calamine/Znox 113 GM Tube 1 APPLIC TOPICAL ×2 (09:07→21:12)
[2022-05-03] MEDS: Potassium Chloride Oral Tablet 20 MEQ 40 MEQ PO (09:09)
[2022-05-03] MEDS: APIXABAN 5 MG TABLET PO ×2 (09:09→21:16)
[2022-05-03] MEDS: Amitriptyline 25 MG Tablet 50 MG PO ×2 (09:09→21:15)
[2022-05-03] MEDS: Finasteride 5 MG Tablet PO (09:10)
[2022-05-03] MEDS: Metoprolol Tartrate 50 MG Tablet 75 MG PO ×2 (09:11→21:13)
[2022-05-03] MEDS: amLODIPine 5 MG Tablet PO (09:11)
[2022-05-03] MEDS: Glucerna Shake 120 ML LIQUID PO (09:14)
--- NOTE | 2022-05-03 09:28 | PCM.PN.HOSP ---
Subjective Subjective Became belligerent and delirious the day prior. Urinalysis obtained showed cystitis. Subsequently started on meropenem (has multiple allergies) Diagnostic data this morning significant for hypernatremia as well as hypokalemia Objective Data Objective Data Vital Signs: Vital Signs Temp Pulse Resp BP Pulse Ox O2 Del Method O2 Flow Rate 98.4 F 110 H 18 160/81 H 93 Nasal Cannula 2 05/03/22 09:03 05/03/22 09:11 05/03/22 09:03 05/03/22 09:11 05/03/22 09:03 05/03/22 09:05 05/03/22 09:05 FiO2 93 05/01/22 08:03 Oxygen Flow Rate (L/min) 2 Oxygen Delivery Method Nasal Cannula Weight: 66.9 kg Body Mass Index (BMI) 30.6 Intake & Output: Intake and Output for Last 24 Hours 05/01/22 05/02/22 05/03/22 23:59 23:59 23:59 Intake Total 2328.33 / 2328.33 2046.6733 / 2246.6733 1540 / 1540 Output Total 1475 / 1475 1350 / 2350 1500 / 1500 Balance 853.33 / 853.33 696.6733 / -103.3267 40 / 40 Medical Nutrition Assessment Dietitian: Malnutrition Criteria Met Start: 04/30/22 07:57 Freq: Status: Active Protocol: Document 04/30/22 07:57 AG (Rec: 04/30/22 07:57 AG [id number]) Nutrition Malnutrition Evidence of Malnutrition Exists Yes Malnutrition (severe): Acute Illness/Injury Evidenced By Suboptimal Energy Intake ( Severe),Weight Loss (Severe) Clinical Problem Acute Disease or Injury Related Malnutrition Etiology severe, acute malnutrition related to inadequate energy intake Signs/Symptoms as evidenced by unintentional wt loss of 7.7#/5% x 1 week; estimated PO intake meeting < 50% of estimated energy needs > 5 days Status Active Problem Recommendation Dietitian Recommendations/Changes recommend advance diet as tolerated to regular given signs/symptoms acute malnutrition- texture/ consistency modifcations per REHABILITATION PSYCHOLOGIST. Ensure Plus High Protein 120mL 4x/day w/ medpass when diet advanced, will also consider Nilay BID for wound. Lab / Micro Data Result Diagrams: 05/03/22 07:36 05/03/22 07:36 Labs: Laboratory Results - last 24 hr 05/02/22 09:23: Urine Color Yellow, Urine Clarity Clear, Urine pH 6.0, Ur Specific [place] 1.020, Urine Protein 30 H, Urine Glucose (UA) 250 H, Urine Ketones 150 A*, Urine Occult Blood 50 H, Urine Nitrite Negative, Urine Bilirubin Negative, Urine Urobilinogen Normal, Ur Leukocyte Esterase 500 H, Urine RBC 0-5 SEEN, Urine WBC 50-100 SEEN, Ur Squamous Epith Cells 0 SEEN, Urine Bacteria 1+, Urine Mucus 0 SEEN 05/02/22 11:25: POC Glucose 203 H 05/02/22 17:01: POC Glucose 255 H 05/03/22 00:37: POC Glucose 197 H 05/03/22 07:05: POC Glucose 191 H 05/03/22 07:36: WBC 7.1, RBC 3.78 L, Hgb 12.6 L, Hct 36.3 L, MCV 96.0 H, MCH 33.3 H, MCHC 34.7 D, RDW Std Deviation 49.6 H, RDW Coeff of Usama 14.1, Plt Count 325, MPV 9.0, Immature Gran % (Auto) 1.700 H, Neut % (Auto) 78.7 H, Lymph % (Auto) 7.0 L, [place] % (Auto) 12.5 H, Eos % (Auto) 0.0, Baso % (Auto) 0.1, Absolute Neuts (auto) 5.6, Absolute Lymphs (auto) 0.50 L, Nucleated RBC % 0, Platelet Estimate ADEQUATE, RBC Morphology NORM C+C 05/03/22 07:36: Sodium 151 H, Potassium 2.8 L, Chloride 118 H, Carbon Dioxide 26.0, Anion Gap 7, BUN 12, Creatinine 0.44 L, Estim Creat Clear Calc 55.75, Est GFR (MDRD) Af Amer 238, Est GFR (MDRD) Non-Af 197, BUN/Creatinine Ratio 27.3 H, Glucose 206 H, Calcium 7.4 L Rhythm Strip Rhythm Strip: A-fib Rate: 124 Ectopy: None Physical Exam Narrative GENERAL: Frail looking, delirious HEENT: Atraumatic; normocephalic EYES; Anicteric, Normal Conjunctiva NECK; supple, normal thyroid, RESPIRATORY: Diminished to auscultation CARDIOVASCULAR: Irregular S1-S2 GI: soft, normoactive bowel sounds, : No Renal angle tenderness; EXTREMITIES: Bilateral AKA MUSCULOSKELETAL: no muscle wasting NEURO: Awake; no lateralizing signs. SKIN: No Rash PSYCH; Flat affect Assessment & Plan Assessment/Plan (1) Atrial fibrillation with rapid ventricular response: PLAN: Plan 81-year-old gentleman recently discharged from the hospital following admission for aspiration pneumonia presented back with generalized weakness found to be in A. fib with RVR 1. Paroxysmal A. fib ? Admitted to a monitored bed managed with Cardizem which has since been weaned off. Patient heart rate relatively controlled 2. Acute hypoxia ? Patient had to be placed on supplemental oxygen on the morning of 05/01/2022 given his recent hospitalization for aspiration pneumonia repeat cx-ray ordered -05/03/2022; chest x-ray did not show Interval multifocal infiltrates suspicious for pneumonia. Potential asymmetric edema could have this appearance. Patient is on meropenem 3. Acute metabolic encephalopathy ? Secondary to combination of patient cystitis as well as electrolyte derangement plan is to treat underlying etiology 4. Acute cystitis ? Patient started on meropenem cultures sent we will follow-up on result 5. Hypokalemia ? Corrected per protocol, repeat labs ordered for a.m. -05/03/2022; further drop in patient's potassium additional replacement given 6. Hypernatremia ? Started on half-normal saline with every 6 BMP ordered for subsequent monitoring 7. Hypophosphatemia ? Corrected per protocol, repeat labs ordered for a.m. 8. Diabetes mellitus type II -patient's oral hypoglycemics held. Placed on long acting insulin, Accu-Cheks a.c. and at bedtime and covered with sliding scale insulin 9. Recurrent aspiration pneumonia ? 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 Anemia - Secondary to chronic disorder monitoring H&H and transfuse if patient becomes symptomatic or hemoglobin falls below 7 12. Hypertension - Blood pressure controlled, home medications continued with dose adjustment as needed 13. DVT prophylaxis ? On systemic anticoagulation with Eliquis Charges/Coding Visit Charges Inpatient E&M: 04188 Subs Hosp L3
[2022-05-03] MEDS: Potassium Chloride 10mEq/100mL 10 MEQ/100 ML IV.SOLN. 100 MEQ IV BOLUS ×4 (09:56→13:34)
[2022-05-03] MEDS: 0.45% Normal Saline 1,000 ML 50 ML IV (09:57)
[2022-05-03 11:42] LABS: Anion Gap 5 (5-15); BUN 13 mg/dL (7-18); BUN/Creat Ratio 24.9 RATIO (10-20); Calcium,Total 7.5 mg/dL (8.5-10.1); Chloride 119 mmol/L (98-107); Creatinine, Serum 0.52 mg/dL (0.70-1.30); EST Glomerular Filtration Rate 161 mL/min (>60); Est Glom Filt Rate - Afr Amer 195 mL/min (>60); Estimated Creatinine Clearance 55.75 ml/min; Glucose 269 mg/dL (74-106); Potassium 3.5 mmol/L (3.5-5.1); Sodium Level 151 mmol/L (136-145)
[2022-05-03 12:25] LABS: Bedside Glucose 225 mg/dL (74-106)
[2022-05-03 16:05] LABS: Anion Gap 4 (5-15); BUN 14 mg/dL (7-18); Calcium,Total 7.6 mg/dL (8.5-10.1); Chloride 119 mmol/L (98-107); Creatinine, Serum 0.58 mg/dL (0.70-1.30); EST Glomerular Filtration Rate 142 mL/min (>60); Est Glom Filt Rate - Afr Amer 172 mL/min (>60); Estimated Creatinine Clearance 55.75 ml/min; Glucose 236 mg/dL (74-106); Potassium 3.7 mmol/L (3.5-5.1); Sodium Level 149 mmol/L (136-145)
[2022-05-03 17:00] LABS: Bedside Glucose 295 mg/dL (74-106)
[2022-05-03 19:04] LABS: Anion Gap 4 (5-15); BUN 13 mg/dL (7-18); BUN/Creat Ratio 24.7 RATIO (10-20); Calcium,Total 7.6 mg/dL (8.5-10.1); Chloride 118 mmol/L (98-107); Creatinine, Serum 0.53 mg/dL (0.70-1.30); EST Glomerular Filtration Rate 160 mL/min (>60); Est Glom Filt Rate - Afr Amer 194 mL/min (>60); Estimated Creatinine Clearance 55.75 ml/min; Glucose 233 mg/dL (74-106); Potassium 3.2 mmol/L (3.5-5.1); Sodium Level 149 mmol/L (136-145)
[2022-05-03] MEDS: 0.45% Normal Saline 1,000 ML 100 ML IV (21:31)
[2022-05-03 23:20] LABS: Bedside Glucose 204 mg/dL (74-106)
[2022-05-04] VITALS (13 sets, daily range): BP systolic 137–176; BP diastolic 83–89; PULSE 83–109; RESP 19–20; TEMP 36.4–36.8; O2SAT 90–96
[2022-05-04] MEDS: 0.45% Normal Saline 1,000 ML 100 ML IV ×2 (06:19→16:17)
[2022-05-04] MEDS: Insulin Lispro 100 UNIT/ML INSULN.PEN SC ×3 (06:24→22:48)
[2022-05-04 07:26] LABS: Bedside Glucose 167 mg/dL (74-106)
[2022-05-04] MEDS: Amitriptyline 25 MG Tablet 50 MG PO ×2 (10:16→22:32)
[2022-05-04] MEDS: APIXABAN 5 MG TABLET PO ×2 (10:16→22:34)
[2022-05-04] MEDS: Finasteride 5 MG Tablet PO (10:16)
[2022-05-04] MEDS: Potassium Chloride Oral Tablet 20 MEQ 40 MEQ PO (10:16)
[2022-05-04] MEDS: Metoprolol Tartrate 50 MG Tablet 75 MG PO ×2 (10:16→22:33)
[2022-05-04] MEDS: amLODIPine 5 MG Tablet PO (10:17)
[2022-05-04] MEDS: Menthol/Lanolin/Calamine/Znox 113 GM Tube 1 APPLIC TOPICAL ×2 (10:17→22:35)
[2022-05-04 12:21] LABS: Bedside Glucose 171 mg/dL (74-106)
--- NOTE | 2022-05-04 15:16 | EKG12_ITS ---
Test Reason : Blood Pressure : / mmHG Vent. Rate : 091 BPM Atrial Rate : 091 BPM P-R Int : 226 ms QRS Dur : 086 ms QT Int : 332 ms P-R-T Axes : 031 -47 014 degrees QTc Int : 408 ms Sinus rhythm with 1st degree A-V block Left axis deviation Nonspecific T wave abnormality Poor R wave progression Abnormal ECG Confirmed by BROOKLYN ALCALA, SANJAY ([id number]), commissioning editor JESSICA TRAN ([id number]) on 05/06/2022 8:12:44 AM Referred By: LEONORA Confirmed By:SANJAY BARAHONA MD
[2022-05-04 17:30] LABS: Bedside Glucose 144 mg/dL (74-106)
--- NOTE | 2022-05-04 20:14 | PN.HOSP_ITS ---
Subjective Subjective Patient was seen and examined today, I had a long conversation with the patient and his , patient appeared alert and appropriate to me today. I also talked with nursing home social worker about discharge planning for the patient, because he is a chronic bilateral [id number] amputee, patient is nonambulatory and would not be a candidate to go to a rehab facility for skilled services. I relayed this to the patient and his . Patient remains in normal sinus rhythm at this time. Patient is currently on room air at this time. Urine culture showed no growth. I will repeat the patient's chest x-ray tomorrow morning. Patient is currently on meropenem, I will have infectious diseases see the patient in the morning for possible de-escalation of antibiotics. Objective Data Objective Data Vital Signs: Vital Signs Temp Pulse Resp BP Pulse Ox O2 Del Method O2 Flow Rate 97.6 F L 95 19 H 153/83 H 94 Room Air 1 05/04/22 16:20 05/04/22 19:00 05/04/22 16:20 05/04/22 16:20 05/04/22 16:20 05/04/22 20:05 05/04/22 16:20 FiO2 93 05/01/22 08:03 Oxygen Flow Rate (L/min) 1 Oxygen Delivery Method Room Air Weight: 68.4 kg Body Mass Index (BMI) 30.6 Intake & Output: Intake and Output for Last 24 Hours 05/02/22 05/03/22 05/04/22 23:59 23:59 23:59 Intake Total 2046.6733 / 2246.6733 4668.75 / 4968.75 2926.67 / 2926.67 Output Total 1350 / 2350 2100 / 2600 2125 / 2125 Balance 696.6733 / -103.3267 2568.75 / 2368.75 801.67 / 801.67 Medical Nutrition Assessment Dietitian: Malnutrition Criteria Met Start: 04/30/22 07:57 Freq: Status: Active Protocol: Document 05/03/22 17:37 RMA (Rec: 05/03/22 17:38 RMA [id number]) Nutrition Malnutrition Evidence of Malnutrition Exists Yes Malnutrition (severe): Acute Illness/Injury Evidenced By Suboptimal Energy Intake ( Severe),Weight Loss (Severe) Intake Problem Inadequate Oral Intake Etiology related to swallowing difficulty/need for mechanically altered food Signs/Symptoms as evidenced by PO ~50% meals at best and refusal of ONS Status Active Problem Clinical Problem Acute Disease or Injury Related Malnutrition Etiology severe, acute malnutrition related to inadequate energy intake Signs/Symptoms as evidenced by unintentional wt loss of 7.7#/5% x 1 week; estimated PO intake meeting < 50% of estimated energy needs > 5 days Status Active Problem Recommendation Dietitian Recommendations/Changes Diet adjustment to Carbohydrate-Controlled with consistency as per TRANSPLANT IMMUNOLOGIST. Will d/c glucerna shake due to pt refusal. Will add ensure pudding BID w/ meals as tolerated. Consider Nilay BID as needed if PO does not improve at meals. Lab / Micro Data Result Diagrams: 05/05/22 07:20 05/03/22 18:00 Labs: Laboratory Results - last 24 hr 05/03/22 22:48: POC Glucose 204 H 05/04/22 06:23: POC Glucose 167 H 05/04/22 11:59: POC Glucose 171 H 05/04/22 16:20: POC Glucose 144 H Rhythm Strip Rhythm Strip: A-fib Rate: 124 Ectopy: None Physical Exam Const alert, oriented x3 and no apparent distress Constitutional Narrative: Patient appears older than stated age, he appears frail General Appearance: cooperative, well kempt and well developed Orientation / Consciousness: awake, oriented to person and oriented to place HEENT normocephalic, head/scalp atraumatic and moist oral mucous membranes Eyes PERRL, EOMs intact bilaterally and conjunctivae normal Neck supple, no JVD and thyroid normal General: trachea midline Resp normal respiratory effort, no retractions and no use of accessory muscles Resp Narrative: Decreased breath sounds are noted bilaterally Auscultation: Negative for rales, rhonchi or wheezes Cardio S1 normal heart sound, S2 normal heart sound, no murmurs, no rub and no gallops Cardio Narrative: Heart rate and rhythm is irregular GI normal to inspection, nondistended, normoactive bowel sounds, soft to palpation, non-tender and non-distended Extremity Extremity Narrative: Bilateral [id number] amputations which are remote are noted Skin no rashes or lesions noted General Skin Exam: no breakdown Neuro oriented x3, CN's II-XII intact bilaterally, no focal motor deficits and no sensory deficits noted Sensorium / Orientation: awake and alert Speech: speech normal Psych Psych Narrative: Affect is flat Assessment & Plan Assessment/Plan (1) Nausea & vomiting: PLAN: Plan 1. Paroxysmal A. fib-patient remains in A. fib at this time, his rate is c ontrolled on medication #2 acute hypoxia-patient remains on nasal cannula oxygen at this time and will be weaned if possible #3 nausea and vomiting-etiology unclear, patient will be given nausea med ications and monitored #4 type 2 diabetes-patient will have Accu-Cheks performed and sliding scale insulin will be used #5 hypokalemia-corrected at this time #6 essential hypertension-patient will remain on his present medications #7 chronic debility-patient is not a candidate to go to an extended care facility for rehab services, according to the he has not walked in 25 years. It is planned that the patient will go home at discharge from the hospital. Charges/Coding Visit Charges Inpatient E&M: 31753 Subs Hosp L2
[2022-05-04] MEDS: Rosuvastatin Calcium 5 MG Tablet PO (22:34)
--- NOTE | 2022-05-04 22:56 | NURSING ---
pt was 90% on room air. placed on 2l nasal canula pulse ox now 95%
--- NOTE | 2022-05-04 23:00 | CON.PCM.GI_ITS ---
HPI Consult Data Date of Consult: 05/04/22 HPI Narrative Reason for Consultation: Intractable nausea and vomiting HPI Narrative: BRITTNEY LANGSTON, is a 81 M who presented with nausea, vomiting and diarrhea.? His was treated with IV fluids for dehydration and Zofran for nausea.? He reportedly was recently admitted for pneumonia.? I will get a chest x-ray and screening labs.? He is tachycardic which may be from dehydration or could also b e from his history of A. fib I will obtain an EKG.? He will be placed on IV Cardizem for A. fib with RVR. His current heart rate is about 115.? He remains in A. fib. He was started on Eliquis. He was recently admit, treated for aspiration pneumonia.? He also had n/v after discharged on augmentin with poor po intake.? No fever, no dysuria.?He has trouble swallowing due to prior neck radiation.? On 05/02, had increased confusion, started on meropenem but no new cxs sent. He was going to be disc harged home. However he still has intractable nausea vomiting so I was consulted for endoscopic evaluation. [facility] Medical History Above-knee amputation Atrial fibrillation Diabetes Hypertension Oral cancer TIA (transient ischemic attack) Urinary retention Home Medications amitriptyline 25 mg tablet 50 mg PO BID sleep 12/13/13 [History Last Taken 04/28/22] glimepiride 4 mg tablet 4 mg PO BID diabetes 12/13/13 [History Last Taken 04/09 ] metoprolol tartrate 50 mg tablet 50 mg PO BID heart rate 12/13/13 [History Last Taken 04/27/22] polyethylene glycol 3350 17 gram oral powder packet 17 g PO DAILY constipation 12/13/13 [History Last Taken 04/27/22] potassium chloride 10 mEq tablet,extended release(part/cryst) 10 meq PO BID supp lement 12/13/13 [History Last Taken 04/27/22] dutasteride 0.5 mg capsule (Avodart) 0.5 mg PO DAILY bladder 08/26/14 [History Last Taken 04/27/22] multivitamin with folic acid 400 mcg tablet (Thera) 1 tab PO DAILY supplement 08/26/14 [History Last Taken 04/27/22] amlodipine 5 mg tablet 5 mg PO DAILY blood pressure 05/31/19 [History Last Taken 04/27/22] cholecalciferol (vitamin D3) 50 mcg (2,000 unit) capsule 2,000 unit PO DAILY supplement 05/31/19 [History Last Taken 04/27/22] hydrocodone-acetaminophen 5-325mg 5mg-325mg 1 tab PO TID pain 05/31/19 [History Last Taken 04/27/22] lorazepam 1 mg tablet 1 mg PO TID anxiety 05/31/19 [History Last Taken 04/27/22] quinapril 40 mg tablet 40 mg PO DAILY blood pressure 05/31/19 [History Last Taken 04/27/22] rosuvastatin 10 mg tablet 5 mg PO QODAY cholesterol 05/31/19 [History Last Taken 04/27/22] Fentanyl 25 mcg transdermal Q72H pain 04/05/20 [History Last Taken 1 Week Ago ~04/22/22] tizanidine 4 mg capsule 4 mg PO Q8H PRN PRN Spasms 04/05/20 [History Last Taken Unknown] apixaban 5 mg tablet (Eliquis) 5 mg PO BID blood thinner 10/14/21 [History Last Taken 04/27/22] metformin 500 mg tablet,extended release 24 hr 500 mg PO BID DM 02/19/22 [Histor y Last Taken 04/27/22] naloxone 4 mg/actuation nasal spray 2 mg intranasal PRN PRN OD 03/27/22 [History Last Taken Unknown] hydrochlorothiazide 25 mg tablet 12.5 mg PO DAILY blood pressure #30 tabs [Rx Last Taken 04/27/22] amoxicillin 875 mg-potassium clavulanate 125 mg tablet 1 tab PO BID infection 04/29/22 [History Last Taken 04/29/22] potassium chloride 20 mEq tablet,extended release 40 meq PO DAILY supplement 04/29/22 [History Last Taken Unknown] Allergy/AdvReac Type Severity Reaction Status Date / Time trimethoprim Allergy Itching Verified 04/23/22 12:38 amoxicillin trihydrate AdvReac Nausea/Vom/ Verified 04/23/22 12:38 [From Augmentin] Diarrhea atropine sulfate AdvReac Unknown Verified 04/23/22 12:38 [From ] ceftriaxone sodium AdvReac Rash Verified 04/23/22 12:38 [From Rocephin] cephalexin monohydrate AdvReac Unknown Verified 04/23/22 12:38 [From Keflex] ciprofloxacin [From Cipro] AdvReac Vomiting Verified 04/23/22 12:38 ciprofloxacin HCl AdvReac Vomiting Verified 04/23/22 12:38 [From Cipro] gabapentin AdvReac Unknown Verified 04/23/22 12:38 hyoscyamine sulfate AdvReac Unknown Verified 04/23/22 12:38 [From ] oxycodone HCl [From Percocet] AdvReac Other Verified 04/23/22 12:38 phenobarbital [From ] AdvReac Unknown Verified 04/23/22 12:38 Pork/Porcine Containing AdvReac Nausea/Vom/ Verified 04/23/22 12:38 Products Diarrhea potassium clavulanate AdvReac Nausea/Vom/ Verified 04/23/22 12:38 [From Augmentin] Diarrhea pseudoephedrine HCl AdvReac Other Verified 04/23/22 12:38 [From Sudafed] scopolamine hydrobromide AdvReac Unknown Verified 04/23/22 12:38 [From ] sulfadiazine [Sulfadiazine] AdvReac Nausea Verified 04/23/22 12:38 Social History Smoking Status: Never smoker ROS ROS Narrative Constitutional: Reports fatigue and weakness. Mild nausea and vomiting. HEENT: Left parotid surgery status post surgical scar. Healed. Reports systems reviewed and no addt'l complaints, except as documented Respiratory/Chest: Denies chest pain, shortness of breath at rest. No acute cough. CVS: Palpitation. No chest pressure/pain Gastrointestinal: Denies abdominal pain one-time loose bowel movement. Genitourinary: Urine retention on Santos catheter. Denies burning urination or new urinary tract symptoms Musculoskeletal: Bilateral AKA amputee. Neurologic: Denies seizure-like activity skin: No ulcer. No rash Endocrinology: Reports systems reviewed and no addt'l complaints, except as documented Hematologic/Lymphatic: Reports systems reviewed and no addt'l complaints, except as documented Rest 14 ROS are negative except as mentioned in HPI Physical Exam Const alert and no apparent distress General Appearance: cooperative HEENT normocephalic and head/scalp atraumatic Eyes PERRL and EOMs intact bilaterally Neck supple and No nodes Resp clear to auscultation bilaterally Auscultation: diminished lung sounds Cardio regular rate and regular rhythm GI soft to palpation, non-tender and non-distended Extremity General Extremity: Negative for edema Skin no rashes or lesions noted Neuro CN's II-XII intact bilaterally Medical Records Data Medical Nutrition Assessment Dietitian: Malnutrition Criteria Met Start: 04/30/22 07:57 Freq: Status: Active Protocol: Document 05/03/22 17:37 RMA (Rec: 05/03/22 17:38 RMA [id number]) Nutrition Malnutrition Evidence of Malnutrition Exists Yes Malnutrition (severe): Acute Illness/Injury Evidenced By Suboptimal Energy Intake ( Severe),Weight Loss (Severe) Intake Problem Inadequate Oral Intake Etiology related to swallowing difficulty/need for mechanically altered food Signs/Symptoms as evidenced by PO ~50% meals at best and refusal of ONS Status Active Problem Clinical Problem Acute Disease or Injury Related Malnutrition Etiology severe, acute malnutrition related to inadequate energy intake Signs/Symptoms as evidenced by unintentional wt loss of 7.7#/5% x 1 week; estimated PO intake meeting < 50% of estimated energy needs > 5 days Status Active Problem Recommendation Dietitian Recommendations/Changes Diet adjustment to Carbohydrate-Controlled with consistency as 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 Will d/c glucerna shake due to pt refusal. Will add ensure pudding BID w/ meals as tolerated. Consider Nilay BID as needed if PO does not improve at meals. Lab / Micro Data Result Diagrams: 05/05/22 07:20 05/03/22 18:00 Labs: Laboratory Results - last 24 hr 05/04/22 16:20: POC Glucose 144 H 05/04/22 22:45: POC Glucose 171 H 05/05/22 06:21: POC Glucose 168 H 05/05/22 07:20: WBC 9.1, RBC 3.84 L, Hgb 12.7 L, Hct 36.3 L, MCV 94.5 H, MCH 33.1 H, MCHC 35.0, RDW Std Deviation 45.6 H, RDW Coeff of Usama 13.2, Plt Count 344, MPV 9.1, Immature Gran % (Auto) 1.300 H, Neut % (Auto) 83.6 H, Lymph % (Auto) 5.2 L, [place] % (Auto) 8.6, Eos % (Auto) 1.1, Baso % (Auto) 0.2, Absolute Neuts (auto) 7.6, Absolute Lymphs (auto) 0.47 L, Nucleated RBC % 0, Differential Comment SCANNED 05/05/22 11:07: POC Glucose 160 H Rhythm Strip Rhythm Strip: A-fib Rate: 124 Ectopy: None Radiology Impression Chest X-Ray 05/05/22 05:55 IMPRESSION: No interval change Electronically Signed: Deacon Ross MD at 8:53 EST , Assessment & Plan Assessment/Plan (1) Nausea & vomiting: PLAN: The differential diagnosis for intractable nausea vomiting would be gastric outlet obstruction secondary to peptic ulcer disease, pyloric stenosis, gastroparesis via mechanical, medication induced or idiopathic. Patient undergoing upper endoscopy to evaluate his upper GI tract. He was explained alternatives, risk, benefits including outstanding bleeding, infection, sepsis, perforation, need for emergent turn to . He will have an ASA of 3. Charges/Coding Visit Charges Inpatient E&M: 80694 Init Hosp L3
[2022-05-04 23:25] LABS: Bedside Glucose 171 mg/dL (74-106)
[2022-05-05] VITALS (30 sets, daily range): BP systolic 78–174; BP diastolic 54–90; PULSE 73–108; RESP 16–26; TEMP 35.9–36.8; O2SAT 82–95
--- NOTE | 2022-05-05 | IMM_PTH ---
PATIENT: BRITTNEY LANGSTON LOC: [facility] U#:[id number] AGE/SX: 81/M ROOM: [facility] RE04/29/[address]: Dr. Efrain Monahan DO : 1940 BED: 1 DIS: 05/11/2022 SPEC #: [id number] RECD: 05/07/22 11:12 STATUS: FREDDY REQ #: [id number] ELSA: 05/05/22 00:[address]: Brian Duff DEPT: IMMUNOHISTOCHEMISTRY RECD BY: Jillian Ramos ENTERED: 05/07/22 11:13 SP TYPE: IMMUNO OTHR DR: MD Dr. Viktor Brown MD Dr. Mark Tereletsky, DO Dr. Prakash Chand, MD Dr. Robert Leininger, MD Tissues: Duodenum, NOS Procedures: CD20 (add) CD45 (add) CD5 (add) CD79A (add) CD3 (initial) PHYSICIAN & [address] [address] SPECIMEN INFORMATION: Tissue Source: Duodenum ulcer Clinical Info: Intractable nausea and vomiting Specimen Number: [id number] CPT code: 14566, 10999 x4 METHODOLOGY: Deparaffinized sections of prefer/formalin-fixed tissue or PAP/DQ stained slides are incubated with monoclonal/polyclonal antibodies/oligonucleotide probes. Localization is made via biotin free immunoperoxidase method. Appropriate controls are performed and reacted as expected. Results on target cell population are indicated in the following table: RESULTS: ANTIBODY / CLONE RESULT CD3 (PS1) positive CD5 (SP10) positive CD20 (L26) positive CD45 (RP2/18) positive CD79a (11E3) positive These tests were developed and their performance characteristics determined by [facility]. They may not have been cleared or approved by the U.S. Food and Drug Administration. The FDA has determined that such clearance or approval is not necessary. The above immunohistochemical/dualISH markers are ordered and reviewed by the Pathologist. INTERPRETATION: Duodenal ulcer, biopsy: Extensive ulceration and associated fibrinopurulent exudation. Polytypic lymphocytes. SJ:chloe 05/12/2022 Case has been reviewed in consultation with Dr. Clayton who concurs with the above diagnosis. IDC:[email or web address]
[2022-05-05] MEDS: 0.45% Normal Saline 1,000 ML 100 ML IV ×3 (01:07→23:15)
--- NOTE | 2022-05-05 05:55 | RAD_ITS ---
INDICATION: Fever and cough EXAMINATION/TECHNIQUE: X-RAY - XR Chest 1 View COMPARISON: 05/01/2022 FINDINGS: LINES/DEVICES: EKG leads overlie the chest LUNGS: There is a persistent focus of right upper lobe peripheral opacity right midlung zone opacity and groundglass opacities in the left lung. Stable blunting of the right costophrenic angle. MEDIASTINUM AND CARDIOVASCULAR STRUCTURES: Cardiac silhouette not enlarged. Central airways and mediastinal contour are unremarkable. BONES AND SOFT TISSUES: Bony structures show degenerative change RAD/Chest 1 View (Portable) IMPRESSION: No interval change Electronically Signed: Deacon Ross MD at 8:53 EST ,
[2022-05-05] MEDS: Insulin Lispro 100 UNIT/ML INSULN.PEN SC ×2 (06:21→11:09)
[2022-05-05 07:15] LABS: Bedside Glucose 168 mg/dL (74-106)
[2022-05-05 08:34] LABS: Absolute Lymphocyte Count 0.47 X10^3/uL (0.83-4.51); Absolute Neutrophil Count 7.6 X10^3/uL (2.0-7.7); Basophil# 0.02 X10^3/uL; Basophil% 0.2 % (0-1); Eosinophils% 1.1 % (0-5); Hematocrit 36.3 % (40-54); Hemoglobin 12.7 g/dL (13.0-16.5); Lymphocyte # 0.47 X10^3/ul (0.83-4.51); Lymphocyte % 5.2 % (19-41); Mean Corpuscular Hgb 33.1 pg (27.0-32.0); Mean Corpuscular Volume 94.5 fL (80-94); Mean Platelet Vol. 9.1 fl (6.2-12.0); Monocyte# 0.78 X10^3/uL; Monocyte% 8.6 % (0-10); NRBC Flagged by Analyzer 0 % (0-5); Neutrophil # 7.63 X10^3/uL (2.7-7.7); Neutrophil % 83.6 % (47-70); POSITIVE DIFFERENTIAL YES; Platelet Count 344 K/mm3 (150-450); RBC Distribution Width CV 13.2 % (11.6-14.6); RBC Distribution Width SD 45.6 fl (35.1-43.9); Red Blood Count 3.84 M/mm3 (4.6-6.2); White Blood Count 9.1 K/mm3 (4.4-11.0)
--- NOTE | 2022-05-05 08:36 | NURSING ---
Emergency Documentation 05/05/2022 0700
[2022-05-05 08:46] LABS: Differential Indicated SCAN CRITERIA MET
--- NOTE | 2022-05-05 09:45 | CASEMGMT ---
ANA ZIMMERMAN called [facility] regarding referral. Per Aniyah, they are able to accept patient with a planned start of care with therapy for 05/06/22. Hospitalist updated.
[2022-05-05 09:59] LABS: Differential Comment SCANNED
[2022-05-05] MEDS: APIXABAN 5 MG TABLET PO (10:14)
[2022-05-05] MEDS: Metoprolol Tartrate 50 MG Tablet 75 MG PO ×2 (10:14→23:22)
[2022-05-05] MEDS: amLODIPine 5 MG Tablet PO (10:14)
[2022-05-05] MEDS: Finasteride 5 MG Tablet PO (10:14)
[2022-05-05] MEDS: Amitriptyline 25 MG Tablet 50 MG PO ×2 (10:14→23:22)
[2022-05-05] MEDS: Potassium Chloride Oral Tablet 20 MEQ 40 MEQ PO (10:15)
[2022-05-05] MEDS: Menthol/Lanolin/Calamine/Znox 113 GM Tube 1 APPLIC TOPICAL ×2 (10:15→23:23)
[2022-05-05 11:30] LABS: Bedside Glucose 160 mg/dL (74-106)
--- NOTE | 2022-05-05 11:37 | NURSING ---
Patient was placed on 2L NC by nightshift, removed O2 this and patient oxygen saturation was between 90-91%. Dr. Monahan aware. This RN in to administer AM medications. Patient remained 90-91% on RA, medications administered and patient had episode of emesis while giving potassium, oxygen saturation dropped to 82% and would not come above 87%. Placed 2L supplemental O2 on and patient saturations recovered to 92%. Will try to wean patient off O2 again this afternoon.
--- NOTE | 2022-05-05 14:30 | EGD_PTH ---
PATIENT: BRITTNEY LANGSTON LOC: [facility] U#:[id number] AGE/SX: 81/M ROOM: [facility] RE04/29/[address]: Dr. Efrain Monahan DO : 1940 BED: 1 DIS: 05/11/2022 SPEC #: [id number] RECD: 05/05/22 16:55 STATUS: FREDDY REQ #: [id number] ELSA: 05/05/22 14:[address]: Brian Duff DEPT: SURGICAL PATHOLOGY RECD BY: Carter De León ENTERED: 05/06/22 10:11 SP TYPE: EGD BIOPSY OT DR: MD Dr. Viktor Bronw MD Dr. Mark Tereletsky, DO Dr. Prakash Chand, MD Dr. Robert Leininger, MD Tissues: Duodenum, NOS Procedures: Surgery Specimen Level IV HEADER OPERATION: EGD with balloon dilation and biopsy (MAC) PRE-OP DIAGNOSIS: Intractable nausea and vomiting TISSUE SUBMITTED: Biopsy duodenum ulcer MICROSCOPIC DIAGNOSIS Duodenal ulcer, biopsy: Fragments of duodenal mucosa with extensive ulceration and associated fibrinopurulent exudation. Lymphoid aggregates and nonspecific chronic inflammation. See comment. BLU:chloe 05/12/2022 COMMENT Immunohistochemistry ([id number]) shows polytypic lymphoid aggregates. Correlation with clinical, endoscopic findings and appropriate follow up are necessary. Case has been reviewed in consultation with Dr. Clayton who concurs with the above diagnosis. IDC:AM MICROSCOPIC DESCRIPTION Slides are reviewed. GROSS DESCRIPTION Received in fixative is one container labeled with the patient's name and designated duodenal ulcer. The specimen consists of multiple irregular fragments of light [place] soft tissue that in aggregate measure 1 x 0.3 x 0.1 cm. The specimen is totally submitted in one cassette. / AM:chloe 05/06/2022 TC:2 CPT: 45228
--- NOTE | 2022-05-05 14:34 | PCM.CONS.GEN ---
Assessment & Plan Assessment/Plan (1) Generalized weakness: PLAN: No new cxs sent this admit. On meropenem since 05/02, no clear evidence of new infection. UA with some pyuria. Ok to stop meropenem tomorrow to complete short course empiric therapy. Will follow, thank you HPI Consult Data Date of Consult: 05/05/22 HPI Narrative Reason for Consultation: weakness HPI Narrative: BRITTNEY LANGSTON, is a 81 M with h/o afib, DM, htn, presented 04/29 with several days weakness. Had recent admit, treated for aspiration pneumonia. Had n/v after discharged on augmentin with poor po intake. No fever, no dysuria. Came to ED, given fluids. Has trouble swallowing due to prior neck radiation. On 05/02, had increased confusion, started on meropenem but no new cxs sent. Feeling better today, additional history from his at bedside. Full ROS performed and neg except as noted above. [facility] Medical History Above-knee amputation Atrial fibrillation Diabetes Hypertension Oral cancer TIA (transient ischemic attack) Urinary retention Home Medications amitriptyline 25 mg tablet 50 mg PO BID sleep 12/13/13 [History Last Taken 04/28/22] glimepiride 4 mg tablet 4 mg PO BID diabetes 12/13/13 [History Last Taken 04/27/22] metoprolol tartrate 50 mg tablet 50 mg PO BID heart rate 12/13/13 [History Last Taken 04/27/22] polyethylene glycol 3350 17 gram oral powder packet 17 g PO DAILY constipation 12/13/13 [History Last Taken 04/27/22] potassium chloride 10 mEq tablet,extended release(part/cryst) 10 meq PO BID supplement 12/13/13 [History Last Taken 04/27/22] dutasteride 0.5 mg capsule (Avodart) 0.5 mg PO DAILY bladder 08/26/14 [History Last Taken 04/27/22] multivitamin with folic acid 400 mcg tablet (Thera) 1 tab PO DAILY supplement 08/26/14 [History Last Taken 04/27/22] amlodipine 5 mg tablet 5 mg PO DAILY blood pressure 05/31/19 [History Last Taken 04/27/22] cholecalciferol (vitamin D3) 50 mcg (2,000 unit) capsule 2,000 unit PO DAILY supplement 05/31/19 [History Last Taken 04/27/22] hydrocodone-acetaminophen 5-325mg 5mg-325mg 1 tab PO TID pain 05/31/19 [History Last Taken 04/27/22] lorazepam 1 mg tablet 1 mg PO TID anxiety 05/31/19 [History Last Taken 04/27/22] quinapril 40 mg tablet 40 mg PO DAILY blood pressure 05/31/19 [History Last Taken 04/27/22] rosuvastatin 10 mg tablet 5 mg PO QODAY cholesterol 05/31/19 [History Last Taken 04/27/22] Fentanyl 25 mcg transdermal Q72H pain 04/05/20 [History Last Taken 1 Week Ago ~04/22/22] tizanidine 4 mg capsule 4 mg PO Q8H PRN PRN Spasms 04/05/20 [History Last Taken Unknown] apixaban 5 mg tablet (Eliquis) 5 mg PO BID blood thinner 10/14/21 [History Last Taken 04/27/22] metformin 500 mg tablet,extended release 24 hr 500 mg PO BID DM 02/19/22 [History Last Taken 04/27/22] naloxone 4 mg/actuation nasal spray 2 mg intranasal PRN PRN OD 03/27/22 [History Last Taken Unknown] hydrochlorothiazide 25 mg tablet 12.5 mg PO DAILY blood pressure #30 tabs 04/27/22 [Rx Last Taken 04/27/22] amoxicillin 875 mg-potassium clavulanate 125 mg tablet 1 tab PO BID infection 04/29/22 [History Last Taken 04/29/22] potassium chloride 20 mEq tablet,extended release 40 meq PO DAILY supplement 04/29/22 [History Last Taken Unknown] Allergy/AdvReac Type Severity Reaction Status Date / Time trimethoprim Allergy Itching Verified 04/23/22 12:38 amoxicillin trihydrate AdvReac Nausea/Vom/ Verified 04/23/22 12:38 [From Augmentin] Diarrhea atropine sulfate AdvReac Unknown Verified 04/23/22 12:38 [From ] ceftriaxone sodium AdvReac Rash Verified 04/23/22 12:38 [From Rocephin] cephalexin monohydrate AdvReac Unknown Verified 04/23/22 12:38 [From Keflex] ciprofloxacin [From Cipro] AdvReac Vomiting Verified 04/23/22 12:38 ciprofloxacin HCl AdvReac Vomiting Verified 04/23/22 12:38 [From Cipro] gabapentin AdvReac Unknown Verified 04/23/22 12:38 hyoscyamine sulfate AdvReac Unknown Verified 04/23/22 12:38 [From ] oxycodone HCl [From Percocet] AdvReac Other Verified 04/23/22 12:38 phenobarbital [From ] AdvReac Unknown Verified 04/23/22 12:38 Pork/Porcine Containing AdvReac Nausea/Vom/ Verified 04/23/22 12:38 Products Diarrhea potassium clavulanate AdvReac Nausea/Vom/ Verified 04/23/22 12:38 [From Augmentin] Diarrhea pseudoephedrine HCl AdvReac Other Verified 04/23/22 12:38 [From Sudafed] scopolamine hydrobromide AdvReac Unknown Verified 04/23/22 12:38 [From ] sulfadiazine [Sulfadiazine] AdvReac Nausea Verified 04/23/22 12:38 Social History Smoking Status: Never smoker Physical Exam Const alert and no apparent distress General Appearance: cooperative HEENT normocephalic and head/scalp atraumatic Eyes PERRL and EOMs intact bilaterally Neck supple and No nodes Resp clear to auscultation bilaterally Auscultation: diminished lung sounds Cardio regular rate and regular rhythm GI soft to palpation, non-tender and non-distended Extremity General Extremity: Negative for edema Skin no rashes or lesions noted Neuro CN's II-XII intact bilaterally Medical Records Data Medical Nutrition Assessment Dietitian: Malnutrition Criteria Met Start: 04/30/22 07:57 Freq: Status: Active Protocol: Document 05/03/22 17:37 RMA (Rec: 05/03/22 17:38 RMA [id number]) Nutrition Malnutrition Evidence of Malnutrition Exists Yes Malnutrition (severe): Acute Illness/Injury Evidenced By Suboptimal Energy Intake ( Severe),Weight Loss (Severe) Intake Problem Inadequate Oral Intake Etiology related to swallowing difficulty/need for mechanically altered food Signs/Symptoms as evidenced by PO ~50% meals at best and refusal of ONS Status Active Problem Clinical Problem Acute Disease or Injury Related Malnutrition Etiology severe, acute malnutrition related to inadequate energy intake Signs/Symptoms as evidenced by unintentional wt loss of 7.7#/5% x 1 week; estimated PO intake meeting < 50% of estimated energy needs > 5 days Status Active Problem Recommendation Dietitian Recommendations/Changes Diet adjustment to Carbohydrate-Controlled with consistency 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 Will d/c glucerna shake due to pt refusal. Will add ensure pudding BID w/ meals as tolerated. Consider Nilay BID as needed if PO does not improve at meals. Lab / Micro Data Attestation: I reviewed the patient's lab results. Result Diagrams: 05/05/22 07:20 05/03/22 18:00 Labs: Laboratory Results - last 24 hr 05/04/22 16:20: POC Glucose 144 H 05/04/22 22:45: POC Glucose 171 H 05/05/22 06:21: POC Glucose 168 H 05/05/22 07:20: WBC 9.1, RBC 3.84 L, Hgb 12.7 L, Hct 36.3 L, MCV 94.5 H, MCH 33.1 H, MCHC 35.0, RDW Std Deviation 45.6 H, RDW Coeff of [place]ama 13.2, Plt Count 344, MPV 9.1, Immature Gran % (Auto) 1.300 H, Neut % (Auto) 83.6 H, Lymph % (Auto) 5.2 L, [place] % (Auto) 8.6, Eos % (Auto) 1.1, Baso % (Auto) 0.2, Absolute Neuts (auto) 7.6, Absolute Lymphs (auto) 0.47 L, Nucleated RBC % 0, Differential Comment SCANNED 05/05/22 11:07: POC Glucose 160 H Rhythm Strip Rhythm Strip: A-fib Rate: 124 Ectopy: None Radiology Impression Chest X-Ray 05/05/22 05:55 IMPRESSION: No interval change Electronically Signed: Deacon Ross MD at 8:53 EST ,
[2022-05-05] MEDS: Lactated Ringers 1,000 ML 15 ML IV ×2 (16:30→17:42)
--- NOTE | 2022-05-05 16:49 | OP.EGD_ITS ---
Patient Name: Julio Cortes Procedure Date: 05/05/2022 3:34 PM Date of : 1940 Age: 81 Procedure: Upper GI endoscopy Indications: Epigastric abdominal pain, Abdominal bloating, Early satiety, Failure to thrive, Persistent vomiting of unknown cause, Weight loss Providers: Brian Duff DO Medicines: Monitored Anesthesia Care Patient Profile: This is an 81 year old male. Refer to note in patient chart for documentation of history and physical. Patient has symptoms of acute abdominal distention. Complications: No immediate complications. Procedure: Pre-Anesthesia Assessment: - Prior to the procedure, a History and Physical was performed, and patient medications and allergies were reviewed. The patient is competent. The risks and benefits of the procedure and the sedation options and risks were discussed with the patient. All questions were answered and informed consent was obtained. Patient identification and proposed procedure were verified by the physician in the pre-procedure area. Mental Status Examination: alert and oriented. Respiratory Examination: clear to auscultation. CV Examination: normal. Prophylactic Antibiotics: The patient does not require prophylactic antibiotics. Prior Anticoagulants: The patient has taken no previous anticoagulant or antiplatelet agents. ASA Grade Assessment: III - A patient with severe systemic disease. After reviewing the risks and benefits, the patient was deemed in satisfactory condition to undergo the procedure. The anesthesia plan was to use monitored anesthesia care (MAC). Immediately prior to administration of medications, the patient was re-assessed for adequacy to receive sedatives. The heart rate, respiratory rate, oxygen saturations, blood pressure, adequacy of pulmonary ventilation, and response to care were monitored throughout the procedure. The physical status of the patient was re-assessed after the procedure. After obtaining informed consent, the endoscope was passed under direct vision. Throughout the procedure, the patient's blood pressure, pulse, and oxygen saturations were monitored continuously. The Endoscope was introduced through the mouth, and advanced to the second part of duodenum. The upper GI endoscopy was accomplished without difficulty. The patient tolerated the procedure well. Scope In: 4:22:11 PM Scope Out: 4:39:55 PM Total Procedure Duration Time 0 hours 17 minutes 44 seconds Findings: The examined esophagus was normal. A small hiatal hernia was present. One non-bleeding cratered gastric ulcer with no stigmata of bleeding was found in the prepyloric region of the stomach. The lesion was 7 mm in largest dimension. Biopsies were taken with a cold forceps for histology. Verification of patient identification for the specimen was done. Estimated blood loss was minimal. A benign-appearing, intrinsic severe stenosis was found at the pylorus. This was traversed. A TTS dilator was passed through the scope. Dilation with a 20 mm pyloric balloon dilator was performed. The dilation site was examined and showed moderate improvement in luminal narrowing. Estimated blood loss was minimal. Five oozing cratered duodenal ulcers with a visible vessel were found in the duodenal bulb. The largest lesion was 6 mm in largest dimension. Area was successfully injected with 5 mL of a 1:10,000 solution of epinephrine for drug delivery. Coagulation for hemostasis using heater probe was successful. Estimated blood loss was minimal. Many non-bleeding cratered duodenal ulcers with no stigmata of bleeding were found in the duodenal bulb, in the first portion of the duodenum, in the second portion of the duodenum, in the third portion of the duodenum and in the fourth portion of the duodenum. The largest lesion was 6 mm in largest dimension. Impression: - Normal esophagus. - Small hiatal hernia. - Non-bleeding gastric ulcer with no stigmata of bleeding. Biopsied. - Gastric stenosis was found at the pylorus. Dilated. - Multiple oozing duodenal ulcers with a visible vessel. Injected. Treated with a heater probe. - Multiple non-bleeding duodenal ulcers with no stigmata of bleeding. Recommendation: - [facility]. - Use Protonix (pantoprazole) 40 mg PO BID for 12 weeks. - Full liquid diet today. - Use sucralfate tablets 1 gram PO QID for 4 months. - Use metoclopramide 10 mg PO QID; 30 min AC and HS for 10 days. - Continue present medications. Procedure Code(s): --- Professional --- 33574, 59, Esophagogastroduodenoscopy, flexible, transoral; with control of bleeding, any method 30629, Esophagogastroduodenoscopy, flexible, transoral; with dilation of gastric/duodenal stricture(s) (eg, balloon, bougie) 22974, 59, Esophagogastroduodenoscopy, flexible, transoral; with directed submucosal injection(s), any substance 57010, 59,51, Esophagogastroduodenoscopy, flexible, transoral; with biopsy, single or multiple CPT copyright 2017 [employer]. All rights reserved. The codes documented in this report are preliminary and upon sales analytics manager review may be revised to meet current compliance requirements. Brian Duff DO 05/05/2022 4:48:53 PM This report has been signed electronically. Number of Addenda: 0 Note Initiated On: 05/05/2022 3:34 PM
--- NOTE | 2022-05-05 16:50 | OP.CCLET_ITS ---
05/05/2022 Alejandra Howell [address] [place] [address] Re : Upper GI endoscopy procedure for Julio Cortes Dear Dr. Howell This procedure was performed on Thursday, May 05, 2022. My impressions and recommendations are as follows: Impressions : - Normal esophagus. - Small hiatal hernia. - Non-bleeding gastric ulcer with no stigmata of bleeding. Biopsied. - Gastric stenosis was found at the pylorus. Dilated. - Multiple oozing duodenal ulcers with a visible vessel. Injected. Treated with a heater probe. - Multiple non-bleeding duodenal ulcers with no stigmata of bleeding. Recommendations : - [facility]. - Use Protonix (pantoprazole) 40 mg PO BID for 12 weeks. - Full liquid diet today. - Use sucralfate tablets 1 gram PO QID for 4 months. - Use metoclopramide 10 mg PO QID; 30 min AC and HS for 10 days. - Continue present medications. My findings are described in the full procedure note, which is enclosed. If I can be of further assistance, please feel free to contact me at . Sincerely, Brian Duff, 05/05/2022 4:48:53 PM This report has been signed electronically.
[2022-05-05] MEDS: 0.9% Saline Lock 10 ML Syringe IV ×2 (18:31→18:35)
[2022-05-05] MEDS: Metoclopramide 10 MG/2 ML Vial 5 MG IV (18:35)
[2022-05-05] MEDS: fentaNYL 25 MCG Patch TD (18:36)
--- NOTE | 2022-05-05 18:50 | NURSING ---
Old Fentanyl patch removed and placed in RX destroyer with Sachin Breen RN witness. New patch placed to right chest.
--- NOTE | 2022-05-05 19:00 | PCA ---
EMERGENCY DOCUMENTATION
[2022-05-05 19:06] LABS: Bedside Glucose 153 mg/dL (74-106)
--- NOTE | 2022-05-05 19:43 | PCM.PN.HOSP ---
Subjective Subjective Patient was seen and examined today, his oral intake is been minimal, patient's states that the patient has dry heaves and is unable to eat because of severe nausea. I elected to have gastroenterology see the patient and perform an EGD, he was noted to have severe stomach ulcerations along with severe duodenitis with duodenal ulcers and pyloric stenosis, the pyloric stenosis was dilated by GI.. He is currently being treated with IV Protonix and sucralfate. I had a brief discussion with the patient today before his endoscopy about a care plan, patient does not want to enroll with hospice and he wants to be treated medically, he does want to go home at the time of discharge from the hospital rather than to a nursing facility however. Objective Data Objective Data Vital Signs: Vital Signs Temp Pulse Resp BP Pulse Ox O2 Del Method O2 Flow Rate 97.7 F L 87 20 H 113/69 92 Nasal Cannula 2 05/05/22 18:30 05/05/22 18:30 05/05/22 18:30 05/05/22 18:30 05/05/22 18:30 05/05/22 18:30 05/05/22 18:30 FiO2 93 05/01/22 08:03 Oxygen Flow Rate (L/min) 2 Oxygen Delivery Method Nasal Cannula Weight: 75.4 kg Body Mass Index (BMI) 30.6 Intake & Output: Intake and Output for Last 24 Hours 05/03/22 05/04/22 05/05/22 23:59 23:59 23:59 Intake Total 4668.75 / 4968.75 2926.67 / 3226.67 4332.32 / 4332.32 Output Total 2100 / 2600 2125 / 2475 2450 / 2450 Balance 2568.75 / 2368.75 801.67 / 751.67 1882.32 / 1882.32 Medical Nutrition Assessment Dietitian: Malnutrition Criteria Met Start: 04/30/22 07:57 Freq: Status: Active Protocol: Document 05/03/22 17:37 RMA (Rec: 05/03/22 17:38 RMA [id number]) Nutrition Malnutrition Evidence of Malnutrition Exists Yes Malnutrition (severe): Acute Illness/Injury Evidenced By Suboptimal Energy Intake ( Severe),Weight Loss (Severe) Intake Problem Inadequate Oral Intake Etiology related to swallowing difficulty/need for mechanically altered food Signs/Symptoms as evidenced by PO ~50% meals at best and refusal of ONS Status Active Problem Clinical Problem Acute Disease or Injury Related Malnutrition Etiology severe, acute malnutrition related to inadequate energy intake Signs/Symptoms as evidenced by unintentional wt loss of 7.7#/5% x 1 week; estimated PO intake meeting < 50% of estimated energy needs > 5 days Status Active Problem Recommendation Dietitian Recommendations/Changes Diet adjustment to Carbohydrate-Controlled with consistency as per MUSIC MINISTRIES DIRECTOR. Will d/c glucerna shake due to pt refusal. Will add ensure pudding BID w/ meals as tolerated. Consider Nilay BID as needed if PO does not improve at meals. Lab / Micro Data Result Diagrams: 05/05/22 07:20 05/03/22 18:00 Labs: Laboratory Results - last 24 hr 05/04/22 22:45: POC Glucose 171 H 05/05/22 06:21: POC Glucose 168 H 05/05/22 07:20: WBC 9.1, RBC 3.84 L, Hgb 12.7 L, Hct 36.3 L, MCV 94.5 H, MCH 33.1 H, MCHC 35.0, RDW Std Deviation 45.6 H, RDW Coeff of Usama 13.2, Plt Count 344, MPV 9.1, Immature Gran % (Auto) 1.300 H, Neut % (Auto) 83.6 H, Lymph % (Auto) 5.2 L, [place] % (Auto) 8.6, Eos % (Auto) 1.1, Baso % (Auto) 0.2, Absolute Neuts (auto) 7.6, Absolute Lymphs (auto) 0.47 L, Nucleated RBC % 0, Differential Comment SCANNED 05/05/22 11:07: POC Glucose 160 H 05/05/22 18:29: POC Glucose 153 H Radiography Diagnostic Testing: Radiology Impression Chest X-Ray 05/05/22 05:55 IMPRESSION: No interval change Electronically Signed: Deacon Ross MD at 8:53 EST , Rhythm Strip Rhythm Strip: A-fib Rate: 124 Ectopy: None Physical Exam Narrative alert, oriented x3 and no apparent distress Constitutional Narrative: Patient appears older than stated age, he appears frail General Appearance: cooperative, well kempt and well developed Orientation / Consciousness: awake, oriented to person and oriented to place HEENT normocephalic, head/scalp atraumatic and moist oral mucous membranes Eyes PERRL, EOMs intact bilaterally and conjunctivae normal Neck supple, no JVD and thyroid normal General: trachea midline Resp normal respiratory effort, no retractions and no use of accessory muscles Resp Narrative: Decreased breath sounds are noted bilaterally Auscultation: Negative for rales, rhonchi or wheezes Cardio S1 normal heart sound, S2 normal heart sound, no murmurs, no rub and no gallops Cardio Narrative: Heart rate and rhythm is irregular GI normal to inspection, nondistended, normoactive bowel sounds, soft to palpation, non-tender and non-distended Extremity Extremity Narrative: Bilateral 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 Paroxysmal A. fib-patient remains in A. fib at this time, his rate is controlled on medication #2 acute hypoxia-patient remains on nasal cannula oxygen at this time and will be weaned if possible #3 nausea and vomiting-secondary to gastritis, gastric ulceration, pyloric stenosis, and duodenal ulcers-continue present medication #4 type 2 diabetes-patient will have Accu-Cheks performed and sliding scale insulin will be used #5 hypokalemia-corrected at this time #6 essential hypertension-patient will remain on his present medications #7 chronic debility-patient is not a candidate to go to an extended care facility for rehab services, according to the he has not walked in 25 years. It is planned that the patient will go home at discharge from the hospital. #8 duodenal bulb ulcerations, gastric ulcers, gastric stenosis at the pylorus-patient will remain on IV Protonix and Reglan, patient underwent dilation of the pylorus on 05/05/2022. #9 acute malnutrition related to inadequate energy intake as evidenced by unintentional weight loss of 7.7 pounds x 1 week, estimated p.o. intake meeting less than 50% of estimated energy needs over 5 days-patient is on Ensure pudding twice daily with meals as tolerated, nutritional services is seeing patient Charges/Coding Visit Charges Inpatient E&M: 15028 Subs Hosp L2
[2022-05-05 20:17] LABS: CPK Total, Creatine Kinase 46 U/L (39-308)
[2022-05-05 23:00] LABS: Bedside Glucose 148 mg/dL (74-106)
[2022-05-06] VITALS (14 sets, daily range): BP systolic 108–140; BP diastolic 56–72; PULSE 79–103; RESP 12–18; TEMP 36.4–36.6; O2SAT 88–95
[2022-05-06] MEDS: 0.9% Saline Lock 10 ML Syringe IV ×2 (00:53→07:00)
[2022-05-06] MEDS: Metoclopramide 10 MG/2 ML Vial 5 MG IV ×3 (00:53→17:42)
[2022-05-06] MEDS: oxyCODONE 5 MG Tablet PO ×2 (04:21→22:06)
[2022-05-06] MEDS: Insulin Lispro 100 UNIT/ML INSULN.PEN SC ×3 (07:01→22:09)
[2022-05-06 07:25] LABS: Bedside Glucose 162 mg/dL (74-106)
[2022-05-06] MEDS: 0.45% Normal Saline 1,000 ML 100 ML IV ×2 (09:30→17:41)
--- NOTE | 2022-05-06 09:43 | PCM.PROGNOTE ---
Subjective Subjective Patient underwent an upper endoscopy yesterday for nausea and vomiting. He was discovered to have multiple gastric ulcers with a gastric outlet obstruction due to pyloric stenosis associated with a pyloric channel ulcer. He has been tolerating a full liquid diet. Objective Data Objective Data Vital Signs: Vital Signs Temp Pulse Resp BP Pulse Ox O2 Del Method O2 Flow Rate 98 F 88 12 113/72 95 Nasal Cannula 2 05/06/22 09:25 05/06/22 09:25 05/06/22 09:25 05/06/22 09:25 05/06/22 09:25 05/06/22 09:25 05/06/22 09:25 FiO2 93 05/01/22 08:03 Oxygen Flow Rate (L/min) 2 Oxygen Delivery Method Nasal Cannula Weight: 167 lb 8.821 oz Body Mass Index (BMI) 30.6 Intake & Output: Intake and Output for Last 24 Hours 05/04/22 05/05/22 05/06/22 23:59 23:59 23:59 Intake Total 2926.67 / 3226.67 4906.50 / 4906.50 1100 / 1100 Output Total 2125 / 2475 2450 / 2750 900 / 900 Balance 801.67 / 751.67 2456.50 / 2156.50 200 / 200 Medical Nutrition Assessment Dietitian: Malnutrition Criteria Met Start: 04/30/22 07:57 Freq: Status: Active Protocol: Document 05/03/22 17:37 RMA (Rec: 05/03/22 17:38 RMA [id number]) Nutrition Malnutrition Evidence of Malnutrition Exists Yes Malnutrition (severe): Acute Illness/Injury Evidenced By Suboptimal Energy Intake ( Severe),Weight Loss (Severe) Intake Problem Inadequate Oral Intake Etiology related to swallowing difficulty/need for mechanically altered food Signs/Symptoms as evidenced by PO ~50% meals at best and refusal of ONS Status Active Problem Clinical Problem Acute Disease or Injury Related Malnutrition Etiology severe, acute malnutrition related to inadequate energy intake Signs/Symptoms as evidenced by unintentional wt loss of 7.7#/5% x 1 week; estimated PO intake meeting < 50% of estimated energy needs > 5 days Status Active Problem Recommendation Dietitian Recommendations/Changes Diet adjustment to Carbohydrate-Controlled with consistency as per ORGANIZATIONAL DEVELOPMENT DIRECTOR. Will d/c glucerna shake due to pt refusal. Will add ensure pudding BID w/ meals as tolerated. Consider Nilay BID as needed if PO does not improve at meals. Lab / Micro Data Result Diagrams: 05/05/22 07:20 05/03/22 18:00 Labs: Laboratory Results - last 24 hr 05/05/22 07:20: Differential Comment SCANNED 05/05/22 11:07: POC Glucose 160 H 05/05/22 18:29: POC Glucose 153 H 05/05/22 19:12: Total Creatine Kinase 46 05/05/22 22:13: POC Glucose 148 H 05/06/22 06:34: POC Glucose 162 H Rhythm Strip Rhythm Strip: A-fib Rate: 124 Ectopy: None Physical Exam Const alert and no apparent distress General Appearance: cooperative HEENT normocephalic and head/scalp atraumatic Eyes PERRL and EOMs intact bilaterally Neck supple and No nodes Resp clear to auscultation bilaterally Auscultation: diminished lung sounds Cardio regular rate and regular rhythm GI soft to palpation, non-tender and non-distended Extremity General Extremity: Negative for edema Skin no rashes or lesions noted Neuro CN's II-XII intact bilaterally Assessment & Plan Assessment/Plan (1) Nausea & vomiting: PLAN: Nausea and vomiting secondary to 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 Ulcers were biopsied. He was started on prokinetic due to a very dilated intake the stomach. Hopefully with the use of a prokinetic medication he will decompress his stomach and make it work more effectively. (2) Duodenal bulb ulcer: PLAN: He will need to continue on PPI therapy with 40 mg of IV Protonix twice a day and Carafate 3-4 times a day. He may need a stool softener because Carafate can make you constipated. Await gastrin level and antiintrinsic factor antibody and antiparietal cell antibody for autoimmune gastritis, H. pylori. Charges/Coding Visit Charges Inpatient E&M: 09197 Subs Hosp L3
[2022-05-06] MEDS: Menthol/Lanolin/Calamine/Znox 113 GM Tube 1 APPLIC TOPICAL ×2 (11:00→22:06)
[2022-05-06] MEDS: Amitriptyline 25 MG Tablet 50 MG PO ×2 (11:03→22:09)
[2022-05-06] MEDS: Metoprolol Tartrate 50 MG Tablet 75 MG PO ×2 (11:03→22:08)
[2022-05-06] MEDS: amLODIPine 5 MG Tablet PO (11:04)
[2022-05-06] MEDS: Finasteride 5 MG Tablet PO (11:04)
[2022-05-06 13:16] LABS: Bedside Glucose 129 mg/dL (74-106)
--- NOTE | 2022-05-06 13:35 | PCM.PN.ID ---
Physical Exam Narrative Feeling ok, no fever, some abd soreness Const alert and no apparent distress Resp normal air movement and clear to auscultation bilaterally Cardio regular rate and regular rhythm GI soft to palpation, non-tender and non-distended Skin no rashes or lesions noted ID ID: Route of nutrition/ use of supplements: [] Nutritional Intake: [] IV Site: [] Santos Catheter: [] Assessment & Plan Assessment/Plan (1) Generalized weakness: PLAN: No new cxs sent this admit. On meropenem since 05/02, no clear evidence of new infection. UA with some pyuria. Will stop hillary today to complete short course empiric therapy. Will follow as needed, please call with any new issues
[2022-05-06] MEDS: tiZANidine HCl 2 MG Tablet 4 MG PO (15:14)
[2022-05-06 16:10] LABS: Bedside Glucose 194 mg/dL (74-106)
--- NOTE | 2022-05-06 19:09 | PN.HOSP_ITS ---
Subjective Subjective Patient was seen and examined today, his oxygen requirement was bumped up to 4 L via nasal cannula. I talked with the who was in the room at the time of my examination. Patient appears fatigued and weak today. He does not appear however to be in any respiratory distress. Talked briefly with GI about his ca re, his diet can be advanced tomorrow. He recommends keeping the patient on Reglan and Protonix 40 mg twice a day Objective Data Objective Data Vital Signs: Vital Signs Temp Pulse Resp BP Pulse Ox O2 Del Method O2 Flow Rate 97.6 F L 79 15 117/63 92 Nasal Cannula 4 05/06/22 17:30 05/06/22 17:30 05/06/22 17:30 05/06/22 17:30 05/06/22 17:30 05/06/22 17:30 05/06/22 17:30 FiO2 93 05/01/22 08:03 Oxygen Flow Rate (L/min) 4 Oxygen Delivery Method Nasal Cannula Weight: 76 kg Body Mass Index (BMI) 30.6 Intake & Output: Intake and Output for Last 24 Hours 05/04/22 05/05/22 05/06/22 23:59 23:59 23:59 Intake Total 2926.67 / 3226.67 4906.50 / 4906.50 2368.00 / 2368.00 Output Total 2125 / 2475 2450 / 2750 1375 / 1375 Balance 801.67 / 751.67 2456.50 / 2156.50 993.00 / 993.00 Medical Nutrition Assessment Dietitian: Malnutrition Criteria Met Start: 04/30/22 07:57 Freq: Status: Active Protocol: Document 05/03/22 17:37 RMA (Rec: 05/03/22 17:38 RMA [id number]) Nutrition Malnutrition Evidence of Malnutrition Exists Yes Malnutrition (severe): Acute Illness/Injury Evidenced By Suboptimal Energy Intake ( Severe),Weight Loss (Severe) Intake Problem Inadequate Oral Intake Etiology related to swallowing difficulty/need for mechanically altered food Signs/Symptoms as evidenced by PO ~50% meals at best and refusal of ONS Status Active Problem Clinical Problem Acute Disease or Injury Related Malnutrition Etiology severe, acute malnutrition related to inadequate energy intake Signs/Symptoms as evidenced by unintentional wt loss of 7.7#/5% x 1 week; estimated PO intake meeting < 50% of estimated energy needs > 5 days Status Active Problem Recommendation Dietitian Recommendations/Changes Diet adjustment to Carbohydrate-Controlled with consistency as per COPING MACHINE OPERATOR. Will d/c glucerna shake due to pt refusal. Will add ensure pudding BID w/ meals as tolerated. Consider Nilay BID as needed if PO does not improve at meals. Lab / Micro Data Result Diagrams: 05/05/22 07:20 05/03/22 18:00 Labs: Laboratory Results - last 24 hr 05/05/22 19:12: Total Creatine Kinase 46 05/05/22 22:13: POC Glucose 148 H 05/06/22 06:34: POC Glucose 162 H 05/06/22 10:59: POC Glucose 129 H 05/06/22 15:53: POC Glucose 194 H Rhythm Strip Rhythm Strip: A-fib Rate: 124 Ectopy: None Physical Exam Narrative alert, oriented x3 and no apparent distress Constitutional Narrative: Patient appears older than stated age, he appears frail General Appearance: cooperative, well kempt and well developed Orientation / Consciousness: awake, oriented to person and oriented to place HEENT normocephalic, head/scalp atraumatic and moist oral mucous membranes Eyes PERRL, EOMs intact bilaterally and conjunctivae normal Neck supple, no JVD and thyroid normal General: trachea midline Resp normal respiratory effort, no retractions and no use of accessory muscles Resp Narrative: Decreased breath sounds are noted bilaterally Auscultation: Negative for rales, rhonchi or wheezes Cardio S1 normal heart sound, S2 normal heart sound, no murmurs, no rub and no gallops Cardio Narrative: Heart rate and rhythm is irregular GI normal to inspection, nondistended, normoactive bowel sounds, soft to palpation, non-tender and non-distended Extremity Extremity Narrative: Bilateral [id number] amputations which are remote are noted Skin no rashes or lesions noted General Skin Exam: no breakdown Neuro oriented x3, CN's II-XII intact bilaterally, no focal motor deficits and no sensory deficits noted Sensorium / Orientation: awake and alert Speech: speech normal Psych Psych Narrative: Affect is flat Assessment & Plan Assessment/Plan (1) Atrial fibrillation with rapid ventricular response: (2) Nausea & vomiting: PLAN: Plan 1. Paroxysmal A. fib-patient remains in A. fib at this time, his rate is con trolled on medication #2 acute hypoxia-patient remains on nasal cannula oxygen at this time and will be weaned if possible #3 nausea and vomiting-etiology unclear, patient will be given nausea medic ations and monitored #4 type 2 diabetes-patient will have Accu-Cheks performed and sliding scale in sulin will be used #5 hypokalemia-corrected at this time #6 essential hypertension-patient will remain on his present medications #7 chronic debility-patient is not a candidate to go to an extended care facility for rehab services, according to the he has not walked in 25 years. It is planned that the patient will go home at discharge from the hospital. 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 #9 acute malnutrition related to inadequate energy intake as evidenced by unintentional weight loss of 7.7 pounds x 1 week, estimated p.o. intake meeting less than 50% of estimated energy needs over 5 days-patient is on Ensure pudding twice daily with meals as tolerated, nutritional services is seeing patient Charges/Coding Visit Charges Inpatient E&M: 65211 Subs Hosp L2
--- NOTE | 2022-05-06 20:20 | RAD_ITS ---
STUDY: X-RAY CHEST REASON FOR EXAM: Male, 81 years old. Hypoxia. TECHNIQUE: Single AP portable view of the chest. COMPARISON: May 05, 2022. FINDINGS: Lungs are unchanged. There is continued elevation right hemidiaphragm with patchy interstitial changes bilaterally, right greater than left. There is no demonstrated pleural abnormality. Normal size heart. Normal mediastinum and michael. Normal visualized pulmonary arteries. Normal visualized aortic arch and descending thoracic aorta. Osseous changes. There is no demonstrated abnormality of the visualized soft tissue structures of the upper abdomen. RAD/Chest 1 View (Portable) IMPRESSION: Stable findings when compared with study of one day earlier. Electronically Signed: Rajat Saul DO at 23:33 EST ,
[2022-05-06] MEDS: Rosuvastatin Calcium 5 MG Tablet PO (22:08)
[2022-05-07] VITALS (16 sets, daily range): BP systolic 112–155; BP diastolic 58–73; PULSE 66–93; RESP 16–18; TEMP 36.3–36.8; O2SAT 92–97
[2022-05-07 01:01] LABS: Bedside Glucose 169 mg/dL (74-106)
[2022-05-07] MEDS: 0.9% Saline Lock 10 ML Syringe IV ×3 (01:10→17:58)
[2022-05-07] MEDS: Metoclopramide 10 MG/2 ML Vial 5 MG IV ×4 (01:11→17:58)
[2022-05-07] MEDS: 0.45% Normal Saline 1,000 ML 100 ML IV ×2 (03:41→13:19)
[2022-05-07] MEDS: oxyCODONE 5 MG Tablet PO ×2 (04:30→14:16)
[2022-05-07] MEDS: Albuterol 2.5 MG/3 ML VIAL.NEB. INHALATION (07:09)
[2022-05-07] MEDS: Insulin Lispro 100 UNIT/ML INSULN.PEN SC ×3 (07:12→21:20)
[2022-05-07 07:41] LABS: Bedside Glucose 156 mg/dL (74-106)
[2022-05-07] MEDS: amLODIPine 5 MG Tablet PO (11:08)
[2022-05-07] MEDS: Amitriptyline 25 MG Tablet 50 MG PO ×2 (11:08→21:06)
[2022-05-07] MEDS: Finasteride 5 MG Tablet PO (11:08)
[2022-05-07] MEDS: Metoprolol Tartrate 50 MG Tablet 75 MG PO ×2 (11:09→21:07)
[2022-05-07] MEDS: Menthol/Lanolin/Calamine/Znox 113 GM Tube 1 APPLIC TOPICAL ×2 (11:19→21:06)
[2022-05-07 11:41] LABS: Bedside Glucose 137 mg/dL (74-106)
[2022-05-07 13:07] LABS: Anti-Centromere B Ab <0.2 AI (0.0-0.9); Anti-Chromatin <0.2 AI (0.0-0.9); Anti-Jo <0.2 AI (0.0-0.9); Anti-Scleroderma-70 AB <0.2 AI (0.0-0.9); RNP Ab <0.2 AI (0.0-0.9); SJOGREN'S Anti-SS-A test 0.2 AI (0.0-0.9); SJOGREN'S Anti-SS-B test < 0.2 AI (0.0-0.9); Smith Ab <0.2 AI (0.0-0.9)
--- NOTE | 2022-05-07 13:34 | CASEMGMT ---
Social Work SW met with pt and to discuss discharge plan. Pt states that pt has a hospital bed at home and has been bed bound the last two years. Pt is able to use a bedpan and has a childress and can manage both. Pt does have a wheelchair but has not used it for quite some time due to pain. Pt also states that there are 2 additional people who live in the home and assist as needed. Pt has 24 hour care. Pt and feel pt can return home to previous living situation and would like to continue with [facility]. RNCM and physician rei. IAIN Rodriguez
--- NOTE | 2022-05-07 14:04 | CASEMGMT ---
Per hospitalist, discharge planned for tomorrow to home with [facility]. ANA ZIMMERMAN called and updated [facility] regarding planned discharge date for tomorrow. Per [facility], start of care scheduled for 05/11/21. ANA ZIMMERMAN updated Discharge Plan to reflect correct start of care date.
[2022-05-07] MEDS: tiZANidine HCl 2 MG Tablet 4 MG PO ×2 (14:16→23:47)
[2022-05-07 17:06] LABS: Anti-dsDNA Ab <1 IU/mL (0-9)
[2022-05-07 17:10] LABS: Bedside Glucose 202 mg/dL (74-106)
[2022-05-07 18:07] LABS: Cytoplasmic Ab (C-ANCA) <1:20 titer (Neg:<1:20)
--- NOTE | 2022-05-07 19:17 | PN.HOSP_ITS ---
Subjective Subjective Patient was seen and examined today, he was able to eat a sandwich and some soup today. Patient will need to be set up for home O2 at the time of discharge. Patient's still wants to take the patient home at the time of discharge from the hospital Objective Data Objective Data Vital Signs: Vital Signs Temp Pulse Resp BP Pulse Ox O2 Del Method O2 Flow Rate 97.3 F L 75 16 112/58 L 94 Nasal Cannula 2 05/07/22 16:40 05/07/22 16:40 05/07/22 16:40 05/07/22 16:40 05/07/22 16:40 05/07/22 16:40 05/07/22 16:40 FiO2 93 05/01/22 08:03 Oxygen Flow Rate (L/min) 2 Oxygen Delivery Method Nasal Cannula Weight: 75.2 kg Body Mass Index (BMI) 30.6 Intake & Output: Intake and Output for Last 24 Hours 05/05/22 05/06/22 05/07/22 23:59 23:59 23:59 Intake Total 4906.50 / 4906.50 2368.00 / 2368.00 2343.33 / 2343.33 Output Total 2450 / 2750 1375 / 2075 3100 / 3100 Balance 2456.50 / 2156.50 993.00 / 293.00 -756.67 / -756.67 Medical Nutrition Assessment Dietitian: Malnutrition Criteria Met Start: 04/30/22 07:57 Freq: Status: Active Protocol: Document 05/03/22 17:37 RMA (Rec: 05/03/22 17:38 RMA [id number]) Nutrition Malnutrition Evidence of Malnutrition Exists Yes Malnutrition (severe): Acute Illness/Injury Evidenced By Suboptimal Energy Intake ( Severe),Weight Loss (Severe) Intake Problem Inadequate Oral Intake Etiology related to swallowing difficulty/need for mechanically altered food Signs/Symptoms as evidenced by PO ~50% meals at best and refusal of ONS Status Active Problem Clinical Problem Acute Disease or Injury Related Malnutrition Etiology severe, acute malnutrition related to inadequate energy intake Signs/Symptoms as evidenced by unintentional wt loss of 7.7#/5% x 1 week; estimated PO intake meeting < 50% of estimated energy needs > 5 days Status Active Problem Recommendation Dietitian Recommendations/Changes Diet adjustment to Carbohydrate-Controlled with consistency as per INFRASTRUCTURE TECHNICIAN. Will d/c glucerna shake due to pt refusal. Will add ensure pudding BID w/ meals as tolerated. Consider Nilay BID as needed if PO does not improve at meals. Lab / Micro Data Result Diagrams: 05/05/22 07:20 05/03/22 18:00 Labs: Laboratory Results - last 24 hr 05/05/22 19:12: DIANA-1 Antibody <0.2, SS-A/Ro IgG Antibody 0.2, SS-B/La IgG Antibody < 0.2, Sm (Patterson) Antibody <0.2, WORKER'S COMPENSATION CLAIMS EXAMINER Antibody <0.2, Scl-70 Scleroderma Ab <0.2, Double Strand DNA Ab <1, Centromere B Antibody <0.2 05/05/22 19:12: c-ANCA Antibody <1:20, Atypical p-ANCA <1:20, p-ANCA Antibody 1:80 H 05/06/22 22:04: POC Glucose 169 H 05/07/22 07:11: POC Glucose 156 H 05/07/22 11:07: POC Glucose 137 H 05/07/22 16:41: POC Glucose 202 H Radiography Diagnostic Testing: Radiology Impression Chest X-Ray 05/06/22 20:20 IMPRESSION: Stable findings when compared with study of one day earlier. Electronically Signed: Rajat Saul, DO at 23:33 EST Reading Location ID and State: [facility] / [place] Tel [phone], Service support , Rhythm Strip Rhythm Strip: A-fib Rate: 124 Ectopy: None Physical Exam Narrative alert, oriented x3 and no apparent distress Constitutional Narrative: Patient appears older than stated age, he appears frail General Appearance: cooperative, well kempt and well developed Orientation / Consciousness: awake, oriented to person and oriented to place HEENT normocephalic, head/scalp atraumatic and moist oral mucous membranes Eyes PERRL, EOMs intact bilaterally and conjunctivae normal Neck supple, no JVD and thyroid normal General: trachea midline Resp normal respiratory effort, no retractions and no use of accessory muscles Resp Narrative: Decreased breath sounds are noted bilaterally Auscultation: Negative for rales, rhonchi or wheezes Cardio S1 normal heart sound, S2 normal heart sound, no murmurs, no rub and no gallops Cardio Narrative: Heart rate and rhythm is irregular GI normal to inspection, nondistended, normoactive bowel sounds, soft to palpation, non-tender and non-distended Extremity Extremity Narrative: 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 Paroxysmal A. fib-patient remains in A. fib at this time, his rate is controlled on medication #2 acute hypoxia-patient remains on nasal cannula oxygen at this time and will be weaned if possible #3 nausea and vomiting-secondary to gastritis, gastric ulceration, pyloric stenosis, and duodenal ulcers-continue present medication #4 type 2 diabetes-patient will have Accu-Cheks performed and sliding scale insulin will be used #5 hypokalemia-corrected at this time #6 essential hypertension-patient will remain on his present medications #7 chronic debility-patient is not a candidate to go to an extended care facility for rehab services, according to the he has not walked in 25 years. It is planned that the patient will go home at discharge from the hospital. 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 I will transition the patient over to oral Reglan and stop his IV Reglan. #9 acute malnutrition related to inadequate energy intake as evidenced by unintentional weight loss of 7.7 pounds x 1 week, estimated p.o. intake meeting less than 50% of estimated energy needs over 5 days-patient is on Ensure pudding twice daily with meals as tolerated, nutritional services is seeing patient Charges/Coding Visit Charges Inpatient E&M: 43139 Subs Hosp L2
[2022-05-07] MEDS: LORazepam 1 MG Tablet 0.5 MG PO (21:11)
[2022-05-07 22:10] LABS: Bedside Glucose 198 mg/dL (74-106)
[2022-05-07] MEDS: 0.45% Normal Saline 1,000 ML 75 ML IV (22:58)
[2022-05-08] VITALS (22 sets, daily range): BP systolic 123–150; BP diastolic 63–72; PULSE 83–114; RESP 16–24; TEMP 36.4–37.4; O2SAT 84–98
[2022-05-08] MEDS: Insulin Lispro 100 UNIT/ML INSULN.PEN SC ×4 (06:41→23:14)
[2022-05-08] MEDS: Metoclopramide 5 MG TABLET PO ×2 (06:45→11:17)
[2022-05-08] MEDS: Albuterol 2.5 MG/3 ML VIAL.NEB. INHALATION ×3 (07:18→20:17)
[2022-05-08 07:41] LABS: Bedside Glucose 162 mg/dL (74-106)
[2022-05-08] MEDS: Finasteride 5 MG Tablet PO (09:37)
[2022-05-08] MEDS: Metoprolol Tartrate 50 MG Tablet 75 MG PO ×2 (09:37→23:15)
[2022-05-08] MEDS: amLODIPine 5 MG Tablet PO (09:37)
[2022-05-08] MEDS: Amitriptyline 25 MG Tablet 50 MG PO ×2 (09:37→23:15)
[2022-05-08] MEDS: LORazepam 1 MG Tablet 0.5 MG PO (09:43)
[2022-05-08] MEDS: oxyCODONE 5 MG Tablet PO ×2 (09:43→23:16)
--- NOTE | 2022-05-08 10:34 | DCINST_ITS ---
Discharge Instructions Diet Discharge Diet: No restrictions Activity Discharge Activity: Return to Normal Activity Weight Bearing Status: No weight bearing Follow Up Care Test Results: Test results from this visit will be discussed in further detail at your follow- up appointment, if applicable. Discharge Plan Admission Admit Date/Time: 04/29/22 16:08 Primary Reason for Your Visit: Atrial fibrillation, nausea and vomiting Attending Provider: Efrain Monahan Primary Care Provider: Alejandra Howlel Consulting Providers: Federico Maldonado ; Viktor Nation ; Glen Ernandez Instructions Additional Instructions / Restrictions: Use oxygen at 4 L/min at all times Resume your Eliquis in 1 week Discharge Orders/Prescriptions Prescriptions: New lorazepam 1 mg Tablet 0.5 mg PO TID PRN (Reason: anxiety) Qty: 0 0RF sucralfate 1 gram Tablet 1 g PO TIDAC Qty: 90 0RF metoclopramide HCl 5 mg Tablet 5 mg PO TIDAC Qty: 60 0RF Rx Instructions: Take until finished metoprolol tartrate 50 mg Tablet 75 mg PO BID Qty: 90 0RF pantoprazole [Protonix] 40 mg tablet,delayed release (DR/EC) 40 mg PO BID Qty: 60 1RF Continued amitriptyline 25 MG tablet 50 mg PO BID Label Comments: sleep glimepiride 4 MG tablet 4 mg PO BID Label Comments: diabetes polyethylene glycol 3350 17 GM powder in packet 17 g PO DAILY Label Comments: constipation dutasteride [Avodart] 0.5 MG capsule 0.5 mg PO DAILY Label Comments: prostate multivitamin with folic acid [Thera] 1 TABLET tablet 1 tab PO DAILY Label Comments: vitamin hydrocodone-acetaminophen 1 EACH tablet 1 tab PO TID Label Comments: TAKE 1 TABLET BY MOUTH EVERY 8 HOURS NEEDED FOR PAIN FOR UP TO 30 DAYS amlodipine 5 MG tablet 5 mg PO DAILY Label Comments: TAKE 1 TABLET BY MOUTH EVERY DAY quinapril 40 MG tablet 40 mg PO DAILY rosuvastatin 10 MG tablet 5 mg PO QODAY Label Comments: TAKE 1 TABLET BY MOUTH EVERY 48 HOURS. cholecalciferol (vitamin D3) 2,000 UNIT capsule 2,000 unit PO DAILY Fentanyl 1 EACH Patch.Td72 25 mcg TD Q72H Label Comments: has not been changed in a week tizanidine 4 MG capsule 4 mg PO Q8H PRN PRN (Reason: Spasms) Eliquis 5 mg tablet 5 mg PO BID metformin 500 mg tablet extended release 24 hr 500 mg PO BID Label Comments: TAKE 1 TABLET BY MOUTH EVERY DAY WITH BREAKFAST naloxone 4 mg/actuation spray,non-aerosol 2 mg INTRANASAL PRN PRN (Reason: OD) hydrochlorothiazide 25 MG tablet 12.5 mg PO DAILY Qty: 30 0RF Label Comments: water pill potassium chloride 20 mEq tablet extended release 40 meq PO DAILY Discontinued metoprolol tartrate 50 MG tablet 50 mg PO BID Label Comments: blood pressure/heart potassium chloride 10 MEQ tablet 10 meq PO BID Hold Instructions: Resume after completion of 40 M EQ daily potassium supplement Label Comments: supplement lorazepam 1 MG tablet 1 mg PO TID amoxicillin-pot clavulanate 875-125 mg tablet 1 tab PO BID Referrals / Follow Up: Alejandra Howell MD [Primary Care Provider] - Disposition Disposition (needs filled in before D/C Order can be placed): Home Health Service
--- NOTE | 2022-05-08 10:46 | DS.PCM_ITS ---
Providers Date of Admission: 04/29/22 Date of Discharge: 05/08/22 Primary Care Physician: Dr. Alejandra Howell MD Consultations 05/04/22 20:18 Consult: Infectious Disease Routine Consulting Provider: Glen Ernandez Reason for Consult: de-escalation of antibiotics, ? need for antibiotics EMERGENT Consult: No Notified: Yes Date Notified: 05/05/22 Time Notified: 08:44 Method of Notification: Answering Service 05/05/22 12:53 Consult: Gastroenterology Routine Consulting Provider: [facility] Reason for Consult: vomiting EMERGENT Consult: No Notified: Yes Date Notified: 05/05/22 Time Notified: 12:54 Method of Notification: Verbal Reason For Visit: A FIB RVR, NVD, WEAKNESS Diagnosis Discharge Diagnosis (1) Atrial fibrillation with rapid ventricular response: Status: Acute Code(s): I48.91 - Unspecified atrial fibrillation (2) Nausea & vomiting: Status: Acute Code(s): R11.2 - Nausea with vomiting, unspecified Plan 1. Paroxysmal A. fib-patient remains in A. fib at this time, his rate is controlled on medication #2 acute hypoxia-patient remains on nasal cannula oxygen at this time and will be weaned if possible #3 nausea and vomiting-secondary to gastritis, gastric ulceration, pyloric stenosis, and duodenal ulcers-continue present medication #4 type 2 diabetes-patient will have Accu-Cheks performed and sliding scale insulin will be used #5 hypokalemia-corrected at this time #6 essential hypertension-patient will remain on his present medications #7 chronic debility-patient is not a candidate to go to an extended care facility for rehab services, according to the he has not walked in 25 years. It is planned that the patient will go home at discharge from the hospital. 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 I will transition the patient over to oral Reglan and st op his IV Reglan. #9 acute malnutrition related to inadequate energy intake as evidenced by unintentional weight loss of 7.7 pounds x 1 week, estimated p.o. intake meeting less than 50% of estimated energy needs over 5 days-patient is on Ensure pudding twice daily with meals as tolerated, nutritional services is seeing patient Medications at Discharge Home Medications amitriptyline 25 mg tablet 50 mg PO BID sleep 12/13/13 glimepiride 4 mg tablet 4 mg PO BID diabetes 12/13/13 polyethylene glycol 3350 17 gram oral powder packet 17 g PO DAILY constipation 12/13/13 dutasteride 0.5 mg capsule (Avodart) 0.5 mg PO DAILY bladder 08/26/14 multivitamin with folic acid 400 mcg tablet (Thera) 1 tab PO DAILY supplement 08/26/14 amlodipine 5 mg tablet 5 mg PO DAILY blood pressure 05/31/19 cholecalciferol (vitamin D3) 50 mcg (2,000 unit) capsule 2,000 unit PO DAILY supplement 05/31/19 hydrocodone-acetaminophen 5-325mg 5mg-325mg 1 tab PO TID pain 05/31/19 quinapril 40 mg tablet 40 mg PO DAILY blood pressure 05/31/19 rosuvastatin 10 mg tablet 5 mg PO QODAY cholesterol 05/31/19 Fentanyl 25 mcg transdermal Q72H pain 04/05/20 tizanidine 4 mg capsule 4 mg PO Q8H PRN PRN Spasms 04/05/20 apixaban 5 mg tablet (Eliquis) 5 mg PO BID blood thinner 10/14/21 metformin 500 mg tablet,extended release 24 hr 500 mg PO BID DM 02/19/22 naloxone 4 mg/actuation nasal spray 2 mg intranasal PRN PRN OD 03/27/22 hydrochlorothiazide 25 mg tablet 12.5 mg PO DAILY blood pressure #30 tabs 04/27/22 potassium chloride 20 mEq tablet,extended release 40 meq PO DAILY supplement 04/29/22 lorazepam 1 mg tablet 0.5 mg PO TID PRN anxiety #0 tabs 05/08/22 metoclopramide HCl 5 mg tablet 5 mg PO TIDAC #60 tabs 05/08/22 metoprolol tartrate 50 mg tablet 75 mg PO BID #90 tabs 05/08/22 pantoprazole 40 mg tablet,delayed release (Protonix) 40 mg PO BID #60 tabs 05/08/22 sucralfate 1 gram tablet 1 g PO TIDAC #90 tabs 05/08/22 Medical Records Data Medical Nutrition Assessment Dietitian: Malnutrition Criteria Met Start: 04/30/22 07:57 Freq: Status: Active Protocol: Document 05/03/22 17:37 RMA (Rec: 05/03/22 17:38 RMA [id number]) Nutrition Malnutrition Evidence of Malnutrition Exists Yes Malnutrition (severe): Acute Illness/Injury Evidenced By Suboptimal Energy Intake ( Severe),Weight Loss (Severe) Intake Problem Inadequate Oral Intake Etiology related to swallowing difficulty/need for mechanically altered food Signs/Symptoms as evidenced by PO ~50% meals at best and refusal of ONS Status Active Problem Clinical Problem Acute Disease or Injury Related Malnutrition Etiology severe, acute malnutrition related to inadequate energy intake Signs/Symptoms as evidenced by unintentional wt loss of 7.7#/5% x 1 week; estimated PO intake meeting < 50% of estimated energy needs > 5 days Status Active Problem Recommendation Dietitian Recommendations/Changes Diet adjustment to Carbohydrate-Controlled with consistency as per ROTARY CUTTER FEEDER. Will d/c glucerna shake due to pt refusal. Will add ensure pudding BID w/ meals as tolerated. Consider Nilay BID as needed if PO does not improve at meals. Weight / BMI Weight Weight: 73.709 kg Body Mass Index (BMI) 30.6 ABG / Lab / Microbiology Data Result Diagrams: 05/05/22 07:20 05/03/22 18:00 Laboratory: Laboratory Results - last 24 hr 05/05/22 19:12: DIANA-1 Antibody <0.2, SS-A/Ro IgG Antibody 0.2, SS-B/La IgG A ntibody < 0.2, Sm (Patterson) Antibody <0.2, ASSISTANT DIRECTOR OF PLANT OPERATIONS Antibody <0.2, Scl-70 Scleroderma Ab <0.2, Double Strand DNA Ab <1, Centromere B Antibody <0.2 05/05/22 19:12: c-ANCA Antibody <1:20, Atypical p-ANCA <1:20, p-ANCA Antibody 1:80 H 05/07/22 11:07: POC Glucose 137 H 05/07/22 16:41: POC Glucose 202 H 05/07/22 21:19: POC Glucose 198 H 05/08/22 06:39: POC Glucose 162 H D/C Instructions Discharge Diet: No restrictions Weight Bearing Status: No weight bearing Discharge Plan Admission Admit Date/Time: 04/29/22 16:08 Primary Reason for Your Visit: Atrial fibrillation, nausea and vomiting Attending Provider: Efrain Monahan Primary Care Provider: Alejandra Howell Consulting Providers: Federico Maldonado ; Viktor Nation ; Glen Ernandez Instructions Additional Instructions / Restrictions: Use oxygen at 4 L/min at all times Resume your Eliquis in 1 week Discharge Orders/Prescriptions Prescriptions: New lorazepam 1 mg Tablet 0.5 mg PO TID PRN (Reason: anxiety) Qty: 0 0RF sucralfate 1 gram Tablet 1 g PO TIDAC Qty: 90 0RF metoclopramide HCl 5 mg Tablet 5 mg PO TIDAC Qty: 60 0RF Rx Instructions: Take until finished metoprolol tartrate 50 mg Tablet 75 mg PO BID Qty: 90 0RF pantoprazole [Protonix] 40 mg tablet,delayed release (DR/EC) 40 mg PO BID Qty: 60 1RF Continued amitriptyline 25 MG tablet 50 mg PO BID Label Comments: sleep glimepiride 4 MG tablet 4 mg PO BID Label Comments: diabetes polyethylene glycol 3350 17 GM powder in packet 17 g PO DAILY Label Comments: constipation dutasteride [Avodart] 0.5 MG capsule 0.5 mg PO DAILY Label Comments: prostate multivitamin with folic acid [Thera] 1 TABLET tablet 1 tab PO DAILY Label Comments: vitamin hydrocodone-acetaminophen 1 EACH tablet 1 tab PO TID Label Comments: TAKE 1 TABLET BY MOUTH EVERY 8 HOURS NEEDED FOR PAIN FOR UP TO 30 DAYS amlodipine 5 MG tablet 5 mg PO DAILY Label Comments: TAKE 1 TABLET BY MOUTH EVERY DAY quinapril 40 MG tablet 40 mg PO DAILY rosuvastatin 10 MG tablet 5 mg PO QODAY Label Comments: TAKE 1 TABLET BY MOUTH EVERY 48 HOURS. cholecalciferol (vitamin D3) 2,000 UNIT capsule 2,000 unit PO DAILY Fentanyl 1 EACH Patch.Td72 25 mcg TD Q72H Label Comments: has not been changed in a week tizanidine 4 MG capsule 4 mg PO Q8H PRN PRN (Reason: Spasms) Eliquis 5 mg tablet 5 mg PO BID metformin 500 mg tablet extended release 24 hr 500 mg PO BID Label Comments: TAKE 1 TABLET BY MOUTH EVERY DAY WITH BREAKFAST naloxone 4 mg/actuation spray,non-aerosol 2 mg INTRANASAL PRN PRN (Reason: OD) hydrochlorothiazide 25 MG tablet 12.5 mg PO DAILY Qty: 30 0RF Label Comments: water pill potassium chloride 20 mEq tablet extended release 40 meq PO DAILY Discontinued metoprolol tartrate 50 MG tablet 50 mg PO BID Label Comments: blood pressure/heart potassium chloride 10 MEQ tablet 10 meq PO BID Hold Instructions: Resume after completion of 40 M EQ daily potassium supplement Label Comments: supplement lorazepam 1 MG tablet 1 mg PO TID amoxicillin-pot clavulanate 875-125 mg tablet 1 tab PO BID Referrals / Follow Up: Alejandra Howell MD [Primary Care Provider] - Disposition Disposition (needs filled in before D/C Order can be placed): Home Health Servi ce
[2022-05-08] MEDS: Sucralfate 1 GM Tablet PO (11:17)
[2022-05-08 11:51] LABS: Bedside Glucose 164 mg/dL (74-106)
--- NOTE | 2022-05-08 12:15 | NURSING ---
I spoke with Polina with [facility] informing her of pt's d/c.
[2022-05-08] MEDS: Furosemide 20 MG/2 ML VIAL IV (16:08)
[2022-05-08 16:51] LABS: Base Excess 5 mmol/L (-2 to +2); Bicarbonate 28.6 mmol/L (22-26); Blood Gas Specimen Type ART; O2 Delivery Device Cannula; PO2 73 mmHG (75-100); SITE L Radial; SO2 95 % (95-99); Total Carbon Dioxide 30 mmol/L; pCO2 39.4 mmHg (35-45); pH 7.47 (7.35-7.45)
[2022-05-08 16:55] LABS: Bedside Glucose 217 mg/dL (74-106)
--- NOTE | 2022-05-08 17:03 | PN.HOSP_ITS ---
Subjective Subjective Patient was seen and examined earlier today, I have prepared to discharge him home, his came in and nursing thinks that she gave him something to eat or drink and he appeared to have aspirated according to nursing. His oxygen demand went up to 9 L, at the time of this dictation, I have ordered an ABG to verify the patient's hypoxia. I have decided to cancel his discharge at this time, patient is a DNR CC arrest with no intubation, we will supply supportive care at this time to him, I have given him 20 of Lasix and an aerosol treatment. Objective Data Objective Data Vital Signs: Vital Signs Temp Pulse Resp BP Pulse Ox O2 Del Method O2 Flow Rate 98.3 F 90 18 128/71 H 87 High Flow 9 05/08/22 15:53 05/08/22 15:53 05/08/22 15:53 05/08/22 15:53 05/08/22 16:18 05/08/22 16:18 05/08/22 16:18 FiO2 93 05/01/22 08:03 Oxygen Flow Rate (L/min) [At 3 REST with Oxygen] Oxygen Flow Rate (L/min) [At 0 REST on Room Air] Oxygen Flow Rate (L/min) 9 Oxygen Delivery Method High Flow Weight: 73.709 kg Body Mass Index (BMI) 30.6 Intake & Output: Intake and Output for Last 24 Hours 05/06/22 05/07/22 05/08/22 23:59 23:59 23:59 Intake Total 2368.00 / 2368.00 3371.25 / 3371.25 1054.25 / 1054.25 Output Total 1375 / 2075 3100 / 3100 1500 / 1500 Balance 993.00 / 293.00 271.25 / 271.25 -445.75 / -445.75 Medical Nutrition Assessment Dietitian: Malnutrition Criteria Met Start: 04/30/22 07:57 Freq: Status: Active Protocol: Document 05/03/22 17:37 RMA (Rec: 05/03/22 17:38 RMA [id number]) Nutrition Malnutrition Evidence of Malnutrition Exists Yes Malnutrition (severe): Acute Illness/Injury Evidenced By Suboptimal Energy Intake ( Severe),Weight Loss (Severe) Intake Problem Inadequate Oral Intake Etiology related to swallowing difficulty/need for mechanically altered food Signs/Symptoms as evidenced by PO ~50% meals at best and refusal of ONS Status Active Problem Clinical Problem Acute Disease or Injury Related Malnutrition Etiology severe, acute malnutrition related to inadequate energy intake Signs/Symptoms as evidenced by unintentional wt loss of 7.7#/5% x 1 week; estimated PO intake meeting < 50% of estimated energy needs > 5 days Status Active Problem Recommendation Dietitian Recommendations/Changes Diet adjustment to Carbohydrate-Controlled with consistency 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 Will d/c glucerna shake due to pt refusal. Will add ensure pudding BID w/ meals as tolerated. Consider Nilay BID as needed if PO does not improve at meals. Lab / Micro Data Result Diagrams: 05/05/22 07:20 05/03/22 18:00 Labs: Laboratory Results - last 24 hr 05/05/22 19:12: DIANA-1 Antibody <0.2, SS-A/Ro IgG Antibody 0.2, SS-B/La IgG Antibody < 0.2, Sm ([place]) Antibody <0.2, CRIMINAL JUSTICE SOCIAL WORKER Antibody <0.2, Scl-70 Scleroderma Ab <0.2, Double Strand DNA Ab <1, Centromere B Antibody <0.2 05/05/22 19:12: c-ANCA Antibody <1:20, Atypical p-ANCA <1:20, p-ANCA Antibody 1:80 H 05/07/22 16:41: POC Glucose 202 H 05/07/22 21:19: POC Glucose 198 H 05/08/22 06:39: POC Glucose 162 H 05/08/22 11:14: POC Glucose 164 H 05/08/22 15:53: POC Glucose 217 H ABG Data ABG results: ABG 05/08/22 16:47 Specimen Type ART Sample Site L Radial pH 7.47 H Bicarbonate Actual 28.6 H Total CO2 30 Base Excess 5 H O2 Saturation 95 ABG pCO2 39.4 ABG pO2 73 L O2 Delivery Device Cannula Liter Flow 9.0 Rhythm Strip Rhythm Strip: A-fib Rate: 124 Ectopy: None Physical Exam Narrative Patient is somnolent, he minimally responds to simple questions Constitutional Narrative: Patient appears older than stated age, he appears frail General Appearance: cooperative and well developed HEENT normocephalic, head/scalp atraumatic and moist oral mucous membranes Eyes PERRL, EOMs intact bilaterally and conjunctivae normal Neck supple, no JVD and thyroid normal General: trachea midline Resp normal respiratory effort, no retractions and no use of accessory muscles Resp Narrative: Decreased breath sounds are noted bilaterally Auscultation: Negative for rales, rhonchi or wheezes Cardio S1 normal heart sound, S2 normal heart sound, no murmurs, no rub and no gallops Cardio Narrative: Heart rate and rhythm is irregular GI normal to inspection, nondistended, normoactive bowel sounds, soft to palpation, non-tender and non-distended Extremity Extremity Narrative: 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 Paroxysmal A. fib-patient remains in A. fib at this time, his rate is controlled on medication #2 acute hypoxia-patient remains on nasal cannula oxygen at this time, his oxygen demand increased today, I have written for an ABG. I will refrain from administering any sedate of agents to the patient. #3 nausea and vomiting-secondary to gastritis, gastric ulceration, pyloric stenosis, and duodenal ulcers-continue present medication #4 type 2 diabetes-patient will have Accu-Cheks performed and sliding scale insulin will be used #5 hypokalemia-corrected at this time #6 essential hypertension-patient will remain on his present medications #7 chronic debility-patient is not a candidate to go to an extended care facility for rehab services, according to the he has not walked in 25 years. It is planned that the patient will go home at discharge from the hospital. 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 I will transition the patient over to oral Reglan and stop his IV Reglan. #9 acute malnutrition related to inadequate energy intake as evidenced by unintentional weight loss of 7.7 pounds x 1 week, estimated p.o. intake meeting less than 50% of estimated energy needs over 5 days-patient is on Ensure pudding twice daily with meals as tolerated, nutritional services is seeing patient Patient is a DNR CC arrest with no intubation, prognosis remains guarded Charges/Coding Visit Charges Inpatient E&M: 65498 Subs Hosp L2
--- NOTE | 2022-05-08 17:48 | RAD_ITS ---
STUDY: X-RAY CHEST REASON FOR EXAM: Male, 81 years old. Hypoxia. Weakness. History of atrial fibrillation. TECHNIQUE: Single AP portable view of the chest. COMPARISON: May 06, 2022. FINDINGS: Elevated right hemidiaphragm. There is persistent perihilar densities throughout both lungs. Question minimal clearing at the left lung base. There is no demonstrated pleural abnormality. Normal size heart. There is no change in the mediastinum, michael, pulmonary arteries or aorta. No osseous changes. There is no demonstrated abnormality of the visualized soft tissue structures of the upper abdomen. RAD/Chest 1 View (Portable) IMPRESSION: Persistent infiltrates with question of mild clearing of the left lung base. Electronically Signed: Rajat Saul DO at 18:38 EST ,
[2022-05-08] MEDS: fentaNYL 25 MCG Patch TD (18:27)
[2022-05-08] MEDS: 0.9% Saline Lock 10 ML Syringe IV (23:15)
[2022-05-08] MEDS: Menthol/Lanolin/Calamine/Znox 113 GM Tube 1 APPLIC TOPICAL (23:15)
[2022-05-08] MEDS: Rosuvastatin Calcium 5 MG Tablet PO (23:16)
[2022-05-08 23:50] LABS: Bedside Glucose 191 mg/dL (74-106)
[2022-05-09] VITALS (25 sets, daily range): BP systolic 103–160; BP diastolic 58–86; PULSE 78–108; RESP 12–32; TEMP 36.7–38.1; O2SAT 90–99
--- NOTE | 2022-05-09 04:46 | NURSING ---
pt on 8L high flow and was 100%. This nurse continued to decrease patients O2 and patient currently is 97% on 4L NC. Pt resting comfortably with eyes closed, call light within reach.
--- NOTE | 2022-05-09 05:55 | RAD_ITS ---
STUDY: X-RAY CHEST REASON FOR EXAM: Male, 81 years old. hypoxia TECHNIQUE: Single AP portable view of the chest. COMPARISON: May 08, 2022. FINDINGS: Persistent elevated right hemidiaphragm. Patchy opacities throughout the right lung. Patchy left perihilar densities. No effusions. No pneumothorax. Normal size heart. Normal mediastinum and michael. Normal visualized pulmonary arteries. Normal visualized aortic arch and descending thoracic aorta. Normal visualized thoracic spine. Normal visualized ribs, clavicles, and shoulders. There is no demonstrated abnormality of the visualized soft tissue structures of the upper abdomen. RAD/Chest 1 View (Portable) IMPRESSION: No significant change in patchy lung opacities bilaterally, right greater than left. Electronically Signed: Bhavesh Tracy MD at 7:15 EST Reading Location ID and State: [id number] / , Service support ,
[2022-05-09] MEDS: Sucralfate 1 GM Tablet PO ×2 (06:48→11:46)
[2022-05-09] MEDS: Metoclopramide 5 MG TABLET PO ×2 (06:48→11:46)
[2022-05-09] MEDS: Insulin Lispro 100 UNIT/ML INSULN.PEN SC ×4 (06:48→20:36)
[2022-05-09 07:05] LABS: Bedside Glucose 192 mg/dL (74-106)
[2022-05-09] MEDS: Menthol/Lanolin/Calamine/Znox 113 GM Tube 1 APPLIC TOPICAL ×2 (08:46→20:36)
[2022-05-09] MEDS: Finasteride 5 MG Tablet PO (08:55)
[2022-05-09] MEDS: Metoprolol Tartrate 50 MG Tablet 75 MG PO (08:55)
[2022-05-09] MEDS: Amitriptyline 25 MG Tablet 50 MG PO (08:56)
[2022-05-09] MEDS: amLODIPine 5 MG Tablet PO (08:57)
--- NOTE | 2022-05-09 09:25 | NURSING ---
0925 Patient tolerated meds in pudding this morning along with sips of water in between. Patient had no coughing fits. Fed patient applesauce with water inbetween bites. Patient tolerated feeding. No cough, patient able to swallow without complications.
[2022-05-09] MEDS: oxyCODONE 5 MG Tablet PO (11:52)
[2022-05-09] MEDS: Albuterol 2.5 MG/3 ML VIAL.NEB. INHALATION ×2 (12:40→19:33)
[2022-05-09 12:46] LABS: Gastrin, Serum 12 pg/mL (0-115)
[2022-05-09 13:10] LABS: Bedside Glucose 222 mg/dL (74-106)
[2022-05-09 16:26] LABS: Bedside Glucose 237 mg/dL (74-106)
--- NOTE | 2022-05-09 17:29 | PN.HOSP_ITS ---
Subjective Subjective Patient was seen and examined today, earlier today he was on nasal cannula oxygen at 3 L, he seemed to be stable for discharge home, he was fed by nursing and appeared to cough and aspirate, since that time he has been on high flow oxygen. Patient is now n.p.o., I asked nursing to asked the patient's whether she would consider a PEG tube insertion and according to nursing, stated that she would not be in favor of a PEG tube. He will be seen by speech therapy tomorrow, I have canceled his discharge. Objective Data Objective Data Vital Signs: Vital Signs Temp Pulse Resp BP Pulse Ox O2 Del Method O2 Flow Rate 98.3 F 85 22 H 140/63 H 91 Nasal Cannula 15 05/09/22 16:56 05/09/22 16:56 05/09/22 16:56 05/09/22 16:56 05/09/22 16:56 05/09/22 16:56 05/09/22 16:56 FiO2 75 05/09/22 12:29 Oxygen Flow Rate (L/min) [At 3 REST with Oxygen] Oxygen Flow Rate (L/min) [At 0 REST on Room Air] Oxygen Flow Rate (L/min) 15 Oxygen Delivery Method Nasal Cannula Weight: 72.5 kg Body Mass Index (BMI) 30.6 Intake & Output: Intake and Output for Last 24 Hours 05/07/22 05/08/22 05/09/22 23:59 23:59 23:59 Intake Total 3371.25 / 3371.25 1164.25 / 1164.25 160 / 160 Output Total 3100 / 3100 1500 / 1800 1650 / 1650 Balance 271.25 / 271.25 -335.75 / -635.75 -1490 / -1490 Medical Nutrition Assessment Dietitian: Malnutrition Criteria Met Start: 04/30/22 07:57 Freq: Status: Active Protocol: Document 05/03/22 17:37 RMA (Rec: 05/03/22 17:38 RMA [id number]) Nutrition Malnutrition Evidence of Malnutrition Exists Yes Malnutrition (severe): Acute Illness/Injury Evidenced By Suboptimal Energy Intake ( Severe),Weight Loss (Severe) Intake Problem Inadequate Oral Intake Etiology related to swallowing difficulty/need for mechanically altered food Signs/Symptoms as evidenced by PO ~50% meals at best and refusal of ONS Status Active Problem Clinical Problem Acute Disease or Injury Related Malnutrition Etiology severe, acute malnutrition related to inadequate energy intake Signs/Symptoms as evidenced by unintentional wt loss of 7.7#/5% x 1 week; estimated PO intake meeting < 50% of estimated energy needs > 5 days Status Active Problem Recommendation Dietitian Recommendations/Changes Diet adjustment to Carbohydrate-Controlled with consistency as per [employer]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 Will d/c glucerna shake due to pt refusal. Will add ensure pudding BID w/ meals as tolerated. Consider Nilay BID as needed if PO does not improve at meals. Lab / Micro Data Result Diagrams: 05/05/22 07:20 05/03/22 18:00 Labs: Laboratory Results - last 24 hr 05/05/22 19:12: Gastrin 12 05/08/22 23:02: POC Glucose 191 H 05/09/22 06:30: POC Glucose 192 H 05/09/22 11:44: POC Glucose 222 H 05/09/22 15:59: POC Glucose 237 H Radiography Diagnostic Testing: Radiology Impression Chest X-Ray 05/08/22 17:48 IMPRESSION: Persistent infiltrates with question of mild clearing of the left lung base. Electronically Signed: Rajat Saul DO at 18:38 EST , Chest X-Ray 05/09/22 05:55 IMPRESSION: No significant change in patchy lung opacities bilaterally, right greater than left. Electronically Signed: Bhavesh Tracy MD at 7:15 EST Reading Location ID and State: [id number] / , Service support , Rhythm Strip Rhythm Strip: A-fib Rate: 124 Ectopy: None Physical Exam Narrative Patient is somnolent, he minimally responds to simple questions Constitutional Narrative: Patient appears older than stated age, he appears frail General Appearance: cooperative and well developed HEENT normocephalic, head/scalp atraumatic and moist oral mucous membranes Eyes PERRL, EOMs intact bilaterally and conjunctivae normal Neck supple, no JVD and thyroid normal General: trachea midline Resp normal respiratory effort, no retractions and no use of accessory muscles Resp Narrative: Decreased breath sounds are noted bilaterally Auscultation: Negative for rales, rhonchi or wheezes Cardio S1 normal heart sound, S2 normal heart sound, no murmurs, no rub and no gallops Cardio Narrative: Heart rate and rhythm is irregular GI normal to inspection, nondistended, normoactive bowel sounds, soft to palpation, non-tender and non-distended Extremity Extremity Narrative: Bilateral mcljf-[id number] amputations which are remote are noted Skin no rashes or lesions noted General Skin Exam: no breakdown Neuro oriented x3, CN's II-XII intact bilaterally, no focal motor deficits and no sensory deficits noted Sensorium / Orientation: Patient is somnolent Speech: Patient only speaks a few words Psych Psych Narrative: Affect is flat, he minimally responds to questions Assessment & Plan Assessment/Plan (1) Nausea & vomiting: PLAN: Plan 1.? Paroxysmal A. fib-patient remains in A. fib at this time, his rate is controlled on medication #2 acute hypoxia-patient remains on high flow nasal cannula oxygen at this time, his oxygen demand increased today, I believe the patient did have an episode of aspiration today, he is on high flow oxygen at this time. Patient is n.p.o. at this time #3 nausea and vomiting-secondary to gastritis, gastric ulceration, pyloric stenosis, and duodenal ulcers-continue present medication #4 type 2 diabetes-patient will have Accu-Cheks performed and sliding scale insulin will be used #5 hypokalemia-corrected at this time #6 essential hypertension-patient will remain on his present medications #7 chronic debility-patient is not a candidate to go to an extended care facility for rehab services, according to the he has not walked in 25 years.? It is planned that the patient will go home at discharge from the hospital. 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 I will transition the patient over to oral Reglan and stop his IV Reglan. #9 acute malnutrition related to inadequate energy intake as evidenced by unintentional weight loss of 7.7 pounds x 1 week, estimated p.o. intake meeting less than 50% of estimated energy needs over 5 days-patient is on Ensure pudding twice daily with meals as tolerated, nutritional services is seeing patient #10 oropharyngeal dysphagia with aspiration-patient will need to be seen by speech therapy, I will need to talk with the concerning alternate nutritional means including PEG tube insertion. Charges/Coding Visit Charges Inpatient E&M: 65226 Subs Hosp L2
[2022-05-09] MEDS: LORazepam 2 MG/ML Syringe 1 MG IV (21:00)
[2022-05-09 22:01] LABS: Bedside Glucose 184 mg/dL (74-106)
--- NOTE | 2022-05-09 23:16 | NURSING ---
pt pulling on mask, encourage pt to leave on thru the night and then we will put him on nasal in am. pt nodded head that he understand
[2022-05-10] VITALS (14 sets, daily range): BP systolic 118–153; BP diastolic 57–64; PULSE 88–120; RESP 12–30; TEMP 36.8–37.9; O2SAT 92–98
[2022-05-10] MEDS: Insulin Lispro 100 UNIT/ML INSULN.PEN SC (05:30)
[2022-05-10 05:51] LABS: Bedside Glucose 201 mg/dL (74-106)
[2022-05-10] MEDS: Albuterol 2.5 MG/3 ML VIAL.NEB. INHALATION ×3 (06:44→21:45)
--- NOTE | 2022-05-10 07:58 | RAD_ITS ---
STUDY: X-RAY CHEST REASON FOR EXAM: Male, 81 years old. Follow-up of pneumonia. TECHNIQUE: Single frontal view of the chest. COMPARISON: May 09, 2022. FINDINGS: Decrease in diffuse interstitial pattern. Stable elevation of the right hemidiaphragm small right pleural effusion, decreased in size. Stable cardiomegaly. Normal mediastinum and michael. Normal visualized pulmonary arteries. Aortic tortuosity unchanged. Normal visualized thoracic spine. Normal visualized ribs, clavicles, and shoulders. There is no demonstrated abnormality of the visualized soft tissue structures of the upper abdomen. RAD/Chest 1 View (Portable) IMPRESSION: Cardiomegaly with radiographic improvement with decrease in right pleural effusion and an diffuse interstitial pattern. Electronically Signed: Dylon Sosa, at 9:05 EST ,
[2022-05-10] MEDS: Menthol/Lanolin/Calamine/Znox 113 GM Tube 1 APPLIC TOPICAL (09:28)
[2022-05-10] MEDS: 0.9% Saline Lock 10 ML Syringe IV ×2 (09:28→16:21)
[2022-05-10 11:45] LABS: Bedside Glucose 183 mg/dL (74-106)
--- NOTE | 2022-05-10 16:04 | PN.HOSP_ITS ---
Subjective Subjective Patient was seen and examined today, I talked with his who was in the room at the time my examination she wanted to know what the options were concerning the patient's present care and condition, I told her the option would be for him to go to hospice as a comfort care, we could also turn down his oxygen in the hospital and medicate the patient for comfort and if the patient , that is what would occur, she also asks whether the patient could go home and I said that he was on too high flow oxygen to be transported home at this time. Patient wanted to talk with her other family members. After short period of time, she told nursing that she wants her removed from the BiPAP, medicated with morphine for comfort, and transition to nasal cannula oxygen-she knows that this will probably result in the patient passing, the patient's CODE STATUS will be changed to comfort care. Objective Data Objective Data Vital Signs: Vital Signs Temp Pulse Resp BP Pulse Ox O2 Del Method O2 Flow Rate 98.2 F 104 H 27 H 139/63 H 93 Bi-pap 15 05/10/22 10:20 05/10/22 13:17 05/10/22 13:17 05/10/22 10:20 05/10/22 13:17 05/10/22 13:58 05/09/22 20:45 FiO2 60 05/10/22 13:58 Oxygen Flow Rate (L/min) [At 3 REST with Oxygen] Oxygen Flow Rate (L/min) [At 0 REST on Room Air] Oxygen Flow Rate (L/min) 15 Oxygen Delivery Method Bi-pap Weight: 72.3 kg Body Mass Index (BMI) 30.6 Intake & Output: Intake and Output for Last 24 Hours 05/08/22 05/09/22 05/10/22 23:59 23:59 23:59 Intake Total 1164.25 / 1164.25 270 / 270 110 / 110 Output Total 1500 / 1800 1650 / 1650 400 / 400 Balance -335.75 / -635.75 -1380 / -1380 -290 / -290 Medical Nutrition Assessment Dietitian: Malnutrition Criteria Met Start: 04/30/22 07:57 Freq: Status: Active Protocol: Document 05/10/22 12:43 RMA (Rec: 05/10/22 12:43 RMA [id number]) Nutrition Malnutrition Evidence of Malnutrition Exists Yes Malnutrition (severe): Acute Illness/Injury Evidenced By Suboptimal Energy Intake ( Severe),Weight Loss (Severe) Intake Problem Inadequate Oral Intake Etiology related to swallowing difficulty/need for mechanically altered food Signs/Symptoms as evidenced by PO ~50% meals at best and refusal of ONS Status Active Problem Clinical Problem Acute Disease or Injury Related Malnutrition Etiology severe, acute malnutrition related to inadequate energy intake Signs/Symptoms as evidenced by unintentional wt loss of 7.7#/5% x 1 week; estimated PO intake meeting < 50% of estimated energy needs > 5 days Status Active Problem Recommendation Dietitian Recommendations/Changes Liberalized Regular diet as indicated if deemed safe for PO with consistency as per CARPENTER REPAIR . Continue ensure pudding BID w/ meals as tolerated. Will add Nilay BID as tolerated. PEG/TF vs PO diet; aspiration risk/dysphagia noted. Pt refuses most oral nutrition supplements. Lab / Micro Data Result Diagrams: 05/05/22 07:20 05/03/22 18:00 Labs: Laboratory Results - last 24 hr 05/09/22 15:59: POC Glucose 237 H 05/09/22 20:35: POC Glucose 184 H 05/10/22 05:28: POC Glucose 201 H 05/10/22 10:56: POC Glucose 183 H Radiography Diagnostic Testing: Radiology Impression Chest X-Ray 05/10/22 07:58 IMPRESSION: Cardiomegaly with radiographic improvement with decrease in right pleural effusion and an diffuse interstitial pattern. Electronically Signed: Dylon Sosa, at 9:05 EST , Rhythm Strip Rhythm Strip: A-fib Rate: 124 Ectopy: None Physical Exam Narrative Patient is somnolent, he minimally responds to simple questions Constitutional Narrative: Patient appears older than stated age, he appears frail General Appearance: cooperative and well developed HEENT normocephalic, head/scalp atraumatic and moist oral mucous membranes Eyes PERRL, EOMs intact bilaterally and conjunctivae normal Neck supple, no JVD and thyroid normal General: trachea midline Resp normal respiratory effort, no retractions and no use of accessory muscles Resp Narrative: Decreased breath sounds are noted bilaterally Auscultation: Negative for rales, rhonchi or wheezes Cardio S1 normal heart sound, S2 normal heart sound, no murmurs, no rub and no gallops Cardio Narrative: Heart rate and rhythm is irregular GI normal to inspection, nondistended, normoactive bowel sounds, soft to palpation, non-tender and non-distended Extremity Extremity Narrative: Bilateral jczcc-[id number]-cbrj amputations which are remote are noted Skin no rashes or lesions noted General Skin Exam: no breakdown Neuro oriented x3, CN's II-XII intact bilaterally, no focal motor deficits and no sensory deficits noted Sensorium / Orientation: Patient is somnolent Speech: Patient only speaks a few words Psych Psych Narrative: Affect is flat, he minimally responds to questions, he appears to understand questions Assessment & Plan Assessment/Plan (1) Nausea & vomiting: PLAN: Plan 1.? Paroxysmal A. fib-patient remains in A. fib at this time, his rate is contro lled on medication #2 acute hypoxia-patient remains on BiPAP at this time after his aspiration even t yesterday, again he will be transition to high flow nasal cannula and medicated for comfort, requested this and the patient agreed with the 's medical plan. Patient is a DNR comfort care. #3 nausea and vomiting-secondary to gastritis, gastric ulceration, pyloric stenosis, and duodenal ulcers-continue present medication #4 type 2 diabetes-patient will have Accu-Cheks performed and sliding scale insulin will be used #5 hypokalemia-corrected at this time #6 essential hypertension-patient will remain on his present medications #7 chronic debility-patient is not a candidate to go to an extended care facility for rehab services, according to the he has not walked in 25 years.? It is planned that the patient will go home at discharge from the hospital. 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 I will transition the patient over to oral Reglan and stop his IV Reglan. #9 acute malnutrition related to inadequate energy intake as evidenced by unintentional weight loss of 7.7 pounds x 1 week, estimated p.o. intake meeting less than 50% of estimated energy needs over 5 days-patient is on Ensure pudding twice daily with meals as tolerated, nutritional services is seeing patient #10 oropharyngeal dysphagia with aspiration-again patient's desires the patient's BiPAP to be removed and the patient be made comfortable, I put the orders in for this, patient is DNR CC at this time Total clinical time spent by myself addressing the patient's medical issues, reviewing the data, and collaborating with patient's care team: 35 minutes Charges/Coding Visit Charges Inpatient E&M: 94198 Subs Hosp L2
[2022-05-10] MEDS: Morphine 4 MG/ML Syringe IV ×2 (16:21→23:19)
--- NOTE | 2022-05-10 23:23 | CPS ---
patient requested to have the treatment stopped after 1 minute.
[2022-05-11 03:00] VITALS: PULSE 103
[2022-05-11 03:33] VITALS: BP 130/56; PULSE 105; RESP 28; TEMP 36.5; O2SAT 92
[2022-05-11] MEDS: Morphine 4 MG/ML Syringe IV ×3 (03:41→10:24)
[2022-05-11] MEDS: 0.9% Saline Lock 10 ML Syringe IV ×4 (03:41→15:12)
[2022-05-11 06:44] VITALS: O2SAT 93
[2022-05-11 07:00] VITALS: PULSE 109
[2022-05-11] MEDS: LORazepam 2 MG/ML Syringe 1 MG IV (09:45)
[2022-05-11 10:21] VITALS: BP 142/67; PULSE 124; RESP 14; TEMP 36.5; O2SAT 88
[2022-05-11 15:00] VITALS: PULSE 118
[2022-05-11] MEDS: Morphine 2 MG/ML Syringe IV (15:09)
[2022-05-11] MEDS: fentaNYL 25 MCG Patch TD (17:36)
--- NOTE | 2022-05-11 18:00 | WOUNDNOTE ---
In room with ANA Mace. no apical pulse noted. no respirations. present at bedside. comforted at this tme.
--- NOTE | 2022-05-11 18:00 | NURSING ---
At bedside with Ana Lilia, at bedside. Pt had No pulse, pt time of 1800. comforted at this time.
--- NOTE | 2022-05-11 18:05 | WOUNDNOTE ---
Dr Armenta notified of patient's .
--- NOTE | 2022-05-11 18:41 | WOUNDNOTE ---
In room with ANA Mace. no apical pulse noted. present at bedside. comfort provided.
--- NOTE | 2022-05-11 19:05 | EXP.PCM_ITS ---
Preliminary Cause of Preliminary Cause of Preliminary Cause of : Aspiration and resulting hypoxic respiratory failure Date of Admission: 04/29/22 Date of : 05/11/22 Principle Diagnosis 1. Chronic aspiration due to oropharyngeal dysphagia #2 acute hypoxic respiratory failure secondary to #1 #3 nausea and vomiting secondary to gastritis, gastric ulceration, pyloric stenosis, and duodenal ulcers #4 paroxysmal A. fib #5 acute protein and caloric malnutrition #6 chronic debility #7 type 2 diabetes Problem List: Active and Suspected Problems (Updated 05/06/22 @ 09:[address] Torres Friend, DO) Duodenal bulb ulcer (Acute) Nausea & vomiting (Acute) Gastroenteritis (Acute) Atrial fibrillation with rapid ventricular response (Acute) Acute hypokalemia (Acute) Generalized weakness (Acute) History of diabetes mellitus (Acute) Chronic anticoagulation (Acute) Hospital Course This 81-year-old white male was seen in the emergency room at [facility] with complaints of nausea and vomiting and poor oral intake along with generalized fatigue. Patient had been hospitalized here 04/23/2022 - 04/28/2022, at the time he was discharged, he refused to go to a [facility] at discharge to home with home health. Visiting nurse at his home directed patient to go to the emergency room for evaluation. Chest x-ray in the emergency room showed no acute changes that would suggest pneumonia, EKG done in the emergency room showed A. fib with a rapid ventricular response 124, in the emergency room the patient was given 20 mg IV of Cardizem bolus and started on a Cardizem drip. Patient was admitted to PCU and eventually his Cardizem drip was discontinued and he was placed on rate limiting medication. Patient continued to have poor oral intake and appeared frail and weak, he underwent an EGD which showed gastric and duodenal ulcers along with pyloric stenosis. Patient did poorly during his hospitalization and declined after 2 episodes of what appeared to be aspiration. The last episode of aspiration that the patient had on 05/09/2022 caused him to be on high flow oxygen, conversation was carried out with the patient's on 05/10/22 and several options were presented to her regarding his care-one of which was hospice, patient's wanted to take the patient home but I had to explain to her that he was on too high of an oxygen requirement to go home. I had further conversations with the patient's on 05/11/2022, she wanted the patient to be taken off oxygen and medicated for respiratory discomfort. On that date, I medicated the patient with morphine and remove the patient's oxygen, the patient passed at 1800-hour on 05/11/2022-cause of was respiratory failure from chronic aspiration. Total clinical time spent by myself addressing the patient's medical issues, reviewing the patient's medical data, talking with the patient's family member, and collaborating with patient's care team: 32 minutes Visit Charges Inpatient E&M: 10966 Disch Hosp >30min
== END 2022-05-11 21:03 | DRG 308 ==
LOC: ED 15:59 → PCU 16:12
PROVIDERS: Hospitalist; Internal Medicine; Internal Medicine Gastroenterology; Admitting Provider Internal Medicine; Emergency Provider Emergency Medicine; PCP Internal Medicine; Visit Provider Internal Medicine
PROC: 0DJ08ZZ Inspection of Upper Intestinal Tract, Via Natural or Artificial Opening Endoscopic (ICD-10-PCS; CPT 43235; principal; 2022-05-05 14:25)
DX: I48.0 Paroxysmal atrial fibrillation (principal); G93.41 Metabolic encephalopathy; J96.01 Acute respiratory failure with hypoxia; J69.0 Pneumonitis due to inhalation of food and vomit; E43 Unspecified severe protein-calorie malnutrition; K26.4 Chronic or unspecified duodenal ulcer with hemorrhage; K31.1 Adult hypertrophic pyloric stenosis; E87.0 Hyperosmolality and hypernatremia; N30.00 Acute cystitis without hematuria; E11.9 Type 2 diabetes mellitus without complications; E87.8 Other disorders of electrolyte and fluid balance, not elsewhere classified; E87.6 Hypokalemia; I10 Essential (primary) hypertension; K52.9 Noninfective gastroenteritis and colitis, unspecified; K44.9 Diaphragmatic hernia without obstruction or gangrene; K29.70 Gastritis, unspecified, without bleeding; K25.9 Gastric ulcer, unspecified as acute or chronic, without hemorrhage or perforation; Z79.84 Long term (current) use of oral hypoglycemic drugs; R62.7 Adult failure to thrive; Z51.5 Encounter for palliative care; R53.81 Other malaise; R63.4 Abnormal weight loss; Z66 Do not resuscitate; R13.12 Dysphagia, oropharyngeal phase; K26.9 Duodenal ulcer, unspecified as acute or chronic, without hemorrhage or perforation; Z86.73 Personal history of transient ischemic attack (TIA), and cerebral infarction without residual deficits
CPT/HCPCS: 36415; 36600; 71045; 80048; 80061; 81001; 82550; 82803; 82941; 82962; 83735; 84100; 84443; 84484; 85025; 86225; 86235; 86256; 88305; 88341; 88342; 92507; 92526; 92610; 93005; 94002; 94003; 94640; 94762; 97110; 97162; 97166; 97530; 97802; 99251; 99285; J2185; J7030; J7040; J7120; A4216; G0463; J1940; J2405